=== PATIENT | female | born 1955 | race Caucasian/White ===

== ENCOUNTER 2016-05-07 08:59 | Inpatient (IN) | payer OTHER ==
[~2016-05-07] VITALS: Ht 144.8 cm; Wt 38.1 kg
[~2016-05-07 08:59] MED LIST: ACEPHEN650 M1 PR; ACETAMINOPHEN325 M2 PO; ALBUTEROL 3 ML3 ML INH; ALBUTEROL0.09 MG/A1 INH; ALBUTEROL2.5 MG/3 M INH/SOL; ALENDRONATE SOD70 M2 PO; ALPRAZOLAM0.25 MG PO; ALPRAZOLAM0.5 M4 PO; ALPRAZOLAM0.5 MG PO; ALPRAZOLAM1 MG PO; APRESOLINE50 MG PO; ASPIR 8181 MG PO; AUGMENTIN 875 M1 TAB PO; AUGMENTIN 875-1 EACH PO; AUGMENTIN 875875 MG PO; AZITHROMYCIN250 M1 PO; AZITHROMYCIN250 MG PO; BACITRACIN OINT30 GM EXT; BENZONATATE100 MG PO; BISACODYL10 M1 RC; CARAFATE 1GM1000 MG PO; CYCLOBENZAPRINE10 M1 PO; CYCLOBENZAPRINE10 M3 PO; DELTASONE20 MG PO; DELTASONE5 MG PO; DILAUDID2 M1 PO; DILAUDID2 MG PO; DILAUDID4 M1 PO; DOLOPHINE10 MG PO; FLEET ENEMA133 ML RC; FLEXERIL 10MG T10 MG PO; FLEXERIL 5MG TAB5 MG PO; FLEXERIL10 MG PO; GUAIFENESIN ER600 MG PO; HYDRALAZINE HCL10 M1 PO; HYDRALAZINE HCL50 MG PO; HYDRALAZINE HYD25 MG; HYDRALAZINE10 MG PO; HYDROMORPHONE HC2 MG PO; HYDROXYZINE50 MG PO; LIDOCAINE1 EACH TOP; LIDODERM 5% PAT1 PAT TOP; MAGNESIUM400 MG PO; MEDROL DOSEPAK1 PAC PO; MELATONIN3 M4 PO; METHADONE H5 MG/5 ML PO; METHADONE HYDROC5 MG PO; METHADONE10 MG/5 M2 PO; MILK OF MA400 MG/52 PO; MS CONTIN15 MG PO; MS CONTIN30 MG PO; MSIR PO; MUCUS RELIEF400 M1 PO; NASAL SPRAY44 ML NASB; NEURONTIN100 M1 PO; NORVASC 5MG TAB5 MG PO; NYSTATIN100000 U/M PO; OXYCODONE5 M1 PO; PANTOPRAZOLE SO40 MG PO; PERCOCET 10-321 EACH PO; PERCOCET 325 MG1 TA2 PO; PERCOCET 5-3251 EACH PO; PREDNICOT10 MG PO; PREDNICOT20 MG PO; PREDNISONE 10MG10 M1 PO; PREDNISONE 20MG20 MG PO; PREDNISONE10 M2 PO; PREDNISONE10 MG PO; PROAIR HFA0.09 MG/Ac INH; PROTONIX 40MG T40 MG PO; SOLU-MEDROL40 MG IV; SPIRIVA 18 MCG18 MCG INH; SYMBICORT 160/41 PUF INH; TRAMADOL50 MG PO; VALIUM2 MG PO; VALIUM5 M1 PO; VITAMIN D1000 IU PO; XANAX 0.5MG TA0.5 MG PO; XANAX0.25 M1 PO; XANAX0.5 M1 PO; XANAX0.5 MG PO; ZESTRIL40 MG PO; ZITHROMAX250 M2 PO; ZOFRAN ODT4 MG SL; ZOFRAN4 MG PO
--- NOTE | 2016-05-07 09:12 | ED DYSPNEA/ASTHMA COMPLAINT ---
History of Present Illness General Chief Complaint: Dyspnea (COPD, CHF, Other) Stated Complaint: SOB Source: patient, old records, EMS Exam Limitations: clinical condition Vital Signs & Intake/Output Vital Signs & Intake/Output Vital Signs Date Time Temp Pulse Resp B/P Pulse O2 O2 Flow FiO2 Ox Delivery Rate 05/07 1626 112 30 131/87 100 BIPAP 35% 05/07 1611 108 95 05/07 1600 102 96 05/07 1525 85 Nasal 5.0L Cannula 05/07 1524 99.0 110 28 96/48 84 Nasal 5.0L Cannula 05/07 1225 97.9 100 22 128/63 91 Nasal 4.0L Cannula 05/07 1105 92 Nasal 4.0L Cannula 05/07 1052 Nasal 4.0L Cannula 05/07 0923 100 Nasal 4.0L Cannula 05/07 0921 97.0 88 32 107/58 100 Nasal 4.0L Cannula Allergies Coded Allergies: cat dander (UNKNOWN REACTION TO 'PET HAIR/DANDER' 04/24/16) ipratropium (From ATROVENT) ("IT'S TOO MUCH DR TRUONG SAID" 04/24/16) Reconcile Medications Acetaminophen (Acephen) 650 MG SUPP.RECT 1 SUPP AL Q4H PRN PAIN/TEMP>100 ( Reported) Acetaminophen 325 MG TABLET 2 TAB PO Q4H PRN PAIN/TEMP>/100 (Reported) Albuterol Sulfate 2.5 MG/3 ML (0.083 %) VIAL.NEB 1 Vial INH/ANASTASIIA Q6H RESPIRATORY (Reported) Alendronate Sodium 70 MG TABLET 1 TAB PO QWED BONES (Reported) in the morning, at least 30 minutes before the first food, beverage, or medication of the day Alprazolam 0.5 MG TABLET 1 TAB PO Q6H PRN ANXIETY (Reported) Amlodipine (Norvasc 5MG Tab) 5 MG TABLET 1 TAB PO DAILY BLOOD PRESSURE Aspirin (Ecotrin) 81 MG TABLET.DR 1 TAB PO DAILY HEART Bisacodyl 10 MG SUPP.RECT 1 SUP RC PRN CONSTIPATION (Reported) Budesonide/Formoterol Fumara (Symbicort 160-4.5 Mcg Inhaler) 160 MCG/4.5 MCG PUF 2 PUF INH BID EMPHYSEMA Cyclobenzaprine HCl 10 MG TABLET 1 TAB PO TID PRN MUSCLE PAIN (Reported) Gabapentin (Neurontin) 100 MG CAPSULE 1 CAP PO DAILY PAIN (Reported) Guaifenesin (Mucinex) 600 MG TAB.ER.12H 1 TAB PO Q12H MUCUS (Reported) Hydralazine HCl 10 MG TABLET 1 TAB PO TID BP (Reported) Lidocaine 5 % ADH..PATCH 1 PAT TOP DAILY PRN PAIN (Reported) Magnesium Hydroxide (Milk Of Magnesia) 400 MG/5 ML ORAL.SUSP 30 ML PO DAILY PRN CONSTIPATION (Reported) Magnesium Oxide (Magnesium) 400 MG TABLET 1 TAB PO BID LOW MAG Melatonin 3 MG TABLET 1 TAB PO QHS INSOMNIA (Reported) Methadone HCl 10 MG/5 ML SOLUTION 57 MG PO DAILY MAINTENCE (Reported) Na Phos,M-B/Na Phos,Di-Ba (Fleet Enema) 19 GRAM-7 GRAM/118 ML ENEMA 1 E RC DAILY PRN CONSTIPATION (Reported) Pantoprazole Sodium (Protonix) 40 MG TAB 1 TAB PO DAILY GI (Reported) Prednisone 10 MG TABLET STEROID TAPER (Reported) Sodium Chloride (Nasal [place]) 0.65 % SPRAY 2 SPRAY NASB DAILY NASAL MOISTURIZING (Reported) Tiotropium [place] (Spiriva) 18 MCG CAP.W.DEV 1 CAP INH DAILY COPD Triage Nurses Notes Reviewed? yes Onset: Abrupt Duration: hour(s): (FEW) Timing: recent history Severity: severe Activities at Onset: none Associated Symptoms: DYSPNEA HPI: This is a 60-year-old female with history of COPD on O2 who presents via EMS from home for chief complaint of respiratory distress. They found her saturating 84% on 4 L nasal cannula. Prior to that she try to use her alveolar albuterol nebulizer 1. She was just discharged from [facility] yesterday for 2 weeks where she was getting pulmonary rehabilitation. She was on BiPAP at night. However yesterday when she was sent home there was no BiPAP set up for her at home. Patient given 2 DuoNeb and IV sign Medrol on route with some improvement. They state that she is looking less cyanotic and is starting herself a little bit less. She admits to coughing up yellow and green sputum. (FRANKY MIRELES,FLAVIA) Past History Medical History Any Pertinent Medical History? see below for history Neurological: NONE EENT: NONE Cardiovascular: hypertension Respiratory: COPD, emphysema, O2 DEPENDENT AT 4 LITERS Gastrointestinal: GERD, BOWEL RESECTION COLOSTOMY ischemic colitis Hepatic: NONE Renal: NONE Musculoskeletal: osteoporosis, PINS IN LEFT HIP Psychiatric: anxiety, methadone dependence Endocrine: NONE Blood Disorders: NONE Cancer(s): NONE TESTING SPECIALIST/Reproductive: NONE History of MRSA: Yes History of VRE: No History of CDIFF: No Surgical History Surgical History: colon resection, COLOSTOMY Psychosocial History Who do you live with Patient/Self Services at Home Home Health Aide, Nursing, Oxygen What is your primary language Mauritanian Family History Family History, If Any: MOTHER FH: coronary artery disease FH: diabetes mellitus BROTHER FH: diabetes mellitus FATHER FH: alcohol abuse Hx Contributory? No (FLAVIA WILKINS MD) Review of Systems Review of Systems Constitutional: Denies: chills, fever. EENTM: Reports: no symptoms. Respiratory: Reports: short of breath. Denies: cough. Cardiovascular: Denies: chest pain, palpitations, peripheral edema. GI: Denies: abdominal pain. Genitourinary: Reports: no symptoms. Musculoskeletal: Reports: no symptoms. Skin: Reports: no symptoms. Neurological/Psychological: Reports: no symptoms. Hematologic/Endocrine: Denies: bruising, bleeding, polyuria, polydipsia. Immunologic/Allergic: Denies: splenectomy. All Other Systems: Reviewed and Negative (FLAVIA WILKINS MD) Physical Exam Physical Exam General Appearance: alert, awake, anxious, moderate distress, thin Head: atraumatic Eyes: Bilateral: PERRL, EOMI. Ears, Nose, Throat: hearing grossly normal Neck: normal inspection, supple, full range of motion Respiratory: wheezing, respiratory distress Cardiovascular: regular rate/rhythm Peripheral Pulses: 2+ radial (R), 2+ radial (L) Neurologic/Psych: awake, alert, oriented x 3, ANXIOUS Core Measures ACS in differential dx? No Severe Sepsis Present: No Septic Shock Present: No (FLAVIA WILKINS MD) Progress Differential Diagnosis: COPD, pneumonia Plan of Care: Orders Procedure Date/time Status Nothing by Mouth 05/07 D Active Patient Data 05/07 1651 Active Admit to inpatient 05/07 1609 Active Admit to inpatient 05/07 1604 Active URINALYSIS 05/07 1602 Active Straight Cath 05/07 1601 Active BIPAP 05/07 1555 Complete ARTERIAL BLOOD GAS (GEN) 05/07 1555 Active BIPAP 05/07 1545 Complete Pathway - chart 05/07 1533 Active CIWA 05/07 1533 Active Vital Signs 05/07 1527 Active Code Status 05/07 1527 Active RT ED ORDERS 05/07 1501 Complete ARTERIAL BLOOD GAS (GEN) 05/07 1501 Complete LACTIC ACID 05/07 1212 Active RT ED ORDERS 05/07 1039 Complete Intake & Output 05/07 0920 Active LOWER RESPIRATORY CULTURE 05/07 0912 Active BLOOD CULTURE 05/07 0912 Active LACTIC ACID 05/07 0912 Complete EKG 05/07 0912 Active Telemetry/Roster Clerk 05/07 0911 Active TROPONIN LEVEL 05/07 0911 Complete COMPREHENSIVE METABOLIC PANEL 05/07 0911 Complete CBC WITHOUT DIFFERENTIAL 05/07 0911 Complete Current Medications Sig/Freddie Start time Last Medication Dose Stop Time Status Admin Lorazepam 1 MG Q12H 05/09 0000 UNVr (Ativan) 05/09 1201 Lorazepam 1.5 MG Q6 05/08 0600 UNVr (Ativan) 05/08 1801 Lorazepam 2 MG Q6 05/07 1800 UNVr (Ativan) 05/08 0001 Lorazepam 2 MG Q2P PRN 05/07 1545 UNVr (Ativan) Lorazepam 1 MG Q2P PRN 05/07 1545 UNVr (Ativan) Folic Acid 1 MG DAILY 05/07 1533 UNVr (Folic Acid) 05/09 1001 Multivitamins 1 TAB DAILY 05/07 1533 UNVr (Theragran Vitamins) Thiamine HCl 100 MG DAILY 05/07 1533 UNVr (Vitamin B1) 05/09 1001 Laboratory Tests 05/07/16 1705: pH 7.28 *L, pCO2 78 *H, pO2 94, HCO3 36 H, ABG O2 Sat (Measured) 95.0 L, Carboxyhemoglobin 1.0 L, O2 Concentration % 35%, Respiration Rate 28, O2 Delivery Method BIPAP, Vent Mode ST, Expiratory Pressure 6, Inspiratory Pressure 14, Phlebotomy Draw Site RIGHT RADIAL 05/07/16 1510: pH 7.21 *L, pCO2 93 *H, pO2 51 L, HCO3 37 H, ABG O2 Sat (Measured) 76.0 L, P- 50 (Temp Corrected) N, Carboxyhemoglobin 0.5 L, O2 Concentration % 5LPM, O2 Delivery Method NC, Phlebotomy Draw Site RIGHT BRACHIAL 05/07/16 0931: Lactic Acid 1.2 05/07/16930: Anion Gap 10, Estimated GFR 27 L, BUN/Creatinine Ratio 20.5, Glucose 95, Calcium 8.6, Total Bilirubin 0.9, AST 43 H, ALT 47, Alkaline Phosphatase 159 H , Troponin I < 0.01, Total Protein 6.6, Albumin 3.8, Globulin 2.8, Albumin/ Globulin Ratio 1.4, CBC w Diff MAN DIFF ORDERED, RBC 3.25 L, MCV 87.6, MCH 28.1 , RDW 18.1 H, MPV 5.7 L, Gran % 71.7, Lymphocytes % 16.5 L, Monocytes % 10.4 H, Eosinophils % 1.1, Basophils % 0.3, Absolute Granulocytes 13.4 H, Segmented Neutrophils 74, Band Neutrophils 1, Absolute Lymphocytes 3.1, Lymphocytes 20 L, Monocytes 5, Absolute Monocytes 1.9 H, Absolute Eosinophils 0.2, Absolute Basophils 0.1, Platelet Estimate VERIFIED BY SMEAR, Normocytic RBCs VERIFIED, Normochromic RBCs VERIFIED, PUBS MCHC 32.1 L Microbiology 05/07 930 BLOOD: Blood Culture - RECD 05/07 911 LOWER RESP: Respiratory Culture - ORD 05/07 911 LOWER RESP: Gram Stain - ORD 05/07 911 BLOOD: Blood Culture - ORD 2:45 PM Patient noted to be suddenly worse. Respiratory called for abg and albuterol nebulizer treatment. iv steroids ordered. 3 pm co2 93. bipap started. dr daisha reynoso. case management consulted. (FRANKY MIRELES,FLAVIA) Diagnostic Imaging: Viewed by Me: Radiology Read. Discussed w/RAD: Radiology Read. CXR Impression: EXAM TYPE: RAD - XRY-PORTABLE CHEST XRAY EXAMINATION: XR PORTABLE CHEST CLINICAL INFORMATION: Cough, dyspnea, hypoxia. COMPARISON: 2015 TECHNIQUE: Portable view of the chest was obtained. FINDINGS: Cardiac leads overlie the chest. The lungs are well expanded. Prominent interstitial markings are again noted bilaterally, similar to prior and likely chronic. No superimposed consolidation. No pneumothorax. The cardiomediastinal silhouette is unchanged. Multiple healed bilateral rib fractures noted. IMPRESSION: Chronic interstitial changes with no superimposed consolidation noted. Initial ED EKG: NSR Prior EKG: unchanged Rhythm Strip: normal sinus rhythm Hand-Off Endorsed To: PURNIMA RAMOS DO Endorsed Time: 1547 Pending: other (CASE MANAGEMENT/DR ASHTON) (FLAVIA WILKINS MD) Departure Departure Time of Disposition: 1531 Disposition: STILL A PATIENT Condition: Stable Clinical Impression Primary Impression: COPD exacerbation Secondary Impressions: ETHEL (acute kidney injury), Hypercapnic respiratory failure Referrals: DAISHA MIRELES,KANDY Calvillo (PCP/Family) Departure Forms: Customer Survey General Discharge Information Admission Note Documentation of Exam: Documentation of any treatments & extenuating circumstances including Concerns Regarding Discharge (functional status, medication knowledge or non-compliance, living conditions, etc.) that warrant an admission rather than observation: [ BIPAP, CONTINUOUS PULSE OX MONITORING, IV STEROIDS, TRC/NEBS,] (FLAVIA WILKINS MD) Admission Note Spoke With: DAISHA MIRELES,KANDY Calvillo Documentation of Exam: Documentation of any treatments & extenuating circumstances including Concerns Regarding Discharge (functional status, medication knowledge or non-compliance, living conditions, etc.) that warrant an admission rather than observation: 05/07/16 6 PM The patient has been admitted to the ICU. Arterial blood gases improving. She is being admitted for hypercarbic respiratory failure. (PURNIMA RAMOS DO) Critical Care Note Critical Care Note Critical Care Time: 30-74 min (FLAVIA WILKINS MD)
--- NOTE | 2016-05-07 09:18 | NUR ---
BIBA FROM HOME WITH WORSENING SOB. DC'D FROM PULMONARY REHAB YESTERDAY FROM [facility], WAS SUPPOSED TO BE ON BIPAP LAST NIGHT, BUT MACHINE WAS NOT DELIVERED. PER EMS: PT WAS DYSPNEAC WITH 02 SAT OF 77%. HAD 2 DUO NEBS TELECOM BILLING ANALYST. DENIES CHEST PAIN. EKG DONE ON ARRIVAL.
--- NOTE | 2016-05-07 09:36 | NUR ---
LAV,SST,BLUE,HATFIELD,PINK,AND GREEN TOP SENT AT THIS TIME.
--- NOTE | 2016-05-07 09:37 | NUR ---
FIRST SET OF BLOOD CULTURES SENT AT THIS TIME.
[2016-05-07 09:40] LABS: ABSOLUTE BASOPHIL COUNT 0.1 /CUMM (0.0-0.2); ABSOLUTE EOSINOPHIL COUNT 0.2 /CUMM (0.0-0.7); ABSOLUTE GRANULOCYTE CT 13.4 /CUMM (1.4-6.5); ABSOLUTE LYMPH COUNT 3.1 /CUMM (1.2-3.4); ABSOLUTE MONOCYTE COUNT 1.9 /CUMM (0.10-0.60); BASOPHIL % 0.3 % (0.0-2.0); EOSINOPHIL % 1.1 % (0-5); GRANULOCYTE % 71.7 % (42.2-75.2); HEMATOCRIT 28.4 % (37-47); MEAN CORPUSCULAR HGB 28.1 PG (27.0-31.0); MEAN CORPUSCULAR HGB CONC 32.1 G/DL (33.0-37.0); MEAN CORPUSCULAR VOLUME 87.6 FL (81.0-99.0); MEAN PLATELET VOLUME 5.7 FL (7.4-10.4); PLATELET COUNT 517 /CUMM (130-400); RBC DISTRIBUTION WIDTH 18.1 % (11.5-14.5); RED BLOOD CELL CT 3.25 /CUMM (4.20-5.40); WHITE BLOOD CELL COUNT 18.7 /CUMM (4.8-10.8)
--- NOTE | 2016-05-07 09:54 | NUR ---
05/07 CASE MGMT- CALL TO [facility] TOOK SEVERAL TIMES TO GET THROUGHT TO SPEAK WITH CORRECT NURSING SHOEMAKING FINISHER AND FINAL WAS ABLE TO SPEAK WITH ETHEL WHOM STATES THAT PT PACKED HER OWN THINGS UP AND THEY ARE NOT SURE IF PT WENT HOME WITH BIPAP OR IF ONE WAS GIVEN TO HER. PT WAS THERE FOR RESP THERAPY. SPOKE WITH PT AND SHE STATES THAT SHE HAS A BIPAP MACHINE IN HER CLOSET AT HOME BUT SHE HAS TO CALL J AND L TO HOOK IT BACK UP PROPERLY AND THAT IT IS BURIED IN HER CLOSET AND SHE CAN'T GET AT IT AT THIS TIME. PT STATES SHE ALSO FOR THE LAST 3 NIGHTS AT [facility] DIDN'T HAVE THE BIPAP ON BECASUE " I WAS SLEEPING AND THEY DIDN'T WAKE ME UP TO PUT IT ON AT NIGHT". PT WAS D/C FROM [facility] YESTERDAY. CASE MGMT WILL CONTINUE TO FOLLOW.
--- NOTE | 2016-05-07 10:03 | RADIOLOGY REPORT ---
EXAMINATION: XR PORTABLE CHEST CLINICAL INFORMATION: Cough, dyspnea, hypoxia. COMPARISON: 04/05/2016 TECHNIQUE: Portable view of the chest was obtained. FINDINGS: Cardiac leads overlie the chest. The lungs are well expanded. Prominent interstitial markings are again noted bilaterally, similar to prior and likely chronic. No superimposed consolidation. No pneumothorax. The cardiomediastinal silhouette is unchanged. Multiple healed bilateral rib fractures noted. IMPRESSION: Chronic interstitial changes with no superimposed consolidation noted.
--- NOTE | 2016-05-07 10:12 | NUR ---
05/07 CASE MGMT- SPOKE WITH TAMMY ZENG AT [facility] STATES WILL HAVE TO SPEAK WITH HER SENIOR INTERACTIVE DEVELOPER REGARDING TAKING PT BACK. CASE MGMT WILL CONTINUE TO FOLLOW.
--- NOTE | 2016-05-07 10:20 | NUR ---
05/07 CASE MGMT- SPOKE WITH PT AGAIN REGARDING FAMILY MEMBERS THAT CAN GET BIPAP FROM CLOSET- PT STATES THE BIPAP IS BURIED WAY BACK IN THE CLOSET WITH THINGS ON TOP OF IT AND THAT THERE IS NO ONE ABLE TO HELP HER SHE STATES "THERE IS NO WAY THAT AL CAN GET IT OUT OF THE CLOSET, THERE IS TOO MUCH ON TOP OF IT AND IT IS BURIED WAY IN BACK" PT ALSO STATING THAT "ALL OF HER CHILDREN LIVE TOO FAR AWAY OUT OF TOWN AND THEY CANT AND WONT COME TO HELP" " THEY DON'T HELP ME", SHE ALSO STATES HER SON CONSTANCE MOVES DOWN SOUTH AND HE ISNT AROUND TO HELP.
--- NOTE | 2016-05-07 10:26 | NUR ---
05/07 CASE MGMT- CALL FROM TAMMY AT [facility] STATES SHE CAN TAKE PT BUT WILL NEED MIMR, COMMON ADELINA AND W10. CASE MGMT WILL START PAPERWORK.
--- NOTE | 2016-05-07 11:37 | NUR ---
05/07 CASE MGMT- PT STILL ATTEMPTING TO GET AHOLD OF FAMILY MEMBERS TO GET BIPAP OUT OF CLOSET. CASE MGMT WILL CONTINUE TO FOLLOW.
--- NOTE | 2016-05-07 12:09 | NUR ---
ASSUMED CARE OF PT. SHE ARRIVED IN ROOM BY STRETCHER. STATES THAT SHE WAS IN RESPIRATORY REHAB UNTIL YESTERDAY. THIS MORNING SHE BECAME INCREASINGLY SOB WHILE ATTEMPTING TO GET DRESSED. STATES HER BIPAP IS PACKED AWAY IN HER CLOSET AND SHE HAS NO ASSISTANCE IN GETTING TO IT. DENIES ANY PAIN OR OTHER COMPLAINTS. VSS. NOTED TO BE HAVING DIFFICULTY WITH BREATHING. PT. IS CURRENTLY ON 4L OF O2. AWAITING FURTHER INFORMATION FROM CASE MANAGEMENT. WILL CONTINUE TO MONITOR.
--- NOTE | 2016-05-07 12:28 | NUR ---
05/07 CASE MGMT- PT WAS TRANSFERRED TO ANOTHER ROOM WITH NO PHONE- PT WAS GIVEN A CORDLESS PHONE TO USE FROM [employer] TO CALL FAMILY RELATIVES REGARDING CPAP IN CLOSET. FRANCINE RN AWARE PT HAS PHONE AND CALLING RELATIVES. TAMMY FROM [facility] CALLED AND STATED ALSO THAT THEY CAN'T TAKE PT TODAY UNLESS SHE TOOK HER METHADONE. PT STATES SHE DID NOT TAKE METHADONE TODAY. DR WILKINS IN ROOM WITH PT WHEN AVAILBALE WILL BE INFORMED. CASE MGMT WILL CONTINUE TO FOLLOW.
--- NOTE | 2016-05-07 13:34 | NUR ---
PT MEDICATED WITH 60 MG METHADONE PO ORDERED.
--- NOTE | 2016-05-07 15:21 | NUR ---
O2 SATS 82 TO 84% ON 5L O2 VIA N/C. PT APPEARS SLIGHTLY ALTERED DR WILKINS NOTIFIED. RESP THERAPIST CALLED TO ADMINISTER ALBUTEROL MED NEB TX AND PERFORM ABG.
--- NOTE | 2016-05-07 15:26 | NUR ---
RAMIREZ'S DONE. ALBUTEROL MED [facility] TX IN PROGRESS.
--- NOTE | 2016-05-07 15:45 | NUR ---
PT PLACED ON BIPAP BY RESP THERAPIST PT MEDICATED WITRH 125 MG SOLUMEDROL IV DIRECTED.
--- NOTE | 2016-05-07 17:14 | NUR ---
REPEAT ABG'S PERFORMED BY RESP THERAPIST. O2 SATS 97% AT PRESENT. PT AROUSABLE, ORIENTED X 2.
[2016-05-07] MEDS ORDERED: XANAX1 M1 PO (18:09)
[2016-05-07] MEDS ORDERED: AMLODIPINE BESY10 M1 PO (18:13)
[2016-05-07] MEDS ORDERED: MIRTAZAPINE15 M2 PO (18:13)
[2016-05-07] MEDS ORDERED: THEOPHYLLINE A200 MG PO (18:17)
[2016-05-07] MEDS ORDERED: PROAIR HFA8.5 GM INH (18:19)
--- NOTE | 2016-05-07 18:44 | NUR ---
RE-ASSESSMENT PERFORMED, O2 SATS 86% - 90 % PT REMAINS ON BIPAP / WITH RATE OF 32. CLINICAL STATUS REMAINS ESSENTIALLY UNCHANGED.
--- NOTE | 2016-05-07 19:11 | History & Physical ---
General Information and HPI Source of Information: patient, old records Exam Limitations: no limitations History of Present Illness: She is 60-year-old woman with past medical history of end-stage COPD, chronic hypercarbic respiratory failure on 4 L of oxygen at home, ischemic colitis status post ileostomy, chronic pain syndrome on methadone, anxiety, multiple falls, hypertension and osteoporosis. She was discharged from pulmonary [facility], yesterday. She was supposed to be on BiPAP last night but the machine was not set up at home. She was BIBA from home with worsening shortness of breath. When she came to ER her temperature was 97.0, heart rate 88, respiratory rate 32, blood pressure 107/58 and oxygen saturation 77% on 4 L of oxygen via nasal cannula. Oxygen requirement was increased to 5 L. Patient takes methadone for chronic pain syndrome. In ER she was given methadone 60 mg by mouth 1. After 1-2 hours patient was found unresponsive and she was desaturating to 82-84% on 5 L. Respiratory was called. Narcan was ordered but it was never given. ABGs were done that showed respiratory acidosis. PH 7.21, PCO2 93, bicarbonate 37. She was started on BiPAP right away. IPAP/APAP 14/6 with 35% oxygen. Repeat ABGs after 1-2 hours are improving. PH 7.28, PCO2 78, HCO3 36. In ER she was also given Solu-Medrol 125 mg IV 1. Upon my evaluation in ER she is alert awake and oriented. On BiPAP. Reports having cough that is chronic. According to her she is not able to bring up phlegm but feels congested. She is denying any fever, chills, chest pain or discomfort, dizziness or lightheadedness. She is feeling better. Complaining of mild abdominal pain but denies any nausea, vomiting. She has an ileostomy bag and stool in bag is watery greenish in color. She is currently nonsmoker. Allergies/Medications Allergies: Coded Allergies: cat dander (UNKNOWN REACTION TO 'PET HAIR/DANDER' 04/24/16) ipratropium (From ATROVENT) ("IT'S TOO MUCH DR TRUONG SAID" 04/24/16) Home Med list Acetaminophen 325 MG TABLET 2 TAB PO Q4H PRN PAIN/TEMP>/100 (Reported) Albuterol Sulfate (Proair Hfa) 90 MCG HFA.AER.AD 2 PUF INH Q4-6 PRN PRN SOB ( Reported) Alendronate Sodium 70 MG TABLET 1 TAB PO QWED BONES (Reported) in the morning, at least 30 minutes before the first food, beverage, or medication of the day Alprazolam (Xanax) 1 MG TABLET 1 TAB PO AT BED TIME ANXIETY (Reported) Amlodipine Besylate 10 MG TABLET 1 TAB PO DAILY HTN (Reported) Aspirin (Ecotrin) 81 MG TABLET.DR 1 TAB PO DAILY HEART Budesonide/Formoterol Fumara (Symbicort 160-4.5 Mcg Inhaler) 160 MCG/4.5 MCG PUF 2 PUF INH BID EMPHYSEMA Cyclobenzaprine HCl 10 MG TABLET 1 TAB PO TID PRN MUSCLE PAIN (Reported) Gabapentin (Neurontin) 100 MG CAPSULE 1 CAP PO DAILY PAIN (Reported) Guaifenesin (Mucinex) 600 MG TAB.ER.12H 1 TAB PO Q12H MUCUS (Reported) Hydralazine HCl 10 MG TABLET 1 TAB PO TID BP (Reported) Lidocaine 5 % ADH..PATCH 1 PAT TOP DAILY PRN PAIN (Reported) Magnesium Hydroxide (Milk Of Magnesia) 400 MG/5 ML ORAL.SUSP 30 ML PO DAILY PRN CONSTIPATION (Reported) Methadone HCl 10 MG/5 ML SOLUTION 57 MG PO DAILY MAINTENCE (Reported) Mirtazapine 15 MG TABLET 1 TAB PO QPM DEPRESSION (Reported) Prednisone 10 MG TABLET 1 TAB PO DAILY COPD (Reported) Sodium Chloride (Nasal [place]) 0.65 % SPRAY 2 SPRAY NASB DAILY NASAL MOISTURIZING (Reported) Theophylline Anhydrous 200 MG TAB.ER.12H 1 TAB PO DAILY COPD (Reported) Tiotropium [place] (Spiriva) 18 MCG CAP.W.DEV 1 CAP INH DAILY COPD Compliance With Home Meds: GOOD Past History Travel History Traveled to [place] past 21 day No Medical History Neurological: NONE EENT: NONE Cardiovascular: hypertension Respiratory: COPD, emphysema, O2 DEPENDENT AT 4 LITERS Gastrointestinal: GERD, BOWEL RESECTION COLOSTOMY ischemic colitis Hepatic: NONE Renal: NONE Musculoskeletal: osteoporosis, PINS IN LEFT HIP Psychiatric: anxiety, methadone dependence Endocrine: NONE Blood Disorders: NONE Cancer(s): NONE 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 IADLs Independent: finances, food prep, telephone. Needs Assist: shopping, housework, transportation, medication admin. Review of Systems Review of Systems Constitutional: Reports: see HPI. Exam & Diagnostic Data Last 24 Hrs of Vital Signs/I&O Vital Signs Date Time Temp Pulse Resp B/P Pulse O2 O2 Flow FiO2 Ox Delivery Rate 05/07 1835 98.9 109 32 136/72 86 BIPAP 35% 05/07 1626 112 30 131/87 100 BIPAP 35% 05/07 1611 108 95 05/07 1600 102 96 05/07 1525 85 Nasal 5.0L Cannula 05/07 1524 99.0 110 28 96/48 84 Nasal 5.0L Cannula 05/07 1225 97.9 100 22 128/63 91 Nasal 4.0L Cannula 05/07 1105 92 Nasal 4.0L Cannula 05/07 1052 Nasal 4.0L Cannula 05/07 0923 100 Nasal 4.0L Cannula 05/07 0921 97.0 88 32 107/58 100 Nasal 4.0L Cannula Intake & Output 05/07 1600 05/07 0800 05/07 0000 Intake Total 10 Output Total Balance 10 Intake, IV 10 Patient 105 lb Weight Physical Exam General Appearance Alert, Oriented X3, Cooperative, on bipap Skin No Rashes HEENT dry mucous membrane Neck Supple, No JVD Cardiovascular tacycardia Lungs decreased air entry B/L. no wheezing Abdomen firm, ileostomy bag in palce Neurological Normal Speech, Strength at 5/5 X4 Ext, Sensation Intact, Cranial Nerves 3-12 NL Extremities No Edema Last 24 Hrs of Labs/Merrill: Laboratory Tests 05/07/16 1705: pH 7.28 *L, pCO2 78 *H, pO2 94, HCO3 36 H, ABG O2 Sat (Measured) 95.0 L, Carboxyhemoglobin 1.0 L, O2 Concentration % 35%, Respiration Rate 28, O2 Delivery Method BIPAP, Vent Mode ST, Expiratory Pressure 6, Inspiratory Pressure 14, Phlebotomy Draw Site RIGHT RADIAL 05/07/16 1510: pH 7.21 *L, pCO2 93 *H, pO2 51 L, HCO3 37 H, ABG O2 Sat (Measured) 76.0 L, P- 50 (Temp Corrected) N, Carboxyhemoglobin 0.5 L, O2 Concentration % 5LPM, O2 Delivery Method NC, Phlebotomy Draw Site RIGHT BRACHIAL 05/07/16930: Lactic Acid 1.2 05/07/16930: Anion Gap 10, Estimated GFR 27 L, BUN/Creatinine Ratio 20.5, Glucose 95, Calcium 8.6, Total Bilirubin 0.9, AST 43 H, ALT 47, Alkaline Phosphatase 159 H , Troponin I < 0.01, Total Protein 6.6, Albumin 3.8, Globulin 2.8, Albumin/ Globulin Ratio 1.4, CBC w Diff MAN DIFF ORDERED, RBC 3.25 L, MCV 87.6, MCH 28.1 , RDW 18.1 H, MPV 5.7 L, Gran % 71.7, Lymphocytes % 16.5 L, Monocytes % 10.4 H, Eosinophils % 1.1, Basophils % 0.3, Absolute Granulocytes 13.4 H, Segmented Neutrophils 74, Band Neutrophils 1, Absolute Lymphocytes 3.1, Lymphocytes 20 L, Monocytes 5, Absolute Monocytes 1.9 H, Absolute Eosinophils 0.2, Absolute Basophils 0.1, Platelet Estimate VERIFIED BY SMEAR, Normocytic RBCs VERIFIED, Normochromic RBCs VERIFIED, PUBS MCHC 32.1 L Microbiology 05/07 930 BLOOD: Blood Culture - RECD 05/07 911 LOWER RESP: Respiratory Culture - ORD 05/07 911 LOWER RESP: Gram Stain - ORD 05/07 911 BLOOD: Blood Culture - ORD Diagnostic Data EKG Results Normal sinus rhythm Heartrate [address]-T wave changes QTc 446 CXR Results Cardiac leads overlie the chest. The lungs are well expanded. Prominent interstitial markings are again noted bilaterally, similar to prior and likely chronic. No superimposed consolidation. No pneumothorax. The cardiomediastinal silhouette is unchanged. Multiple healed bilateral rib fractures noted. Assessment/Plan Assessment: She is 60-year-old woman with past medical history of end-stage COPD, chronic hypercarbic respiratory failure on 4 L of oxygen at home, ischemic colitis status post ileostomy, chronic pain syndrome on methadone, anxiety, multiple falls, hypertension and osteoporosis is going to be admitted in critical care unit for: 1. Acute on chronic hypercarbic respiratory failure secondary to COPD exacerbation. On BiPAP right now (BiPAP settings are 16/6 on 30% oxygen). ABGs improving. 2. Leukocytosis most likely secondary to being on chronic steroid therapy. She is on 10 mg of prednisone daily at home. Afebrile. Lactic acid normal. 3. Acute kidney injury. BUN 39 and creatinine 1.9. 4. History of hypertension 5. History of chronic pain syndrome on methadone 6. History of anxiety and depression 7. Normocytic anemia. Hemoglobin is at baseline We will continue BiPAP. Discussed with Dr. Tovar. New BiPAP settings are 16/6 and we will repeat ABGs in 2-3 hours. Will keep oxygen saturation more than 92% . Will continue IV steroids. Follow-up sputum cultures. Continue TRC nebs. We will continue gentle hydration for now. Repeat kidney functions in a.m. Will avoid nephrotoxins and NSAIDs. Will hold her antihypertensives, amlodipine and hydralazine for now. Can restart if blood pressure rises. Will continue her other scheduled medications. Will follow further pulmonology recommendations. Subcutaneous heparin for DVT prophylaxis. Pain management pathway. DNR/DNI. Health proxy: Moses [phone] As Ranked By This Provider Problem List: 1. Hypercapnic respiratory failure Core Measures/Miscellaneous Acute Coronary Syndrome ACS Diagnosis: No Cerebrovascular Accident CVA/TIA Diagnosis: No Congestive Heart Failure CHF Diagnosis: No Venous Thromboembolism VTE Risk Factors: Acute medical illness, Age > 40 VTE Prophylaxis Ordered Inpt: Pharm- Heparin [facility] VTE prophylaxis d/t: No contraindications No VTE Pharm Prophylaxis d/t: No contraindications VTE Diagnosis: No VTE Type: NONE VTE Confirmed by (Test): NONE Severe Sepsis Severe Sepsis Present: No Septic Shock Septic Shock Present: No Miscellaneous Documentation Attending Case Discussed With: KANDY ASHTON MD Primary Care Physician: KANDY ASHTON MD Patient sees these Specialists [facility] in [place] Level of Patient Care: Critical Care (CRI) Consults Needed: Consulting Specialty: Pulmonary Disease
[2016-05-07 20:48] VITALS: BP 119/63
--- NOTE | 2016-05-07 21:00 | Event Note ---
Event Note Event Note: I was called by ER that patient is barely breathing and unresponsive. ER nurse reported that she caught her taking her home medications that she is carrying with her. It was resumed that she might have taken her Xanax or Flexeril. She was given IV Narcan immediately. After giving Narcan she became responsive. Upon my evaluation she was alert and awake and oriented. She was saturating 99% on 35% BiPAP. BiPAP settings are 16/6. Respiratory rate is 35. All her home meds were taken from her and sent to pharmacy.
--- NOTE | 2016-05-07 21:59 | NUR ---
O2 SATS 72%. ICU RESIDENT CALLED. PT HYPOVENTILATING. RESP THERAPIST CALLED. PT MEDICATED DIRECTED BY ICU RESIDENT TO MEDICATE PT WITH 0.4 MG NARCAN IV
[2016-05-07 22:16] VITALS: BP 176/87
[2016-05-07 22:52] VITALS: BP 176/87
--- NOTE | 2016-05-08 | NUR ---
ASSUMED CARE OF PT PT ALERT ON BIPAP AT 35% O2 SAT 92-94 % MONITOR SR STEWARD DRAINING CLEAR URINE
--- NOTE | 2016-05-08 04:00 | NUR ---
REMAINS ON 35% 02 BIPAP RATE 30 RESPONDS TO TACTILE STIMULATION
[2016-05-08 05:55] LABS: ABSOLUTE BASOPHIL COUNT 0 /CUMM (0.0-0.2); ABSOLUTE EOSINOPHIL COUNT 0 /CUMM (0.0-0.7); ABSOLUTE GRANULOCYTE CT 13.9 /CUMM (1.4-6.5); ABSOLUTE LYMPH COUNT 0.5 /CUMM (1.2-3.4); ABSOLUTE MONOCYTE COUNT 0.3 /CUMM (0.10-0.60); BASOPHIL % 0 % (0.0-2.0); EOSINOPHIL % 0 % (0-5); GRANULOCYTE % 94.5 % (42.2-75.2); HEMATOCRIT 26.4 % (37-47); MEAN CORPUSCULAR HGB 28.2 PG (27.0-31.0); MEAN CORPUSCULAR HGB CONC 32.2 G/DL (33.0-37.0); MEAN CORPUSCULAR VOLUME 87.6 FL (81.0-99.0); MEAN PLATELET VOLUME 5.8 FL (7.4-10.4); PLATELET COUNT 378 /CUMM (130-400); RBC DISTRIBUTION WIDTH 18.3 % (11.5-14.5); RED BLOOD CELL CT 3.01 /CUMM (4.20-5.40); WHITE BLOOD CELL COUNT 14.7 /CUMM (4.8-10.8)
--- NOTE | 2016-05-08 07:39 | Admission Certification ---
Admission Certification Certification Statement - As attending physician, I certify that at the time of - admission, based on clinical presentation, severity of - symptoms, need for further diagnostic testing and - therapeutic interventions, and risk of adverse outcomes - without in-hospital treatment, in my clinical assessment, - this patient requires an acute hospital stay for a minimum - of two nights or longer. I have also considered psychsocial - factors such as support system, advanced age, financial - issues, cognitive issues, and failed out-patient treatments, - past re-admission history, safety of patient, and lack of - compliance as applicable. Specific rationale supporting this admission is: Admitted to the hospital for hypercarbic respiratory failure one of multiple admissions. History of long-standing COPD
--- NOTE | 2016-05-08 07:43 | PN- Att Addend ---
Attending Addendum Attending Brief Note Intake & Output 05/08 0805/08 0000 05/07 1600 Intake Total 10 Output Total Balance 10 Intake, IV 10 Patient 84 lb 15.99 oz 105 lb Weight Current Medications Sig/Freddie Start time Last Medication Dose Route Stop Time Status Admin Acetaminophen 650 MG Q6P PRN 05/07 2014 AC PO Albuterol Sulfate 3 ML EVERY 4 HRS/AWAKE 05/08 0800 AC INH Albuterol Sulfate 3 ML ONCE ONE 05/07 1515 DC 05/07 INH 05/07 1516 1515 Albuterol Sulfate 3 ML ONCE ONE 05/07 1045 DC 05/07 INH 05/07 1046 1048 Alprazolam 1 MG AT BEDTIME 05/07 2200 AC PO 05/14 2159 Aspirin Buffered 81 MG DAILY 05/08 1000 AC PO Azithromycin 500 MG 0600 05/08 0600 AC Sodium Chloride 250 ML IV Azithromycin 500 MG DAILY 05/08 0045 DC Sodium Chloride 250 ML IV Budesonide/ 2 PUF BID 05/07 2200 AC Formoterol Fumarate INH Dextrose/Sodium 1,000 ML Q13H 05/07 1900 AC 05/07 Chloride IV 05/08 0759 1910 Folic Acid 1 MG DAILY 05/07 1533 DC PO 05/09 1001 Gabapentin 100 MG DAILY 05/08 1000 AC PO Guaifenesin 600 MG Q12H 05/07 1900 AC PO Heparin Sodium 0 .STK-MED ONE 05/08 0531 DC (Porcine) .ROUTE Heparin Sodium 0 .STK-MED ONE 05/07 2258 DC (Porcine) .ROUTE Heparin Sodium 5,000 UNIT Q8 05/07 2200 AC 05/08 (Porcine) SC 0543 Lidocaine 1 PAT DAILY PRN 05/07 1900 AC EXT Lorazepam 1 MG Q12H 05/09 0000 DC PO 05/09 1201 Lorazepam 1.5 MG Q6 05/08 0600 DC PO 05/08 1801 Lorazepam 2 MG Q6 05/07 1800 DC PO 05/08 0001 Lorazepam 2 MG ONCE ONE 05/07 1545 CAN PO 05/07 1546 Lorazepam 2 MG Q2P PRN 05/07 1545 DC PO Lorazepam 1 MG Q2P PRN 05/07 1545 DC PO Methadone HCl 55 MG DAILY 05/08 1000 AC PO Methadone HCl 0 .STK-MED ONE 05/07 1324 DC PO Methadone HCl 60 MG ONCE ONE 05/07 1315 DC 05/07 PO 05/07 1316 1330 Methylprednisolone 40 MG Q6 05/08 0600 AC 05/08 IV 0544 Methylprednisolone 0 .STK-MED ONE 05/08 0533 DC .ROUTE Methylprednisolone 0 .STK-MED ONE 05/07 1540 DC .ROUTE Methylprednisolone 125 MG ONCE ONE 05/07 1515 DC 05/07 IV 05/07 1516 1547 Mirtazapine 15 MG QPM 05/07 2200 AC PO Multivitamins 1 TAB DAILY 05/07 1533 DC PO Naloxone HCl 0.4 MG ONCE ONE 05/07 2200 DC 05/07 IV 05/07 2201 2159 Naloxone HCl 0 .STK-MED ONE 05/07 2151 DC .ROUTE Naloxone HCl 0.4 MG ONCE ONE 05/07 1615 DC IV 05/07 1616 Naloxone HCl 0 .STK-MED ONE 05/07 1602 DC .ROUTE Naloxone HCl 0.4 MG ONCE ONE 05/07 1600 DC 05/07 IV 05/07 1601 1626 Ondansetron HCl 4 MG ONCE ONE 05/07 1615 DC 05/07 IV 05/07 1616 1626 Ondansetron HCl 0 .STK-MED ONE 05/07 1608 DC .ROUTE Sodium Chloride 2 SPRAY DAILY 05/08 1000 AC NAYELI Sodium Chloride 500 ML BOLUS ONE 05/07 1030 DC 05/07 IV 05/07 1129 1117 Thiamine HCl 100 MG DAILY 05/07 1533 DC PO 05/09 1001 Tiotropium [place] 1 PUF DAILY 05/08 1000 AC INH Laboratory Tests 05/08 05/07 0520 2250 Chemistry Sodium (137 - 145 mmol/L) 137 Potassium (3.5 - 5.1 mmol/L) 5.6 H Chloride (98 - 107 mmol/L) 89 L Carbon Dioxide (22 - 30 mmol/L) 45 H Anion Gap (5 - 16) 3 L BUN (7 - 17 mg/dL) 28 H Creatinine (0.5 - 1.0 mg/dL) 0.9 Estimated GFR (>60 ml/min) > 60 BUN/Creatinine Ratio (7 - 25 %) 31.1 H Glucose (65 - 99 mg/dL) 141 H Calcium (8.4 - 10.2 mg/dL) 8.0 L Total Bilirubin (0.2 - 1.3 mg/dL) 0.5 AST (14 - 36 U/L) 28 ALT (9 - 52 U/L) 44 Alkaline Phosphatase (<127 U/L) 152 H Total Protein (6.3 - 8.2 g/dL) 6.3 Albumin (3.5 - 5.0 g/dL) 3.6 Globulin (1.9 - 4.2 gm/dL) 2.7 Albumin/Globulin Ratio (1.1 - 2.2 %) 1.3 Hematology CBC w Diff MAN DIFF ORDERED WBC (4.8 - 10.8 /CUMM) 14.7 H RBC (4.20 - 5.40 /CUMM) 3.01 L Hgb (12.0 - 16.0 G/DL) 8.5 L Hct (37 - 47 %) 26.4 L MCV (81.0 - 99.0 FL) 87.6 MCH (27.0 - 31.0 PG) 28.2 RDW (11.5 - 14.5 %) 18.3 H Plt Count (130 - 400 /CUMM) 378 MPV (7.4 - 10.4 FL) 5.8 L Gran % (42.2 - 75.2 %) 94.5 H Lymphocytes % (20.5 - 51.1 %) 3.7 L Monocytes % (1.7 - 9.3 %) 1.8 Eosinophils % (0 - 5 %) 0 Basophils % (0.0 - 2.0 %) 0 L Absolute Granulocytes (1.4 - 6.5 /CUMM) 13.9 H Segmented Neutrophils (42.2 - 75.2 %) 90 H Band Neutrophils (0.0 - 5.0 %) 1 Absolute Lymphocytes (1.2 - 3.4 /CUMM) 0.5 L Lymphocytes (20.5 - 51.1 %) 8 L Monocytes (1.7 - 9.3 %) 1 L Absolute Monocytes (0.10 - 0.60 /CUMM) 0.3 Absolute Eosinophils (0.0 - 0.7 /CUMM) 0 Absolute Basophils (0.0 - 0.2 /CUMM) 0 Platelet Estimate (ADEQUATE) ADEQUATE Polychromasia 1+ Hypochromic-Microcytic 1+ Poikilocytosis 2+ Ovalocytes 1+ Stomatocytes 1+ PUBS MCHC (33.0 - 37.0 G/DL) 32.2 L Other Body Source Fld Total RBCs Counted (%) 100 Urines Urine Color (YEL,AMB,STR) YEL Urine Clarity (CLEAR) CLEAR Urine pH (5.0 - 8.0) 6.0 Ur Specific [place] (1.001 - 1.035) 1.025 Urine Protein (NEG,<30 MG/DL) NEG Urine Ketones (NEG) NEG Urine Nitrite (NEG) NEG Urine Bilirubin (NEG) NEG Urine Urobilinogen (0.1 - 1.0 EU/dl) 0.2 Ur Leukocyte Esterase (NEG) NEG Ur Microscopic EXAM NOT REQUIRED Urine Hemoglobin (NEG) NEG Urine Glucose (N MG/DL) NEG 05/07 05/07 05/07 2210 1705 1510 Blood Gas pH (7.35 - 7.45 PH) 7.38 7.28 *L 7.21 *L pCO2 (35 - 45 TORR) 60 *H 78 *H 93 *H pO2 (80 - 100 TORR) 79 L 94 51 L HCO3 (21 - 28 MEQ/L) 35 H 36 H 37 H ABG O2 Sat (Measured) (>96.0 %) 95.0 L 95.0 L 76.0 L P-50 (Temp Corrected) N N Carboxyhemoglobin (1.5 - 5.0 %) 0.3 L 1.0 L 0.5 L O2 Concentration % 35% 35% 5LPM Temperature (97.0 - 100.0 FARH) 97.4 Respiration Rate (BPM) 30 28 O2 Delivery Method BIPAP BIPAP NC Vent Mode ST ST Expiratory Pressure (CM H2O P) 6 6 Inspiratory Pressure (CM H2O P) 16 14 Miscellaneous Phlebotomy Draw Site RIGHT BRACHIAL RIGHT RADIAL RIGHT BRACHIAL 05/07 05/07 05/07 1212 0931 0931 Chemistry Sodium (137 - 145 mmol/L) 137 Potassium (3.5 - 5.1 mmol/L) 4.2 Chloride (98 - 107 mmol/L) 89 L Carbon Dioxide (22 - 30 mmol/L) 38 H Anion Gap (5 - 16) 10 BUN (7 - 17 mg/dL) 39 H Creatinine (0.5 - 1.0 mg/dL) 1.9 H Estimated GFR (>60 ml/min) 27 L BUN/Creatinine Ratio (7 - 25 %) 20.5 Glucose (65 - 99 mg/dL) 95 Lactic Acid (0.7 - 2.1 mmol/L) Cancelled 1.2 Calcium (8.4 - 10.2 mg/dL) 8.6 Total Bilirubin (0.2 - 1.3 mg/dL) 0.9 AST (14 - 36 U/L) 43 H ALT (9 - 52 U/L) 47 Alkaline Phosphatase (<127 U/L) 159 H Troponin I (< 0.11 ng/ml) < 0.01 Total Protein (6.3 - 8.2 g/dL) 6.6 Albumin (3.5 - 5.0 g/dL) 3.8 Globulin (1.9 - 4.2 gm/dL) 2.8 Albumin/Globulin Ratio (1.1 - 2.2 %) 1.4 Hematology CBC w Diff MAN DIFF ORDERED WBC (4.8 - 10.8 /CUMM) 18.7 H RBC (4.20 - 5.40 /CUMM) 3.25 L Hgb (12.0 - 16.0 G/DL) 9.1 L Hct (37 - 47 %) 28.4 L MCV (81.0 - 99.0 FL) 87.6 MCH (27.0 - 31.0 PG) 28.1 RDW (11.5 - 14.5 %) 18.1 H Plt Count (130 - 400 /CUMM) 517 H MPV (7.4 - 10.4 FL) 5.7 L Gran % (42.2 - 75.2 %) 71.7 Lymphocytes % (20.5 - 51.1 %) 16.5 L Monocytes % (1.7 - 9.3 %) 10.4 H Eosinophils % (0 - 5 %) 1.1 Basophils % (0.0 - 2.0 %) 0.3 Absolute Granulocytes (1.4 - 6.5 /CUMM) 13.4 H Segmented Neutrophils (42.2 - 75.2 %) 74 Band Neutrophils (0.0 - 5.0 %) 1 Absolute Lymphocytes (1.2 - 3.4 /CUMM) 3.1 Lymphocytes (20.5 - 51.1 %) 20 L Monocytes (1.7 - 9.3 %) 5 Absolute Monocytes (0.10 - 0.60 /CUMM) 1.9 H Absolute Eosinophils (0.0 - 0.7 /CUMM) 0.2 Absolute Basophils (0.0 - 0.2 /CUMM) 0.1 Platelet Estimate (ADEQUATE) VERIFIED BY SMEAR Normocytic RBCs VERIFIED Normochromic RBCs VERIFIED PUBS MCHC (33.0 - 37.0 G/DL) 32.1 L Microbiology Date/Time Procedure - Status Source Growth 05/07 2249 Urine Culture - RECD URINE ROUT 05/07 930 Blood Culture - RECD BLOOD 05/07 911 Respiratory Culture - COLB LOWER RESP 05/07 911 Gram Stain - COLB LOWER RESP 05/07 911 Blood Culture - COLB BLOOD Vital Signs Date Time Temp Pulse Resp B/P Pulse O2 O2 Flow FiO2 Ox Delivery Rate 05/08 0657 96.1 100 30 121/66 96 BIPAP 35% 05/08 0656 99 30 132/67 94 BIPAP 35% 05/08 0648 98 95 05/08 0407 99 30 132/64 94 BIPAP 35% 05/08 0300 99 30 140/67 95 BIPAP 35% 05/08 0256 103 95 05/08 0200 98 20 133/63 92 BIPAP 35% 05/08 0100 99 30 128/60 94 BIPAP 35% 05/08 0018 106 92 /05 0000 98.5 112 30 118/75 92 BIPAP 35% 05/07 2354 BIPAP 35% 05/07 2252 100.1 110 34 176/87 05/07 2247 99 BIPAP 35% 05/07 2219 103 99 05/07 2216 100.1 108 34 176/87 99 BIPAP 35% 05/07 2212 100.1 108 34 176/87 100 BIPAP 35% 05/078 97.4 92 32 119/63 92 BIPAP 35% 05/07 2034 97.4 92 32 119/63 92 BIPAP 35% 05/07 1958 96 90 05/07 1835 98.9 109 32 136/72 86 BIPAP 35% 05/07 1626 112 30 131/87 100 BIPAP 35% 05/07 1611 108 95 04 1600 102 96 05/07 1525 85 Nasal 5.0L Cannula 05/07 1524 99.0 110 28 96/48 84 Nasal 5.0L Cannula 05/07 1225 97.9 100 22 128/63 91 Nasal 4.0L Cannula 05/07 1105 92 Nasal 4.0L Cannula 01/04 1052 Nasal 4.0L Cannula 05/07 0923 100 Nasal 4.0L Cannula 05/07 0921 97.0 88 32 107/58 100 Nasal 4.0L Cannula Intake & Output 05/08 0800 05/08 0000 05/07 1600 Intake Total 10 Output Total Balance 10 Intake, IV 10 Patient 84 lb 15.99 oz 105 lb Weight Attending note. 60-year-old lady with a long-standing history of end-stage COPD and chronic hypercarbic respiratory failure on oxygen at home with her history of multiple other syndromes like chronic pain syndrome on methadone anxiety multiple falls hypertension osteoporosis brought into the hospital for shortness of breath. In the ER she was given methadone 60 mg by mouth 1 was later she became unresponsive with a desaturation of 82% on 5 L She responded to BiPAP On examination patient is awake alert in moderate amount of pain and anxiety. Neck is supple JVD is not raised S1-S2 is normal Lungs shows bilateral expiratory wheezing and expiration is markedly diminished in both lungs. Abdomen is soft with ileostomy in place. Extremities no edema but deconditioning with muscular's muscular skeletal assessment negative chronic hypercarbic respiratory failure secondary to convey to him methadone ingestion on BiPAP pressure markedly improving. Give the patient IV steroids get a pulmonary consult questionable of pressure using antibiotics discussed with the plant machinist.
--- NOTE | 2016-05-08 07:53 | NUR ---
RT AT BEDSIDE FOR NEB TX, ZITHROMAX INFUSING HUNG BY PREVIOUS RN SIGNED OFF BY THIS RN. PT IS AWAKE, TOLERATING BIPAP. WILL CTM
--- NOTE | 2016-05-08 07:59 | NUR ---
DR ASHTON AT BEDSIDE FOR EVALUATION
--- NOTE | 2016-05-08 08:59 | Cons- Pulmonary ---
General Information and HPI Consulting Request Date of Consult: 05/08/16 Requested By: carlos alberto Reason for Consult: Acute on chronic hypercapnic respiratory failure History of Present Illness: Patient is 60-year-old with end-stage oxygen-dependent COPD chronic pain syndrome admitted with acute on chronic hypercapnic respiratory failure likely is a combination of COPD exacerbation and narcotic intoxication. Patient was hypercarbic and acidotic and was started on BiPAP. She responded to Narcan after having received methadone. She is awake alert on BiPAP with PCO2 close to baseline. Allergies/Medications Allergies: Coded Allergies: cat dander (UNKNOWN REACTION TO 'PET HAIR/DANDER' 04/24/16) ipratropium (From [facility]) ("IT'S TOO MUCH DR TRUONG SAID" 04/24/16) Home Med List: Acetaminophen 325 MG TABLET 2 TAB PO Q4H PRN PAIN/TEMP>/100 (Reported) Albuterol Sulfate (Proair Hfa) 90 MCG HFA.AER.AD 2 PUF INH Q4-6 PRN PRN SOB ( Reported) Alendronate Sodium 70 MG TABLET 1 TAB PO QWED BONES (Reported) in the morning, at least 30 minutes before the first food, beverage, or medication of the day Alprazolam (Xanax) 1 MG TABLET 1 TAB PO AT BED TIME ANXIETY (Reported) Amlodipine Besylate 10 MG TABLET 1 TAB PO DAILY HTN (Reported) Aspirin (Ecotrin) 81 MG TABLET.DR 1 TAB PO DAILY HEART Budesonide/Formoterol Fumara (Symbicort 160-4.5 Mcg Inhaler) 160 MCG/4.5 MCG PUF 2 PUF INH BID EMPHYSEMA Cyclobenzaprine HCl 10 MG TABLET 1 TAB PO TID PRN MUSCLE PAIN (Reported) Gabapentin (Neurontin) 100 MG CAPSULE 1 CAP PO DAILY PAIN (Reported) Guaifenesin (Mucinex) 600 MG TAB.ER.12H 1 TAB PO Q12H MUCUS (Reported) Hydralazine HCl 10 MG TABLET 1 TAB PO TID BP (Reported) Lidocaine 5 % ADH..PATCH 1 PAT TOP DAILY PRN PAIN (Reported) Magnesium Hydroxide (Milk Of Magnesia) 400 MG/5 ML ORAL.SUSP 30 ML PO DAILY PRN CONSTIPATION (Reported) Methadone HCl 10 MG/5 ML SOLUTION 57 MG PO DAILY MAINTENCE (Reported) Mirtazapine 15 MG TABLET 1 TAB PO QPM DEPRESSION (Reported) Prednisone 10 MG TABLET 1 TAB PO DAILY COPD (Reported) Sodium Chloride (Nasal [place]) 0.65 % SPRAY 2 SPRAY NASB DAILY NASAL MOISTURIZING (Reported) Theophylline Anhydrous 200 MG TAB.ER.12H 1 TAB PO DAILY COPD (Reported) Tiotropium [place] (Spiriva) 18 MCG CAP.W.DEV 1 CAP INH DAILY COPD Review of Systems Review of Systems Constitutional: Denies: chills, diaphoresis, fever. Cardiovascular: Denies: chest pain. Respiratory: Reports: short of breath. Denies: cough, hemoptysis. GI: Denies: abdominal pain, diarrhea. 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 Home Services at Home: Home Health Aide, Nursing, Oxygen Smoking Status: Former Smoker ETOH Use: denies use Functional Ability ADLs Independent: dressing, eating, toileting, bathing. IADLs Independent: finances, food prep, telephone. Needs Assist: shopping, housework, transportation, medication admin. Exam & Diagnostic Data Last 24 Hrs of Vital Signs/I&O Vital Signs Date Time Temp Pulse Resp B/P Pulse O2 O2 Flow FiO2 Ox Delivery Rate 05/08 656 96.1 100 30 121/66 96 BIPAP 35% 05/08 0656 99 30 132/67 94 BIPAP 35% 05/08 0648 98 95 05/08 0407 99 30 132/64 94 BIPAP 35% 05/08 0300 99 30 140/67 95 BIPAP 35% 05/08 0256 103 95 05/08 0200 98 20 133/63 92 BIPAP 35% 05/08 0100 99 30 128/60 94 BIPAP 35% 05/08 0018 106 92 05/08 0000 98.5 112 30 118/75 92 BIPAP 35% 05/07 2354 BIPAP 35% 05/07 2252 100.1 110 34 176/87 05/07 2247 99 BIPAP 35% 05/07 2219 103 99 05/07 2216 100.1 108 34 176/87 99 BIPAP 35% 05/07 2212 100.1 108 34 176/87 100 BIPAP 35% 05/07 2048 97.4 92 32 119/63 92 BIPAP 35% 05/07 2035 97.4 92 32 119/63 92 BIPAP 35% 05/07 1958 96 90 05/07 1835 98.9 109 32 136/72 86 BIPAP 35% 05/07 1626 112 30 131/87 100 BIPAP 35% 05/07 1611 108 95 05/07 1600 102 96 05/07 1525 85 Nasal 5.0L Cannula 05/07 1524 99.0 110 28 96/48 84 Nasal 5.0L Cannula 05/07 1225 97.9 100 22 128/63 91 Nasal 4.0L Cannula 05/07 1105 92 Nasal 4.0L Cannula 05/07 1052 Nasal 4.0L Cannula 05/07 0923 100 Nasal 4.0L Cannula 05/07 0921 97.0 88 32 107/58 100 Nasal 4.0L Cannula Intake & Output 05/08 1600 05/08 0800 05/08 0000 Intake Total Output Total Balance Patient 84 lb 15.99 oz Weight Patient is awake alert on BiPAP pupils are not constricted HEENT exam shows no adenopathy exam for chest shows diminished breath sounds are no wheezes cardiac exam shows regular S1 and S2 without murmurs abdominal exam shows a functioning colostomy she is nontender she has no edema chest x-ray is without acute infiltrates Last 48 Hrs of Labs/Merrill: Laboratory Tests 05/08/16 0520: Anion Gap 3 L, Estimated GFR > 60, BUN/Creatinine Ratio 31.1 H, Glucose 141 H , Calcium 8.0 L, Total Bilirubin 0.5, AST 28, ALT 44, Alkaline Phosphatase 152 H, Total Protein 6.3, Albumin 3.6, Globulin 2.7, Albumin/Globulin Ratio 1.3, CBC w Diff MAN DIFF ORDERED, RBC 3.01 L, MCV 87.6, MCH 28.2, RDW 18.3 H, MPV 5.8 L, Gran % 94.5 H, Lymphocytes % 3.7 L, Monocytes % 1.8, Eosinophils % 0, Basophils % 0 L, Absolute Granulocytes 13.9 H, Segmented Neutrophils 90 H, Band Neutrophils 1, Absolute Lymphocytes 0.5 L, Lymphocytes 8 L, Monocytes 1 L, Absolute Monocytes 0.3, Absolute Eosinophils 0, Absolute Basophils 0, Platelet Estimate ADEQUATE, Polychromasia 1+, Hypochromic-Microcytic 1+, Poikilocytosis 2+, Ovalocytes 1+, Stomatocytes 1+, PUBS MCHC 32.2 L, Fld Total RBCs Counted 100 05/07/16 2250: Urine Color YEL, Urine Clarity CLEAR, Urine pH 6.0, Ur Specific [place] 1.025, Urine Protein NEG, Urine Ketones NEG, Urine Nitrite NEG, Urine Bilirubin NEG, Urine Urobilinogen 0.2, Ur Leukocyte Esterase NEG, Ur Microscopic EXAM NOT REQUIRED, Urine Hemoglobin NEG, Urine Glucose NEG 05/07/16 2210: pH 7.38, pCO2 60 *H, pO2 79 L, HCO3 35 H, ABG O2 Sat (Measured) 95.0 L, P-50 (Temp Corrected) N, Carboxyhemoglobin 0.3 L, O2 Concentration % 35%, Temperature 97.4, Respiration Rate 30, O2 Delivery Method BIPAP, Vent Mode ST, Expiratory Pressure 6, Inspiratory Pressure 16, Phlebotomy Draw Site RIGHT BRACHIAL 05/07/16 1705: pH 7.28 *L, pCO2 78 *H, pO2 94, HCO3 36 H, ABG O2 Sat (Measured) 95.0 L, Carboxyhemoglobin 1.0 L, O2 Concentration % 35%, Respiration Rate 28, O2 Delivery Method BIPAP, Vent Mode ST, Expiratory Pressure 6, Inspiratory Pressure 14, Phlebotomy Draw Site RIGHT RADIAL 05/07/16 1510: pH 7.21 *L, pCO2 93 *H, pO2 51 L, HCO3 37 H, ABG O2 Sat (Measured) 76.0 L, P- 50 (Temp Corrected) N, Carboxyhemoglobin 0.5 L, O2 Concentration % 5LPM, O2 Delivery Method NC, Phlebotomy Draw Site RIGHT BRACHIAL 05/07/16 1212: Lactic Acid Cancelled 05/07/16 0931: Lactic Acid 1.2 05/07/16 0931: Anion Gap 10, Estimated GFR 27 L, BUN/Creatinine Ratio 20.5, Glucose 95, Calcium 8.6, Total Bilirubin 0.9, AST 43 H, ALT 47, Alkaline Phosphatase 159 H , Troponin I < 0.01, Total Protein 6.6, Albumin 3.8, Globulin 2.8, Albumin/ Globulin Ratio 1.4, CBC w Diff MAN DIFF ORDERED, RBC 3.25 L, MCV 87.6, MCH 28.1 , RDW 18.1 H, MPV 5.7 L, Gran % 71.7, Lymphocytes % 16.5 L, Monocytes % 10.4 H, Eosinophils % 1.1, Basophils % 0.3, Absolute Granulocytes 13.4 H, Segmented Neutrophils 74, Band Neutrophils 1, Absolute Lymphocytes 3.1, Lymphocytes 20 L, Monocytes 5, Absolute Monocytes 1.9 H, Absolute Eosinophils 0.2, Absolute Basophils 0.1, Platelet Estimate VERIFIED BY SMEAR, Normocytic RBCs VERIFIED, Normochromic RBCs VERIFIED, PUBS MCHC 32.1 L Assessment/Plan Impression/Plan: She 1-year-old with end-stage COPD DNR/DNI admitted with acute on chronic hypercapnic respiratory failure likely component of opiate intoxication as well as COPD exacerbation. Patient as well was likely dehydrated. She now has evidence of a mixed acid-base disturbance acidosis and metabolic alkalosis Recommendations: Continue current BiPAP settings. Continue IV steroids and antibiotics. Gentle hydration with normal saline. If bicarbonate fails to improve one dose of Diamox 250 mg IV can Be given. Taper FiO2 as saturations allow. Narcotics should be held Consult Acknowledgment - Thank you for your consult request.
--- NOTE | 2016-05-08 09:09 | NUR ---
PT CURRENTLY SLEEPING. TOLERATING BIPAP WELL. WAITING FOR ADMISSION BED, WILL CTM
--- NOTE | 2016-05-08 09:23 | NUR ---
PT REQUESTING TO SPEAK WITH AT HOME. FILIBERTO GUTIÉRREZ CALLED FOR PT AND PT IS OVERHEARD SAYING TO THAT SHE JUST WANTS TO .
--- NOTE | 2016-05-08 10:20 | NUR ---
OF PT AT BEDSIDE. ICU RESIDENT PAGED TO SPEAK WITH REGARDING PT. SPOKE WITH MANNY WHO SAID HE WILL COME DOWN SHORTLY
--- NOTE | 2016-05-08 10:45 | NUR ---
COLOSTOMY BAG EMPTIED.
--- NOTE | 2016-05-08 11:33 | NUR ---
MANNY MIRELES AT BEDSIDE SPEAKING WITH PT AND FAMILY. NEED CLARIFICATION ON SOLUMEDROL ORDERS Q 6HR AND Q 8/HR. ALSO ASKING TO D/C METHADONE ORDER PT RR TANKED ON IT YESTERDAY AND PT HAD TO BE GIVEN NARCAN
--- NOTE | 2016-05-08 12:12 | NUR ---
PT TOOK OFF BIPAP BY RESP DEU TO NAUSEA, PT IS ON O2 4L NC NOW, O2SAT 97% MD MANNY MADE AWARE.
--- NOTE | 2016-05-08 12:42 | PN- Housestaff ---
Subjective Follow-up For: Acute on chronic hypoxic respiratory failure 2/2 COPD exacerbation Subjective: Patient seen and examined. She is seen lying upright in her bed maintained on supplemental oxygen via nasal cannula, previously on Bipap. She appears to be in no acute distress. At her bedside in her . She states that she "doesn't want to do this anymore", in regards to her hospitalizations. A discussion was had and it was determined that she does not want any aggressive measures to be done concerning her health care including chest compressions, intubation, central lines, or aggressive medications to maintained her blood pressure. Her was witness to this conversation whom reluctantly agreed and supported his wifes decision. She admits that she is short of breath with a productive cough. Otherwise she denies any headache, fever, chills, chest pain, nausea, vomiting, diarrhea. No overnight events reported. Review of Systems Constitutional: Reports: see HPI. Objective Last 24 Hrs of Vital Signs/I&O Vital Signs Date Time Temp Pulse Resp B/P Pulse O2 O2 Flow FiO2 Ox Delivery Rate 05/08 1605 99 Nasal 3.5L Cannula 05/08 1601 98.6 113 20 155/76 96 Nasal 3.0L Cannula 05/08 1300 98.4 118 26 151/78 96 Nasal 3.0L Cannula 05/08 1212 98.8 111 16 160/72 97 Nasal 4.0L Cannula 05/08 1200 98.3 114 28 160/72 96 Nasal 3.0L Cannula 05/08 1108 97 BIPAP 35% 05/08 1100 98.0 113 30 140/69 96 BIPAP 05/08 1000 98.0 108 30 150/87 96 BIPAP 05/08 0900 114 30 131/71 99 BIPAP 05/08 0740 98 BIPAP 35% 05/08 0740 106 98 05/08 0657 96.1 100 30 121/66 96 BIPAP 35% 05/08 0656 99 30 132/67 94 BIPAP 35% 05/08 0648 98 95 / 0407 99 30 132/64 94 BIPAP 35% 05/08 0300 99 30 140/67 95 BIPAP 35% 05/08 0256 103 95 05/08 0200 98 20 133/63 92 BIPAP 35% 05/08 0100 99 30 128/60 94 BIPAP 35% 05/08 0018 106 92 01/05 0000 98.5 112 30 118/75 92 BIPAP 35% 05/07 2354 BIPAP 35% 05/07 2251 100.1 110 34 176/87 05/077 99 BIPAP 35% 05/079 103 99 05/07 2215 100.1 108 34 176/87 99 BIPAP 35% 05/07 2211 100.1 108 34 176/87 100 BIPAP 35% 05/078 97.4 92 32 119/63 92 BIPAP 35% 05/07 2034 97.4 92 32 119/63 92 BIPAP 35% 05/07 1958 96 90 05/07 183 98.9 109 32 136/72 86 BIPAP 35% Intake & Output 05/08 1600 05/08 0805/08 0000 Intake Total Output Total Balance Patient 38.555 kg Weight Physical Exam General Appearance: Alert, Cooperative, Mild Distress Other Physical Findings: General - frail/thin woman appearing older than her stated age in mild respiratory distress HEENT - NCAT, PERRL, EOMI, anicteric sclera, dry mucous membranes CVS - S1, S2 w/o m/g/r Resp - Rhochi and wheezing heard in all four lung [place], loudest in right lower lobe, on nasal cannula GI - soft, nondistended, nontender, bowel sounds intact Neuro - Awake, alert, and mildly agitated, CN II - XII grossly intact Extremities - pulses 2+ in bilateral lower extremities, no edema Current Medications: Current Medications Sig/Freddie Start time Last Medication Dose Route Stop Time Status Admin Acetaminophen 0 .STK-MED ONE 05/08 1323 DC PO Acetaminophen 650 MG Q6P PRN 05/07 2014 AC 05/08 PO 1325 Albuterol Sulfate 3 ML EVERY 4 HRS/AWAKE 05/08 08 AC 05/08 INH 1605 Alprazolam 1 MG AT BEDTIME 05/07 2199 DC PO 05/14 215 Aspirin Buffered 81 MG DAILY 05/08 1000 AC 05/08 PO 1114 Azithromycin 500 MG 0600 05/08 06 AC 05/08 Sodium Chloride 250 ML IV 0752 Azithromycin 500 MG DAILY 05/08 0045 DC Sodium Chloride 250 ML IV Budesonide/ 2 PUF BID 05/07 220 AC 05/08 Formoterol Fumarate INH 1100 Dextrose/Sodium 1,000 ML Q13H 05/07 1900 DC 05/07 Chloride IV 05/08 0759 1910 Folic Acid 1 MG DAILY 05/07 1533 DC PO 05/09 1001 Gabapentin 100 MG DAILY 05/08 1000 AC 05/08 PO 1114 Guaifenesin 600 MG Q12H 05/07 1900 AC 05/08 PO 0809 Heparin Sodium 0 .STK-MED ONE 05/08 0531 DC (Porcine) .ROUTE Heparin Sodium 0 .STK-MED ONE 05/07 2258 DC (Porcine) .ROUTE Heparin Sodium 5,000 UNIT Q8 05/07 2200 AC 05/08 (Porcine) SC 1351 Lidocaine 1 PAT DAILY PRN 05/07 1900 AC 05/08 EXT 1317 Lorazepam 1 MG Q12H 05/09 0000 DC PO 05/09 1201 Lorazepam 1.5 MG Q6 05/08 0600 DC PO 05/08 1801 Lorazepam 2 MG Q6 05/07 1800 DC PO 05/08 0001 Lorazepam 2 MG ONCE ONE 05/07 1545 CAN PO 05/07 1546 Lorazepam 2 MG Q2P PRN 05/07 1545 DC PO Lorazepam 1 MG Q2P PRN 05/07 1545 DC PO Methadone HCl 0 .STK-MED ONE 05/08 1441 DC PO Methadone HCl 30 MG DAILY 05/08 1437 AC 05/08 PO 1443 Methadone HCl 55 MG DAILY 05/08 1000 DC PO Methylprednisolone 40 MG Q8 05/09 0600 AC IV 05/09 2201 Methylprednisolone 40 MG Q8 05/08 0845 DC 05/08 IV 0852 Methylprednisolone 40 MG Q6 05/08 0600 AC 05/08 IV 05/08 2359 0544 Methylprednisolone 0 .STK-MED ONE 05/08 0533 DC .ROUTE Mirtazapine 15 MG QPM 05/07 2200 AC PO Multivitamins 1 TAB DAILY 05/07 1533 DC PO Naloxone HCl 0.4 MG ONCE ONE 05/07 2200 DC 05/07 IV 05/07 2201 2159 Naloxone HCl 0 .STK-MED ONE 05/07 2151 DC .ROUTE Sodium Chloride 1,000 ML Q20H 05/08 1100 AC 05/08 IV 1400 Sodium Chloride 2 SPRAY DAILY 05/08 1000 AC 05/08 NAYELI 1114 Thiamine HCl 100 MG DAILY 05/07 1533 DC PO 05/09 1001 Tiotropium [place] 1 PUF DAILY 05/08 1000 AC 05/08 INH 1115 Last 24 Hrs of Lab/Merrill Results Last 24 Hrs of Labs/Mics: Laboratory Tests 05/08/16 1255: pH 7.46 H, pCO2 51 H, pO2 65 L, HCO3 36 H, ABG O2 Sat (Measured) 93.0 L, Carboxyhemoglobin 0.1 L, O2 Concentration % 4L, O2 Delivery Method NC, Phlebotomy Draw Site LEFT RADIAL 05/08/16 0520: Anion Gap 3 L, Estimated GFR > 60, BUN/Creatinine Ratio 31.1 H, Glucose 141 H , Calcium 8.0 L, Total Bilirubin 0.5, AST 28, ALT 44, Alkaline Phosphatase 152 H, Total Protein 6.3, Albumin 3.6, Globulin 2.7, Albumin/Globulin Ratio 1.3, CBC w Diff MAN DIFF ORDERED, RBC 3.01 L, MCV 87.6, MCH 28.2, RDW 18.3 H, MPV 5.8 L, Gran % 94.5 H, Lymphocytes % 3.7 L, Monocytes % 1.8, Eosinophils % 0, Basophils % 0 L, Absolute Granulocytes 13.9 H, Segmented Neutrophils 90 H, Band Neutrophils 1, Absolute Lymphocytes 0.5 L, Lymphocytes 8 L, Monocytes 1 L, Absolute Monocytes 0.3, Absolute Eosinophils 0, Absolute Basophils 0, Platelet Estimate ADEQUATE, Polychromasia 1+, Hypochromic-Microcytic 1+, Poikilocytosis 2+, Ovalocytes 1+, Stomatocytes 1+, PUBS MCHC 32.2 L, Fld Total RBCs Counted 100 05/07/16 2250: Urine Color YEL, Urine Clarity CLEAR, Urine pH 6.0, Ur Specific [place] 1.025, Urine Protein NEG, Urine Ketones NEG, Urine Nitrite NEG, Urine Bilirubin NEG, Urine Urobilinogen 0.2, Ur Leukocyte Esterase NEG, Ur Microscopic EXAM NOT REQUIRED, Urine Hemoglobin NEG, Urine Glucose NEG 05/07/16 2210: pH 7.38, pCO2 60 *H, pO2 79 L, HCO3 35 H, ABG O2 Sat (Measured) 95.0 L, P-50 (Temp Corrected) N, Carboxyhemoglobin 0.3 L, O2 Concentration % 35%, Temperature 97.4, Respiration Rate 30, O2 Delivery Method BIPAP, Vent Mode ST, Expiratory Pressure 6, Inspiratory Pressure 16, Phlebotomy Draw Site RIGHT BRACHIAL 05/07/16 1705: pH 7.28 *L, pCO2 78 *H, pO2 94, HCO3 36 H, ABG O2 Sat (Measured) 95.0 L, Carboxyhemoglobin 1.0 L, O2 Concentration % 35%, Respiration Rate 28, O2 Delivery Method BIPAP, Vent Mode ST, Expiratory Pressure 6, Inspiratory Pressure 14, Phlebotomy Draw Site RIGHT RADIAL Microbiology 05/07 2250 URINE ROUT: Urine Culture - RES Assessment/Plan Assessment: Patient appears to be responding well to treatment but otherwise appears agitated and frustrated with her multiple hospital readmissions. She otherwise states that she "wants to " and is apathetic about her situation. She is to be continued on intravenous steroids and antibiotics. Patient reportedly became hypoxic and hypotensive after receiving her usual dose of methadone yesterday, which will be held until patients clinical condition improves. Her also states that Xanax "knocks her out" so this medication will be held for fear of respiratory depression. Acute on Chronic Respiratory Failure Secondary to COPD Exacerbation: Patient with an extensive history of end stage COPD on home oxygen seen for evaluation of worsening shortness of breath. - TRC nebs - Continue Symbicort/Spiriva - Methylprednisone 40mg IV Q6H, swtich to Q8H tomorrow - Azithromycin 500mg IV Daily - Mucinex 600mg PO - Pulmonology consult following - F/U Cultures & Sensitivies Anxiety/Insomnia: Xanax reportedly "knocks her out" according to her . This medicaiton will be held for fear of worsening respiratory depression. - Monitor for signs of withdrawal - Methadone on hold - Alprazolam on hold - Mirtazapene 15mg PO QPM Pain Plan: - Methadone, on hold Diet - heart healthy diet DVT PPx - subcutaneous heparin Code Status - DNR/DNI, no central line, no pressors Problem List: 1. COPD Pain Ratin Pain Location: None Pain Goal: Pain 4 or less Pain Plan: As noted in plan Tomorrow's Labs & Rationales: CBC ICU bundle CXR ABG Consulting Request: Consulting Specialty: Pulmonary Disease
--- NOTE | 2016-05-08 13:02 | NUR ---
pt assigned to bed 107
--- NOTE | 2016-05-08 13:49 | NUR ---
PT MEDICATED WITH 650 MG TYLENOL, PT REPOSITIONED IN BED AND PILLOW PLACED UNDER KNEES. PT CONTINUES TO CRY OUT IN PAIN. LIDOCAINE PATCH PLACED ON LEFT FLANK
--- NOTE | 2016-05-08 13:52 | NUR ---
PT MEDICATED WITH 1400 DOSE OF HEPARIN 5000 UNITS SQ. DOCUMENTED IN MEDITECH 2200 DOSE
--- NOTE | 2016-05-08 14:05 | NUR ---
FRANK MIRELES CALLED D/T PATIENTS ABDOMINAL PAIN. PT SCREAMING OUT IN PAIN. AT FIRST PT STATES HER PAIN WAS IN LEFT FLANK. LIDOCAINE PATCH PLACED. NOW PT C/O ABDOMINAL PAIN
--- NOTE | 2016-05-08 14:14 | NUR ---
PT REPOSITIONED IN BED
--- NOTE | 2016-05-08 14:33 | NUR ---
FRANK MIRELES AT BEDSIDE FOR REEVALUATION. PT CONTINUES TO SCREAM OUT
--- NOTE | 2016-05-08 16:11 | NUR ---
RESP AT BEDSIDE FOR TX.
--- NOTE | 2016-05-08 18:03 | NUR ---
PT MEDICATED WITH SOLUMEDROL 40MG IV PER EMAR. FOOD PROVIDED.
--- NOTE | 2016-05-08 19:45 | NUR ---
REPORT RECEIVED FROM SUE MEJÍA. PT RESTING IN HOSPITAL BED IN NO ACUTE DISTRESS. BED ASSIGNMENT 226
--- NOTE | 2016-05-08 20:13 | NUR ---
NEB TX IN PROGRESS
--- NOTE | 2016-05-08 20:39 | NUR ---
REPORT GIVEN TO KITTY FROM 2NA
--- NOTE | 2016-05-08 20:54 | NUR ---
TRANSPORT HERE FOR PT
--- NOTE | 2016-05-08 20:57 | NUR ---
PT BEING TRANSPORTED TO ON LICENSE OF [facility]
--- NOTE | 2016-05-08 20:58 | NUR ---
PT TRANSPORTED TO FLOOR
[2016-05-08 23:04] VITALS: BP 150/60
[2016-05-09] VITALS (7 sets, daily range): BP systolic 142–150; BP diastolic 70–82
--- NOTE | 2016-05-09 03:03 | NUR ---
NURSE NOTE: (LATE ENTRY) PT REFUSING TO LET ME ASSESS AT THIS TIME, WAS ABLE TO ASSESS SKIN DURING TRANSFER TO BED. SKIN IS INTACT AND NO EDEMA. . AAOX3 BUT SEEMS TO BE FORGETFULL. PT CALLS FOR HELP THEN TELLS ME TO GET OUT. REFUSED ALL NIGHT MEDICATIONS. WILL CONTINUE TO MONITOR.
--- NOTE | 2016-05-09 03:07 | NUR ---
NURSE NOTE: LATE ENTRY: PT GARY TO FLOOR BY TRANSPORT FROM ED AROUND 2100 . REPORT RECIEVED FROM MAREN IN ED. PT AAOX3 AT THIS TIME, 4LNC, IVF. BED ALARM PUT IN PLACE. STEWARD AND COLOSTOMY, REFUSING TO LET ME LOOK AT COLOSTOMY. VITALS: 150/60, 112, 97.9, 20, 96% 4LNC. WILL CONTINUE TO MONITOR.
--- NOTE | 2016-05-09 03:27 | NUR ---
NURSE NOTE: PT HAS PRE HOSPITAL IV LINE. INFORMED PT I NEED TO REMOVE AND PUT A NEW LINE IN. PT REFUSING. MADE AWARE AND PUT IN NURSING MISC. TO KEEP LINE IN FOR NOW. NO S/S OF INFILTRATION OR PHLEBITIS. WILL CONTINUE TO MONITOR
--- NOTE | 2016-05-09 06:50 | PN- Housestaff ---
Subjective Follow-up For: Acute on chronic hypoxic respiratory failure secondary to COPD exacerbation Complaints: no complaints Subjective: Patient was followed up and examined by me. See is lying comfortably in her bed with additional oxygen being delivered via nasal cannula. She doesn't have any complaints, and doesn't seem to be in any distress. Patient admitted to "eating" Fred was in the emergency department yesterday, but denied any suicidal ideation or homicidal ideation. She has a history of depression though. Vitals stable. No overnight issues. Review of Systems Constitutional: Reports: no symptoms. EENTM: Reports: no symptoms. Cardiovascular: Reports: no symptoms. Respiratory: Reports: see HPI, short of breath, sputum production, stridor. Gastrointestinal: Reports: no symptoms. Genitourinary: Reports: no symptoms. Musculoskeletal: Reports: no symptoms. Skin: Reports: no symptoms. Neurological/Psychological: Reports: no symptoms. Hematologic/Endocrine: Reports: no symptoms. Objective Last 24 Hrs of Vital Signs/I&O Vital Signs Date Time Temp Pulse Resp B/P Pulse O2 O2 Flow FiO2 Ox Delivery Rate 05/09 1446 97.9 109 20 150/80 95 Nasal 3.0L Cannula 05/09 0831 96 Nasal 4.0L Cannula 05/09 0800 Nasal 4.0L Cannula 05/09 0705 97.6 114 20 142/70 91 Nasal Cannula 05/09 0000 Nasal 4.0L Cannula 05/08 2304 97.9 112 20 150/60 96 Nasal Cannula 05/08 1959 107 20 165/87 98 Nasal 4.0L Cannula 05/08 1828 99.6 113 18 146/89 98 Nasal 3.0L Cannula Intake & Output 05/09 1600 05/09 0800 05/09 0000 Intake Total 640 480 Output Total 500 1950 850 Balance 140 -1470 -850 Intake, IV 400 Intake, Oral 240 480 Output, Urine 500 1950 850 Patient 38.102 kg Weight Physical Exam General Appearance: Alert, Oriented X3, Cooperative, No Acute Distress Other Physical Findings: Physical examnination: General: thin buit patient not in distress, has significant kyphosis Head: Normocephalic, atraumatic Eyes: Pupils normal in size, regular, reacting to light and accommodation, EOM normal Ears: B/l normal on inspection Nose: Normal on inspection Throat/mouth: Moist mucosa Neck: Supple, full range of motion, no thyromegaly Heart: Regular rate, regular rhythm Lung: Bilateral crepts and wheeze heard Abd: Soft, non-tender, no distention appreciated, colostomy bag in situ Back: Normal range of motion Extremities: Normal knee exam bilaterally, [no] pedal edema, Distal neurovascular intact Neurologic: Alert, oriented x3, Cranial exam grossly intact, Speech is clear and coherent Skin: Warm and dry Psychiatric: Calm, cooperative, coherant, [no SI], [no HI] Current Medications: Current Medications Sig/Freddie Start time Last Medication Dose Route Stop Time Status Admin Acetaminophen 650 MG Q6P PRN 05/07 2014 AC 05/09 PO 1454 Albuterol Sulfate 3 ML EVERY 4 HRS/AWAKE 05/08 0800 AC 05/09 INH 1633 Alprazolam 1 MG AT BEDTIME 05/09 2200 AC PO 05/16 2159 Alprazolam 0.5 MG ONCE ONE 05/09 1430 DC 05/09 PO 05/09 1431 1437 Aspirin Buffered 81 MG DAILY 05/08 1000 AC 05/09 PO 0911 Azithromycin 500 MG 0600 05/08 0600 AC 05/09 Sodium Chloride 250 ML IV 0813 Budesonide/ 2 PUF BID 05/07 2200 AC 05/08 Formoterol Fumarate INH 1100 Gabapentin 100 MG DAILY 05/08 1000 AC 05/09 PO 0911 Guaifenesin 600 MG Q12H 05/07 1900 AC 05/09 PO 0911 Heparin Sodium 5,000 UNIT Q8 05/07 2200 AC 05/09 (Porcine) SC 1437 Lidocaine 1 PAT DAILY PRN 05/07 1900 AC 05/08 EXT 1317 Lorazepam 1 MG Q12H 05/09 0000 DC PO 05/09 1201 Methadone HCl 30 MG DAILY 05/08 1437 AC 05/09 PO 0912 Methylprednisolone 40 MG Q8 05/09 0600 AC 05/09 IV 05/09 2201 1437 Methylprednisolone 40 MG Q6 05/08 0600 DC 05/08 IV 05/08 2359 1802 Mirtazapine 15 MG QPM 05/07 2200 AC PO Patient Medication 1 ED .STK-MED ONE 05/09 1342 DC Teaching ED 05/09 1343 Sodium Chloride 1,000 ML Q20H 05/08 1100 AC 05/09 IV 0650 Sodium Chloride 2 SPRAY DAILY 05/08 1000 AC 05/08 NAYELI 1114 Tiotropium [place] 1 PUF DAILY 05/08 1000 AC 05/08 INH 1115 Last 24 Hrs of Lab/Merrill Results Last 24 Hrs of Labs/Mics: Laboratory Tests 05/09/16 1017: Anion Gap 10, Estimated GFR > 60, Glucose 90, Calcium 8.6, Phosphorus 2.4 L, Magnesium 1.8, Total Bilirubin 0.8, AST 27, ALT 39, Albumin 3.9, CBC w Diff NO MAN DIFF REQ, RBC 3.35 L, MCV 85.5, MCH 27.6, RDW 17.6 H, MPV 6.2 L, Gran % 89.0 H, Lymphocytes % 3.2 L, Monocytes % 7.7, Eosinophils % 0, Basophils % 0.1 , Absolute Granulocytes 13.4 H, Absolute Lymphocytes 0.5 L, Absolute Monocytes 1.2 H, Absolute Eosinophils 0, Absolute Basophils 0, PUBS MCHC 32.2 L 05/09/16 0743: Urine Opiates Screen < 100.00, Methadone Screen 192, Barbiturate Screen < 60, Ur Phencyclidine Scrn < 6.00, Amphetamines Screen < 100, U Benzodiazepines Scrn 110 , Urine Cocaine Screen < 50, Urine Cannabis Screen < 5.00 Assessment/Plan Assessment: 60 yo F with pmh of end-stage COPD, chronic hypercarbic respiratory failure on 4 L of oxygen at home, ischemic colitis status post ileostomy, chronic pain syndrome on methadone, anxiety, multiple falls, hypertension and osteoporosis, who presented with worsening shortness of breath, is currently being managed in the general medical floor for the following issues: #Acute on Chronic Respiratory Failure Secondary to COPD Exacerbation: Patient with an extensive history of end stage COPD on home oxygen seen for evaluation of worsening shortness of breath. She was noncompliant with her BiPAP at home, and he started getting worsening shortness of breath. - Continue TRC nebs - Continue Symbicort/Spiriva - Methylprednisone 40mg IV now at Q8H - Azithromycin 500mg IV Daily - Mucinex 600mg PO - Pulmonology consult following - F/U [employer] #1 episode of overdose in the emergency department Patient had an episode of Xanax overdose in the emergency department, yesterday, when she intentionally took questionable amount of tablets into her mouth after asking her nurse to pass her bag. Narcan had to be given then. #Anxiety/Insomnia: Patient restarted on Xanax, but considering her history of overdose, administration of medicine will be done very carefully. - Monitor for signs of withdrawal - Mirtazapene 15mg PO QPM for insomnia #Methadone dependent Patient is currently on 30 mg of methadone daily since yesterday, while at home doses 57 mg orally in liquid form. When contacted by the methadone center earlier today, they mentioned that they were already planning to cut down methadone to lower dose from 57 mg, which started actually fits the plan now. -Continue to the methadone at 30mg. #Pain Plan: - Methadone #Diet - heart healthy diet #DVT PPx - subcutaneous heparin #Code Status - DNR/DNI, no central line, no pressors Problem List: 1. Chronic obstructive pulmonary disease 2. Hypokalemia 3. Hypomagnesemia 4. Respiratory failure with hypoxia and hypercapnia 5. History of substance abuse 6. Methadone dependence Pain Ratin Pain Location: back pain Pain Goal: Pain 4 or less Pain Plan: prn Tomorrow's Labs & Rationales: none Consulting Request: Consulting Specialty: Pulmonary Disease
--- NOTE | 2016-05-09 07:39 | PN- Att Addend ---
Attending Addendum Attending Brief Note Intake & Output 05/09 0805/09 0000 05/08 1600 Intake Total 240 Output Total 1950 850 Balance -1710 -850 Intake, Oral 240 Output, Urine 1950 850 Current Medications Sig/Freddie Start time Last Medication Dose Route Stop Time Status Admin Acetaminophen 0 .STK-MED ONE 05/08 1323 DC PO Acetaminophen 650 MG Q6P PRN 05/07 2014 AC 05/08 PO 1325 Albuterol Sulfate 3 ML EVERY 4 HRS/AWAKE 05/08 08 AC 05/08 INH 2009 Alprazolam 1 MG AT BEDTIME 05/07 2200 DC PO 05/14 2159 Aspirin Buffered 81 MG DAILY 05/08 1000 AC 05/08 PO 1114 Azithromycin 500 MG 0600 05/08 0600 AC 05/08 Sodium Chloride 250 ML IV 0752 Budesonide/ 2 PUF BID 05/07 2200 AC 05/08 Formoterol Fumarate INH 1100 Dextrose/Sodium 1,000 ML Q13H 05/07 1900 DC 05/07 Chloride IV 05/08 0759 1910 Gabapentin 100 MG DAILY 05/08 1000 AC 05/08 PO 1114 Guaifenesin 600 MG Q12H 05/07 1900 AC 05/08 PO 0809 Heparin Sodium 5,000 UNIT Q8 05/07 2200 AC 05/08 (Porcine) SC 1351 Lidocaine 1 PAT DAILY PRN 05/07 190 AC 05/08 EXT 1317 Lorazepam 1 MG Q12H 05/09 0000 DC PO 05/09 1201 Methadone HCl 0 .STK-MED ONE 05/08 1441 DC PO Methadone HCl 30 MG DAILY 05/08 1437 AC 05/08 PO 1443 Methadone HCl 55 MG DAILY 05/08 1000 DC PO Methylprednisolone 40 MG Q8 05/09 0600 AC IV 05/09 2201 Methylprednisolone 40 MG Q8 05/08 0845 DC 05/08 IV 0852 Methylprednisolone 40 MG Q6 05/08 0600 DC 05/08 IV 05/08 2359 1802 Mirtazapine 15 MG QPM 05/07 2200 AC PO Sodium Chloride 1,000 ML Q20H 05/08 1100 AC 05/09 IV 0650 Sodium Chloride 2 SPRAY DAILY 05/08 1000 AC 05/08 NAYELI 1114 Tiotropium [place] 1 PUF DAILY 05/08 1000 AC 05/08 INH 1115 Laboratory Tests 05/08 1255 Blood Gas pH (7.35 - 7.45 PH) 7.46 H pCO2 (35 - 45 TORR) 51 H pO2 (80 - 100 TORR) 65 L HCO3 (21 - 28 MEQ/L) 36 H ABG O2 Sat (Measured) (>96.0 %) 93.0 L Carboxyhemoglobin (1.5 - 5.0 %) 0.1 L O2 Concentration % 4L O2 Delivery Method NC Miscellaneous Phlebotomy Draw Site LEFT RADIAL Vital Signs Date Time Temp Pulse Resp B/P Pulse O2 O2 Flow FiO2 Ox Delivery Rate 05/09 0705 97.6 114 20 142/70 91 Nasal Cannula 05/09 0000 Nasal 4.0L Cannula 05/08 2304 97.9 112 20 150/60 96 Nasal Cannula 05/08 1959 107 20 165/87 98 Nasal 4.0L Cannula 05/08 1828 99.6 113 18 146/89 98 Nasal 3.0L Cannula 05/08 1605 99 Nasal 3.5L Cannula 05/08 1601 98.6 113 20 155/76 96 Nasal 3.0L Cannula 05/08 1300 98.4 118 26 151/78 96 Nasal 3.0L Cannula 05/08 1212 98.8 111 16 160/72 97 Nasal 4.0L Cannula 05/08 1200 98.3 114 28 160/72 96 Nasal 3.0L Cannula 05/08 1108 97 BIPAP 35% 05/08 1100 98.0 113 30 140/69 96 BIPAP 05/08 1000 98.0 108 30 150/87 96 BIPAP 05/08 0900 114 30 131/71 99 BIPAP 05/08 0740 98 BIPAP 35% 05/08 0740 106 98 Intake & Output 05/09 0800 05/09 0000 05/08 1600 Intake Total 240 Output Total 1950 850 Balance -1710 -850 Intake, Oral 240 Output, Urine 1950 850 Attending note. Patient appears to be confused this morning refusing treatment. Is awake alert and disoriented disoriented. Currently in oxygen Vital signs are stable S1-S2 is normal Lungs shows diffuse rhonchi with wheezing. Abdomen is soft nontender has ileostomy. Bowel sounds are present Assessment hypercarbic respiratory failure currently on oxygen with IV antibiotics and IV steroids. Altered mental status Up in our tox screening and also do a CT scan of the head.
--- NOTE | 2016-05-09 07:48 | NUR ---
NURSE NOTE: PT REFUSING MORNING MEDS, INFORMED ON POSTIVE'S OF TAKINGM MEDS. STILL REFUSING AT THIS TIME.
--- NOTE | 2016-05-09 07:59 | PN- Pulmonary ---
Subjective HPI/Critical Care Issues: Patient is awake alert but reportedly refusing treatment. She is conversant but states she feels mildly confused. Arterial blood gases are markedly improved. Objective Current Medications: Current Medications Sig/Freddie Start time Last Medication Dose Route Stop Time Status Admin Acetaminophen 0 .STK-MED ONE 05/08 1323 DC PO Acetaminophen 650 MG Q6P PRN 05/07 2014 AC 05/08 PO 1325 Albuterol Sulfate 3 ML EVERY 4 HRS/AWAKE 05/08 0800 AC 05/08 INH 2010 Alprazolam 1 MG AT BEDTIME 05/07 2200 DC PO 05/14 2159 Aspirin Buffered 81 MG DAILY 05/08 1000 AC 05/08 PO 1114 Azithromycin 500 MG 0600 05/08 0600 AC 05/08 Sodium Chloride 250 ML IV 0752 Budesonide/ 2 PUF BID 05/07 2200 AC 05/08 Formoterol Fumarate INH 1100 Dextrose/Sodium 1,000 ML Q13H 05/07 1900 DC 05/07 Chloride IV 05/08 0759 1910 Gabapentin 100 MG DAILY 05/08 1000 AC 05/08 PO 1114 Guaifenesin 600 MG Q12H 05/07 1900 AC 05/08 PO 0809 Heparin Sodium 5,000 UNIT Q8 05/07 2200 AC 05/08 (Porcine) SC 1351 Lidocaine 1 PAT DAILY PRN 05/07 190 AC 05/08 EXT 1317 Lorazepam 1 MG Q12H 05/09 0000 DC PO 05/09 1201 Methadone HCl 0 .STK-MED ONE 05/08 1441 DC PO Methadone HCl 30 MG DAILY 05/08 1437 AC 05/08 PO 1443 Methadone HCl 55 MG DAILY 05/08 1000 DC PO Methylprednisolone 40 MG Q8 05/09 0600 AC IV 05/09 2201 Methylprednisolone 40 MG Q8 05/08 0845 DC 05/08 IV 0852 Methylprednisolone 40 MG Q6 05/08 0600 DC 05/08 IV 05/08 2359 1802 Mirtazapine 15 MG QPM 05/07 2200 AC PO Sodium Chloride 1,000 ML Q20H 05/08 1100 AC 05/09 IV 0650 Sodium Chloride 2 SPRAY DAILY 05/08 1000 AC 05/08 NAYELI 1114 Tiotropium [place] 1 PUF DAILY 05/08 1000 AC 05/08 INH 1115 Vital Signs & I&O Last 24 Hrs of Vitals and I&O: Vital Signs Date Time Temp Pulse Resp B/P Pulse O2 O2 Flow FiO2 Ox Delivery Rate 05/09 0705 97.6 114 20 142/70 91 Nasal Cannula 05/09 0000 Nasal 4.0L Cannula 05/08 2304 97.9 112 20 150/60 96 Nasal Cannula 05/08 1959 107 20 165/87 98 Nasal 4.0L Cannula 05/08 1828 99.6 113 18 146/89 98 Nasal 3.0L Cannula 05/08 1605 99 Nasal 3.5L Cannula 05/08 1601 98.6 113 20 155/76 96 Nasal 3.0L Cannula 05/08 1300 98.4 118 26 151/78 96 Nasal 3.0L Cannula 05/08 1212 98.8 111 16 160/72 97 Nasal 4.0L Cannula 05/08 1200 98.3 114 28 160/72 96 Nasal 3.0L Cannula 05/08 1108 97 BIPAP 35% 05/08 1100 98.0 113 30 140/69 96 BIPAP 05/08 1000 98.0 108 30 150/87 96 BIPAP 05/08 0900 114 30 131/71 99 BIPAP Intake & Output 05/09 0800 05/09 0000 05/08 1600 Intake Total 240 Output Total 1950 850 Balance -1710 -850 Intake, Oral 240 Output, Urine 1950 850 Oxygen saturation on 4 L is 9196% exam for chest shows scattered rhonchi cardiac exam shows regular S1 and S2 without murmurs Impression/Plan Impression/Plan Impression/Plan: She 1-year-old with end-stage COPD DNR/DNI admitted with acute on chronic hypercapnic respiratory failure likely component of opiate intoxication as well as COPD exacerbation. Patient as well was likely dehydrated. She now has evidence of a mixed acid-base disturbance acidosis and metabolic alkalosis. Respiratory acidosis is improved and she has now a post-hypercapnic metabolic alkalosis Recommendations: Continue current BiPAP settings. Continue IV steroids and antibiotics. Gentle hydration with normal saline. If bicarbonate remains greater than 40 give Diamox 250 mg IV 1 dose and monitor electrolytes. Diamox may need to be repeated
--- NOTE | 2016-05-09 10:20 | CT SCAN REPORT ---
EXAMINATION: CT HEAD WITHOUT CONTRAST CLINICAL INFORMATION: History of substance abuse with confusion and disorientation. COMPARISON: Head CT from 03/15/2016. TECHNIQUE: Contiguous axial imaging was performed from the skull base to vertex without intravenous administration of contrast. FINDINGS: There is no intracranial hemorrhage, hydrocephalus, extra-axial surface collection, midline shift, or other herniation pattern. Stable extensive hypoattenuation throughout the supratentorial white matter that remains nonspecific. Peoples to white matter differentiation is diffusely maintained without evidence of an evolved acute territorial infarct. The basilar cisterns are preserved. No significant soft tissue abnormality. No acute osseous abnormality. There is a small left mastoid effusion. The paranasal sinuses are well-aerated. Degenerative changes involving the right greater than left mandibular condylar head. IMPRESSION: Stable extensive hypoattenuation throughout the supratentorial white matter that remains nonspecific. The degree of hypoattenuation limits assessment for a superimposed acute white matter process. No large territorial infarcts. No definite acute findings.
--- NOTE | 2016-05-09 10:46 | RADIOLOGY REPORT ---
EXAMINATION: XR PORTABLE CHEST CLINICAL INFORMATION: COPD exacerbation on CPAP ventilation. COMPARISON: None. TECHNIQUE: Portable view of the chest was obtained. Evaluation is somewhat limited because of kyphotic positioning. FINDINGS: No acute pulmonary abnormality is seen. There is stable mild central interstitial prominence. No focal consolidation is evident. There is no pulmonary edema. Heart size is normal. Numerous bilateral healed rib fractures are again demonstrated. IMPRESSION: No acute abnormality.
[2016-05-09 10:57] LABS: ABSOLUTE BASOPHIL COUNT 0 /CUMM (0.0-0.2); ABSOLUTE EOSINOPHIL COUNT 0 /CUMM (0.0-0.7); ABSOLUTE GRANULOCYTE CT 13.4 /CUMM (1.4-6.5); ABSOLUTE LYMPH COUNT 0.5 /CUMM (1.2-3.4); ABSOLUTE MONOCYTE COUNT 1.2 /CUMM (0.10-0.60); BASOPHIL % 0.1 % (0.0-2.0); EOSINOPHIL % 0 % (0-5); HEMATOCRIT 28.6 % (37-47); MEAN CORPUSCULAR HGB 27.6 PG (27.0-31.0); MEAN CORPUSCULAR HGB CONC 32.2 G/DL (33.0-37.0); MEAN CORPUSCULAR VOLUME 85.5 FL (81.0-99.0); MEAN PLATELET VOLUME 6.2 FL (7.4-10.4); PLATELET COUNT 408 /CUMM (130-400); RBC DISTRIBUTION WIDTH 17.6 % (11.5-14.5); RED BLOOD CELL CT 3.35 /CUMM (4.20-5.40); WHITE BLOOD CELL COUNT 15.1 /CUMM (4.8-10.8)
--- NOTE | 2016-05-09 18:33 | Cons- Psychiatry ---
See Addendum Psychiatric Consult Date of Consult: 05/09/16 Reason for Consult: "Suicidal ideation, substance abuse." History of Present Illness: 60-year-old female brought in by ambulance from home with worsening shortness of breath on 05/07/2016 at 0918, per the triage note. She had been discharged from [facility] the previous day. Allergies: Coded Allergies: cat dander (UNKNOWN REACTION TO 'PET HAIR/DANDER' 04/24/16) ipratropium (From [facility]TROVENT) ("IT'S TOO MUCH DR TRUONG SAID" 04/24/16) Current Medications: Please see the medication claim history, as well as obtaining the discharge medication instructions from [facility] for her recent discharge on 2015. 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 She states, "I was trying to get high." I visited the patient today, 05/09/2016, at 1115, in room 226. She is lying on her back, is calm, not wishing to engage in extended conversation, due to breathing difficulty, but is in no apparent distress. She is oriented to person, place and day. She denies auditory or visual hallucinations, and presents no sarika delusions. She reports current level of depressive symptoms or 5/10, and anxiety symptoms as 8/10; 10/10 would be the most severe. She reports poor sleep last night, but says that she normally tolerates her BiPAP machine well. She is complaining of vague withdrawal symptoms, stating that she only received 30 mg of methadone yesterday. She is in agreement to come to [facility] outpatient psychiatry when she is medically clear and discharged. She states that her , Senthil, will give her a ride to appointments. She denies suicidal ideation. Lab Results: Laboratory Tests 05/09 05/09 1017 0743 Chemistry Sodium (137 - 145 mmol/L) 138 Potassium (3.5 - 5.1 mmol/L) 4.3 Chloride (98 - 107 mmol/L) 91 L Carbon Dioxide (22 - 30 mmol/L) 36 H Anion Gap (5 - 16) 10 BUN (7 - 17 mg/dL) 23 H Creatinine (0.5 - 1.0 mg/dL) 0.7 Estimated GFR (>60 ml/min) > 60 Glucose (65 - 99 mg/dL) 90 Calcium (8.4 - 10.2 mg/dL) 8.6 Phosphorus (2.5 - 4.5 mg/dL) 2.4 L Magnesium (1.6 - 2.3 mg/dL) 1.8 Total Bilirubin (0.2 - 1.3 mg/dL) 0.8 AST (14 - 36 U/L) 27 ALT (9 - 52 U/L) 39 Albumin (3.5 - 5.0 g/dL) 3.9 Hematology CBC w Diff NO MAN DIFF REQ WBC (4.8 - 10.8 /CUMM) 15.1 H RBC (4.20 - 5.40 /CUMM) 3.35 L Hgb (12.0 - 16.0 G/DL) 9.2 L Hct (37 - 47 %) 28.6 L MCV (81.0 - 99.0 FL) 85.5 MCH (27.0 - 31.0 PG) 27.6 RDW (11.5 - 14.5 %) 17.6 H Plt Count (130 - 400 /CUMM) 408 H MPV (7.4 - 10.4 FL) 6.2 L Gran % (42.2 - 75.2 %) 89.0 H Lymphocytes % (20.5 - 51.1 %) 3.2 L Monocytes % (1.7 - 9.3 %) 7.7 Eosinophils % (0 - 5 %) 0 Basophils % (0.0 - 2.0 %) 0.1 Absolute Granulocytes (1.4 - 6.5 /CUMM) 13.4 H Absolute Lymphocytes (1.2 - 3.4 /CUMM) 0.5 L Absolute Monocytes (0.10 - 0.60 /CUMM) 1.2 H Absolute Eosinophils (0.0 - 0.7 /CUMM) 0 Absolute Basophils (0.0 - 0.2 /CUMM) 0 PUBS MCHC (33.0 - 37.0 G/DL) 32.2 L Toxicology Urine Opiates Screen (>2000 NG/ML) < 100.00 Methadone Screen (>300 NG/ML) 192 Barbiturate Screen (>200 NG/ML) < 60 Ur Phencyclidine Scrn (>25 NG/ML) < 6.00 Amphetamines Screen (>1000 NG/ML) < 100 U Benzodiazepines Scrn (>200 NG/ML) 110 Urine Cocaine Screen (>300 NG/ML) < 50 Urine Cannabis Screen (>50 NG/ML) < 5.00 Diffential Diagnosis: By history, opiate use disorder, currently on methadone maintenance therapy. Anxiety disorder NOS Rule out depressive disorder NOS Impression: Jessenia is well known to us, and we would welcome her back into their outpatient clinic. She is not currently suicidal, and states that her home life is stable, and she would be able to get to appointments at [facility]. Provisional Treatment Plan: 1. Please verify the patient's medications as ordered upon her discharge from [facility]. In particular, the patient reports that she is not getting her normal home dosing of methadone, which has been reported as 57 mg daily. We are not licensed to modify or initiate methadone dosing, so unless the medication is held for obtundation, or other medical reason, she should be return to her home dosing when possible. If dosing needs to be reduced, please employ opiate detox protocol, which I will include in an attachment. 2. Please continue the patient's home dosing of alprazolam, gabapentin and mirtazapine. 3. Please advise when the patient's discharge date is known a. If she is to be discharged to home, we will obtain a [facility] outpatient psychiatry intake appointment. b. If she is to be discharged to an [facility], please include on the discharge instructions, to call [facility] OPS for an intake appointment as soon as her discharge date is known: [phone]. We do not anticipate further visits. Please reconsult if other psychiatric matters arise. Thank you for asking us to participate in Sindy's care. Carrington Alvares APRN, pager [phone].
[2016-05-10] VITALS: BP 142/74
--- NOTE | 2016-05-10 00:06 | NUR ---
ALERT AND ORIENTED X 3. CONFUSION AT TIMES. VITAL SIGNS STABLE. 4L O2 VIA NC MEDICATION GIVEN FOR PAIN. PATIENT RESTING COMFORTABLY AT THIS TIME. WILL CONTINUE TO MONITOR
[2016-05-10 04:00] VITALS: BP 142/80
[2016-05-10 06:00] VITALS: BP 148/90
--- NOTE | 2016-05-10 08:57 | PN- Att Addend ---
Attending Addendum Attending Brief Note Attending note. Patient is awake alert and cooperative taken her medications today her high as a high level of anxiety chronic chronically demanding Cenex as well as methadone. History of chronic pain syndrome but patient appears to be comfortable now. Intake & Output 05/10 1600 05/10 0800 05/10 0000 Intake Total 760 500 Output Total 520 780 Balance 240 -280 Intake, IV 400 Intake, Oral 360 500 Output, Stool 20 80 Output, Urine 500 700 Current Medications Sig/Freddie Start time Last Medication Dose Route Stop Time Status Admin Acetaminophen 650 MG .STK-MED ONE 05/09 1450 DC PO 05/09 1451 Acetaminophen 650 MG Q6P PRN 05/07 2014 AC 05/10 PO 0435 Albuterol Sulfate 3 ML EVERY 4 HRS/AWAKE 05/08 0800 AC 05/10 INH 0837 Alprazolam 1 MG AT BEDTIME 05/09 2200 AC 05/09 PO 05/16 2159 2144 Alprazolam 0.5 MG ONCE ONE 05/09 1430 DC 05/09 PO 05/09 1431 1437 Aspirin Buffered 81 MG DAILY 05/08 1000 AC 05/09 PO 0911 Azithromycin 500 MG 0600 05/08 0600 AC 05/10 Sodium Chloride 250 ML IV 0547 Budesonide/ 2 PUF BID 05/07 2200 AC 05/09 Formoterol Fumarate INH 2144 Gabapentin 100 MG DAILY 05/08 1000 AC 05/09 PO 0911 Guaifenesin 600 MG Q12H 05/07 1900 AC 05/10 PO 0547 Heparin Sodium 5,000 UNIT Q8 05/07 2200 AC 05/10 (Porcine) SC 0547 Ketorolac 15 MG ONCE ONE 05/10 0500 DC 05/10 Tromethamine IV 05/10 0501 0547 Ketorolac 15 MG ONCE ONE 05/09 2044 DC 05/09 Tromethamine IV 05/09 2046 2054 Lidocaine 1 PAT DAILY PRN 05/07 1900 AC 05/08 EXT 1317 Methadone HCl 30 MG DAILY 05/08 1437 AC 05/10 PO 0819 Methylprednisolone 40 MG Q8 05/09 0600 DC 05/09 IV 05/09 2201 2144 Mirtazapine 15 MG QPM 05/07 2200 AC 05/09 PO 2126 Patient Medication 1 ED .STK-MED ONE 05/09 1342 DC Teaching ED 01/06 1343 Sodium Chloride 1,000 ML Q20H 05/08 1100 AC 05/09 IV 2223 Sodium Chloride 2 SPRAY DAILY 05/08 1000 AC 05/08 NAYELI 1114 Tiotropium [place] 1 PUF DAILY 05/08 1000 AC 05/08 INH 1115 Laboratory Tests 05/09 1017 Chemistry Sodium (137 - 145 mmol/L) 138 Potassium (3.5 - 5.1 mmol/L) 4.3 Chloride (98 - 107 mmol/L) 91 L Carbon Dioxide (22 - 30 mmol/L) 36 H Anion Gap (5 - 16) 10 BUN (7 - 17 mg/dL) 23 H Creatinine (0.5 - 1.0 mg/dL) 0.7 Estimated GFR (>60 ml/min) > 60 Glucose (65 - 99 mg/dL) 90 Calcium (8.4 - 10.2 mg/dL) 8.6 Phosphorus (2.5 - 4.5 mg/dL) 2.4 L Magnesium (1.6 - 2.3 mg/dL) 1.8 Total Bilirubin (0.2 - 1.3 mg/dL) 0.8 AST (14 - 36 U/L) 27 ALT (9 - 52 U/L) 39 Albumin (3.5 - 5.0 g/dL) 3.9 Hematology CBC w Diff NO MAN DIFF REQ WBC (4.8 - 10.8 /CUMM) 15.1 H RBC (4.20 - 5.40 /CUMM) 3.35 L Hgb (12.0 - 16.0 G/DL) 9.2 L Hct (37 - 47 %) 28.6 L MCV (81.0 - 99.0 FL) 85.5 MCH (27.0 - 31.0 PG) 27.6 RDW (11.5 - 14.5 %) 17.6 H Plt Count (130 - 400 /CUMM) 408 H MPV (7.4 - 10.4 FL) 6.2 L Gran % (42.2 - 75.2 %) 89.0 H Lymphocytes % (20.5 - 51.1 %) 3.2 L Monocytes % (1.7 - 9.3 %) 7.7 Eosinophils % (0 - 5 %) 0 Basophils % (0.0 - 2.0 %) 0.1 Absolute Granulocytes (1.4 - 6.5 /CUMM) 13.4 H Absolute Lymphocytes (1.2 - 3.4 /CUMM) 0.5 L Absolute Monocytes (0.10 - 0.60 /CUMM) 1.2 H Absolute Eosinophils (0.0 - 0.7 /CUMM) 0 Absolute Basophils (0.0 - 0.2 /CUMM) 0 PUBS MCHC (33.0 - 37.0 G/DL) 32.2 L Vital Signs Date Time Temp Pulse Resp B/P Pulse O2 O2 Flow FiO2 Ox Delivery Rate 05/10 841 94 Nasal 3.0L Cannula 05/10 599 97.6 86 20 148/90 05/10 599 97.6 89 18 148/90 98 4.0L 05/10 0400 98.8 105 22 142/80 05/10 0000 98.8 106 24 142/74 05/10 0000 98 Nasal 4.0L Cannula 05/09 2218 98.8 106 24 142/74 98 Nasal 4.0L Cannula 05/093 96 Nasal 3.0L Cannula 05/09 2200 98.8 106 24 142/74 05/09 2000 97.9 98 20 148/82 05/09 1800 97.9 109 20 150/80 05/09 1600 Nasal 3.0L Cannula 05/09 1600 97.9 109 20 150/80 05/09 1446 97.9 109 20 150/80 95 Nasal 3.0L Cannula Intake & Output 05/10 1600 05/10 0800 05/10 0000 Intake Total 760 500 Output Total 520 780 Balance 240 -280 Intake, IV 400 Intake, Oral 360 500 Output, Stool 20 80 Output, Urine 500 700 Assessment Hypercarbic respiratory failure secondary to opioid overdose in the ER Plan is to continue with the current management recommendations of pulmonary Patient is seen by psychiatry and advised to have his outpatient follow-up Continue the IV hydration fluids Out of bed physical therapy evaluation Prepare discharge to short-term rehabilitation.
--- NOTE | 2016-05-10 09:55 | PN- Housestaff ---
Subjective Follow-up For: Hypercarbic respiratory failure opioid overdose Subjective: Seen and admitted them and patient. Little bit anxious this morning however understands the need to taper her medications. Denies fever, chills, shortness of breath. Slight abdominal pain Review of Systems Constitutional: Denies: chills, diaphoresis, fever, malaise, weakness, unexplained weight loss. Cardiovascular: Denies: chest pain, edema, orthopena, palpitations, peripheral edema, syncope. Respiratory: Denies: cough, hemoptysis, orthopnea, short of breath, sputum production, stridor, wheezing. Objective Last 24 Hrs of Vital Signs/I&O Vital Signs Date Time Temp Pulse Resp B/P Pulse O2 O2 Flow FiO2 Ox Delivery Rate 05/10 0842 94 Nasal 3.0L Cannula 05/10 599 97.6 86 20 148/90 05/10 599 97.6 89 18 148/90 98 4.0L 05/10 0400 98.8 105 22 142/80 05/10 0000 98.8 106 24 142/74 05/10 0000 98 Nasal 4.0L Cannula 05/09 2218 98.8 106 24 142/74 98 Nasal 4.0L Cannula 05/09 2213 96 Nasal 3.0L Cannula 05/09 2200 98.8 106 24 142/74 05/09 2000 97.9 98 20 148/82 05/09 1800 97.9 109 20 150/80 05/09 1600 Nasal 3.0L Cannula 05/09 1600 97.9 109 20 150/80 05/09 1446 97.9 109 20 150/80 95 Nasal 3.0L Cannula Intake & Output 05/10 1600 05/10 0800 05/10 0000 Intake Total 760 500 Output Total 520 780 Balance 240 -280 Intake, IV 400 Intake, Oral 360 500 Output, Stool 20 80 Output, Urine 500 700 Physical Exam General Appearance: Alert, Oriented X3, Cooperative, No Acute Distress Cardiovascular: Regular Rate, Normal S1, Normal S2 Lungs: Clear to Auscultation, Normal Air Movement Abdomen: colostosmy tube in place no leakage noted Current Medications: Current Medications Sig/Freddie Start time Last Medication Dose Route Stop Time Status Admin Acetaminophen 650 MG .STK-MED ONE 05/09 1450 DC PO 05/09 1451 Acetaminophen 650 MG Q6P PRN 05/07 2014 AC 05/10 PO 0435 Albuterol Sulfate 3 ML EVERY 4 HRS/AWAKE 05/08 0800 AC 05/10 INH 0837 Alprazolam 0.5 MG ONCE ONE 05/10 1000 DC PO 05/10 1001 Alprazolam 1 MG AT BEDTIME 05/09 2200 AC 05/09 PO 05/16 2159 2144 Alprazolam 0.5 MG ONCE ONE 05/09 1430 DC 05/09 PO 05/09 1431 1437 Aspirin Buffered 81 MG DAILY 05/08 1000 AC 05/10 PO 0921 Azithromycin 500 MG 0600 05/08 0600 AC 05/10 Sodium Chloride 250 ML IV 0547 Budesonide/ 2 PUF BID 05/07 2200 AC 05/09 Formoterol Fumarate INH 2144 Gabapentin 100 MG DAILY 05/08 1000 AC 05/10 PO 0921 Guaifenesin 600 MG Q12H 05/07 1900 AC 05/10 PO 0547 Heparin Sodium 5,000 UNIT Q8 05/07 2200 AC 05/10 (Porcine) SC 0547 Ketorolac 15 MG ONCE ONE 05/10 0500 DC 05/10 Tromethamine IV 05/10 0501 0547 Ketorolac 15 MG ONCE ONE 05/09 2045 DC 05/09 Tromethamine IV 05/09 2046 2054 Lidocaine 1 PAT DAILY PRN 05/07 1900 AC 05/08 EXT 1317 Methadone HCl 30 MG DAILY 05/08 1437 AC 05/10 PO 0819 Methylprednisolone 40 MG Q8 05/09 0600 DC 05/09 IV 05/09 2201 2144 Mirtazapine 15 MG QPM 05/07 2200 AC 05/09 PO 2126 Patient Medication 1 ED .STK-MED ONE 05/09 1342 DC Teaching ED 05/09 1343 Sodium Chloride 1,000 ML Q20H 05/08 1100 AC 05/09 IV 2223 Sodium Chloride 2 SPRAY DAILY 05/08 1000 AC 05/08 NAYELI 1114 Tiotropium [place] 1 PUF DAILY 05/08 1000 AC 05/08 INH 1115 Assessment/Plan Assessment: 60 woman with pmh of end-stage COPD, chronic hypercarbic respiratory failure on 4 L of oxygen at home, ischemic colitis status post ileostomy, chronic pain syndrome on methadone, anxiety, multiple falls, hypertension and osteoporosis #Acute on Chronic Respiratory Failure Secondary to COPD Exacerbation: - Continue TRC nebs - Continue Symbicort/Spiriva - Methylprednisone 40mg IV now at Q12H - Azithromycin 500mg IV Daily - Mucinex 600mg PO - Pulmonology consult following - F/U Cultures & Sensitivies #Anxiety/Insomnia: Patient restarted on Xanax, but considering her history of overdose, administration of medicine will be done very carefully. - Monitor for signs of withdrawal - Mirtazapene 15mg PO QPM for insomnia #Methadone dependent Patient is currently on 30 mg of methadone daily since yesterday, while at home doses 57 mg orally in liquid form. When contacted by the methadone center earlier today, they mentioned that they were already planning to cut down methadone to lower dose from 57 mg, which started actually fits the plan now. -Continue to the methadone at 30mg. #Pain Plan: - Methadone #Diet - heart healthy diet #DVT PPx - subcutaneous heparin #Code Status - DNR/DNI, no central line, no pressors Problem List: 1. Methadone dependence 2. HTN (hypertension) 3. COPD (chronic obstructive pulmonary disease) 4. Hypercapnic respiratory failure Pain Ratin Pain Location: na Pain Goal: Pain 4 or less Pain Plan: Current regimen Tomorrow's Labs & Rationales: cbc/wbc Consulting Request: Consulting Specialty: Pulmonary Disease
--- NOTE | 2016-05-10 13:20 | PN- Pulmonary ---
Subjective HPI/Critical Care Issues: pt seen and examined afebrile hemodynamically stable 94% 3LNC no n/v/d/c no cp dypsnea returning to baseline wbc 15.1 anxious chronic pain Objective Current Medications: Current Medications Sig/Freddie Start time Last Medication Dose Route Stop Time Status Admin Acetaminophen 650 MG .STK-MED ONE 05/10 0403 DC PO 05/10 0404 Acetaminophen 650 MG .STK-MED ONE 05/09 1450 DC PO 05/09 1451 Acetaminophen 650 MG Q6P PRN 05/07 2014 AC 05/10 PO 0435 Albuterol Sulfate 3 ML EVERY 4 HRS/AWAKE 05/08 0800 AC 05/10 INH 1156 Alprazolam 0.5 MG ONCE ONE 05/10 1000 DC 05/10 PO 05/10 1001 1113 Alprazolam 1 MG AT BEDTIME 05/09 2200 AC 05/09 PO 05/16 2159 2144 Alprazolam 0.5 MG ONCE ONE 05/09 1430 DC 05/09 PO 05/09 1431 1437 Aspirin Buffered 81 MG DAILY 05/08 1000 AC 05/10 PO 0921 Azithromycin 500 MG 0600 05/08 0600 AC 05/10 Sodium Chloride 250 ML IV 0547 Budesonide/ 2 PUF BID 05/07 2200 AC 05/09 Formoterol Fumarate INH 2144 Gabapentin 100 MG DAILY 05/08 1000 AC 05/10 PO 0921 Guaifenesin 600 MG Q12H 05/07 1900 AC 05/10 PO 0547 Heparin Sodium 5,000 UNIT Q8 05/07 2200 AC 05/10 (Porcine) SC 0547 Ketorolac 15 MG ONCE ONE 05/10 0500 DC 05/10 Tromethamine IV 05/10 0501 0547 Ketorolac 15 MG ONCE ONE 05/09 2045 DC 05/09 Tromethamine IV 05/09 2046 2054 Lidocaine 1 PAT DAILY PRN 05/07 1900 AC 05/08 EXT 1317 Methadone HCl 30 MG DAILY 05/08 1437 AC 05/10 PO 0819 Methylprednisolone 40 MG Q8 05/09 0600 DC 05/09 IV 05/09 2201 2144 Mirtazapine 15 MG QPM 05/07 2200 AC 05/09 PO 2126 Patient Medication 1 ED .STK-MED ONE 05/09 1342 DC Teaching ED 05/09 1343 Sodium Chloride 1,000 ML Q20H 05/08 1100 AC 05/09 IV 2223 Sodium Chloride 2 SPRAY DAILY 05/08 1000 AC 05/08 NYAELI 1114 Tiotropium [place] 1 PUF DAILY 05/08 1000 AC 05/08 INH 1115 Vital Signs & I&O Last 24 Hrs of Vitals and I&O: Vital Signs Date Time Temp Pulse Resp B/P Pulse O2 O2 Flow FiO2 Ox Delivery Rate 05/10 0842 94 Nasal 3.0L Cannula 05/10 599 97.6 86 20 148/90 05/10 599 97.6 89 18 148/90 98 4.0L 05/10 0400 98.8 105 22 142/80 05/10 0000 98.8 106 24 142/74 05/10 0000 98 Nasal 4.0L Cannula 05/09 2218 98.8 106 24 142/74 98 Nasal 4.0L Cannula 05/09 2213 96 Nasal 3.0L Cannula 05/09 2200 98.8 106 24 142/74 05/09 2000 97.9 98 20 148/82 05/09 1800 97.9 109 20 150/80 05/09 1600 Nasal 3.0L Cannula 05/09 1600 97.9 109 20 150/80 05/09 1446 97.9 109 20 150/80 95 Nasal 3.0L Cannula Intake & Output 05/10 1600 05/10 0800 05/10 0000 Intake Total 760 500 Output Total 520 780 Balance 240 -280 Intake, IV 400 Intake, Oral 360 500 Output, Stool 20 80 Output, Urine 500 700 Exam Other Physical Findings: gen awake and alert heent ncat cvs s1, s2 lungs rare scattered rhonchi, prolonged end expiratory phase abd soft, colostomy in place ext without edema Impression/Plan Impression/Plan Impression/Plan: Impression 60 year old woman * Improved acute on chronic hypercarbic respiratory failure secondary to opiate ingerstion and COPD exacerbation * Anxiety * Methadone dependence Plan - anxiolysis and pain control with holding parameters - trc/nebs - cont inhalers - zithromax 5 day course - reduce solumedrol to 40mg iv q12h - dvt prophylaxis at all times DC planning for nursing facility
[2016-05-10 14:14] VITALS: BP 158/60
[2016-05-10 22:21] VITALS: BP 160/80
[2016-05-11] VITALS (7 sets, daily range): BP systolic 138–160; BP diastolic 70–96
--- NOTE | 2016-05-11 08:25 | PN- Att Addend ---
Attending Addendum Attending Brief Note Attending note. Patient's awake alert and cooperative once more methadone and Xanax Intake & Output 05/11 1600 05/11 0800 05/11 0000 Intake Total 860 900 Output Total 820 2150 Balance 40 -1250 Intake, IV 500 400 Intake, Oral 360 500 Output, Drainage Output, Stool 20 200 Output, Urine 800 1950 Current Medications Sig/Freddie Start time Last Medication Dose Route Stop Time Status Admin Acetaminophen 650 MG Q6P PRN 05/07 2014 AC 05/10 PO 0435 Albuterol Sulfate 3 ML EVERY 4 HRS/AWAKE 05/08 0800 AC 05/10 INH 2143 Alprazolam 0.5 MG ONCE ONE 05/11 0245 DC 05/11 PO 05/11 0246 0245 Alprazolam 0.5 MG ONCE ONE 05/10 1000 DC 05/10 PO 05/10 1001 1113 Alprazolam 1 MG AT BEDTIME 05/09 2200 AC 05/10 PO 05/16 2159 1950 Aspirin Buffered 81 MG DAILY 05/08 1000 AC 05/10 PO 0921 Azithromycin 500 MG 0600 05/08 0600 AC 05/11 Sodium Chloride 250 ML IV 0529 Budesonide/ 2 PUF BID 05/07 2200 AC 05/10 Formoterol Fumarate INH 2108 Cyclobenzaprine HCl 10 MG ONCE ONE 05/11 0530 DC 05/11 PO 05/11 0531 0536 Gabapentin 100 MG DAILY 05/08 1000 AC 05/10 PO 0921 Guaifenesin 600 MG Q12H 05/07 1900 AC 05/11 PO 0536 Heparin Sodium 5,000 UNIT Q8 05/07 2200 AC 05/11 (Porcine) SC 0530 Ketorolac 15 MG ONCE ONE 05/11 0115 DC 05/11 Tromethamine IV 05/11 0116 0109 Lidocaine 1 PAT DAILY PRN 05/07 1900 AC 05/08 EXT 1317 Methadone HCl 30 MG DAILY 05/08 1437 AC 05/10 PO 0819 Methylprednisolone 40 MG Q12 05/10 1330 AC 05/10 IV 2108 Mirtazapine 15 MG QPM 05/07 2200 AC 05/10 PO 2108 Ondansetron HCl 4 MG ONCE ONE 05/11 0745 DC 05/11 IV 05/11 0746 0745 Sodium Chloride 1,000 ML Q20H 05/08 1100 AC 05/10 IV 1950 Sodium Chloride 2 SPRAY DAILY 05/08 1000 AC 05/08 NAYELI 1114 Tiotropium [place] 1 PUF DAILY 05/08 1000 AC 05/08 INH 1115 Laboratory Tests 05/11 599 Chemistry Sodium Pending Potassium Pending Chloride Pending Carbon Dioxide Pending Anion Gap Pending BUN Pending Creatinine Pending BUN/Creatinine Ratio Pending Hematology CBC w Diff Pending WBC Pending RBC Pending Hgb Pending Hct Pending MCV Pending MCH Pending RDW Pending Plt Count Pending MPV Pending PUBS MCHC Pending Vital Signs Date Time Temp Pulse Resp B/P Pulse O2 O2 Flow FiO2 Ox Delivery Rate 05/11 612 98.4 96 20 144/94 99 Nasal 3.0L Cannula 05/11 06 98.1 96 22 140/90 05/11 0400 98.2 101 22 160/90 05/11 0000 Nasal 4.0L Cannula 05/11 0000 98.1 100 20 160/80 05/10 2221 98.1 100 20 160/80 97 05/10 1718 97 Nasal 3.0L Cannula 05/10 1600 Nasal 4.0L Cannula 05/10 1414 97.4 80 20 158/60 97 Nasal 3.0L Cannula 05/10 0842 94 Nasal 3.0L Cannula Intake & Output 05/11 1600 05/11 0800 05/11 0000 Intake Total 860 900 Output Total 820 2150 Balance 40 -1250 Intake, IV 500 400 Intake, Oral 360 500 Output, Drainage Output, Stool 20 200 Output, Urine 800 1950 Assessment. Hypercarbic respiratory failure due to over medication Switched to by mouth antibiotics Prepare for discharge tomorrow
[2016-05-11 08:41] LABS: ABSOLUTE BASOPHIL COUNT 0 /CUMM (0.0-0.2); ABSOLUTE EOSINOPHIL COUNT 0 /CUMM (0.0-0.7); ABSOLUTE GRANULOCYTE CT 8.2 /CUMM (1.4-6.5); ABSOLUTE MONOCYTE COUNT 0.9 /CUMM (0.10-0.60); BASOPHIL % 0.2 % (0.0-2.0); EOSINOPHIL % 0 % (0-5); GRANULOCYTE % 80.7 % (42.2-75.2); HEMATOCRIT 30.2 % (37-47); MEAN CORPUSCULAR HGB 28.1 PG (27.0-31.0); MEAN CORPUSCULAR HGB CONC 33.2 G/DL (33.0-37.0); MEAN CORPUSCULAR VOLUME 84.7 FL (81.0-99.0); MEAN PLATELET VOLUME 6.6 FL (7.4-10.4); PLATELET COUNT 322 /CUMM (130-400); RBC DISTRIBUTION WIDTH 17.6 % (11.5-14.5); RED BLOOD CELL CT 3.57 /CUMM (4.20-5.40); WHITE BLOOD CELL COUNT 10.2 /CUMM (4.8-10.8)
--- NOTE | 2016-05-11 09:16 | PN- Housestaff ---
Subjective Follow-up For: Acute hypoxic hypercarbic estrogen failure Subjective: Complains of unable to sleep overnight and experienced withdrawal and requested if methadone can be increased from her current dose. Overnight she received 1 dose of Xanax and Flexeril with no help Patient looked more comfortable than yesterday. And was a pleasant this morning. Review of Systems Constitutional: Reports: see HPI. Objective Last 24 Hrs of Vital Signs/I&O Vital Signs Date Time Temp Pulse Resp B/P Pulse O2 O2 Flow FiO2 Ox Delivery Rate 05/11 1441 97.5 99 20 138/70 96 Nasal 3.0L Cannula 05/11 1215 97.5 105 20 140/70 97 Nasal 3.0L Cannula 05/11 831 99 Nasal 3.0L Cannula 05/11 799 Nasal 3.0L Cannula 05/11 612 98.4 96 20 144/94 99 Nasal 3.0L Cannula 05/11 599 98.1 96 22 140/90 05/11 0400 98.2 101 22 160/90 05/11 0000 Nasal 4.0L Cannula 05/11 0000 98.1 100 20 160/80 05/10 2221 98.1 100 20 160/80 97 05/10 1718 97 Nasal 3.0L Cannula 05/10 1600 Nasal 4.0L Cannula Intake & Output 05/11 1600 05/11 0800 05/11 0000 Intake Total 760 860 900 Output Total 612 697 7232 Balance 60 40 -1250 Intake, IV 400 500 400 Intake, Oral 360 360 500 Output, Drainage Output, Stool 20 200 Output, Urine [phone] Physical Exam General Appearance: Alert, Oriented X3, Cooperative, Mild Distress Skin: No Rashes Cardiovascular: Regular Rate, Normal S1, Normal S2 Lungs: Scattered ronchi and prolonged exp phase Abdomen: Normal Bowel Sounds, Soft, No Tenderness, colostomy bag in place. Neurological: Normal Speech Current Medications: Current Medications Sig/Freddie Start time Last Medication Dose Route Stop Time Status Admin Acetaminophen 650 MG Q6P PRN 05/07 2014 AC 05/10 PO 0435 Albuterol Sulfate 3 ML EVERY 4 HRS/AWAKE 05/08 08 AC 05/11 INH 1303 Alprazolam 0.5 MG ONCE ONE 05/11 0245 DC 05/11 PO 05/11 0246 0245 Alprazolam 1 MG AT BEDTIME 05/09 2199 AC 05/10 PO 05/16 2159 1950 Aspirin Buffered 81 MG DAILY 05/08 1000 AC 05/11 PO 1012 Azithromycin 500 MG 0600 05/08 0600 AC 05/11 Sodium Chloride 250 ML IV 0529 Budesonide/ 2 PUF BID 05/07 2200 AC 05/11 Formoterol Fumarate INH 1014 Cyclobenzaprine HCl 10 MG ONCE ONE 05/11 0530 DC 05/11 PO 05/11 0531 0536 Gabapentin 100 MG DAILY 05/08 1000 AC 05/11 PO 1012 Guaifenesin 600 MG Q12H 05/07 1900 AC 05/11 PO 0536 Heparin Sodium 5,000 UNIT Q8 05/07 2200 AC 05/11 (Porcine) SC 1435 Ketorolac 15 MG ONCE ONE 05/11 0115 DC 05/11 Tromethamine IV 05/11 0116 0109 Lidocaine 1 PAT DAILY PRN 05/07 1900 AC 05/08 EXT 1317 Methadone HCl 30 MG DAILY 05/08 1437 AC 05/11 PO 1009 Methylprednisolone 40 MG Q12 05/10 1330 AC 05/11 IV 1012 Mirtazapine 15 MG QPM 05/07 2200 AC 05/10 PO 2108 Ondansetron HCl 4 MG ONCE ONE 05/11 0745 DC 05/11 IV 05/11 0746 0745 Sodium Chloride 1,000 ML Q20H 05/08 1100 AC 05/10 IV 1950 Sodium Chloride 2 SPRAY DAILY 05/08 1000 AC 05/08 NAEYLI 1114 Tiotropium [place] 1 PUF DAILY 05/08 1000 AC 05/11 INH 1015 Last 24 Hrs of Lab/[place] Results Last 24 Hrs of Labs/Mics: Laboratory Tests 05/11/16 1250: Troponin I Pending 05/11/16 0600: Anion Gap 12, Estimated GFR > 60, BUN/Creatinine Ratio 32.9 H, CBC w Diff NO MAN DIFF REQ, RBC 3.57 L, MCV 84.7, MCH 28.1, RDW 17.6 H, MPV 6.6 L, Gran % 80.7 H, Lymphocytes % 10.0 L, Monocytes % 9.1, Eosinophils % 0, Basophils % 0.2, Absolute Granulocytes 8.2 H, Absolute Lymphocytes 1.0 L, Absolute Monocytes 0.9 H, Absolute Eosinophils 0, Absolute Basophils 0, PUBS MCHC 33.2 Assessment/Plan Assessment: 60 woman with pmh of end-stage COPD, chronic hypercarbic respiratory failure on 4 L of oxygen at home, ischemic colitis status post ileostomy, chronic pain syndrome on methadone, anxiety, multiple falls, hypertension and osteoporosis #Acute on Chronic Respiratory Failure Secondary to COPD Exacerbation: Imroving - Continue TRC nebs - Continue Symbicort/Spiriva - Methylprednisone 40mg IV now at Q12H - Azithromycin 500mg for 5 days - Mucinex 600mg PO - Pulmonology consult following - F/U Cultures & Sensitivies #Anxiety/Insomnia: Patient restarted on Xanax, but considering her history of overdose, administration of medicine will be done very carefullywith holding parameters - Monitor for signs of withdrawal - Mirtazapene 15mg PO QPM for insomnia #Methadone dependent Patient is currently on 30 mg of methadone daily #Pain Plan: - Methadone #Diet - heart healthy diet #DVT PPx - subcutaneous heparin #Code Status - DNR/DNI, no central line, no pressors Problem List: 1. Hypercapnic respiratory failure Pain Ratin Pain Location: Chest Pain Goal: Pain 4 or less Pain Plan: On Flexeril, Toradol, methadone Tomorrow's Labs & Rationales: Not needed Consulting Request: Consulting Specialty: Pulmonary Disease
--- NOTE | 2016-05-11 12:15 | NUR ---
PATIENT CALLED NURSE TO REPORT CHEST PAIN 10/11; NOTIFIED MEDICAL TEAM, EKG AND TROPONIN ORDERED, VITAL SIGNS: BP 140/70, P 105, RR 20, TEMP 97.5, PULSE OX ON 3L NC = 97%; REPOSITIONED IN BED; WILL CONTINUE TO MONITOR.
--- NOTE | 2016-05-11 13:23 | PN- Pulmonary ---
Subjective HPI/Critical Care Issues: pt seen and examined comfortable and feeling somewhat better some vague bilateral chest discomfort and requesting an increase in methadone no cough no n/v/d/c no joe Objective Current Medications: Current Medications Sig/Freddie Start time Last Medication Dose Route Stop Time Status Admin Acetaminophen 650 MG Q6P PRN 05/07 2014 AC 05/10 PO 0435 Albuterol Sulfate 3 ML EVERY 4 HRS/AWAKE 05/08 0800 AC 05/11 INH 1303 Alprazolam 0.5 MG ONCE ONE 05/11 0245 DC 05/11 PO 05/11 0246 0245 Alprazolam 1 MG AT BEDTIME 05/09 2200 AC 05/10 PO 05/16 2159 1950 Aspirin Buffered 81 MG DAILY 05/08 1000 AC 05/11 PO 1012 Azithromycin 500 MG 0600 05/08 0600 AC 05/11 Sodium Chloride 250 ML IV 0529 Budesonide/ 2 PUF BID 05/07 2200 AC 05/11 Formoterol Fumarate INH 1014 Cyclobenzaprine HCl 10 MG ONCE ONE 05/11 0530 DC 05/11 PO 05/11 0531 0536 Gabapentin 100 MG DAILY 05/08 1000 AC 05/11 PO 1012 Guaifenesin 600 MG Q12H 05/07 1900 AC 05/11 PO 0536 Heparin Sodium 5,000 UNIT Q8 05/07 2200 AC 05/11 (Porcine) SC 0530 Ketorolac 15 MG ONCE ONE 05/11 0115 DC 05/11 Tromethamine IV 05/11 0116 0109 Lidocaine 1 PAT DAILY PRN 05/07 1900 AC 05/08 EXT 1317 Methadone HCl 30 MG DAILY 05/08 1437 AC 05/11 PO 1009 Methylprednisolone 40 MG Q12 05/10 1330 AC 05/11 IV 1012 Mirtazapine 15 MG QPM 05/07 2200 AC 05/10 PO 2108 Ondansetron HCl 4 MG ONCE ONE 05/11 0745 DC 05/11 IV 05/11 0746 0745 Sodium Chloride 1,000 ML Q20H 05/08 1100 AC 05/10 IV 1950 Sodium Chloride 2 SPRAY DAILY 05/08 1000 AC 05/08 NAYELI 1114 Tiotropium [place] 1 PUF DAILY 05/08 1000 AC 05/11 INH 1015 Vital Signs & I&O Last 24 Hrs of Vitals and I&O: Vital Signs Date Time Temp Pulse Resp B/P Pulse O2 O2 Flow FiO2 Ox Delivery Rate 05/11 0832 99 Nasal 3.0L Cannula 05/11 612 98.4 96 20 144/94 99 Nasal 3.0L Cannula 05/11 599 98.1 96 22 140/90 05/11 0400 98.2 101 22 160/90 05/11 0000 Nasal 4.0L Cannula 05/11 0000 98.1 100 20 160/80 05/10 2221 98.1 100 20 160/80 97 05/10 1718 97 Nasal 3.0L Cannula 05/10 1600 Nasal 4.0L Cannula 05/10 1414 97.4 80 20 158/60 97 Nasal 3.0L Cannula Intake & Output 05/11 1600 05/11 0805/11 0000 Intake Total 860 900 Output Total 400 593 3219 Balance -100 40 -1250 Intake, IV 500 400 Intake, Oral 360 500 Output, Drainage Output, Stool 20 200 Output, Urine 477 370 4311 Exam Other Physical Findings: gen awake and alert heent ncat cvs s1, s2 lungs rare scattered rhonchi, prolonged end expiratory phase abd soft, colostomy in place ext without edema Results Last 24 Hrs of Lab Results: Laboratory Tests 05/11/16 1250: Troponin I Pending 05/11/16 0600: Anion Gap 12, Estimated GFR > 60, BUN/Creatinine Ratio 32.9 H, CBC w Diff NO MAN DIFF REQ, RBC 3.57 L, MCV 84.7, MCH 28.1, RDW 17.6 H, MPV 6.6 L, Gran % 80.7 H, Lymphocytes % 10.0 L, Monocytes % 9.1, Eosinophils % 0, Basophils % 0.2, Absolute Granulocytes 8.2 H, Absolute Lymphocytes 1.0 L, Absolute Monocytes 0.9 H, Absolute Eosinophils 0, Absolute Basophils 0, PUBS MCHC 33.2 Impression/Plan Impression/Plan Impression/Plan: Impression 60 year old woman * Improved acute on chronic hypercarbic respiratory failure secondary to opiate ingerstion and COPD exacerbation * Anxiety * Methadone dependence Plan - anxiolysis and pain control with holding parameters - trc/nebs - cont inhalers - zithromax 5 day course - solumedrol to 40mg iv q12h and plan to taper to po - dvt prophylaxis at all times DC planning for nursing facility
[2016-05-12] VITALS: BP 162/80
[2016-05-12 00:25] VITALS: BP 162/80
[2016-05-12 06:00] VITALS: BP 142/108
--- NOTE | 2016-05-12 06:07 | PN- Housestaff ---
Subjective Follow-up For: Acute hypoxic hypercarbic respuratory failure Complaints: no complaints Subjective: I followed up and examined the patient today. She was lying comfortably in the bed, not in any acute distress, and did not have any complaints today. Vitals have been stable overnight, still requiring oxygen, but she is at home baseline already, and no overnight issues. Review of Systems Constitutional: Reports: no symptoms. EENTM: Reports: no symptoms. Cardiovascular: Reports: no symptoms. Respiratory: Reports: cough, short of breath. Denies: sputum production. Gastrointestinal: Reports: no symptoms. Genitourinary: Reports: no symptoms. Musculoskeletal: Reports: back pain. Skin: Reports: no symptoms. Neurological/Psychological: Reports: no symptoms. Hematologic/Endocrine: Reports: no symptoms. Immunologic/Allergic: Reports: no symptoms. Objective Last 24 Hrs of Vital Signs/I&O Vital Signs Date Time Temp Pulse Resp B/P Pulse O2 O2 Flow FiO2 Ox Delivery Rate 05/12 1414 98.0 70 18 118/70 96 Nasal 3.0L Cannula 05/12 1045 Nasal 4.0L Cannula 05/12 1031 Nasal 4.0L Cannula 05/12 0821 99 Nasal 3.0L Cannula 05/12 0800 Nasal 3.0L Cannula 05/12 0655 97.6 85 20 142/108 98 05/12 0600 97.6 85 20 142/108 05/12 0025 97.8 112 20 162/80 98 05/12 0000 97.8 112 20 162/80 05/12 0000 98 Nasal 3.0L Cannula 05/11 2211 97.3 98 18 158/96 97 05/11 1704 96 Nasal 3.0L Cannula 05/11 1600 Nasal 3.0L Cannula Intake & Output 05/12 1600 05/12 0800 05/12 0000 Intake Total 8598 309 9816 Output Total 475 425 950 Balance 525 175 50 Intake, IV 400 400 400 Intake, Oral 600 200 600 Number 1 Bowel Movements Output, Stool 150 Output, Urine 475 425 800 Physical Exam General Appearance: Alert, Oriented X3, Cooperative, No Acute Distress Other Physical Findings: Physical examination: General: thin buit patient not in distress, has significant kyphosis Head: Normocephalic, atraumatic Eyes: Pupils normal in size, regular, reacting to light and accommodation, EOM normal Ears: B/l normal on inspection Nose: Normal on inspection Throat/mouth: Moist mucosa Neck: Supple, full range of motion, no thyromegaly Heart: Regular rate, regular rhythm Lung: Bilateral crepts and occassional wheeze heard, better now Abd: Soft, non-tender, no distention appreciated, colostomy bag in situ Back: Normal range of motion Extremities: Normal knee exam bilaterally, no pedal edema, Distal neurovascular intact Neurologic: Alert, oriented x3, Cranial exam grossly intact, Speech is clear and coherent Skin: Warm and dry Psychiatric: Calm, cooperative, coherant, no SI at present Current Medications: Current Medications Sig/Freddie Start time Last Medication Dose Route Stop Time Status Admin Acetaminophen 650 MG Q6P PRN 05/07 2014 AC 05/10 PO 0435 Albuterol Sulfate 3 ML EVERY 4 HRS/AWAKE 05/08 0800 AC 05/12 INH 1147 Alprazolam 0.5 MG ONCE ONE 05/12 1145 DC 05/12 PO 05/12 1146 1215 Alprazolam 0.5 MG ONCE ONE 05/12 0100 DC 05/12 PO 05/12 0101 0227 Alprazolam 1 MG AT BEDTIME 05/09 220 AC 05/11 PO 05/16 2159 1946 Aspirin Buffered 81 MG DAILY 05/08 1000 AC 05/12 PO 1004 Azithromycin 500 MG 0600 05/08 0600 AC 05/12 Sodium Chloride 250 ML IV 0600 Budesonide/ 2 PUF BID 05/07 2200 AC 05/12 Formoterol Fumarate INH 1005 Cyclobenzaprine HCl 10 MG ONCE ONE 05/12 0100 DC 05/12 PO 05/12 0101 0227 Gabapentin 100 MG DAILY 05/08 1000 AC 05/12 PO 1004 Guaifenesin 600 MG Q12H 05/07 1900 AC 05/12 PO 0600 Heparin Sodium 5,000 UNIT Q8 05/07 2200 AC 05/12 (Porcine) SC 0559 Lidocaine 1 PAT DAILY PRN 05/07 190 AC 05/08 EXT 1317 Methadone HCl 30 MG DAILY 05/08 1437 AC 05/12 PO 0602 Methylprednisolone 40 MG Q12 05/10 1330 AC 05/12 IV 1004 Mirtazapine 15 MG QPM 05/07 2200 AC 05/11 PO 1945 Sodium Chloride 1,000 ML Q20H 05/08 1100 DC 05/11 IV 1952 Sodium Chloride 2 SPRAY DAILY 05/08 1000 AC 05/08 NAYELI 1114 Tiotropium [place] 1 PUF DAILY 05/08 1000 AC 05/12 INH 1004 Assessment/Plan Assessment: 60 woman with pmh of end-stage COPD, chronic hypercarbic respiratory failure on 4 L of oxygen at home, ischemic colitis status post ileostomy, chronic pain syndrome on methadone, anxiety, multiple falls, hypertension and osteoporosis #Acute on Chronic Respiratory Failure Secondary to COPD Exacerbation: Imroving - Continue TRC nebs - Continue Symbicort/Spiriva - Methylprednisone 40mg IV now at Q12H - Azithromycin 500mg for 5 days - Mucinex 600mg PO - Pulmonology consult following - F/U Cultures [employer] Sensitivies With all the medication, TRC, and nebulization, the patient seems to be doing better, but still requires a short-term rehabilitation to continue her medication and resiratory care. She is not completely at her baseline, but she is definitely doing better since her admission. She wants to be discharged, but requires further treatment and a follow up with her PCP and oncology radiation physician. #Anxiety/Insomnia: Patient restarted on Xanax 1mg PO HS, but considering her history of overdose, administration of medicine will be done very carefullywith holding parameters - Monitor for signs of withdrawal - Mirtazapene 15mg PO QPM for insomnia #Methadone dependent Patient is currently on 30 mg of methadone daily, which is less compared to what she was getting before admission, that is 57 mg daily. The methadone program was contacted and informed that the plan was to decrease her methadone, she is comfortable at 30 mg daily, we were advised to continue her at 30 mg daily dose. #Pain Plan: - Methadone 30mg daily #Diet - heart healthy diet #DVT PPx - subcutaneous heparin #Code Status - DNR/DNI, no central line, no pressors Problem List: 1. COPD (chronic obstructive pulmonary disease) 2. Hypercapnic respiratory failure 3. History of substance abuse 4. Methadone dependence Pain Ratin Pain Location: low back Pain Goal: Pain 4 or less Pain Plan: methadone Tomorrow's Labs & Rationales: none, as the patient is being discharged today Consulting Request: Consulting Specialty: Pulmonary Disease
[2016-05-12 06:55] VITALS: BP 142/108
--- NOTE | 2016-05-12 07:47 | PN- Att Addend ---
Attending Addendum Attending Brief Note Attending note. Patient is awake alert comfortable currently on 30 mg of methadone a high level of anxiety complains of insomnia her breathing is fairly comfortable. Intake & Output 05/12 0800 05/12 0000 05/11 1600 Intake Total 1000 760 Output Total 425 950 700 Balance -425 50 60 Intake, IV 400 400 Intake, Oral 600 360 Output, Stool 150 Output, Urine 425 800 700 Current Medications Sig/Freddie Start time Last Medication Dose Route Stop Time Status Admin Acetaminophen 650 MG Q6P PRN 05/07 2014 AC 05/10 PO 0435 Albuterol Sulfate 3 ML EVERY 4 HRS/AWAKE 05/08 08 AC 05/11 INH 2006 Alprazolam 0.5 MG ONCE ONE 05/12 010 DC 05/12 PO 05/12 010 022 Alprazolam 1 MG AT BEDTIME 05/09 220 AC 05/11 PO 05/16 2159 194 Aspirin Buffered 81 MG DAILY 05/08 1000 AC 05/11 PO 1012 Azithromycin 500 MG 0600 05/08 0600 AC 05/12 Sodium Chloride 250 ML IV 0600 Budesonide/ 2 PUF BID 05/07 220 AC 05/11 Formoterol Fumarate INH 195 Cyclobenzaprine HCl 10 MG ONCE ONE 05/12 010 DC 05/12 PO 05/12 010 0227 Gabapentin 100 MG DAILY 05/08 1000 AC 05/11 PO 1012 Guaifenesin 600 MG Q12H 05/07 1900 AC 05/12 PO 0600 Heparin Sodium 5,000 UNIT Q8 05/07 2200 AC 05/12 (Porcine) SC 0559 Lidocaine 1 PAT DAILY PRN 05/07 1900 AC 05/08 EXT 1317 Methadone HCl 30 MG DAILY 05/08 1437 AC 05/12 PO 0602 Methylprednisolone 40 MG Q12 05/10 1330 AC 05/11 IV 1946 Mirtazapine 15 MG QPM 05/07 2200 AC 05/11 PO 1945 Ondansetron HCl 4 MG ONCE ONE 05/11 0745 DC 05/11 IV 05/11 0746 0745 Sodium Chloride 1,000 ML Q20H 05/08 1100 AC 05/11 IV 1952 Sodium Chloride 2 SPRAY DAILY 05/08 1000 AC 05/08 NAYELI 1114 Tiotropium [place] 1 PUF DAILY 05/08 1000 AC 05/11 INH 1015 Laboratory Tests 05/11 1250 Chemistry Troponin I (< 0.11 ng/ml) 0.09 Vital Signs Date Time Temp Pulse Resp B/P Pulse O2 O2 Flow FiO2 Ox Delivery Rate 05/12 0655 97.6 85 20 142/108 98 05/12 0025 97.8 112 20 162/80 98 05/11 2211 97.3 98 18 158/96 97 05/11 1704 96 Nasal 3.0L Cannula 05/11 1600 Nasal 3.0L Cannula 05/11 1441 97.5 99 20 138/70 96 Nasal 3.0L Cannula 05/11 1215 97.5 105 20 140/70 97 Nasal 3.0L Cannula 05/11 0832 99 Nasal 3.0L Cannula 05/11 08 Nasal 3.0L Cannula Intake & Output 05/12 0800 05/12 0000 05/11 1600 Intake Total 1000 760 Output Total 425 950 700 Balance -425 50 60 Intake, IV 400 400 Intake, Oral 600 360 Output, Stool 150 Output, Urine 425 800 700 Assessment Her blood pressure is slightly elevated this morning and add amlodipine 5 mg , check blood pressure was later is stable patient can be discharged [facility]. The blood pressure is stable patient can be discharged to [facility].
[2016-05-12] MEDS ORDERED: METHADONE10 MG/5 M2 PO (07:52)
--- NOTE | 2016-05-12 08:18 | PN- Pulmonary ---
Subjective HPI/Critical Care Issues: Patient is much more awake alert shortness breath is improved Objective Current Medications: Current Medications Sig/Freddie Start time Last Medication Dose Route Stop Time Status Admin Acetaminophen 650 MG Q6P PRN 05/07 2014 AC 05/10 PO 0435 Albuterol Sulfate 3 ML EVERY 4 HRS/AWAKE 05/08 08 AC 05/11 INH 2007 Alprazolam 0.5 MG ONCE ONE 05/12 0100 DC 05/12 PO 05/12 0101 022 Alprazolam 1 MG AT BEDTIME 05/09 2200 AC 05/11 PO 05/16 2159 1946 Aspirin Buffered 81 MG DAILY 05/08 1000 AC 05/11 PO 1012 Azithromycin 500 MG 0600 05/08 0600 AC 05/12 Sodium Chloride 250 ML IV 0600 Budesonide/ 2 PUF BID 05/07 2200 AC 05/11 Formoterol Fumarate INH 195 Cyclobenzaprine HCl 10 MG ONCE ONE 05/12 0100 DC 05/12 PO 05/12 010 0227 Gabapentin 100 MG DAILY 05/08 1000 AC 05/11 PO 1012 Guaifenesin 600 MG Q12H 05/07 1900 AC 05/12 PO 0600 Heparin Sodium 5,000 UNIT Q8 05/07 2200 AC 05/12 (Porcine) SC 0559 Lidocaine 1 PAT DAILY PRN 05/07 1900 AC 05/08 EXT 1317 Methadone HCl 30 MG DAILY 05/08 1437 AC 05/12 PO 0602 Methylprednisolone 40 MG Q12 05/10 1330 AC 05/11 IV 1946 Mirtazapine 15 MG QPM 05/07 2200 AC 05/11 PO 1945 Sodium Chloride 1,000 ML Q20H 05/08 1100 AC 05/11 IV 1952 Sodium Chloride 2 SPRAY DAILY 05/08 1000 AC 05/08 NAYELI 1114 Tiotropium [place] 1 PUF DAILY 05/08 1000 AC 05/11 INH 1015 Vital Signs & I&O Last 24 Hrs of Vitals and I&O: Vital Signs Date Time Temp Pulse Resp B/P Pulse O2 O2 Flow FiO2 Ox Delivery Rate 05/12 0655 97.6 85 20 142/108 98 05/12 0025 97.8 112 20 162/80 98 05/11 2211 97.3 98 18 158/96 97 05/11 1704 96 Nasal 3.0L Cannula 05/11 1600 Nasal 3.0L Cannula 05/11 1441 97.5 99 20 138/70 96 Nasal 3.0L Cannula 05/11 1215 97.5 105 20 140/70 97 Nasal 3.0L Cannula 05/11 0832 99 Nasal 3.0L Cannula Intake & Output 05/12 1600 05/12 0800 05/12 0000 Intake Total 1000 Output Total 425 950 Balance -425 50 Intake, IV 400 Intake, Oral 600 Output, Stool 150 Output, Urine 425 800 Oxygen saturation on 3 L 98% exam for chest shows diminished breath sounds there are no wheezes cardiac exam shows regular S1 and S2 without murmurs Impression/Plan Impression/Plan Impression/Plan: She 1-year-old with end-stage COPD DNR/DNI admitted with acute on chronic hypercapnic respiratory failure likely component of opiate intoxication as well as COPD exacerbation. Patient is clinically improved and can be discharged from a respiratory standpoint. Taper FiO2. DC Solu-Medrol begin oral prednisone which can be tapered as outpatient. Recommendations: Continue current BiPAP settings. Continue IV steroids and antibiotics. Gentle hydration with normal saline. If bicarbonate remains greater than 40 give Diamox 250 mg IV 1 dose and monitor electrolytes. Diamox may need to be repeated
--- NOTE | 2016-05-12 09:26 | NUR ---
0014 PT C/O CHEST PAIN AGAIN.V/S MONITORED & CHARTED.REPORTED TO RESIDENT & HE WILL LET C UNIX DEVELOPER KNOW.PT IS VERY ANXIOUS & C/O GENERALIZED PAIN.NO NEW ORDER RECEIVED.
--- NOTE | 2016-05-12 11:21 | Patient Discharge Instructions ---
Discharge Instructions General Discharge Information You were seen/treated for: Acute hypoxic respiratory failure secondary to Acute exacerbation of COPD; Intentional medication overdose Special Instructions: Please visit your primary care physician within 7-10 days of discharge. Please visit your lungs Dr. within 10 days of discharge. Your daily methadone dose has been lowered to 30 mg per day, please take it regularly. Please return to emergency if symptoms worsen. Diet Continue normal diet: Yes Recommended Diet: Heart Healthy Activity Full Activity/No Limits: No Activity Self Limited: Yes Acute Coronary Syndrome Inclusion Criteria At DC or during hospital stay patient has or had the following: ACS DIAGNOSIS No Discharge Core Measures Meds if any: Prescribed or Continued at Discharge Meds if any: NOT Prescribed or Continued at Discharge Congestive Heart Failure Inclusion Criteria At DC or during hospital stay patient has or had the following: CHF DIAGNOSIS No Discharge Core Measures Meds if any: Prescribed or Continued at Discharge Meds if any: NOT Prescribed or Continued at Discharge Cerebrovascular accident Inclusion Criteria At DC or during hospital stay patient has or had the following: CVA/TIA Diagnosis No Discharge Core Measures Meds if any: Prescribed or Continued at Discharge Meds if any: NOT Prescribed or Continued at Discharge Venous thromboembolism Inclusion Criteria VTE Diagnosis No VTE Type NONE VTE Confirmed by (Test) NONE Discharge Core Measures - Per Current guidelines, there needs to be overlap - treatment for the first 5 days of Warfarin therapy. - If discharged on Warfarin prior to 5 days of - overlap therapy, the patient will need to be - assessed for post discharge needs including - *Post discharge parental anticoagulation - *Warfarin and/or parental anticoagulation education - *Follow up date to check INR post discharge At least 5 days overlap therapy as Inpatient No Meds if any: Prescribed or Continued at Discharge Note: Overlap Therapy is Warfarin and Anticoagulant Meds if any: NOT Prescribed or Continued at Discharge
--- NOTE | 2016-05-12 11:38 | Discharge Summary ---
Visit Information Visit Dates Admission Date: 05/07/16 Discharge Date: 05/12/16 Hospital Course Course Attending Physician: KANDY ASHTON MD Primary Care Physician: KANDY ASHTON MD Consulting Request: Consulting Specialty: Pulmonary Disease Hospital Course: She is 60-year-old woman with past medical history of end-stage COPD, chronic hypercarbic respiratory failure on 4 L of oxygen at home, ischemic colitis status post ileostomy, chronic pain syndrome on methadone, anxiety, multiple falls, hypertension and osteoporosis. [facility] She was supposed to be on BiPAP last night but the machine was not set up at home. She was BIBA from home with worsening shortness of breath. ED course: Her temperature was 97.0, heart rate 88, respiratory rate 32, blood pressure 107 /58 and oxygen saturation 77% on 4 L of oxygen via nasal cannula. Oxygen requirement was increased to 5 L. Patient takes methadone for chronic pain syndrome. In ER she was given methadone 60 mg by mouth 1. After 1-2 hours patient was found unresponsive and she was desaturating to 82-84% on 5 L. Respiratory was called. Narcan was ordered but it was never given. ABGs were done that showed respiratory acidosis. PH 7.21, PCO2 93, bicarbonate 37. She was started on BiPAP right away. IPAP/APAP 14/6 with 35% oxygen. Repeat ABGs after 1-2 hours are improving. PH 7.28, PCO2 78, HCO3 36. In ER she was also given Solu-Medrol 125 mg IV 1. She was evaluated by the ICU resident and was noticed to be alert and oriented. Hospital course 1. Acute on chronic hypercapnic respiratory failure likely component of opiate intoxication as well as COPD exacerbation: She was admitted to ICU and started on IV Solu-Medrol after a stress dose followed by IV antibiotics. Blood urine and sputum cultures were sent. Pulmonary consult was obtained who recommended to continue current management and keep her on TRC nebulizes and continue home medications of Symbicort and Spiriva. One set blood cultures and urine cultures came back negative with no growth. He was transferred to general medical floor and completed 5 days course of azithromycin and IV Solu-Medrol changed to by mouth prednisone. Patient was symptomatically improving. Her white count was elevated on admission which again be secondary to steroids. Her white count upon discharge was 10.2 and patient remained afebrile during the hospital stay. 2. Anxiety/depression: Patient has severe component of anxiety and depression. Her Xanax was held since admission as this could have attributed to her initial presentation. There was also concern that patient that patient has been taking more than recommended. Her Xanax was resumed as she has been occasions under supervision. Careful monitoring in future with her Xanax and other opiates and benzos. Caution should be maintained on respiratory status 3. Acute kidney injury: Likely prerenal which improved with IV fluids. Creatinine upon discharge was 0.7 mgrams per deciliter 4. History of hypertension: She was continued on her home medications and a blood pressure most of the part during the hospital stay remained stable 5. History of chronic pain syndrome on methadone. She required Flexeril in between for her pain medications which was given on an as-needed basis. 6. normocytic anemia: Hemoglobin stable at baseline. DVT prophylaxis with subcutaneous heparin DNR/DNI Allergies: Coded Allergies: cat dander (UNKNOWN REACTION TO 'PET HAIR/DANDER' 04/24/16) ipratropium (From [facility]TR[facility]ENT) ("IT'S TOO MUCH DR TRUONG SAID" 04/24/16) Pertinent Lab Results: Laboratory Tests 05/11 05/11 1250 0600 Chemistry Sodium (137 - 145 mmol/L) 136 L Potassium (3.5 - 5.1 mmol/L) 4.5 Chloride (98 - 107 mmol/L) 91 L Carbon Dioxide (22 - 30 mmol/L) 32 H Anion Gap (5 - 16) 12 BUN (7 - 17 mg/dL) 23 H Creatinine (0.5 - 1.0 mg/dL) 0.7 Estimated GFR (>60 ml/min) > 60 BUN/Creatinine Ratio (7 - 25 %) 32.9 H Troponin I (< 0.11 ng/ml) 0.09 Hematology CBC w Diff NO MAN DIFF REQ WBC (4.8 - 10.8 /CUMM) 10.2 RBC (4.20 - 5.40 /CUMM) 3.57 L Hgb (12.0 - 16.0 G/DL) 10.0 L Hct (37 - 47 %) 30.2 L MCV (81.0 - 99.0 FL) 84.7 MCH (27.0 - 31.0 PG) 28.1 RDW (11.5 - 14.5 %) 17.6 H Plt Count (130 - 400 /CUMM) 322 MPV (7.4 - 10.4 FL) 6.6 L Gran % (42.2 - 75.2 %) 80.7 H Lymphocytes % (20.5 - 51.1 %) 10.0 L Monocytes % (1.7 - 9.3 %) 9.1 Eosinophils % (0 - 5 %) 0 Basophils % (0.0 - 2.0 %) 0.2 Absolute Granulocytes (1.4 - 6.5 /CUMM) 8.2 H Absolute Lymphocytes (1.2 - 3.4 /CUMM) 1.0 L Absolute Monocytes (0.10 - 0.60 /CUMM) 0.9 H Absolute Eosinophils (0.0 - 0.7 /CUMM) 0 Absolute Basophils (0.0 - 0.2 /CUMM) 0 PUBS MCHC (33.0 - 37.0 G/DL) 33.2 Disposition Summary Disposition Principal Diagnosis: 1. Acute on chronic hypercapnic respiratory failure likely component of opiate intoxication as well as COPD exacerbation 2. Anxiety/depression 3. Chronic pain syndrome Additional Diagnosis: 1. Hypertension Discharge Disposition: SNF Discharge Instructions General Discharge Information Code Status: Do Not Resucitate/Intubat Patient's Diet: Regular diet Patient's Activity: As tolerated with physical therapy Follow-Up Instructions/Appts: Please visit your primary care physician within 7-10 days of discharge. Please visit your lungs Dr. within 10 days of discharge. Your daily methadone dose has been lowered to 30 mg per day, please take it regularly. Please return to emergency if symptoms worsen. Medications at Discharge Discharge Medications: Continue taking these medications: Alendronate Sodium (Alendronate Sodium) 70 MG TABLET 1 Tablet ORAL EVERY THURSDAY Instructions: in the morning, at least 30 minutes before the first food, beverage, or medication of the day Comments: NOT GIVNE IN HOSPITAL Aspirin (Ecotrin) 81 MG TABLET. 1 Tablet ORAL DAILY Days = 30 Comments: LAST GIVEN 05/09/15 AT 0800 Budesonide/Formoterol [place] (Symbicort 160-4.5 Mcg Inhaler) 160 MCG/4.5 MCG PUF 2 Puff Inhale through mouth TWICE DAILY Qty = 10 Comments: LAST GIVEN 05/09/15 AT 0800 Tiotropium [place] (Spiriva) 18 MCG CAP.W.DEV 1 Capsule Inhale through mouth DAILY Days = 30 Comments: LAST GIVEN 05/09/15 AT 1100 Gabapentin (Neurontin) 100 MG CAPSULE 1 Capsule ORAL DAILY Hydralazine HCl (Hydralazine HCl) 10 MG TABLET 1 Tablet ORAL THREE TIMES DAILY Comments: PER MAR Guaifenesin (Mucinex) 600 MG TAB.ER.12H 1 Tablet ORAL Q12H Comments: PER MAR Prednisone (Prednisone) 10 MG TABLET 1 Tablet ORAL DAILY Sodium Chloride (Nasal [place]) 0.65 % SPRAY 2 [place] Both sides of nose DAILY Comments: PER MAR Acetaminophen (Acetaminophen) 325 MG TABLET 2 Tablet ORAL Q4H as needed for PAIN/TEMP>/100 Comments: PER MAR NTE 3GM APAP/24H Magnesium Hydroxide (Milk Of Magnesia) 400 MG/5 ML ORAL.SUSP 30 Milliliters ORAL DAILY as needed for CONSTIPATION Comments: PER [facility] Lidocaine (Lidocaine) 5 % ADH..PATCH 1 Patch On the skin DAILY as needed for PAIN Comments: PER [facility] Cyclobenzaprine HCl (Cyclobenzaprine HCl) 10 MG TABLET 1 Tablet ORAL THREE TIMES DAILY as needed for MUSCLE PAIN Comments: PER [facility] Alprazolam (Xanax) 1 MG TABLET 1 Tablet ORAL AT BED TIME Mirtazapine (Mirtazapine) 15 MG TABLET 1 Tablet ORAL Every night Amlodipine Besylate (Amlodipine Besylate) 10 MG TABLET 1 Tablet ORAL DAILY Theophylline Anhydrous (Theophylline Anhydrous) 200 MG TAB.ER.12H 1 Tablet ORAL DAILY Albuterol Sulfate (Proair Hfa) 90 MCG HFA.AER.AD 2 Puff Inhale through mouth EVERY 4-6 HOURS NEEDED as needed for SOB The following medications have been changed: Old: Methadone HCl (Methadone HCl) 10 MG/5 ML SOLUTION 57 Milligram ORAL DAILY New: Methadone HCl (Methadone HCl) 10 MG/5 ML SOLUTION 30 Milligram ORAL DAILY Days = 30 Copies To: DAISHA MIRELES,KANDY Calvillo
[2016-05-12 14:14] VITALS: BP 118/70
[2016-05-12 15:01] VITALS: BP 118/70
[2016-10-17] MEDS ORDERED: ZITHROMAX250 M2 PO (15:15)
== END 2016-05-12 15:48 | DRG 140 ==
LOC: ERH 08:59 → 2NA 15:27 → ERHI 15:27 → 2NA 05-08 20:58
PROVIDERS: Emergency Medicine; Internal Medicine; Internal Medicine Interventional Cardiology; ADMIT Internal Medicine
PROC: 5A09457 Assistance with Respiratory Ventilation, 24-96 Consecutive Hours, Continuous Positive Airway Pressure (ICD-10-PCS; principal; 2016-05-07)
DX: J44.1 Chronic obstructive pulmonary disease with (acute) exacerbation (principal); J96.22 Acute and chronic respiratory failure with hypercapnia; N17.9 Acute kidney failure, unspecified; G89.4 Chronic pain syndrome; I10 Essential (primary) hypertension; K21.9 Gastro-esophageal reflux disease without esophagitis; M81.0 Age-related osteoporosis without current pathological fracture; F41.9 Anxiety disorder, unspecified; E87.4 Mixed disorder of acid-base balance; T42.4X1A Poisoning by benzodiazepines, accidental (unintentional), initial encounter; E86.0 Dehydration; F11.23 Opioid dependence with withdrawal; Z93.2 Ileostomy status; F32.9 Major depressive disorder, single episode, unspecified; Z66 Do not resuscitate
CPT/HCPCS: 2NAP; ERO; 36415; 80307; 81003; 82436; 87040; 87070; 87086; 93005; 93010; 96374; 99233; 99291; J0456; J1644; J1885; J2310; J2405; J2920; J2930; J3490; J7040; J7042

== ENCOUNTER 2016-05-22 21:19 | Emergency (ER) | payer OTHER ==
[~2016-05-22] VITALS: Ht 162.6 cm; Wt 45.8 kg
[~2016-05-22 21:19] MED LIST changes: +AMLODIPINE BESY10 M1 PO; +MIRTAZAPINE15 M2 PO; +PROAIR HFA8.5 GM INH; +THEOPHYLLINE A200 MG PO; +XANAX1 M1 PO
--- NOTE | 2016-05-22 22:09 | ED MVC/FALL/TRAUMA COMPLAINT ---
History of Present Illness General Chief Complaint: Fall Stated Complaint: BIBA FALL LAC TO FOREHEAD Source: patient, old records, EMS Exam Limitations: no limitations Vital Signs & Intake/Output Vital Signs & Intake/Output Vital Signs Date Time Temp Pulse Resp B/P Pulse O2 O2 Flow FiO2 Ox Delivery Rate 05/22 2334 98.0 113 20 131/64 97 Nasal 3.0L Cannula 05/22 2128 Nasal 4.0L Cannula 05/22 2123 97.3 107 18 128/68 98 Nasal 4.0L Cannula ED Intake and Output 05/23 0000 05/22 1200 Intake Total Output Total Balance Patient 101 lb Weight Allergies Coded Allergies: cat dander (UNKNOWN REACTION TO 'PET HAIR/DANDER' 04/24/16) ipratropium (From ATROVENT) ("IT'S TOO MUCH DR TRUONG SAID" 04/24/16) Reconcile Medications Acetaminophen 325 MG TABLET 2 TAB PO Q4H PRN PAIN/TEMP>/100 (Reported) Albuterol Sulfate (Proair Hfa) 90 MCG HFA.AER.AD 2 PUF INH Q4-6 PRN PRN SOB ( Reported) Alendronate Sodium 70 MG TABLET 1 TAB PO QWED BONES (Reported) in the morning, at least 30 minutes before the first food, beverage, or medication of the day Alprazolam (Xanax) 1 MG TABLET 1 TAB PO AT BED TIME ANXIETY (Reported) Amlodipine Besylate 10 MG TABLET 1 TAB PO DAILY HTN (Reported) Aspirin (Ecotrin) 81 MG TABLET.DR 1 TAB PO DAILY HEART Budesonide/Formoterol Fumara (Symbicort 160-4.5 Mcg Inhaler) 160 MCG/4.5 MCG PUF 2 PUF INH BID EMPHYSEMA Cyclobenzaprine HCl 10 MG TABLET 1 TAB PO TID PRN MUSCLE PAIN (Reported) Gabapentin (Neurontin) 100 MG CAPSULE 1 CAP PO DAILY PAIN (Reported) Guaifenesin (Mucinex) 600 MG TAB.ER.12H 1 TAB PO Q12H MUCUS (Reported) Hydralazine HCl 10 MG TABLET 1 TAB PO TID BP (Reported) Lidocaine 5 % ADH..PATCH 1 PAT TOP DAILY PRN PAIN (Reported) Magnesium Hydroxide (Milk Of Magnesia) 400 MG/5 ML ORAL.SUSP 30 ML PO DAILY PRN CONSTIPATION (Reported) Methadone HCl 10 MG/5 ML SOLUTION 30 MG PO DAILY MAINTENCE Mirtazapine 15 MG TABLET 1 TAB PO QPM DEPRESSION (Reported) Prednisone 10 MG TABLET 1 TAB PO DAILY COPD (Reported) Sodium Chloride (Nasal [place]) 0.65 % SPRAY 2 SPRAY NASB DAILY NASAL MOISTURIZING (Reported) Theophylline Anhydrous 200 MG TAB.ER.12H 1 TAB PO DAILY COPD (Reported) Tiotropium [place] (Spiriva) 18 MCG CAP.W.DEV 1 CAP INH DAILY COPD Triage Note: BIBA FOR FALL AT HOME WITH HEAD STRIKE. OPEN LAC ON LEFT FOREHEAD. NO LOC. NOT ON ANY BLOOD THINNERS. UPON ARRIVAL AWAKE ALERT AND ORIENTED. COMPLAINING OF HEAD ACHE, LEFT RIB CAGE PAIN. AND LEFT SHOULDER BLADES. NO SHORTNESS OR BREATH. SKIN WARM AND DRY Triage Nurses Notes Reviewed? yes Onset: Just prior to arrival Duration: minute(s):, constant, continues in ED Timing: recent history Severity: moderate Injuries/Fall Location: head, chest Method of Injury: direct blow, fall Loss of Consciousness: no loss of consciousness Modifying Factors: Improves With: rest. Worsens With: movement, palpation. Associated Symptoms: chest pain LMP (ages 10-50): post menopausal : No Patient currently breastfeeds: No HPI: Prior to admission patient lost her balance and fell onto the floor striking her forehead sustaining laceration and left chest wall. She denies fever chills nausea vomiting diarrhea abdominal pain shortness of breath headache dysuria rash loss consciousness change in motor sensory function change in bowel bladder habit. Past History Travel History Traveled to [place] past 21 day No Medical History Any Pertinent Medical History? 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 No Review of Systems Review of Systems Constitutional: Reports: no symptoms. Eyes: Reports: no symptoms. Ears, Nose, Throat, Mouth: Reports: no symptoms. Respiratory: Reports: no symptoms. Cardiovascular: Reports: see HPI, chest pain. Gastrointestinal/Abdominal: Reports: no symptoms. Genitourinary: Reports: no symptoms. Musculoskeletal: Reports: no symptoms. Skin: Reports: see HPI. Neurological/Psychological: Reports: no symptoms. All Other Systems: Reviewed and Negative Physical Exam Physical Exam General Appearance: well developed/nourished, alert, awake, anxious, mild distress Head: lacerations (irregular frontal) Eyes: Bilateral: normal appearance, PERRL, EOMI, normal inspection. Ears, Nose, Throat, Mouth: hearing grossly normal, moist mucous membrane Neck: normal inspection, supple, full range of motion, normal alignment Respiratory: normal breath sounds, no respiratory distress, left chest wall tenderness without crepitus Cardiovascular: regular rate/rhythm, normal peripheral pulses, norml femoral pulses equa Peripheral Pulses: 4+ carotid (R), 4+ carotid (L), 2+ radial (R), 2+ radial (L) Gastrointestinal: normal bowel sounds, soft, non-tender, no organomegaly Back: normal inspection, normal range of motion Extremities: normal range of motion, no ligament instability Neurologic/Psych: no motor/sensory deficits, awake, alert, oriented x 3, normal mood/affect, 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 No Severe Sepsis Present: No Septic Shock Present: No Progress Differential Diagnosis: ICH, pnemothorax Plan of Care: Orders Procedure Date/time Status XRY-RIBS UNILATERAL-LEFT 05/[address] HEAD WO IV CONTRAST 05/22 2140 Active Diagnostic Imaging: Viewed by Me: Radiology Read, CT Scan. Discussed w/RAD: Radiology Read, CT Scan. Radiology Impression: no acute abnormality CXR Impression: no acute abnormality, no new rib fx Departure Departure Time of Disposition: 45 Disposition: HOME OR SELF CARE Condition: Stable Clinical Impression Primary Impression: Laceration of forehead, left, complicated Qualifiers: Encounter type: initial encounter Qualified Code: S01.81XA - Laceration without foreign body of other part of head, initial encounter Secondary Impressions: Chest wall contusion Qualifiers: Encounter type: initial encounter Laterality: left Qualified Code: S20.212A - Contusion of left front wall of thorax, initial encounter Fall at home Qualifiers: Encounter type: initial encounter Qualified Codes: W19.XXXA - Unspecified fall, initial encounter; Y92.099 - Unspecified place in other non- institutional residence as the place of occurrence of the external cause Referrals: KANDY ASHTON MD (PCP/Family) Additional Instructions: Suture removal 7-10 days Departure Forms: Customer Survey General Discharge Information Procedures Laceration/Wound Repair Laceration/Wound Repair: Wound Location: face Wound's Depth, Shape: contused tissue, irregular Wound Length (cm): 4 Wound Explored: no foreign body removed, irrigated extensively Irrigated w/ Saline (ccs): 250 Betadine Prep? No Anesthesia: lidocaine w/ epi Volume Anesthetic (ccs): 5 Wound Repaired With: sutures Suture Size/Type: 5:0, nylon Number of Sutures: 6 Layer Closure? No
--- NOTE | 2016-05-22 22:16 | CT SCAN REPORT ---
EXAMINATION: CT HEAD WITHOUT CONTRAST CLINICAL INFORMATION: Fall with frontal lac. COMPARISON: Head CT 03/15/2016. TECHNIQUE: Contiguous axial imaging was performed from the skull base to vertex without intravenous administration of contrast. FINDINGS: There is no intracranial hemorrhage, hydrocephalus, extra-axial surface collection, midline shift, or other herniation pattern. Peoples to white matter differentiation is diffusely maintained without evidence of an evolved acute territorial infarct. There is stable extensive hypoattenuation throughout the right greater than left supratentorial white matter that remains nonspecific.The basilar cisterns are preserved. There is a small left frontal scalp laceration. No acute osseous abnormality. The paranasal sinuses are well-aerated. There is a small left mastoid effusion. Rightward deviation of the nasal septum with a rightward directed septal spur. IMPRESSION: - No acute intracranial abnormality. There is a small left frontal scalp laceration. - There is stable extensive hypoattenuation throughout the right greater than left supratentorial white matter that remains nonspecific.
--- NOTE | 2016-05-22 22:43 | RADIOLOGY REPORT ---
EXAMINATION: 5 views of the left ribs including AP view of the chest CLINICAL INFORMATION: Left chest wall pain. COMPARISON: Chest x-ray 05/09/2015. FINDINGS: Multiple old healed left-sided rib fractures appear stable in comparison to previous studies with no definite acute rib fractures identified. There are also multiple old healed right-sided rib fractures that appear stable. Symmetric lung inflation. Stable tortuosity of the thoracic aorta. Cardiac silhouette is enlarged and unchanged. No focal consolidation, pleural effusion, or pneumothorax. Chronic deformity of the proximal left humerus appears stable. Scoliosis. IMPRESSION: Multiple old healed bilateral rib fractures appear stable. No definite acute rib fractures. No pneumothorax.
[2016-05-23 01:58] VITALS: BP 128/66
[2016-10-17] MEDS ORDERED: ZITHROMAX250 M2 PO (15:15)
== END 2016-05-23 02:00 ==
LOC: ERH 21:19
DX: S01.81XA Laceration without foreign body of other part of head, initial encounter (principal); S20.212A Contusion of left front wall of thorax, initial encounter; W19.XXXA Unspecified fall, initial encounter
CPT/HCPCS: 1263; 71100-LT

== ENCOUNTER 2016-05-24 21:22 | Inpatient (IN) | payer OTHER ==
[~2016-05-24] VITALS: Ht 157.5 cm; Wt 44.0 kg
--- NOTE | 2016-05-24 21:44 | NUR ---
60 YEAR OLD MALE BIBA C/O SOB WITH NO RELIEF FROM DUONEB ADMINISTERED BY EMS. PT ARRIVES TO ED ALERT AND ORIENTED X3, CLEAR SPEECH, SPEAKING IN FULL SENTENCES. PT SATTING 97% ON 4L 02 BASELINE FOR PT. AMEE CLINE TO BEDSIDE FOR EVAL.
--- NOTE | 2016-05-24 21:48 | ED DYSPNEA/ASTHMA COMPLAINT ---
History of Present Illness General Chief Complaint: Dyspnea (COPD, CHF, Other) Stated Complaint: BIBA SOB Source: patient, old records Exam Limitations: no limitations Vital Signs & Intake/Output Vital Signs & Intake/Output Vital Signs Date Time Temp Pulse Resp B/P Pulse O2 O2 Flow FiO2 Ox Delivery Rate 05/24 2341 97.0 114 18 154/86 94 Nasal 4.0L Cannula 05/24 2339 96.4 113 18 154/86 05/245 97 Nasal 4.0L Cannula 05/24 2129 96.4 113 18 142/66 91 Nasal 4.0L Cannula Allergies Coded Allergies: cat dander (UNKNOWN REACTION TO 'PET HAIR/DANDER' 04/24/16) ipratropium (From ATROVENT) ("IT'S TOO MUCH DR TRUONG SAID" 04/24/16) Reconcile Medications Acetaminophen 325 MG TABLET 2 TAB PO Q4H PRN PAIN/TEMP>/100 (Reported) Albuterol Sulfate (Proair Hfa) 90 MCG HFA.AER.AD 2 PUF INH Q4-6 PRN PRN SOB ( Reported) Alendronate Sodium 70 MG TABLET 1 TAB PO QWED BONES (Reported) in the morning, at least 30 minutes before the first food, beverage, or medication of the day Alprazolam (Xanax) 1 MG TABLET 1 TAB PO AT BED TIME ANXIETY (Reported) Amlodipine Besylate 10 MG TABLET 1 TAB PO DAILY HTN (Reported) Aspirin (Ecotrin) 81 MG TABLET.DR 1 TAB PO DAILY HEART Budesonide/Formoterol Fumara (Symbicort 160-4.5 Mcg Inhaler) 160 MCG/4.5 MCG PUF 2 PUF INH BID EMPHYSEMA Cyclobenzaprine HCl 10 MG TABLET 1 TAB PO TID PRN MUSCLE PAIN (Reported) Gabapentin (Neurontin) 100 MG CAPSULE 1 CAP PO DAILY PAIN (Reported) Guaifenesin (Mucinex) 600 MG TAB.ER.12H 1 TAB PO Q12H MUCUS (Reported) Hydralazine HCl 10 MG TABLET 1 TAB PO TID BP (Reported) Lidocaine 5 % ADH..PATCH 1 PAT TOP DAILY PRN PAIN (Reported) Magnesium Hydroxide (Milk Of Magnesia) 400 MG/5 ML ORAL.SUSP 30 ML PO DAILY PRN CONSTIPATION (Reported) Methadone HCl 10 MG/5 ML SOLUTION 30 MG PO DAILY MAINTENCE Mirtazapine 15 MG TABLET 1 TAB PO QPM DEPRESSION (Reported) Prednisone 10 MG TABLET 1 TAB PO DAILY COPD (Reported) Sodium Chloride (Nasal [place]) 0.65 % SPRAY 2 SPRAY NASB DAILY NASAL MOISTURIZING (Reported) Theophylline Anhydrous 200 MG TAB.ER.12H 1 TAB PO DAILY COPD (Reported) Tiotropium [place] (Spiriva) 18 MCG CAP.W.DEV 1 CAP INH DAILY COPD Triage Note: 60 YEAR OLD MALE BIBA C/O SOB WITH NO RELIEF FROM DUONEB ADMINISTERED BY EMS. PT ARRIVES TO ED ALERT AND ORIENTED X3, CLEAR SPEECH, SPEAKING IN FULL SENTENCES. PT SATTING 97% ON 4L 02 BASELINE FOR PT. AMEE CLINE TO BEDSIDE FOR EVAL. Triage Nurses Notes Reviewed? yes Onset: Abrupt Duration: day(s): (1), constant Timing: recent history Severity: moderate, severe Activities at Onset: rest Prior Episodes/Possible Cause: frequent episodes, chronic episodes Associated Symptoms: DENIES HPI: 60-year-old female with history of COPD presents brought in by EMS complaining of one-day history of shortness of breath unrelieved with a DuoNeb that she was given in route. She denies any chest pain cough fever or chills. The patient is well-known to this ER. She is currently on prednisone 10 mg a day for the past 1 week after she was recently here for a COPD exacerbation. She denies any leg swelling or abdominal pain nausea vomiting. Symptoms came on while at rest there are no modifying factors or associated symptoms otherwise no fever no chills no palpitations chest tightness dizziness or lightheadedness. (ROSE LUBIN,BIENVENIDO) Past History Travel History Traveled to [place] past 21 day No Medical History Any Pertinent Medical History? 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 No (BIENVENIDO PANIAGUA) Review of Systems Review of Systems Constitutional: Reports: see HPI. All Other Systems: Reviewed and Negative Comments Review of systems: See HPI, All other systems negative. Constitutional, no chills no fever, no malaise HEENT: No visual changes no sore throat no congestion, no ear pain Cardiovascular: No chest pain , no palpitation , no orthopnea no ankle swelling Skin, no jaundice no rashes, no change in skin Respiratory:dyspnea no cough no sputum no hemoptysis GI: No nausea no vomiting, no diarrhea, no bloating/constipation : No dysuria Muscle skeletal: No joint pain, no joint swelling, no back pain Neurologic: no headache Psych: No stress Heme/endocrine: No bruising no bleeding Immunology: No lymphadenopathy (BIENVENIDO PANIAGUA) Physical Exam Physical Exam General Appearance: well developed/nourished, alert, awake Respiratory: wheezing Comments: Well-developed well-nourished person in no acute distress HEENT: Normal EENT exam; PERRL, EOMI, HEAD is atraumatic. moist mucous membranes. Neck: Supple, normal range of motion Back: Nontender, Full range of motion Cardiovascular: Regular rate and rhythms no murmurs rubs Respiratory: Chest nontender.There were no bony deformities, no asymmetry. No respiratory distress. Patient speaking in full complete sentences. Wheezing bilaterally no rhonchi no rales Abdomen: Soft, nontender nondistended, no appreciable organomegaly. Normal bowel sounds. No rebound/guarding, Extremity: No edema, full range of motion of extremities Neuro: Alert oriented x3, motor sensory normal There were no obvious focal neurologic abnormalities. Skin: No appreciable rash on exposed skin, skin is warm and dry. Psych: Mood and affect is normal, memory and judgment is normal. Core Measures ACS in differential dx? Yes Severe Sepsis Present: No Septic Shock Present: No (BIENVENIDO PANIAGUA) Progress Differential Diagnosis: asthma, AMI, bronchitis, CHF, COPD, pericarditis, pulmonary embolism, pneumonia, pneumothorax Plan of Care: Orders Procedure Date/time Status EKG 05/24 2352 Active Patient Data 05/24 2311 Active AEROSOL (GEN) 01/21 2244 Complete PARTIAL THROMBOPLASTIN TIME 05/24 2211 Complete PROTHROMBIN TIME 05/24 2211 Complete EKG 05/24 2145 Active BLOOD CULTURE 05/24 2142 Active TROPONIN LEVEL 05/24 2142 Complete COMPREHENSIVE METABOLIC PANEL 05/24 2142 Complete CBC WITHOUT DIFFERENTIAL 05/24 2142 Complete B-TYPE NATRIURETIC PEP (BNP) 05/24 2142 Complete Laboratory Tests 05/24/162223: Anion Gap 9, Estimated GFR 42 L, BUN/Creatinine Ratio 20.0, Glucose 140 H, Calcium 8.7, Total Bilirubin 0.6, AST 29, ALT 43, Alkaline Phosphatase 133 H, Troponin I < 0.01, Tjl-I-Tseepcqkzlh Pept 1150 H, Total Protein 6.4, Albumin 3.9, Globulin 2.5, Albumin/Globulin Ratio 1.6, PT 10.8, INR 1.03, APTT 23 L, CBC w Diff NO MAN DIFF REQ, RBC 2.88 L, MCV 84.9, MCH 27.3, RDW 18.4 H, MPV 6.3 L, Gran % 84.9 H, Lymphocytes % 4.6 L, Monocytes % 10.4 H, Eosinophils % 0, Basophils % 0.1, Absolute Granulocytes 11.8 H, Absolute Lymphocytes 0.6 L, Absolute Monocytes 1.4 H, Absolute Eosinophils 0, Absolute Basophils 0, PUBS MCHC 32.2 L Microbiology 05/24 2234 BLOOD: Blood Culture - RECD 05/24 2221 BLOOD: Blood Culture - RECD Labs ordered old records reviewed EKG ordered which was reviewed with Dr. Del Cid 05/24/2016 10:12:[address] Del Cid spoke with Dr. Hart regarding the patient's EKG given sinus tachycardia advise good to low dose beta mae however does not believe Cardizem is warranted at this time given sinus tachycardia. Given patient's difficulty breathing discussed with Dr. Del Cid my concerns regarding beta mae will give LABETOLOL 5MG IV (ROSE LUBIN,BIENVENIDO) Diagnostic Imaging: Viewed by Me: Radiology Read. Discussed w/RAD: Radiology Read. Radiology Impression: PATIENT: GHASSAN FRIEDMAN PRESENT AGE: 60 PATIENT ACCOUNT NO: [id number] : 53 LOCATION: [facility] ORDERING PHYSICIAN: BIENVENIDO LUBIN SERVICE DATE: 05/24/16 EXAM TYPE: RAD - XRY-PORTABLE CHEST XRAY EXAMINATION: XR PORTABLE CHEST CLINICAL INFORMATION: Cough, dyspnea, hypoxia COMPARISON: 05/09/2016, CT chest 10/11/2015 TECHNIQUE: Portable view of the chest was obtained. FINDINGS: Multiple left and right rib fractures are redemonstrated and appear little changed compared to prior study. The cardiomediastinal silhouette appears similar. The lungs appear grossly clear without focal consolidation or effusion demonstrated. Deformity of the left humeral head appears stable. IMPRESSION: No definite acute cardiopulmonary process. DICTATED BY: SHERLY FARIA MD DATE/TIME DICTATED:2251 LOSS CONTROL REPRESENTATIVE:MARY DATE/TIME TRANSCRIBED:05/24/162251 CONFIDENTIAL, DO NOT COPY WITHOUT APPROPRIATE AUTHORIZATION. <Electronically signed in Other Vendor System> SIGNED BY: SHERLY FARIA MD 05/24/162257 Initial ED EK, t WAVE INVERSIONS NOTED TO THE PRECORDIAL LEADS NO st SEGMENT ELEVATION OR DEPRESSION NOTED Prior EKG: changed (05/11/2016) (ROSE LUBIN,BIENVENIDO) Comments: 05/24/2016 10:22:44 PM patient's case discussed with Dr. Hart including the patient's current tachycardia and deep T-wave inversions in the precordial leads. Unfortunately the patient is presenting with dyspnea secondary to a COPD exacerbation (she denies chest pain currently). Dr. Hart feels that the only way to treat the potential rate related demand ischemia would be beta-blockade as he feels Cardizem would be ineffective. I have discussed this with Bienvenido the patient's PA. 05/24/2016 11:55:45 PM patient's heart rate is now normal and the monitor shows no ST segment changes. Repeat EKG is in progress. The patient herself appears comfortable and is quite conversant. (SANJANA MIRELES,PURNIMA Dietz) Departure Departure Time of Disposition: 2307 Disposition: STILL A PATIENT Condition: Stable Clinical Impression Primary Impression: Acute electrocardiogram changes Secondary Impressions: COPD exacerbation Referrals: DAISHA MIRELES,KANDY Calvillo (PCP/Family) Departure Forms: Customer Survey General Discharge Information Admission Note Spoke With: MIKE STEPHEN MD Documentation of Exam: Documentation of any treatments & extenuating circumstances including Concerns Regarding Discharge (functional status, medication knowledge or non-compliance, living conditions, etc.) that warrant an admission rather than observation: CARDIOLOGY (BIENVENIDO PANIAGUA) PA/PRIVATE HOUSEHOLD WORKER Co-Sign Statement Statement: ED Attending supervision documentation- [X] I saw and evaluated the patient. I have also reviewed all the pertinent lab results and diagnostic results. I agree with the findings and the plan of care as documented in the PA's/PRIVATE HOUSEHOLD WORKER's documentation. [] I have reviewed the ED Record and agree with the PA's/PRIVATE HOUSEHOLD WORKER's documentation. [] Additions or exceptions (if any) to the PAs/PRIVATE HOUSEHOLD WORKER's note and plan are summarized below: [] (SANJANA MIRELES,PURNIMA Dietz) Critical Care Note Critical Care Note Critical Care Time: non-applicable (BIENVENIDO PANIAGUA)
[2016-05-24 22:33] LABS: ABSOLUTE BASOPHIL COUNT 0 /CUMM (0.0-0.2); ABSOLUTE EOSINOPHIL COUNT 0 /CUMM (0.0-0.7); ABSOLUTE GRANULOCYTE CT 11.8 /CUMM (1.4-6.5); ABSOLUTE LYMPH COUNT 0.6 /CUMM (1.2-3.4); ABSOLUTE MONOCYTE COUNT 1.4 /CUMM (0.10-0.60); BASOPHIL % 0.1 % (0.0-2.0); EOSINOPHIL % 0 % (0-5); GRANULOCYTE % 84.9 % (42.2-75.2); HEMATOCRIT 24.4 % (37-47); MEAN CORPUSCULAR HGB 27.3 PG (27.0-31.0); MEAN CORPUSCULAR HGB CONC 32.2 G/DL (33.0-37.0); MEAN CORPUSCULAR VOLUME 84.9 FL (81.0-99.0); MEAN PLATELET VOLUME 6.3 FL (7.4-10.4); PLATELET COUNT 380 /CUMM (130-400); RBC DISTRIBUTION WIDTH 18.4 % (11.5-14.5); RED BLOOD CELL CT 2.88 /CUMM (4.20-5.40); WHITE BLOOD CELL COUNT 13.9 /CUMM (4.8-10.8)
[2016-05-24 22:40] LABS: PT 10.8 SEC (9.4-12.5); PTT 23 SEC (25-37)
--- NOTE | 2016-05-24 22:58 | RADIOLOGY REPORT ---
EXAMINATION: XR PORTABLE CHEST CLINICAL INFORMATION: Cough, dyspnea, hypoxia COMPARISON: 05/09/2016, CT chest 10/11/2015 TECHNIQUE: Portable view of the chest was obtained. FINDINGS: Multiple left and right rib fractures are redemonstrated and appear little changed compared to prior study. The cardiomediastinal silhouette appears similar. The lungs appear grossly clear without focal consolidation or effusion demonstrated. Deformity of the left humeral head appears stable. IMPRESSION: No definite acute cardiopulmonary process.
--- NOTE | 2016-05-24 23:33 | History & Physical ---
DEB[place] [place]328: General Information and HPI MD Statement: I have seen and personally examined GHASSAN FRIEDMAN and documented this H& P. The patient is a 60 year old F who presented with a patient stated chief complaint of shortness of breath. 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 Of note, patient was recently hospitalized here at [place] (05/07/16-05/12/16) for acute on chronic respiratory failure secondary to opiate intoxication and COPD exacerbation and discharged to [facility] rehab facility where she stayed for a few days. On 05/21/16, she developed left-sided chest pain, 7/10 in severity, with radiation to the arm. The following day on 05/22/2016, she presented to the ED following a mechanical fall at home. CT Head and X-Ray of left-sided ribs were negative for fracture. She was found to have a laceration on the left side of her forehead which was sutured. The morning of her current presentation, patient developed shortness of breath after visiting her methadone clinic. She tried her nebulizer treatment multiple times with no relief. She reports shortness of breath even at rest which is exacerbated by minimal exertion. Of note, for the past three days she has been experiencing increased cough productive of brownish-green sputum. She also endorses nausea, abdominal pain and loose stools. She denies fever, chills, URI symptoms or sick contacts. She denies palpitations, lightheadedness or dizziness. Allergies/Medications Allergies: Coded Allergies: cat dander (UNKNOWN REACTION TO 'PET HAIR/DANDER' 04/24/16) ipratropium (From [facility]TROVENT) ("IT'S TOO MUCH DR TRUONG SAID" 04/24/16) Home Med list Acetaminophen 325 MG TABLET 2 TAB PO Q4H PRN PAIN/TEMP>/100 (Reported) Albuterol Sulfate (Proair Hfa) 90 MCG HFA.AER.AD 2 PUF INH Q4-6 PRN PRN SOB ( Reported) Alendronate Sodium 70 MG TABLET 1 TAB PO QWED BONES (Reported) in the morning, at least 30 minutes before the first food, beverage, or medication of the day Alprazolam (Xanax) 1 MG TABLET 1 TAB PO AT BED TIME ANXIETY (Reported) Amlodipine Besylate 10 MG TABLET 1 TAB PO DAILY HTN (Reported) Aspirin (Ecotrin) 81 MG TABLET.DR 1 TAB PO DAILY HEART Budesonide/Formoterol Fumara (Symbicort 160-4.5 Mcg Inhaler) 160 MCG/4.5 MCG PUF 2 PUF INH BID EMPHYSEMA Cyclobenzaprine HCl 10 MG TABLET 1 TAB PO TID PRN MUSCLE PAIN (Reported) Gabapentin (Neurontin) 100 MG CAPSULE 1 CAP PO DAILY PAIN (Reported) Guaifenesin (Mucinex) 600 MG TAB.ER.12H 1 TAB PO Q12H MUCUS (Reported) Hydralazine HCl 10 MG TABLET 1 TAB PO TID BP (Reported) Lidocaine 5 % ADH..PATCH 1 PAT TOP DAILY PRN PAIN (Reported) Magnesium Hydroxide (Milk Of Magnesia) 400 MG/5 ML ORAL.SUSP 30 ML PO DAILY PRN CONSTIPATION (Reported) Methadone HCl 10 MG/5 ML SOLUTION 30 MG PO DAILY MAINTENCE Mirtazapine 15 MG TABLET 1 TAB PO QPM DEPRESSION (Reported) Prednisone 10 MG TABLET 1 TAB PO DAILY COPD (Reported) Sodium Chloride (Nasal [place]) 0.65 % SPRAY 2 SPRAY NASB DAILY NASAL MOISTURIZING (Reported) Theophylline Anhydrous 200 MG TAB.ER.12H 1 TAB PO DAILY COPD (Reported) Tiotropium [place] (Spiriva) 18 MCG CAP.W.DEV 1 CAP INH DAILY COPD Past History Travel History Traveled to [place] past 21 day No Medical History Neurological: shingles EENT: NONE Cardiovascular: hypertension Respiratory: COPD Gastrointestinal: GERD Hepatic: NONE Renal: NONE Musculoskeletal: falls, fracture (rib, humerus and pelvis, hip), osteoarthritis, osteoporosis Psychiatric: anxiety, chronic pain disorder, methadone dependence Endocrine: NONE Blood Disorders: NONE Cancer(s): NONE 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 Home Who Do You Live With? spouse Services at Home: Home Health Aide, Nursing, Oxygen Primary Language: French Smoking Status: Former Smoker (Quit 4 Yrs Ago, ~20 Pack-Years) Illicit Drug Use: history of IV drug use Functional Ability ADLs Independent: dressing, eating, toileting, bathing. Ambulation: walker IADLs Independent: finances, food prep, telephone. Needs Assist: shopping, housework, transportation, medication admin. Employment History Employment Retired Profession/Employer [employer] Employee Review of Systems Review of Systems Constitutional: Denies: chills, fever. EENTM: Reports: no symptoms. Cardiovascular: Reports: chest pain. Denies: palpitations, peripheral edema. Respiratory: Reports: cough, short of breath, sputum production. GI: Reports: abdominal pain, diarrhea (loose stools), nausea. Genitourinary: Reports: no symptoms. Musculoskeletal: Reports: see HPI (chronic musculoskeletal pain). Skin: Reports: no symptoms. Neurological/Psychological: Reports: no symptoms. Hematologic/Endocrine: Reports: no symptoms. Immunologic/Allergic: Reports: no symptoms. All Other Systems: Reviewed and Negative Exam & Diagnostic Data Last 24 Hrs of Vital Signs/I&O Vital Signs Date Time Temp Pulse Resp B/P Pulse O2 O2 Flow FiO2 Ox Delivery Rate 05/25 0224 98.0 101 22 148/80 94 Nasal 4.0L Cannula 05/25 0200 Nasal 4.0L Cannula 05/25 0118 97.4 95 20 164/74 94 Nasal Cannula 05/24 2342 97.0 114 18 154/86 94 Nasal 4.0L Cannula 05/24 2340 96.4 113 18 154/86 05/245 97 Nasal 4.0L Cannula 05/24 2129 96.4 113 18 142/66 91 Nasal 4.0L Cannula Physical Exam General Appearance Alert, Oriented X3, No Acute Distress, Cachectic Elderly Female Skin No Rashes HEENT Mucous Membr. moist/pink Cardiovascular Regular Rate, Normal S1, Normal S2 Lungs Diminished Breath Sounds, Scattered Wheezes Throughout Bilateral Lung Dennis Abdomen Soft, No Tenderness, Nondistended, Positive Bowel Sounds, Colostomy Bag in Place Neurological No Gross Focal Deficits Noted Extremities No Cyanosis, No Edema, Clubbing of Bilateral Fingers Vascular Normal Pulses, Pulses Symmetrical Last 24 Hrs of Labs/M[place]: Laboratory Tests 05/24/162223: Anion Gap 9, Estimated GFR 42 L, BUN/Creatinine Ratio 20.0, Glucose 140 H, Calcium 8.7, Total Bilirubin 0.6, AST 29, ALT 43, Alkaline Phosphatase 133 H, Troponin I < 0.01, Mnc-Y-Krvilkmbdkw Pept 1150 H, Total Protein 6.4, Albumin 3.9, Globulin 2.5, Albumin/Globulin Ratio 1.6, PT 10.8, INR 1.03, APTT 23 L, CBC w Diff NO MAN DIFF REQ, RBC 2.88 L, MCV 84.9, MCH 27.3, RDW 18.4 H, MPV 6.3 L, Gran % 84.9 H, Lymphocytes % 4.6 L, Monocytes % 10.4 H, Eosinophils % 0, Basophils % 0.1, Absolute Granulocytes 11.8 H, Absolute Lymphocytes 0.6 L, Absolute Monocytes 1.4 H, Absolute Eosinophils 0, Absolute Basophils 0, PUBS MCHC 32.2 L Microbiology 05/24 2234 BLOOD: Blood Culture - RECD 05/24 2221 BLOOD: Blood Culture - RECD Diagnostic Data EKG Results Sinus tachycardia HR 116 T wave inversions in precordial leads QTc 495 CXR Results No definite acute cardiopulmonary process. 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 #COPD exacerbation: Scattered wheezing on exam, SOB and increased cough with sputum production consistent with COPD exacerbation. Oxygen requirement currently at baseline of 4 L. S/p 125 mg of IV Solumedrol in the ED. Pneumonia unlikely in the absence of fever and focal consolidation on CXR. Mild leukocytosis (WBC 13.9) most likely secondary to maintenance steroids that patient is currently on. * Solumedrol 40 mg IV Q12H. * TRC and nebs. * Continue home inhalers Spiriva and Symbicort. * Continue prior to admission theophylline 200 mg PO QD and Mucinex 600 mg PO BID. * Provide supplemental oxygen to keep SpO2 > 92%. * Monitor off antibiotics. * BCx and sputum ordered. #Chest pain: Left-sided chest pain, 11/10, with radiation to the arm x 3 days. Concerning for ACS in the setting of T wave inversions on EKG. First set of troponins negative. * Admit to telemetry floor for continuous cardiac monitoring. * Cardiology consulted. Appreciate their recs. * Serial EKGs and troponin to rule out ACS. * ECHO ordered to assess LVEF, wall motion abnormalities and RV pressures. * Continue prior to admission buffered aspirin 81 mg PO QD. #Anemia: Hgb 7.9 on admission, decreased from baseline of 9-10. Normocytic anemia with MCV of 84.9. Most recent iron studies in February 2016 WNL. Acute drop in H/H could be contributing to the EKG changes. * Type and screen ordered. * Continue to monitor H/H and assess need for transfusion if H/H further drops. * Guaiac stools. #HTN: * Continue prior to admission amlodipine 10 mg PO QD and hydralazine 100 mg PO TID. #Chronic pain syndrome: * Continue prior to admission methadone 35 mg PO QD, gabapentin 100 mg PO QD and Flexeril 10 mg PO TID PRN for muscle pain. #Osteoporosis: * Continue prior to admission alendronate 70 mg PO on Thursday. #Anxiety: * Continue Xanax 1 mg PO QHS PRN. #Depression: * Continue prior to admission mirtazapine 15 mg PO QHS. Diet: Heart Healthy DVT PPx: HSQ and ALPs CODE: DNR/DNI As Ranked By This Provider Problem List: 1. Acute electrocardiogram changes 2. COPD exacerbation 3. Chest pain 4. Chronic pain syndrome 5. Anemia 6. History of substance abuse 7. Methadone dependence Core Measures/Miscellaneous Acute Coronary Syndrome ACS Diagnosis: No Cerebrovascular Accident CVA/TIA Diagnosis: No Congestive Heart Failure CHF Diagnosis: No Venous Thromboembolism VTE Risk Factors: Acute medical illness, Age > 40, CHF or Resp failure VTE Prophylaxis Ordered Inpt: Mech & Pharm No Mech VTE prophylaxis d/t: No contraindications No VTE Pharm Prophylaxis d/t: No contraindications VTE Diagnosis: No VTE Type: NONE VTE Confirmed by (Test): NONE Severe Sepsis Severe Sepsis Present: No Septic Shock Septic Shock Present: No Miscellaneous Documentation Attending Case Discussed With: MIKE STEPHEN MD Primary Care Physician: KANDY ASHTON MD Patient sees these Specialists Sponsorship Coordinator Alexey Zuniga MD Level of Patient Care: Telemetry CLAUDINE MIRELESKISHAN 05/25/16 0341: Resident Review Statement Resident Statement: examined this patient, discussed with corporate intern, agreed with corporate intern Other Findings: 60-year-old woman with past medical history of end-stage COPD on 4 L of oxygen at baseline at home, ischemic colitis status post ileostomy, chronic pain syndrome on methadone, anxiety, multiple falls, GERD, hypertension and osteoporosis. Presents to the ER complaining of abrupt onset of SOB that started today after visiting her methadone clinic. Reports ongoing chest pain since Thu that is located over her left chest wall 11/10 radiating to her left arm, denies palpitations, lightheadedness. She was given solumedrol in ER and states that her chest pain has improved. She denies fevers, chills, sick contacts, leg swelling or recent upper respiratory infection and is being mantained on prednisone since her recent copd exacerbation. Alert and Oriented X 4 Decreased breath sounds, with scatttered wheeze in all lung dennis. S1, S2 without m,r, g, abdomen soft, nontender, nondistended, normal bowel sounds, colostomy bag in place, pulses 2+, no edema HH 7.9/24.4, WBC 13.9, INR 1.03, Creatinine 1.3, (0.7-0.9) probnp 1150, troponin 0.01 bc pending, cxr no definate acute cardiopulmonary process. EKG T wave inversions in precordial leads Will admit to Telemetry floor. Was given solumedrol in ER 125mg we will continue steroids 40mg Q12 along with trc and nebulizers. continue to monitor o2 levels keeping >92% followup blood cultures, sputum cluture. wbc elevated in setting of chronic steroid use, will hold off on abx at this time. Serial troponins and ekgs, 1st set negative, will get echocardiogram and have cardiology evaluate. monitor hh closely as this could be contributing to ekg changes, if hh further falls will need to transfuse. avoid nephrotoxic medications, monitor renal function. pain management with methadone, reports taking 35mg daily, this will have to be verified. patient is dnr/i
--- NOTE | 2016-05-24 23:41 | NUR ---
PT ASSISTED TO BEDSIDE COMMODE. MEDICATED PER EMAR.
--- NOTE | 2016-05-25 00:13 | NUR ---
HOUSE STAFF AT BEDSIDE FOR PT EVAL
--- NOTE | 2016-05-25 00:59 | NUR ---
BED ASSIGNED [id number]
--- NOTE | 2016-05-25 01:31 | NUR ---
REPORT GIVEN TO ALFONZO MORALES
[2016-05-25 02:24] VITALS: BP 148/80
[2016-05-25 08:00] VITALS: BP 132/80
[2016-05-25 10:25] LABS: ABSOLUTE BASOPHIL COUNT 0 /CUMM (0.0-0.2); ABSOLUTE EOSINOPHIL COUNT 0 /CUMM (0.0-0.7); ABSOLUTE LYMPH COUNT 0.3 /CUMM (1.2-3.4); ABSOLUTE MONOCYTE COUNT 0.2 /CUMM (0.10-0.60); BASOPHIL % 0 % (0.0-2.0); EOSINOPHIL % 0 % (0-5); GRANULOCYTE % 95.1 % (42.2-75.2); HEMATOCRIT 23.9 % (37-47); MEAN CORPUSCULAR HGB 28.1 PG (27.0-31.0); MEAN CORPUSCULAR HGB CONC 33.1 G/DL (33.0-37.0); MEAN CORPUSCULAR VOLUME 84.8 FL (81.0-99.0); MEAN PLATELET VOLUME 6.5 FL (7.4-10.4); PLATELET COUNT 324 /CUMM (130-400); RBC DISTRIBUTION WIDTH 18.5 % (11.5-14.5); RED BLOOD CELL CT 2.82 /CUMM (4.20-5.40); WHITE BLOOD CELL COUNT 9.4 /CUMM (4.8-10.8)
--- NOTE | 2016-05-25 14:46 | Cons- Cardiology ---
General Information and HPI Consulting Request Date of Consult: 05/25/16 Requested By: MIKE STEPHEN MD Reason for Consult: Worsening shortness of breath with episodic chest pain and new ECG changes Source of Information: patient, old records History of Present Illness: The patient is a 60-year-old female with a past medical history of end-stage chronic lung disease on home oxygen therapy with multiple recent admissions for exacerbation of COPD. She also has history of ischemic colitis, status post ileostomy, chronic pain syndrome, hypertension, etc. The patient was recently in [facility] back in early May for acute on chronic respiratory failure related to opiate intoxication an exacerbation of COPD. She stated at [facility] for several days. Apparently, she had transient left-sided chest discomfort with radiation to her arm on May 21. She was in the emergency room on May 22 after a mechanical fall. The patient now presents to the emergency room with worsening shortness of breath, intermittent chest discomfort, and production of yellowish/greenish sputum. In the emergency room, the patient was noted to have new T-wave inversions in the anterior leads on her ECG. I was asked see the patient for further evaluation of her cardiac status. Allergies/Medications Allergies: Coded Allergies: cat dander (UNKNOWN REACTION TO 'PET HAIR/DANDER' 04/24/16) ipratropium (From ATROVENT) ("IT'S TOO MUCH DR TRUONG SAID" 04/24/16) Home Med List: Acetaminophen 325 MG TABLET 2 TAB PO Q4H PRN PAIN/TEMP>/100 (Reported) Albuterol Sulfate (Proair Hfa) 90 MCG HFA.AER.AD 2 PUF INH Q4-6 PRN PRN SOB ( Reported) Alendronate Sodium 70 MG TABLET 1 TAB PO QWED BONES (Reported) in the morning, at least 30 minutes before the first food, beverage, or medication of the day Alprazolam (Xanax) 1 MG TABLET 1 TAB PO AT BED TIME ANXIETY (Reported) Amlodipine Besylate 10 MG TABLET 1 TAB PO DAILY HTN (Reported) Aspirin (Ecotrin) 81 MG TABLET.DR 1 TAB PO DAILY HEART Budesonide/Formoterol Fumara (Symbicort 160-4.5 Mcg Inhaler) 160 MCG/4.5 MCG PUF 2 PUF INH BID EMPHYSEMA Cyclobenzaprine HCl 10 MG TABLET 1 TAB PO TID PRN MUSCLE PAIN (Reported) Gabapentin (Neurontin) 100 MG CAPSULE 1 CAP PO DAILY PAIN (Reported) Guaifenesin (Mucinex) 600 MG TAB.ER.12H 1 TAB PO Q12H MUCUS (Reported) Hydralazine HCl 10 MG TABLET 1 TAB PO TID BP (Reported) Lidocaine 5 % ADH..PATCH 1 PAT TOP DAILY PRN PAIN (Reported) Magnesium Hydroxide (Milk Of Magnesia) 400 MG/5 ML ORAL.SUSP 30 ML PO DAILY PRN CONSTIPATION (Reported) Methadone HCl 10 MG/5 ML SOLUTION 30 MG PO DAILY MAINTENCE Mirtazapine 15 MG TABLET 1 TAB PO QPM DEPRESSION (Reported) Prednisone 10 MG TABLET 1 TAB PO DAILY COPD (Reported) Sodium Chloride (Nasal [place]) 0.65 % SPRAY 2 SPRAY NASB DAILY NASAL MOISTURIZING (Reported) Theophylline Anhydrous 200 MG TAB.ER.12H 1 TAB PO DAILY COPD (Reported) Tiotropium [place] (Spiriva) 18 MCG CAP.W.DEV 1 CAP INH DAILY COPD Current Medications: Current Medications Sig/Freddie Start time Last Medication Dose Route Stop Time Status Admin Acetaminophen 650 MG Q4H PRN 05/25 0230 AC PO Al Hydroxide/Mg 0 .STK-MED ONE 05/24 2316 DC Hydroxide PO Al Hydroxide/Mg 30 ML ONCE ONE 05/24 2315 DC 05/24 Hydroxide PO 05/24 2316 2340 Albuterol Sulfate 3 ML EVERY 4 HRS/AWAKE 05/25 0800 AC 05/25 INH 1101 Albuterol Sulfate 3 ML Q6 PRN 05/25 0245 DC INH Albuterol Sulfate 3 ML ONCE ONE 05/24 2200 DC 05/24 INH 05/24 2201 2242 Alendronate Sodium 70 MG QWED 05/28 0700 AC PO Alprazolam 1 MG AT BEDTIME PRN 05/25 2200 AC PO 06/01 0244 Alprazolam 0.5 MG ONCE ONE 05/25 0245 DC 05/25 PO 05/25 0246 0303 Amlodipine Besylate 10 MG DAILY 05/25 1000 AC 05/25 PO 0831 Aspirin Buffered 81 MG DAILY 05/25 1000 AC 05/25 PO 0831 Budesonide/ 2 PUF BID 05/25 1000 AC 05/25 Formoterol Fumarate INH 0831 Cyclobenzaprine HCl 10 MG .STK-MED ONE 05/25 0259 DC PO 05/25 0300 Cyclobenzaprine HCl 10 MG TID PRN 05/25 0230 AC 05/25 PO 0832 Gabapentin 100 MG DAILY 05/25 1000 AC 05/25 PO 0830 Guaifenesin 600 MG Q12H 05/25 0300 AC 05/25 PO 1233 Heparin Sodium 5,000 UNIT Q8 05/25 0600 AC 05/25 (Porcine) SC 1233 Hydralazine HCl 10 MG TID 05/25 1000 AC 05/25 PO 0830 Labetalol HCl 0 .STK-MED ONE 05/24 2316 DC IV Labetalol HCl 5 MG ONCE ONE 05/24 2214 DC 05/24 IV 05/24 221 2340 Lidocaine 1 PAT DAILY PRN 05/25 0230 AC 05/25 EXT 0830 Lorazepam 0 .STK-MED ONE 05/24 2316 DC PO Lorazepam 0.5 MG ONE ONE 05/24 2315 DC 05/24 PO 05/24 231 2340 Magnesium Sulfate 0 .STK-MED ONE 05/24 2315 DC .ROUTE Magnesium Sulfate 1 GM ONCE ONE 05/24 2214 DC 05/24 Dextrose/Water 100 ML IV 05/25 0214 2340 Methadone HCl 35 MG 0530 05/25 0530 AC 05/25 PO 0530 Methylprednisolone 40 MG Q12 05/25 1000 AC 05/25 IV 0831 Methylprednisolone 0 .STK-MED ONE 05/24 2206 DC .ROUTE Methylprednisolone 125 MG ONCE ONE 05/24 2144 DC 05/24 IV 05/24 214 2226 Mirtazapine 15 MG QPM 05/25 2200 AC PO Sodium Chloride 2 SPRAY DAILY 05/25 1000 AC 05/25 NAYELI 0829 Theophylline 200 MG DAILY 05/25 1000 AC 05/25 PO 0832 Tiotropium [place] 1 PUF DAILY 05/25 1000 AC 05/25 INH 0831 Past History Travel History Traveled to [place] past 21 day No Medical History Neurological: NONE EENT: NONE Cardiovascular: hypertension Respiratory: COPD, emphysema Gastrointestinal: GERD Hepatic: NONE Renal: NONE Musculoskeletal: osteoporosis, PINS IN LEFT HIP Psychiatric: anxiety, methadone dependence Endocrine: NONE Blood Disorders: NONE Cancer(s): 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 IADLs Independent: finances, food prep, telephone. Needs Assist: shopping, housework, transportation, medication admin. Exam & Diagnostic Data Vital Signs and I&O Vital Signs Date Time Temp Pulse Resp B/P Pulse O2 O2 Flow FiO2 Ox Delivery Rate 05/25 1028 Nasal 4.0L Cannula 05/25 0852 94 Nasal 4.0L Cannula 05/25 0800 98.2 97 20 132/80 95 Nasal Cannula 05/25 0746 95 Nasal 4.0L Cannula 05/25 0224 98.0 101 22 148/80 94 Nasal 4.0L Cannula 05/25 0200 Nasal 4.0L Cannula 05/25 0118 97.4 95 20 164/74 94 Nasal Cannula 05/24 2342 97.0 114 18 154/86 94 Nasal 4.0L Cannula 05/24 2340 96.4 113 18 154/86 05/24 2145 97 Nasal 4.0L Cannula 05/24 2130 96.4 113 18 142/66 91 Nasal 4.0L Cannula Intake & Output 05/25 1600 05/25 0800 05/25 0000 05/24 1600 05/24 0800 05/24 0000 Intake Total 790 600 Output Total 401 200 Balance 389 400 Intake, IV 40 Intake, Oral 750 600 Output, Stool 1 200 Output, Urine 400 Physical Exam: General Appearance thin, elderly female, Alert, Oriented X3, No Acute Distress Skin normal HEENT normal Cardiovascular Regular Rate, Normal S1, Normal S2, 1 to 2/6 systolic murmur left sternal border Lungs Diminished Breath Sounds, Scattered Wheezes Throughout Bilateral Lung Dennis Abdomen Soft, No Tenderness, Nondistended, Positive Bowel Sounds, Colostomy Bag in Place Neurological No Gross Focal Deficits Noted Extremities No Clubbing, No Cyanosis, No Edema Labs/Merrill Results: Laboratory Tests 05/25 05/25 0640 0629 Chemistry Sodium (137 - 145 mmol/L) 133 L Potassium (3.5 - 5.1 mmol/L) 4.4 Chloride (98 - 107 mmol/L) 90 L Carbon Dioxide (22 - 30 mmol/L) 36 H Anion Gap (5 - 16) 7 BUN (7 - 17 mg/dL) 19 H Creatinine (0.5 - 1.0 mg/dL) 0.9 Estimated GFR (>60 ml/min) > 60 BUN/Creatinine Ratio (7 - 25 %) 21.1 Troponin I (< 0.11 ng/ml) < 0.01 Hematology CBC w Diff NO MAN DIFF REQ WBC (4.8 - 10.8 /CUMM) 9.4 RBC (4.20 - 5.40 /CUMM) 2.82 L Hgb (12.0 - 16.0 G/DL) 7.9 L Hct (37 - 47 %) 23.9 L MCV (81.0 - 99.0 FL) 84.8 MCH (27.0 - 31.0 PG) 28.1 RDW (11.5 - 14.5 %) 18.5 H Plt Count (130 - 400 /CUMM) 324 MPV (7.4 - 10.4 FL) 6.5 L Gran % (42.2 - 75.2 %) 95.1 H Lymphocytes % (20.5 - 51.1 %) 2.7 L Monocytes % (1.7 - 9.3 %) 2.2 Eosinophils % (0 - 5 %) 0 Basophils % (0.0 - 2.0 %) 0 L Absolute Granulocytes (1.4 - 6.5 /CUMM) 9.0 H Absolute Lymphocytes (1.2 - 3.4 /CUMM) 0.3 L Absolute Monocytes (0.10 - 0.60 /CUMM) 0.2 Absolute Eosinophils (0.0 - 0.7 /CUMM) 0 Absolute Basophils (0.0 - 0.2 /CUMM) 0 PUBS MCHC (33.0 - 37.0 G/DL) 33.1 05/24 2224 Chemistry Sodium (137 - 145 mmol/L) 136 L Potassium (3.5 - 5.1 mmol/L) 3.6 Chloride (98 - 107 mmol/L) 92 L Carbon Dioxide (22 - 30 mmol/L) 35 H Anion Gap (5 - 16) 9 BUN (7 - 17 mg/dL) 26 H Creatinine (0.5 - 1.0 mg/dL) 1.3 H Estimated GFR (>60 ml/min) 42 L BUN/Creatinine Ratio (7 - 25 %) 20.0 Glucose (65 - 99 mg/dL) 140 H Calcium (8.4 - 10.2 mg/dL) 8.7 Total Bilirubin (0.2 - 1.3 mg/dL) 0.6 AST (14 - 36 U/L) 29 ALT (9 - 52 U/L) 43 Alkaline Phosphatase (<127 U/L) 133 H Troponin I (< 0.11 ng/ml) < 0.01 Rrj-I-Xwzanzysarp Pept (<125 pg/mL) 1150 H Total Protein (6.3 - 8.2 g/dL) 6.4 Albumin (3.5 - 5.0 g/dL) 3.9 Globulin (1.9 - 4.2 gm/dL) 2.5 Albumin/Globulin Ratio (1.1 - 2.2 %) 1.6 Coagulation PT (9.4 - 12.5 SEC) 10.8 INR (0.90 - 1.19) 1.03 APTT (25 - 37 SEC) 23 L Hematology CBC w Diff NO MAN DIFF REQ WBC (4.8 - 10.8 /CUMM) 13.9 H RBC (4.20 - 5.40 /CUMM) 2.88 L Hgb (12.0 - 16.0 G/DL) 7.9 L Hct (37 - 47 %) 24.4 L MCV (81.0 - 99.0 FL) 84.9 MCH (27.0 - 31.0 PG) 27.3 RDW (11.5 - 14.5 %) 18.4 H Plt Count (130 - 400 /CUMM) 380 MPV (7.4 - 10.4 FL) 6.3 L Gran % (42.2 - 75.2 %) 84.9 H Lymphocytes % (20.5 - 51.1 %) 4.6 L Monocytes % (1.7 - 9.3 %) 10.4 H Eosinophils % (0 - 5 %) 0 Basophils % (0.0 - 2.0 %) 0.1 Absolute Granulocytes (1.4 - 6.5 /CUMM) 11.8 H Absolute Lymphocytes (1.2 - 3.4 /CUMM) 0.6 L Absolute Monocytes (0.10 - 0.60 /CUMM) 1.4 H Absolute Eosinophils (0.0 - 0.7 /CUMM) 0 Absolute Basophils (0.0 - 0.2 /CUMM) 0 PUBS MCHC (33.0 - 37.0 G/DL) 32.2 L Diagnostic Data EKG Results Sinus rhythm with prominent voltage and new ST-T changes in the anterior leads; possible ischemia, possible right ventricular strain CXR Results FINDINGS: Multiple left and right rib fractures are redemonstrated and appear little changed compared to prior study. The cardiomediastinal silhouette appears similar. The lungs appear grossly clear without focal consolidation or effusion demonstrated. Deformity of the left humeral head appears stable. IMPRESSION: No definite acute cardiopulmonary process. Assessment/Plan Assessment/Plan Assessment: 1. Acute respiratory failure likely related to exacerbation of COPD 2. Chest pain syndrome with new ECG abnormalities-at the moment, it is unclear whether the patient's symptoms are musculoskeletal or that they could be truly ischemic in nature. In addition, her ECG shows anterior T-wave inversions which may be related to ischemia or possibly RV strain. 3. Multiple rib fractures 4. Hypertension 5. Anxiety 6. Osteoporosis Recommendations: -Admitted to [address] [place], [place] [address]etry -Serial troponins -ECG tonight and again in the morning to rule out interval change -ECG with any chest discomfort -Echocardiogram pending to assess left ventricular function, wall motion, and right ventricular pressures -Further plans after the above. Consult Acknowledgment - Thank you for your consult request.
--- NOTE | 2016-05-25 15:12 | PN- Att Addend ---
Attending Addendum Attending Brief Note Patient in bed in no respiratory distress while laying down patient is a febrile , still has some rhonchi and wheezes. Appreciate cardiology's input and recommendations regarding the EKG abnormalities the ST T abnormalities in the anterior leads to continue with the treatment of exacerbation of COPD the serial troponins and EKGs will have an echo in the morning to assess function. Intake & Output 05/25 1600 05/25 0800 05/25 0000 05/24 1600 05/24 0800 05/24 0000 Intake Total 790 600 Output Total 401 200 Balance 389 400 Intake, IV 40 Intake, Oral 750 600 Output, Stool 1 200 Output, Urine 400 Current Medications Sig/Freddie Start time Last Medication Dose Route Stop Time Status Admin Acetaminophen 650 MG Q4H PRN 05/25 0230 AC PO Al Hydroxide/Mg 0 .STK-MED ONE 05/246 DC Hydroxide PO Al Hydroxide/Mg 30 ML ONCE ONE 05/24 2315 DC 05/24 Hydroxide PO 05/24 2316 2340 Albuterol Sulfate 3 ML EVERY 4 HRS/AWAKE 05/25 0800 AC 05/25 INH 1101 Albuterol Sulfate 3 ML Q6 PRN 05/25 0245 DC INH Albuterol Sulfate 3 ML ONCE ONE 05/24 2200 DC 05/24 INH 05/24 220 2242 Alendronate Sodium 70 MG QWED 05/28 0700 AC PO Alprazolam 1 MG AT BEDTIME PRN 05/25 2200 AC PO 06/01 0244 Alprazolam 0.5 MG ONCE ONE 05/25 0245 DC 05/25 PO 05/25 0246 0303 Amlodipine Besylate 10 MG DAILY 05/25 1000 AC 05/25 PO 0831 Aspirin Buffered 81 MG DAILY 05/25 1000 AC 05/25 PO 0831 Budesonide/ 2 PUF BID 05/25 1000 AC 05/25 Formoterol Fumarate INH 0831 Cyclobenzaprine HCl 10 MG .STK-MED ONE 05/25 0259 DC PO 05/25 0300 Cyclobenzaprine HCl 10 MG TID PRN 05/25 0230 AC 05/25 PO 0832 Gabapentin 100 MG DAILY 05/25 1000 AC 05/25 PO 0830 Guaifenesin 600 MG Q12H 05/25 0300 AC 05/25 PO 1233 Heparin Sodium 5,000 UNIT Q8 05/25 0600 AC 05/25 (Porcine) SC 1233 Hydralazine HCl 10 MG TID 05/25 1000 AC 05/25 PO 0830 Labetalol HCl 0 .STK-MED ONE 05/24 2316 DC IV Labetalol HCl 5 MG ONCE ONE 05/24 2214 DC 05/24 IV 05/24 2215 2340 Lidocaine 1 PAT DAILY PRN 05/25 0230 AC 05/25 EXT 0830 Lorazepam 0 .STK-MED ONE 05/24 2316 DC PO Lorazepam 0.5 MG ONE ONE 05/24 2314 DC 05/24 PO 05/24 2315 2340 Magnesium Sulfate 0 .STK-MED ONE 05/24 2315 DC .ROUTE Magnesium Sulfate 1 GM ONCE ONE 05/24 2214 DC 05/24 Dextrose/Water 100 ML IV 05/25 213 2340 Methadone HCl 35 MG 0530 05/25 0530 AC 05/25 PO 0530 Methylprednisolone 40 MG Q12 05/25 1000 AC 05/25 IV 0831 Methylprednisolone 0 .STK-MED ONE 05/24 2206 DC .ROUTE Methylprednisolone 125 MG ONCE ONE 05/24 2144 DC 05/24 IV 05/24 Mirtazapine 15 MG QPM 05/25 2199 AC PO Sodium Chloride 2 SPRAY DAILY 05/25 1000 AC 05/25 NAYELI 0829 Theophylline 200 MG DAILY 05/25 1000 AC 05/25 PO 0832 Tiotropium [place] 1 PUF DAILY 05/25 1000 AC 05/25 INH 0831 Laboratory Tests 05/25/16 0640: Anion Gap 7, Estimated GFR > 60, BUN/Creatinine Ratio 21.1, Troponin I < 0.01 05/25/16 0629: CBC w Diff NO MAN DIFF REQ, RBC 2.82 L, MCV 84.8, MCH 28.1, RDW 18.5 H, MPV 6.5 L, Gran % 95.1 H, Lymphocytes % 2.7 L, Monocytes % 2.2, Eosinophils % 0, Basophils % 0 L, Absolute Granulocytes 9.0 H, Absolute Lymphocytes 0.3 L, Absolute Monocytes 0.2, Absolute Eosinophils 0, Absolute Basophils 0, PUBS MCHC 33.1 05/24/164: Anion Gap 9, Estimated GFR 42 L, BUN/Creatinine Ratio 20.0, Glucose 140 H, Calcium 8.7, Total Bilirubin 0.6, AST 29, ALT 43, Alkaline Phosphatase 133 H, Troponin I < 0.01, Dly-P-Rbzzrxigkqv Pept 1150 H, Total Protein 6.4, Albumin 3.9, Globulin 2.5, Albumin/Globulin Ratio 1.6, PT 10.8, INR 1.03, APTT 23 L, CBC w Diff NO MAN DIFF REQ, RBC 2.88 L, MCV 84.9, MCH 27.3, RDW 18.4 H, MPV 6.3 L, Gran % 84.9 H, Lymphocytes % 4.6 L, Monocytes % 10.4 H, Eosinophils % 0, Basophils % 0.1, Absolute Granulocytes 11.8 H, Absolute Lymphocytes 0.6 L, Absolute Monocytes 1.4 H, Absolute Eosinophils 0, Absolute Basophils 0, PUBS MCHC 32.2 L Microbiology Date/Time Procedure - Status Source Growth 05/25 06 Respiratory Culture - RECD LOWER RESP 05/25 628 Gram Stain - RECD LOWER RESP 05/24 2234 Blood Culture - RES BLOOD 05/24 2221 Blood Culture - RES BLOOD Vital Signs Date Time Temp Pulse Resp B/P Pulse O2 O2 Flow FiO2 Ox Delivery Rate 05/25 1028 Nasal 4.0L Cannula 05/25 0852 94 Nasal 4.0L Cannula 05/25 0800 98.2 97 20 132/80 95 Nasal Cannula 05/25 0746 95 Nasal 4.0L Cannula 05/25 0224 98.0 101 22 148/80 94 Nasal 4.0L Cannula 05/25 0200 Nasal 4.0L Cannula 05/25 0118 97.4 95 20 164/74 94 Nasal Cannula 05/24 2342 97.0 114 18 154/86 94 Nasal 4.0L Cannula 05/24 2340 96.4 113 18 154/86 05/24 2145 97 Nasal 4.0L Cannula 05/240 96.4 113 18 142/66 91 Nasal 4.0L Cannula
[2016-05-25 16:45] VITALS: BP 134/82
[2016-05-26 00:15] VITALS: BP 162/74
[2016-05-26 04:17] LABS: ABSOLUTE BASOPHIL COUNT 0 /CUMM (0.0-0.2); ABSOLUTE EOSINOPHIL COUNT 0 /CUMM (0.0-0.7); ABSOLUTE LYMPH COUNT 0.3 /CUMM (1.2-3.4); ABSOLUTE MONOCYTE COUNT 0.6 /CUMM (0.10-0.60); BASOPHIL % 0 % (0.0-2.0); EOSINOPHIL % 0 % (0-5); GRANULOCYTE % 92.9 % (42.2-75.2); HEMATOCRIT 25.5 % (37-47); MEAN CORPUSCULAR HGB 27.7 PG (27.0-31.0); MEAN CORPUSCULAR HGB CONC 32.2 G/DL (33.0-37.0); MEAN CORPUSCULAR VOLUME 85.8 FL (81.0-99.0); MEAN PLATELET VOLUME 6.5 FL (7.4-10.4); PLATELET COUNT 356 /CUMM (130-400); RBC DISTRIBUTION WIDTH 18.8 % (11.5-14.5); RED BLOOD CELL CT 2.97 /CUMM (4.20-5.40); WHITE BLOOD CELL COUNT 11.8 /CUMM (4.8-10.8)
[2016-05-26 08:10] VITALS: BP 142/68
--- NOTE | 2016-05-26 08:35 | PN- Cardiology ---
Subjective Subjective: Patient is sleepy but arousable. She denies any chest pain. No shortness of breath is stable. She is able to give only limited history due to repeatedly falling asleep during conversation. No recent coughing. No palpitations. Objective Vital Signs and I&Os Vital Signs Date Time Temp Pulse Resp B/P Pulse O2 O2 Flow FiO2 Ox Delivery Rate 05/26 0810 97.7 113 20 142/68 100 Nasal 4.0L Cannula 05/26 0753 99 Nasal 4.0L Cannula 05/26 0015 98.6 121 20 162/74 93 05/26 0000 93 Nasal 4.0L Cannula 05/25 2219 114 154/78 05/25 1724 92 Nasal 4.0L Cannula 05/25 1645 98.0 119 24 134/82 91 Nasal Cannula 05/25 1620 121 126/62 05/25 1600 Nasal 4.0L Cannula 05/25 1028 Nasal 4.0L Cannula 05/25 0852 94 Nasal 4.0L Cannula Intake & Output 05/26 1600 05/26 0800 05/26 0000 05/25 1600 05/25 0800 05/25 0000 Intake Total 200 610 790 600 Output Total 400 450 401 200 Balance -200 160 389 400 Intake, IV 10 40 Intake, Oral 200 600 750 600 Number 1 Bowel Movements Output, Stool 1 200 Output, Urine 400 450 400 Physical Exam: Gen: NAD HEENT: normal Lungs: Bilateral wheezes, normal resp. effort Heart: RRR, S1, S2, 1/6 systolic murmur Abdomen: Soft, nontender, no masses Extremities: No clubbing, cyanosis, or edema. Neuro: Alert and oriented x 3, cranial nerves intact Current Medications: Current Medications Sig/Freddie Start time Last Medication Dose Route Stop Time Status Admin Acetaminophen 650 MG Q4H PRN 05/25 0230 AC PO Albuterol Sulfate 3 ML EVERY 4 HRS/AWAKE 05/25 0800 AC 05/26 INH 0749 Alendronate Sodium 70 MG QWED 05/28 07 AC PO Alprazolam 1 MG AT BEDTIME PRN 05/25 2200 AC 05/25 PO 06/01 0244 2219 Amlodipine Besylate 10 MG DAILY 05/25 1000 AC 05/25 PO 0831 Aspirin Buffered 81 MG DAILY 05/25 1000 AC 05/25 PO 0831 Budesonide/ 2 PUF BID 05/25 1000 AC 05/25 Formoterol Fumarate INH 2220 Cyclobenzaprine HCl 10 MG .STK-MED ONE 05/25 1614 DC PO 05/25 1615 Cyclobenzaprine HCl 10 MG TID PRN 05/25 0230 AC 05/26 PO 0315 Gabapentin 100 MG DAILY 05/25 1000 AC 05/25 PO 0830 Guaifenesin 600 MG Q12H 05/25 0300 AC 05/25 PO 2258 Guaifenesin/ 10 ML Q6P PRN 05/26 0215 AC Dextromethorphan PO Heparin Sodium 5,000 UNIT Q8 05/25 0600 AC 05/26 (Porcine) SC 0604 Hydralazine HCl 10 MG TID 05/25 1000 AC 05/25 PO 2219 Lidocaine 1 PAT DAILY PRN 05/25 0230 AC 05/25 EXT 0830 Methadone HCl 35 MG 0530 05/25 0530 AC 05/26 PO 0357 Methylprednisolone 40 MG Q12 05/25 1000 AC 05/25 IV 2219 Mirtazapine 15 MG QPM 05/25 2200 AC 05/25 PO 2219 Sodium Chloride 2 SPRAY DAILY 05/25 1000 AC 05/25 NAYELI 0829 Theophylline 200 MG DAILY 05/25 1000 AC 05/25 PO 0832 Tiotropium [place] 1 PUF DAILY 05/25 1000 AC 05/25 INH 0831 Tramadol HCl 50 MG Q6 PRN 05/25 2300 AC PO Results Last 48 Hrs of Labs/Mics: Laboratory Tests 05/26/16 0320: Troponin I < 0.01 05/26/16 0320: Anion Gap 13, Estimated GFR 56 L, BUN/Creatinine Ratio 21.0, CBC w Diff NO MAN DIFF REQ, RBC 2.97 L, MCV 85.8, MCH 27.7, RDW 18.8 H, MPV 6.5 L, Gran % 92.9 H, Lymphocytes % 2.3 L, Monocytes % 4.8, Eosinophils % 0, Basophils % 0 L, Absolute Granulocytes 11.0 H, Absolute Lymphocytes 0.3 L, Absolute Monocytes 0.6, Absolute Eosinophils 0, Absolute Basophils 0, PUBS MCHC 32.2 L 05/25/16 0640: Anion Gap 7, Estimated GFR > 60, BUN/Creatinine Ratio 21.1, Troponin I < 0.01 05/25/16 0629: CBC w Diff NO MAN DIFF REQ, RBC 2.82 L, MCV 84.8, MCH 28.1, RDW 18.5 H, MPV 6.5 L, Gran % 95.1 H, Lymphocytes % 2.7 L, Monocytes % 2.2, Eosinophils % 0, Basophils % 0 L, Absolute Granulocytes 9.0 H, Absolute Lymphocytes 0.3 L, Absolute Monocytes 0.2, Absolute Eosinophils 0, Absolute Basophils 0, PUBS MCHC 33.1 05/24/16 2224: Anion Gap 9, Estimated GFR 42 L, BUN/Creatinine Ratio 20.0, Glucose 140 H, Calcium 8.7, Total Bilirubin 0.6, AST 29, ALT 43, Alkaline Phosphatase 133 H, Troponin I < 0.01, Xoy-U-Mwapceefbyk Pept 1150 H, Total Protein 6.4, Albumin 3.9, Globulin 2.5, Albumin/Globulin Ratio 1.6, PT 10.8, INR 1.03, APTT 23 L, CBC w Diff NO MAN DIFF REQ, RBC 2.88 L, MCV 84.9, MCH 27.3, RDW 18.4 H, MPV 6.3 L, Gran % 84.9 H, Lymphocytes % 4.6 L, Monocytes % 10.4 H, Eosinophils % 0, Basophils % 0.1, Absolute Granulocytes 11.8 H, Absolute Lymphocytes 0.6 L, Absolute Monocytes 1.4 H, Absolute Eosinophils 0, Absolute Basophils 0, PUBS MCHC 32.2 L Recent Imaging Studies: EKG from 3:00 AM reveals sinus tachycardia at 100 with anterior T-wave inversion Assessment/Plan Assessment/Plan 1. Acute respiratory failure likely related to exacerbation of COPD 2. Chest pain syndrome, resolved. 3. New T-wave inversions on EKG. Myocardial infarctions ruled out with negative troponin 3 4. Multiple rib fractures 5. Hypertension 6. Anxiety Recommendations: * Echocardiogram pending assess left ventricular function. * Continue current cardiac medications. Continue telemetry? Yes
--- NOTE | 2016-05-26 09:05 | PN- Att Addend ---
Attending Addendum Attending Brief Note Patient this morning appears more lethargic than her baseline however she is answering appropriately General Appearance: Alert, No Acute Distress Skin: Grossly normal HEENT: PEERLA Neck: Supple, No JVD Cardiovascular: Regular Rate, Normal S1, Normal S2, No Murmurs Lungs: Expiratory wheeze Abdomen: Normal Bowel Sounds, Soft, No Tenderness Neurological: Normal Speech, Strength at 5/5 X4 Ext, Cranial Nerves 3-12 NL, Reflexes 2+ Extremities: No Clubbing, No Cyanosis, No Edema Vascular: Normal Pulses Assessment Patient appears lethargic more so than her baseline. There is no baseline ABG done this admission. We will get a baseline ABG and also taper her steroids. T -wave inversions are new. However troponins have remained negative and she is currently awaiting for an echo cardiogram. Plan Check baseline ABG Decrease IV Solu-Medrol to every 12 hours Check echocardiogram Continue other home meds Current Medications Sig/Freddie Start time Last Medication Dose Route Stop Time Status Admin Acetaminophen 650 MG Q4H PRN 05/25 0230 AC PO Albuterol Sulfate 3 ML EVERY 4 HRS/AWAKE 05/25 0800 AC 05/26 INH 0749 Alendronate Sodium 70 MG QWED 05/28 0700 AC PO Alprazolam 1 MG AT BEDTIME PRN 05/25 2200 AC 05/25 PO 06/01 0244 2219 Amlodipine Besylate 10 MG DAILY 05/25 1000 AC 05/25 PO 0831 Aspirin Buffered 81 MG DAILY 05/25 1000 AC 05/25 PO 0831 Budesonide/ 2 PUF BID 05/25 1000 AC 05/25 Formoterol Fumarate INH 2220 Cyclobenzaprine HCl 10 MG .STK-MED ONE 05/25 1614 DC PO 05/25 1615 Cyclobenzaprine HCl 10 MG TID PRN 05/25 0230 AC 05/26 PO 0315 Gabapentin 100 MG DAILY 05/25 1000 AC 05/25 PO 0830 Guaifenesin 600 MG Q12H 05/25 0300 AC 05/25 PO 2258 Guaifenesin/ 10 ML Q6P PRN 05/26 0215 AC Dextromethorphan PO Heparin Sodium 5,000 UNIT Q8 05/25 0600 AC 05/26 (Porcine) SC 0604 Hydralazine HCl 10 MG TID 05/25 1000 AC 05/25 PO 2219 Lidocaine 1 PAT DAILY PRN 05/25 0230 AC 05/25 EXT 0830 Methadone HCl 35 MG 0530 05/25 0530 AC 05/26 PO 0357 Methylprednisolone 40 MG Q12 05/25 1000 AC 05/25 IV 2219 Mirtazapine 15 MG QPM 05/25 2200 AC 05/25 PO 2219 Sodium Chloride 2 SPRAY DAILY 05/25 1000 AC 05/25 NAYELI 0829 Theophylline 200 MG DAILY 05/25 1000 AC 05/25 PO 0832 Tiotropium [place] 1 PUF DAILY 05/25 1000 AC 05/25 INH 0831 Tramadol HCl 50 MG Q6 PRN 05/25 2300 AC PO Laboratory Tests 05/26 05/26 0320 0320 Chemistry Sodium (137 - 145 mmol/L) 140 Potassium (3.5 - 5.1 mmol/L) 4.5 Chloride (98 - 107 mmol/L) 91 L Carbon Dioxide (22 - 30 mmol/L) 36 H Anion Gap (5 - 16) 13 BUN (7 - 17 mg/dL) 21 H Creatinine (0.5 - 1.0 mg/dL) 1.0 Estimated GFR (>60 ml/min) 56 L BUN/Creatinine Ratio (7 - 25 %) 21.0 Troponin I (< 0.11 ng/ml) < 0.01 Hematology CBC w Diff NO MAN DIFF REQ WBC (4.8 - 10.8 /CUMM) 11.8 H RBC (4.20 - 5.40 /CUMM) 2.97 L Hgb (12.0 - 16.0 G/DL) 8.2 L Hct (37 - 47 %) 25.5 L MCV (81.0 - 99.0 FL) 85.8 MCH (27.0 - 31.0 PG) 27.7 RDW (11.5 - 14.5 %) 18.8 H Plt Count (130 - 400 /CUMM) 356 MPV (7.4 - 10.4 FL) 6.5 L Gran % (42.2 - 75.2 %) 92.9 H Lymphocytes % (20.5 - 51.1 %) 2.3 L Monocytes % (1.7 - 9.3 %) 4.8 Eosinophils % (0 - 5 %) 0 Basophils % (0.0 - 2.0 %) 0 L Absolute Granulocytes (1.4 - 6.5 /CUMM) 11.0 H Absolute Lymphocytes (1.2 - 3.4 /CUMM) 0.3 L Absolute Monocytes (0.10 - 0.60 /CUMM) 0.6 Absolute Eosinophils (0.0 - 0.7 /CUMM) 0 Absolute Basophils (0.0 - 0.2 /CUMM) 0 PUBS MCHC (33.0 - 37.0 G/DL) 32.2 L Vital Signs Date Time Temp Pulse Resp B/P Pulse O2 O2 Flow FiO2 Ox Delivery Rate 05/26 0810 97.7 113 20 142/68 100 Nasal 4.0L Cannula 05/26 0753 99 Nasal 4.0L Cannula 05/26 0015 98.6 121 20 162/74 93 05/26 0000 93 Nasal 4.0L Cannula 05/25 2219 114 154/78 05/25 1724 92 Nasal 4.0L Cannula 05/25 1645 98.0 119 24 134/82 91 Nasal Cannula 05/25 1620 121 126/62 05/25 1600 Nasal 4.0L Cannula 05/25 1028 Nasal 4.0L Cannula
--- NOTE | 2016-05-26 09:06 | Admission Certification ---
Admission Certification Certification Statement - As attending physician, I certify that at the time of - admission, based on clinical presentation, severity of - symptoms, need for further diagnostic testing and - therapeutic interventions, and risk of adverse outcomes - without in-hospital treatment, in my clinical assessment, - this patient requires an acute hospital stay for a minimum - of two nights or longer. I have also considered psychsocial - factors such as support system, advanced age, financial - issues, cognitive issues, and failed out-patient treatments, - past re-admission history, safety of patient, and lack of - compliance as applicable. Specific rationale supporting this admission is: Acute EKG changes and COPD
--- NOTE | 2016-05-26 09:59 | PN- Housestaff ---
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 When I went to see her. Appears comfortable. Is able to have a normal conversation without feeling dosed of in between Still complains of shortness of breath, unchanged from baseline. Denies chest pain, palpitations. patient was recently admitted for unresponsiveness secondary to opiate overdose and discharged to [facility]. She was released from [facility] last Thursday. Reports having fall and bruising her shoulder and has a laceration on the forehead which was sutured. Had recurrent falls in the past with rib fractures. Review of Systems Constitutional: Reports: see HPI. Objective Last 24 Hrs of Vital Signs/I&O Vital Signs Date Time Temp Pulse Resp B/P Pulse O2 O2 Flow FiO2 Ox Delivery Rate 05/26 1003 113 142/68 05/26 1003 113 142/68 05/26 0810 97.7 113 20 142/68 100 Nasal 4.0L Cannula 05/26 0753 99 Nasal 4.0L Cannula 05/26 0015 98.6 121 20 162/74 93 05/26 0000 93 Nasal 4.0L Cannula 05/25 2219 114 154/78 05/25 1724 92 Nasal 4.0L Cannula 05/25 1645 98.0 119 24 134/82 91 Nasal Cannula 05/25 1620 121 126/62 05/25 1600 Nasal 4.0L Cannula Intake & Output 05/26 1600 05/26 0800 05/26 0000 Intake Total 200 610 Output Total 400 450 Balance -200 160 Intake, IV 10 Intake, Oral 200 600 Number 1 Bowel Movements Output, Urine 400 450 Physical Exam General Appearance: Alert, Cooperative, No Acute Distress Skin: bruise present on the left shoulder. sutures on the forehead apears with evidence of infection Cardiovascular: Regular Rate, Normal S1, Normal S2, No Murmurs Lungs: b/l diffuse expt wheezing present Abdomen: Normal Bowel Sounds, Soft, No Tenderness Neurological: Normal Speech Extremities: No Clubbing, No Cyanosis, No Edema Current Medications: Current Medications Sig/Freddie Start time Last Medication Dose Route Stop Time Status Admin Acetaminophen 650 MG Q4H PRN 05/25 0230 AC PO Albuterol Sulfate 3 ML EVERY 4 HRS/AWAKE 05/25 0800 AC 05/26 INH 0749 Alendronate Sodium 70 MG QWED 05/28 0700 AC PO Alprazolam 1 MG AT BEDTIME PRN 05/25 2200 AC 05/25 PO 06/01 0244 2219 Amlodipine Besylate 10 MG DAILY 05/25 1000 AC 05/26 PO 1003 Aspirin Buffered 81 MG DAILY 05/25 1000 AC 05/26 PO 1003 Budesonide/ 2 PUF BID 05/25 1000 AC 05/26 Formoterol Fumarate INH 1004 Cyclobenzaprine HCl 10 MG .STK-MED ONE 05/25 1614 DC PO 05/25 1615 Cyclobenzaprine HCl 10 MG TID PRN 05/25 0230 AC 05/26 PO 0315 Gabapentin 100 MG DAILY 05/25 1000 AC 05/26 PO 1003 Guaifenesin 600 MG Q12H 05/25 0300 AC 05/25 PO 2258 Guaifenesin/ 10 ML Q6P PRN 05/26 0215 AC Dextromethorphan PO Heparin Sodium 5,000 UNIT Q8 05/25 0600 AC 05/26 (Porcine) SC 0604 Hydralazine HCl 10 MG TID 05/25 1000 AC 05/26 PO 1003 Lidocaine 1 PAT DAILY PRN 05/25 0230 AC 05/25 EXT 0830 Methadone HCl 35 MG 0530 05/25 0530 AC 05/26 PO 0357 Methylprednisolone 40 MG Q12 05/25 1000 AC 05/26 IV 1004 Mirtazapine 15 MG QPM 05/25 2200 AC 05/25 PO 2219 Sodium Chloride 2 SPRAY DAILY 05/25 1000 AC 05/26 NAYELI 1003 Theophylline 200 MG DAILY 05/25 1000 AC 05/26 PO 1003 Tiotropium [place] 1 PUF DAILY 05/25 1000 AC 05/26 INH 1004 Tramadol HCl 50 MG Q6 PRN 05/25 2300 AC PO Last 24 Hrs of Lab/Merrill Results Last 24 Hrs of Labs/Mics: Laboratory Tests 05/26/16 0320: Troponin I < 0.01 05/26/16 0320: Anion Gap 13, Estimated GFR 56 L, BUN/Creatinine Ratio 21.0, CBC w Diff NO MAN DIFF REQ, RBC 2.97 L, MCV 85.8, MCH 27.7, RDW 18.8 H, MPV 6.5 L, Gran % 92.9 H, Lymphocytes % 2.3 L, Monocytes % 4.8, Eosinophils % 0, Basophils % 0 L, Absolute Granulocytes 11.0 H, Absolute Lymphocytes 0.3 L, Absolute Monocytes 0.6, Absolute Eosinophils 0, Absolute Basophils 0, PUBS MCHC 32.2 L Assessment/Plan Assessment: 60-year-old woman with past medical history of 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 Patient today appears drowsy but able to answers questions appropriately 1. Angina: - ACS ruled out with negative troponins. Patient does have T-wave inversions is new compared to previous EKG. - He is currently on aspirin which we will continue. - EchoCardiogram to assess LVEF pending. 2. Lethargic could be secondary to hypercarbia. - Patient has had events with hypercarbic respiratory failure in the past. - We will obtain a baseline ABG. - Will administer her other medications with caution. - Will avoid opioids/benzos. - No concern for infection as her WBC is WNL and she is on steroids 3. Chronic pain on methadone. - Continue prior to admission methadone 35 mg PO QD, gabapentin 100 mg PO QD and Flexeril 10 mg PO TID PRN for muscle pain. 4. Anemia: - Hemoglobin has been stable since admission. - Appears to be reduced from before. - Her recent iron studies in February 2016 were within normal limits. - We will continue to monitor H&H. 5. HTN: - Continue prior to admission amlodipine 10 mg PO QD and hydralazine 100 mg PO TID. 6. Depression: - Continue prior to admission mirtazapine 15 mg PO QHS. Patient has had recurrent falls. Has had recurrent falls again. Will discuss with case management and consider long-term placement for her. Problem List: 1. Chronic pain syndrome 2. Methadone dependence 3. Hypercapnic respiratory failure 4. ETHEL (acute kidney injury) Pain Ratin Pain Location: back Pain Goal: Pain 4 or less Pain Plan: on methadone Tomorrow's Labs & Rationales: will need
--- NOTE | 2016-05-26 10:36 | ECHOCARDIOGRAM REPORT ---
GHASSAN FRIEDMAN Age: 60 : 1955 Gender: F Exam Date: 05/25/2016 13:55 Exam Location: [address] Ht (in): 62 Wt (lb): 101 BSA: 1.41 BP: 132 / 80 Ordering Physician: KISHAN CHOW MD Referring Physician: Ebony Hart MD Technologist: Loretta Mckinnon [facility] Room Number: 173 Indications: SHORTNESS OF BREATH Rhythm: Sinus Technical Quality: Fair, Technically difficult study FINDINGS Left Ventricle Normal size left ventricle. No obvious regional wall motion abnormalities. Normal left ventricular ejection fraction estimated at 55-60%. Abnormal septal motion. Right Ventricle Mild right ventricular dilatation. Right Atrium Mild right atrial dilatation. Left Atrium Left atrial dilatation. Mitral Valve Mitral valve thickened. Mild mitral regurgitation. Aortic Valve Trileaflet aortic valve. Diffuse thickening (sclerosis) of the aortic valve cusps without reduced excursion. No aortic stenosis. No aortic regurgitation. Tricuspid Valve Tricuspid valve not well visualized, grossly normal. Mild tricuspid regurgitation. Pulmonic Valve Pulmonic valve not well visualized, grossly normal. Pericardium No pericardial effusion. Great Vessels Aortic root and proximal ascending aorta not well visualized, grossly normal. CONCLUSIONS 1. THis was a technically difficult examination. 2. Mild to moderate aortic sclerosis is present with no valvular stenosis or insufficiency. 3. Mitral leaflet thickening is present with mild mitral insufficiency and mild left atrial enlargement. 4. There is no significant pericardial fluid present. 5. The left ventricular chamber size and systolic function appear normal. Abnormal septal motion is present with no other obvious resting wall motion abnormalities. 6.Mild enlargement of the right heart chambers is present with mild tricuspid insufficiency. THe RV systolic pressure could not be accurately assessed. Ebony Hart M.D. (Electronically Signed) Final Date: 26 May 2016 10:35 MEASUREMENTS (Male / Female) Normal Values 2D ECHO LV Diastolic Diameter PLAX 4.1 cm 4.2 - 5.9 / 3.9 - 5.3 cm LV Systolic Diameter PLAX 2.6 cm 2.1 - 4.0 cm LV Fractional Shortening PLAX 36.6 % 25 - 46 % LV Ejection Fraction 2D Teich 66.8 % IVS Diastolic Thickness 1.0 cm LVPW Diastolic Thickness 1.1 cm LV Relative Wall Thickness 0.5 RV Internal Dim ED PLAX 2.9 cm 1.9 - 3.8 cm LVOT Diameter 1.8 cm Aortic Root Diameter 2.5 cm LA Systolic Diameter LX 2.8 cm 3.0 - 4.0 / 2.7 - 3.8 cm LA Volume 40.0 cm 18 - 58 / 22 - 52 cm DOPPLER AV Peak Velocity 182.0 cm/s AV Peak Gradient 13.2 mmHg AV Mean Velocity 121.0 cm/s AV Mean Gradient 7.0 mmHg AV Velocity Time Integral 27.6 cm LVOT Peak Velocity 156.0 cm/s LVOT Peak Gradient 9.7 mmHg LVOT Mean Velocity 93.3 cm/s LVOT Mean Gradient 4.0 mmHg LVOT Velocity Time Integral 22.5 cm LVOT Stroke Volume 57.3 cm AV Area Cont Eq vti 2.1 cm AV Area Cont Eq pk 2.2 cm MV Peak Velocity 131.0 cm/s MV Peak Gradient 6.9 mmHg MV Mean Velocity 84.6 cm/s MV Mean Gradient 3.0 mmHg Mitral E Point Velocity 117.0 cm/s Mitral A Point Velocity 93.8 cm/s Mitral E to A Ratio 1.2 MV PHT Velocity 138.0 cm/s MV Deceleration Gordon 671.0 cm/s MV Pressure Half Time 61.7 ms MV Area PHT 3.6 cm MV Deceleration Time 193.0 ms TR Peak Velocity 152.0 cm/s TR Peak Gradient 9.2 mmHg Right Atrial Pressure 5.0 mmHg Pulmonary Artery Systolic Pressu 14.2 mmHg Right Ventricular Systolic Press 14.2 mmHg PV Peak Velocity 112.0 cm/s PV Peak Gradient 5.0 mmHg PV Mean Velocity 78.2 cm/s PV Mean Gradient 3.0 mmHg PV Velocity Time Integral 17.1 cm LV E' Lateral Velocity 14.4 cm/s Mitral E to LV E' Lateral Ratio 8.1 LV E' Septal Velocity 7.4 cm/s Mitral E to LV E' Septal Ratio 15.8
--- NOTE | 2016-05-26 13:14 | NUR ---
ABG DONE AND REPORTED TO EVELYN WU. 7.36/68/65/92/39 ON 4LPM NC. VERBAL ORDER GIVEN VIA TELEPHONE BY EVELYN WU TO START PT ON BIPAP. BIPAP REFUSING TO GO ON BIPAP AT THIS TIME. EVELYN WU NOTIFIED.
[2016-05-26 16:50] VITALS: BP 148/70
[2016-05-26 23:00] VITALS: BP 142/70
[2016-05-27 08:00] VITALS: BP 134/70
--- NOTE | 2016-05-27 08:42 | PN- Housestaff ---
Subjective Follow-up For: Chest pain, shortness of breath Subjective: Patient was lying comfortably in the bed today. Reported she was out of breath when moving from commode to chair. She was on nebulizer when I saw her. Denies chest pains, palpitations, syncope. Review of Systems Constitutional: Reports: see HPI. Objective Last 24 Hrs of Vital Signs/I&O Vital Signs Date Time Temp Pulse Resp B/P Pulse O2 O2 Flow FiO2 Ox Delivery Rate 05/27 1036 116 134/70 05/27 1036 116 134/70 05/27 0800 98.1 116 20 134/70 92 Nasal 4.0L Cannula 05/27 0754 93 Nasal 4.0L Cannula 05/27 0000 94 Nasal 4.0L Cannula 05/26 2312 118 142/80 05/26 2300 98.1 122 22 142/70 95 Nasal 4.0L Cannula 05/26 1655 97 Nasal 4.0L Cannula 05/26 1650 97.4 122 24 148/70 96 Nasal 4.0L Cannula 05/26 1608 113 142/68 Intake & Output 05/27 1600 05/27 0800 05/27 0000 Intake Total 600 660 Output Total 925 325 Balance -325 335 Intake, Oral 600 660 Output, Stool 100 Output, Urine 925 225 Physical Exam General Appearance: Alert, Oriented X3, Cooperative, Mild Distress Skin: Bruise present on the left shoulder Cardiovascular: Normal S1, Normal S2, No Murmurs, sinus tachy Lungs: b/l diffuse expiratory wheezing present Abdomen: Normal Bowel Sounds, Soft, No Tenderness Extremities: No Clubbing, No Cyanosis, No Edema Current Medications: Current Medications Sig/Freddie Start time Last Medication Dose Route Stop Time Status Admin Acetaminophen 650 MG Q4H PRN 05/25 0230 AC PO Albuterol Sulfate 3 ML EVERY 4 HRS/AWAKE 05/25 0800 AC 05/27 INH 1126 Alendronate Sodium 70 MG QWED 05/28 0700 AC PO Alprazolam 0.25 MG TID PRN 05/26 1524 AC 05/27 PO 06/01 2159 0833 Alprazolam 1 MG AT BEDTIME PRN 05/25 2200 DC 05/25 PO 06/01 0244 2219 Amlodipine Besylate 10 MG DAILY 05/25 1000 AC 05/27 PO 1036 Aspirin Buffered 81 MG DAILY 05/25 1000 AC 05/27 PO 1036 Budesonide/ 2 PUF BID 05/25 1000 AC 05/27 Formoterol Fumarate INH 1037 Cyclobenzaprine HCl 10 MG .STK-MED ONE 05/26 1604 DC PO 05/26 1605 Cyclobenzaprine HCl 10 MG TID PRN 05/25 0230 AC 05/27 PO 0833 Gabapentin 100 MG DAILY 05/25 1000 AC 05/27 PO 1036 Guaifenesin 600 MG Q12H 05/25 0300 AC 05/27 PO 0337 Guaifenesin/ 10 ML Q6P PRN 05/26 0215 AC Dextromethorphan PO Heparin Sodium 5,000 UNIT Q8 05/25 0600 AC 05/27 (Porcine) SC 0636 Hydralazine HCl 10 MG TID 05/25 1000 AC 05/27 PO 1036 Lidocaine 1 PAT DAILY PRN 05/25 0230 AC 05/25 EXT 0830 Methadone HCl 35 MG 0530 05/25 0530 AC 05/27 PO 0333 Methylprednisolone 40 MG Q12 05/25 1000 AC 05/27 IV 1036 Mirtazapine 15 MG QPM 05/25 2200 AC 05/26 PO 2311 Sodium Chloride 2 SPRAY DAILY 05/25 1000 AC 05/27 NAYELI 1037 Theophylline 200 MG DAILY 05/25 1000 AC 05/27 PO 1036 Tiotropium [place] 1 PUF DAILY 05/25 1000 AC 05/27 INH 1036 Tramadol HCl 50 MG Q6 PRN 05/25 2300 AC PO Last 24 Hrs of Lab/Merrill Results Last 24 Hrs of Labs/Mics: Laboratory Tests 05/26/16 1245: pH 7.37, pCO2 68 *H, pO2 65 L, HCO3 39 H, ABG O2 Sat (Measured) 92.0 L, P-50 (Temp Corrected) N, Carboxyhemoglobin 0.3 L, O2 Concentration % 4LPM, O2 Delivery Method NC, Phlebotomy Draw Site RIGHT BRACHIAL Assessment/Plan Assessment: 60-year-old woman with past medical history of 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 1. General -ACS ruled out with negative troponins. - Telemetry showed sinus tachycardia - Echocardiogram showed normal fraction. - We will continue her on aspirin 2. Tachycardia - Last TSH in March 2016 was 7.6, with normal T4 - She is persistently tachycardic unclear if this can point to words anxiety. -Will await cardiology input on starting her on rate controlling medications. 3. Chronic pain on methadone. - Continue prior to admission methadone 35 mg PO QD, gabapentin 100 mg PO QD and Flexeril 10 mg PO TID PRN for muscle pain. 4. Anemia: - Hemoglobin has been stable since admission. - Appears to be reduced from before. - Her recent iron studies in February 2016 were within normal limits. - We will continue to monitor H&H. 5. HTN: - Continue prior to admission amlodipine 10 mg PO QD and hydralazine 100 mg PO TID. 6. Depression: - Continue prior to admission mirtazapine 15 mg PO QHS. Diet: Heart Healthy DVT PPx: HSQ and ALPs CODE: DNR/DNI Problem List: 1. Chronic pain syndrome 2. Fall at home 3. Methadone dependence 4. History of substance abuse 5. Hypercapnic respiratory failure Pain Ratin Pain Location: generalised pain Pain Goal: Pain 4 or less Pain Plan: as mentioned in theplan Tomorrow's Labs & Rationales: will need
--- NOTE | 2016-05-27 08:57 | PN- Att Addend ---
Attending Addendum Attending Brief Note Patient this morning appears about her baseline and complaining of anxiety that is not well controlled. General Appearance: Alert, No Acute Distress Skin: Grossly normal HEENT: PEERLA Neck: Supple, No JVD Cardiovascular: Regular Rate, Normal S1, Normal S2, No Murmurs Lungs: Expiratory wheeze Abdomen: Normal Bowel Sounds, Soft, No Tenderness Neurological: Normal Speech, Strength at 5/5 X4 Ext, Cranial Nerves 3-12 NL, Reflexes 2+ Extremities: No Clubbing, No Cyanosis, No Edema Vascular: Normal Pulses Assessment End-stage COPD. ABG suggest compensated hypercarbic respiratory failure. T- wave inversions on EKG with negative cardiac workup including troponins and a normal echogram. We will continue Solu-Medrol and also Xanax for anxiety. Plan Resume home dose Xanax for anxiety IV Solu-Medrol to every 12 hours Continue other respiratory care Continue other home meds Current Medications Sig/Freddie Start time Last Medication Dose Route Stop Time Status Admin Acetaminophen 650 MG Q4H PRN 05/25 0230 AC PO Albuterol Sulfate 3 ML EVERY 4 HRS/AWAKE 05/25 0800 AC 05/27 INH 0750 Alendronate Sodium 70 MG QWED 05/28 0700 AC PO Alprazolam 0.25 MG TID PRN 05/26 1524 AC 05/27 PO 06/01 2159 0833 Alprazolam 1 MG AT BEDTIME PRN 05/25 2200 DC 05/25 PO 06/01 0244 2219 Amlodipine Besylate 10 MG DAILY 05/25 1000 AC 05/26 PO 1003 Aspirin Buffered 81 MG DAILY 05/25 1000 AC 05/26 PO 1003 Budesonide/ 2 PUF BID 05/25 1000 AC 05/26 Formoterol Fumarate INH 2312 Cyclobenzaprine HCl 10 MG .STK-MED ONE 05/26 1604 DC PO 05/26 1605 Cyclobenzaprine HCl 10 MG TID PRN 05/25 0230 AC 05/27 PO 0833 Gabapentin 100 MG DAILY 05/25 1000 AC 05/26 PO 1003 Guaifenesin 600 MG Q12H 05/25 0300 AC 05/27 PO 0337 Guaifenesin/ 10 ML Q6P PRN 05/26 0215 AC Dextromethorphan PO Heparin Sodium 5,000 UNIT Q8 05/25 0600 AC 05/27 (Porcine) SC 0636 Hydralazine HCl 10 MG TID 05/25 1000 AC 05/26 PO 2312 Lidocaine 1 PAT DAILY PRN 05/25 0230 AC 05/25 EXT 0830 Methadone HCl 35 MG 0530 05/25 0530 AC 05/27 PO 0333 Methylprednisolone 40 MG Q12 05/25 1000 AC 05/26 IV 2312 Mirtazapine 15 MG QPM 05/25 2200 AC 05/26 PO 2311 Sodium Chloride 2 SPRAY DAILY 05/25 1000 AC 05/26 NAYELI 1003 Theophylline 200 MG DAILY 05/25 1000 AC 05/26 PO 1003 Tiotropium [place] 1 PUF DAILY 05/25 1000 AC 05/26 INH 1004 Tramadol HCl 50 MG Q6 PRN 05/25 2300 AC PO Laboratory Tests 05/26 1245 Blood Gas pH (7.35 - 7.45 PH) 7.37 pCO2 (35 - 45 TORR) 68 *H pO2 (80 - 100 TORR) 65 L HCO3 (21 - 28 MEQ/L) 39 H ABG O2 Sat (Measured) (>96.0 %) 92.0 L P-50 (Temp Corrected) N Carboxyhemoglobin (1.5 - 5.0 %) 0.3 L O2 Concentration % 4LPM O2 Delivery Method NC Miscellaneous Phlebotomy Draw Site RIGHT BRACHIAL Vital Signs Date Time Temp Pulse Resp B/P Pulse O2 O2 Flow FiO2 Ox Delivery Rate 05/27 0754 93 Nasal 4.0L Cannula 05/27 0000 94 Nasal 4.0L Cannula 05/26 2312 118 142/80 05/26 2300 98.1 122 22 142/70 95 Nasal 4.0L Cannula 05/26 1655 97 Nasal 4.0L Cannula 05/26 1650 97.4 122 24 148/70 96 Nasal 4.0L Cannula 05/26 1608 113 142/68 05/26 1003 113 142/68 05/26 1003 113 142/68
[2016-05-27 15:30] VITALS: BP 160/80
--- NOTE | 2016-05-27 15:59 | PN- Cardiology ---
Subjective Subjective: The patient is more alert. She has had no recent chest pain. Shortness of breath is stable. She remains in sinus tachycardia with heart rate in the 120s. No diaphoresis. No nausea or vomiting. Objective Vital Signs and I&Os Vital Signs Date Time Temp Pulse Resp B/P Pulse O2 O2 Flow FiO2 Ox Delivery Rate 05/27 1530 98.6 128 19 160/80 92 05/27 1036 116 134/70 05/27 1036 116 134/70 05/27 0800 92 Nasal 4.0L Cannula 05/27 0800 98.1 116 20 134/70 92 Nasal 4.0L Cannula 05/27 0754 93 Nasal 4.0L Cannula 05/27 0000 94 Nasal 4.0L Cannula 05/26 2312 118 142/80 05/26 2300 98.1 122 22 142/70 95 Nasal 4.0L Cannula 05/26 1655 97 Nasal 4.0L Cannula 05/26 1650 97.4 122 24 148/70 96 Nasal 4.0L Cannula 05/26 1608 113 142/68 Intake & Output 05/27 1600 05/27 0800 05/27 0000 05/26 1600 05/26 0700 05/26 0000 Intake Total 100 600 360 650 900 610 Output Total 925 325 250 820 450 Balance 100 -325 35 400 80 160 Intake, IV 25 10 Intake, Oral 100 600 360 650 875 600 Number 2 Bowel Movements Output, Stool 100 50 Output, Urine 925 225 200 820 450 Patient 96 lb 15.98 oz Weight Physical Exam: Gen: NAD HEENT: normal Lungs: Bilateral wheezes, normal resp. effort Heart: RRR, S1, S2, 1/6 systolic murmur Abdomen: Soft, nontender, no masses Extremities: No clubbing, cyanosis, or edema. Neuro: Alert and oriented x 3, cranial nerves intact Current Medications: Current Medications Sig/Freddie Start time Last Medication Dose Route Stop Time Status Admin Acetaminophen 650 MG Q4H PRN 05/25 0230 AC PO Albuterol Sulfate 3 ML EVERY 4 HRS/AWAKE 05/25 0800 AC 05/27 INH 1126 Alendronate Sodium 70 MG QWED 05/28 0700 AC PO Alprazolam 0.25 MG TID PRN 05/26 1524 AC 05/27 PO 06/01 2159 1458 Amlodipine Besylate 10 MG DAILY 05/25 1000 AC 05/27 PO 1036 Aspirin Buffered 81 MG DAILY 05/25 1000 AC 05/27 PO 1036 Budesonide/ 2 PUF BID 05/25 1000 AC 05/27 Formoterol Fumarate INH 1037 Cyclobenzaprine HCl 10 MG .STK-MED ONE 05/26 1604 DC PO 05/26 1605 Cyclobenzaprine HCl 10 MG TID PRN 05/25 0230 AC 05/27 PO 0833 Gabapentin 100 MG DAILY 05/25 1000 AC 05/27 PO 1036 Guaifenesin 600 MG Q12H 05/25 0300 AC 05/27 PO 1457 Guaifenesin/ 10 ML Q6P PRN 05/26 0215 AC Dextromethorphan PO Heparin Sodium 5,000 UNIT Q8 05/25 0600 AC 05/27 (Porcine) SC 1458 Hydralazine HCl 10 MG TID 05/25 1000 AC 05/27 PO 1036 Lidocaine 1 PAT DAILY PRN 05/25 0230 AC 05/25 EXT 0830 Methadone HCl 35 MG 0530 05/25 0530 AC 05/27 PO 0333 Methylprednisolone 40 MG Q12 05/25 1000 AC 05/27 IV 1036 Mirtazapine 15 MG QPM 05/25 2200 AC 05/26 PO 2311 Sodium Chloride 2 SPRAY DAILY 05/25 1000 AC 05/27 NAYELI 1037 Theophylline 200 MG DAILY 05/25 1000 AC 05/27 PO 1036 Tiotropium [place] 1 PUF DAILY 05/25 1000 AC 05/27 INH 1036 Tramadol HCl 50 MG Q6 PRN 05/25 2300 AC PO Results Last 48 Hrs of Labs/Mics: Laboratory Tests 05/26/16 1245: pH 7.37, pCO2 68 *H, pO2 65 L, HCO3 39 H, ABG O2 Sat (Measured) 92.0 L, P-50 (Temp Corrected) N, Carboxyhemoglobin 0.3 L, O2 Concentration % 4LPM, O2 Delivery Method NC, Phlebotomy Draw Site RIGHT BRACHIAL 05/26/16 0320: Troponin I < 0.01 05/26/16 0320: Anion Gap 13, Estimated GFR 56 L, BUN/Creatinine Ratio 21.0, CBC w Diff NO MAN DIFF REQ, RBC 2.97 L, MCV 85.8, MCH 27.7, RDW 18.8 H, MPV 6.5 L, Gran % 92.9 H, Lymphocytes % 2.3 L, Monocytes % 4.8, Eosinophils % 0, Basophils % 0 L, Absolute Granulocytes 11.0 H, Absolute Lymphocytes 0.3 L, Absolute Monocytes 0.6, Absolute Eosinophils 0, Absolute Basophils 0, PUBS MCHC 32.2 L Recent Imaging Studies: Echocardiogram 05/26/16: 1. This was a technically difficult examination. 2. Mild to moderate aortic sclerosis is present with no valvular stenosis or insufficiency. 3. Mitral leaflet thickening is present with mild mitral insufficiency and mild left atrial enlargement. 4. There is no significant pericardial fluid present. 5. The left ventricular chamber size and systolic function appear normal. Abnormal septal motion is present with no other obvious resting wall motion abnormalities. 6.Mild enlargement of the right heart chambers is present with mild tricuspid insufficiency. THe RV systolic pressure could not be accurately assessed. Assessment/Plan Assessment/Plan Assessment: 1. Acute respiratory failure likely related to exacerbation of COPD 2. Chest pain syndrome, resolved. 3. New T-wave inversions on EKG. Myocardial infarctions ruled out with negative troponin 3 4. Multiple rib fractures 5. Hypertension 6. Anxiety 7. Sinus tachycardia Recommendations: * Start diltiazem 30 mg PO every 6 hours for sinus tachycardia, and discontinue amlodipine * Change diltiazem to Cardizem CD prior to discharge. * Repeat EKG * Continue other cardiac medications. Continue telemetry? Yes
--- NOTE | 2016-05-27 16:19 | NUR ---
LATE ENTRY - REPORTED TO DR. EVELYN BARRETT THAT PATIENT'S HEART RATE HAD BEEN HIGH FOR THE LAST 3 DAYS, 120-130'S. SHE STATED THAT SHE WOULD CONSULT WITH DR. AGEE ABOUT THE PATIENT. THIS WAS BEFORE LUNCHTIME. LATER BEFORE 3PM THIS RN APPROACHED DR. CAST (HE WROTE NOTES ON THE PATIENT) WITH [employer] TO LET HIM KNOW ABOUT HER HEART RATE. HE STATED HE WOULD SEE THE PATIENT AND MOST LIKELY ORDER CARDIZEM PO.
[2016-05-28 00:15] VITALS: BP 152/60
--- NOTE | 2016-05-28 08:14 | PN- Housestaff ---
Subjective Follow-up For: Shortness of breath Subjective: Patient sitting comfortably orbits. Ambulated until her room and desaturated to 88%. She is on oxygen through nasal cannula at her baseline Denies chest pain, dizziness, palpitations. Her heart rate has been in 100s overnight. She was added on a AV node blocking agent by cardiology yesterday. Review of Systems Constitutional: Reports: see HPI. Objective Last 24 Hrs of Vital Signs/I&O Vital Signs Date Time Temp Pulse Resp B/P Pulse O2 O2 Flow FiO2 Ox Delivery Rate 05/28 0919 92 Nasal 4.0L Cannula 05/28 0918 97.5 117 18 120/80 05/28 0836 97.5 117 18 120/80 94 Nasal 4.0L Cannula 05/28 0800 92 Nasal 4.0L Cannula 05/28 0553 98 Nasal 4.0L Cannula 05/28 0547 130 132/80 05/28 0015 98.1 111 18 152/60 95 Nasal Cannula 05/28 0012 110 134/70 05/28 0000 93 Nasal 4.0L Cannula 05/27 2203 109 136/82 05/27 1856 122 148/58 05/27 1856 122 148/58 05/27 1715 97 Nasal 4.0L Cannula 05/27 1600 Nasal 4.0L Cannula 05/27 1530 98.6 128 19 160/80 92 Intake & Output 05/28 1600 05/28 0800 05/28 0000 Intake Total 600 610 Output Total 500 700 Balance 100 -90 Intake, IV 10 Intake, Oral 600 600 Output, Urine 500 700 Physical Exam General Appearance: Alert, Oriented X3, Cooperative, No Acute Distress Skin: No Rashes, bruising present on the left shoulder Cardiovascular: Regular Rate, Normal S1, Normal S2, No Murmurs Lungs: bilateral diffuse expiratory faint wheezes heard, no crackles Abdomen: Normal Bowel Sounds, Soft, No Tenderness Extremities: No Clubbing, No Cyanosis, No Edema Current Medications: Current Medications Sig/Freddie Start time Last Medication Dose Route Stop Time Status Admin Acetaminophen 650 MG Q4H PRN 05/25 0230 AC PO Albuterol Sulfate 3 ML EVERY 4 HRS/AWAKE 05/25 0800 AC 05/28 INH 0909 Alendronate Sodium 70 MG QWED 05/28 0700 AC 05/28 PO 0546 Alprazolam 0.5 MG .STK-MED ONE 05/28 0036 DC PO 05/28 0037 Alprazolam 0.5 MG ONCE ONE 05/28 0030 DC 05/28 PO 05/28 0031 0038 Alprazolam 0.25 MG TID PRN 05/26 1524 AC 05/28 PO 06/01 2159 0546 Amlodipine Besylate 10 MG DAILY 05/25 1000 DC 05/27 PO 1036 Aspirin Buffered 81 MG DAILY 05/25 1000 AC 05/28 PO 0918 Budesonide/ 2 PUF BID 05/25 1000 AC 05/28 Formoterol Fumarate INH 0918 Cyclobenzaprine HCl 10 MG .STK-MED ONE 05/27 1900 DC PO 05/27 1901 Cyclobenzaprine HCl 10 MG TID PRN 05/25 0230 AC 05/27 PO 1903 Diltiazem HCl 30 MG Q6 05/27 1800 AC 05/28 PO 0547 Gabapentin 100 MG DAILY 05/25 1000 AC 05/28 PO 0916 Guaifenesin 600 MG Q12H 05/25 0300 AC 05/28 PO 0547 Guaifenesin/ 10 ML Q6P PRN 05/26 0215 AC Dextromethorphan PO Heparin Sodium 5,000 UNIT Q8 05/25 0600 AC 05/28 (Porcine) SC 0546 Hydralazine HCl 10 MG TID 05/25 1000 AC 05/28 PO 0918 Lidocaine 1 PAT DAILY PRN 05/25 0230 AC 05/25 EXT 0830 Methadone HCl 35 MG 0530 05/25 0530 AC 05/28 PO 0546 Methylprednisolone 40 MG Q12 05/25 1000 AC 05/28 IV 0916 Mirtazapine 15 MG QPM 05/25 2200 AC 05/27 PO 2203 Sodium Chloride 2 SPRAY DAILY 05/25 1000 AC 05/28 NAYELI 0923 Theophylline 200 MG DAILY 05/25 1000 AC 05/28 PO 0916 Tiotropium [place] 1 PUF DAILY 05/25 1000 AC 05/28 INH 0916 Tramadol HCl 50 MG Q6 PRN 05/25 2300 AC PO Last 24 Hrs of Lab/[place] Results Last 24 Hrs of Labs/Mics: Laboratory Tests 05/27/16 2327: Troponin I 0.02 Assessment/Plan Assessment: 60-year-old woman with past medical history of 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 Today she was comfortable sitting on the bed side. 1. Acute hypoxic/hypercarbic respiratory failure secondary to COPD exacerbation and worsening shortness of breath - Patient still desaturates, will continue on IV Solu-Medrol for 1 more day -ACS ruled out with negative troponins. - Telemetry showed sinus tachycardia - Echocardiogram showed normal fraction. - We will continue her on aspirin - Fortunately patient has a end-stage COPD and her symptoms are worsening. Her prognosis is poor 2. Tachycardia could be secondary to underlying lung disease - Last TSH in March 2016 was 7.6, with normal T4 - She was started on AV josy blocking yesterday. We will continue to monitor her heart rate - EKG done yesterday showed new T-wave inversions in 2 weeks with negative troponins next line-- - patient remains asymptomatic -Will await further cardiology recommendation 3. Chronic pain on methadone. - Continue prior to admission methadone 35 mg PO QD, gabapentin 100 mg PO QD and Flexeril 10 mg PO TID PRN for muscle pain. 4. Anemia: - Hemoglobin has been stable since admission. - Appears to be reduced from before. - Her recent iron studies in February 2016 were within normal limits. - We will continue to monitor H&H. 5. HTN: - Continue prior to admission amlodipine 10 mg PO QD and hydralazine 100 mg PO TID. 6. Depression: - Continue prior to admission mirtazapine 15 mg PO QHS. Diet: Heart Healthy DVT PPx: HSQ and ALPs CODE: DNR/DNI Problem List: 1. Chronic pain syndrome 2. Hypercapnic respiratory failure 3. Methadone dependence Pain Ratin Pain Location: Generalized body pain Pain Goal: Pain 4 or less Pain Plan: On methadone Tomorrow's Labs & Rationales: Not needed
[2016-05-28 08:36] VITALS: BP 120/80
--- NOTE | 2016-05-28 08:57 | PN- Att Addend ---
Attending Addendum Attending Brief Note Patient desaturated to 88% with ambulation on 4 L. General Appearance: Alert, No Acute Distress Skin: Grossly normal HEENT: PEERLA Neck: Supple, No JVD Cardiovascular: Regular Rate, Normal S1, Normal S2, No Murmurs Lungs: Expiratory wheeze Abdomen: Normal Bowel Sounds, Soft, No Tenderness Neurological: Normal Speech, Strength at 5/5 X4 Ext, Cranial Nerves 3-12 NL, Reflexes 2+ Extremities: No Clubbing, No Cyanosis, No Edema Vascular: Normal Pulses Assessment End-stage COPD. ABG suggest compensated hypercarbic respiratory failure. T- wave inversions on EKG with negative cardiac workup including troponins and a normal echogram. Desaturation to 88% on ambulation. We will continue Solu- Medrol for 1 more day and then reassess. Plan IV Solu-Medrol to every 12 hours for 1 more day Continue Xanax for anxiety Continue other respiratory care Continue other home meds Current Medications Sig/Freddie Start time Last Medication Dose Route Stop Time Status Admin Acetaminophen 650 MG Q4H PRN 05/25 0230 AC PO Albuterol Sulfate 3 ML EVERY 4 HRS/AWAKE 05/25 0800 AC 05/28 INH 0552 Alendronate Sodium 70 MG QWED 05/28 0700 AC 05/28 PO 0546 Alprazolam 0.5 MG .STK-MED ONE 05/28 0036 DC PO 05/28 0037 Alprazolam 0.5 MG ONCE ONE 05/28 0030 DC 05/28 PO 05/28 0031 0038 Alprazolam 0.25 MG TID PRN 05/26 1524 AC 05/28 PO 06/01 2159 0546 Amlodipine Besylate 10 MG DAILY 05/25 1000 DC 05/27 PO 1036 Aspirin Buffered 81 MG DAILY 05/25 1000 AC 05/27 PO 1036 Budesonide/ 2 PUF BID 05/25 1000 AC 05/27 Formoterol Fumarate INH 2200 Cyclobenzaprine HCl 10 MG .STK-MED ONE 05/27 1900 DC PO 05/27 1901 Cyclobenzaprine HCl 10 MG TID PRN 05/25 0230 AC 05/27 PO 1903 Diltiazem HCl 30 MG Q6 05/27 1800 AC 05/28 PO 0547 Gabapentin 100 MG DAILY 05/25 1000 AC 05/27 PO 1036 Guaifenesin 600 MG Q12H 05/25 0300 AC 05/28 PO 0547 Guaifenesin/ 10 ML Q6P PRN 05/26 0215 AC Dextromethorphan PO Heparin Sodium 5,000 UNIT Q8 05/25 0600 AC 05/28 (Porcine) SC 0546 Hydralazine HCl 10 MG TID 05/25 1000 AC 05/27 PO 2203 Lidocaine 1 PAT DAILY PRN 05/25 0230 AC 05/25 EXT 0830 Methadone HCl 35 MG 0530 05/25 0530 AC 05/28 PO 0546 Methylprednisolone 40 MG Q12 05/25 1000 AC 05/27 IV 2200 Mirtazapine 15 MG QPM 05/25 2200 AC 05/27 PO 2203 Sodium Chloride 2 SPRAY DAILY 05/25 1000 AC 05/27 NAYELI 1037 Theophylline 200 MG DAILY 05/25 1000 AC 05/27 PO 1036 Tiotropium [place] 1 PUF DAILY 05/25 1000 AC 05/27 INH 1036 Tramadol HCl 50 MG Q6 PRN 05/25 2300 AC PO Laboratory Tests 05/27 2327 Chemistry Troponin I (< 0.11 ng/ml) 0.02 Vital Signs Date Time Temp Pulse Resp B/P Pulse O2 O2 Flow FiO2 Ox Delivery Rate 05/28 0836 97.5 117 18 120/80 94 Nasal 4.0L Cannula 05/28 0553 98 Nasal 4.0L Cannula 05/28 0547 130 132/80 05/28 0015 98.1 111 18 152/60 95 Nasal Cannula 05/28 0012 110 134/70 05/28 0000 93 Nasal 4.0L Cannula 05/273 109 136/82 05/27 1856 122 148/58 05/27 1856 122 148/58 05/27 1715 97 Nasal 4.0L Cannula 05/27 1600 Nasal 4.0L Cannula 05/27 1530 98.6 128 19 160/80 92 05/27 1036 116 134/70 05/27 1036 116 134/70
--- NOTE | 2016-05-28 13:16 | PN- Cardiology ---
Subjective Subjective: Clinically stable without change Objective Vital Signs and I&Os Vital Signs Date Time Temp Pulse Resp B/P Pulse O2 O2 Flow FiO2 Ox Delivery Rate 05/28 0919 92 Nasal 4.0L Cannula 05/28 0918 97.5 117 18 120/80 05/28 0836 97.5 117 18 120/80 94 Nasal 4.0L Cannula 05/28 0800 92 Nasal 4.0L Cannula 05/28 0553 98 Nasal 4.0L Cannula 05/28 0547 130 132/80 05/28 0015 98.1 111 18 152/60 95 Nasal Cannula 05/28 0012 110 134/70 05/28 0000 93 Nasal 4.0L Cannula 05/27 2203 109 136/82 05/27 1856 122 148/58 05/27 1856 122 148/58 05/27 1715 97 Nasal 4.0L Cannula 05/27 1600 Nasal 4.0L Cannula 05/27 1530 98.6 128 19 160/80 92 Intake & Output 05/28 1600 05/28 0800 05/28 0000 05/27 1600 05/27 0800 05/27 0000 Intake Total 600 610 700 600 660 Output Total 500 700 650 925 325 Balance 100 -90 50 -325 335 Intake, IV 10 Intake, Oral 600 600 700 600 660 Output, Stool 200 100 Output, Urine 500 700 450 925 225 Current Medications: Current Medications Sig/Freddie Start time Last Medication Dose Route Stop Time Status Admin Acetaminophen 650 MG Q4H PRN 05/25 0230 AC PO Albuterol Sulfate 3 ML EVERY 4 HRS/AWAKE 05/25 0800 AC 05/28 INH 1210 Alendronate Sodium 70 MG QWED 05/28 0700 AC 05/28 PO 0546 Alprazolam 0.5 MG .STK-MED ONE 05/28 0036 DC PO 05/28 0037 Alprazolam 0.5 MG ONCE ONE 05/28 0030 DC 05/28 PO 05/28 0031 0038 Alprazolam 0.25 MG TID PRN 05/26 1524 AC 05/28 PO 06/01 2159 0546 Amlodipine Besylate 10 MG DAILY 05/25 1000 DC 05/27 PO 1036 Aspirin Buffered 81 MG DAILY 05/25 1000 AC 05/28 PO 0918 Budesonide/ 2 PUF BID 05/25 1000 AC 05/28 Formoterol Fumarate INH 0918 Cyclobenzaprine HCl 10 MG .STK-MED ONE 05/27 1900 DC PO 05/27 1901 Cyclobenzaprine HCl 10 MG TID PRN 05/25 0230 AC 05/27 PO 1903 Diltiazem HCl 30 MG Q6 05/27 1800 AC 05/28 PO 0547 Gabapentin 100 MG DAILY 05/25 1000 AC 05/28 PO 0916 Guaifenesin 600 MG Q12H 05/25 0300 AC 05/28 PO 0547 Guaifenesin/ 10 ML Q6P PRN 05/26 0215 AC Dextromethorphan PO Heparin Sodium 5,000 UNIT Q8 05/25 0600 AC 05/28 (Porcine) SC 0546 Hydralazine HCl 10 MG TID 05/25 1000 AC 05/28 PO 0918 Lidocaine 1 PAT DAILY PRN 05/25 0230 AC 05/25 EXT 0830 Methadone HCl 35 MG 0530 05/25 0530 AC 05/28 PO 0546 Methylprednisolone 40 MG Q12 05/25 1000 AC 05/28 IV 0916 Mirtazapine 15 MG QPM 05/25 2200 AC 05/27 PO 2203 Sodium Chloride 2 SPRAY DAILY 05/25 1000 AC 05/28 NAYELI 0923 Theophylline 200 MG DAILY 05/25 1000 AC 05/28 PO 0916 Tiotropium [place] 1 PUF DAILY 05/25 1000 AC 05/28 INH 0916 Tramadol HCl 50 MG Q6 PRN 05/25 2300 AC PO Results Last 48 Hrs of Labs/Mics: Laboratory Tests 05/27/16 2327: Troponin I 0.02 Assessment/Plan Assessment/Plan Assessment: 1. Acute respiratory failure likely related to exacerbation of COPD 2. Chest pain syndrome with new ECG abnormalities-at the moment, it is unclear whether the patient's symptoms are musculoskeletal or that they could be truly ischemic in nature. In addition, her ECG shows anterior T-wave inversions which may be related to ischemia or possibly RV strain. 3. Multiple rib fractures 4. Hypertension 5. Anxiety 6. Osteoporosis 7. Persistent sinus tachycardia Recommendations: - COntinue current medications for now. - Continue to monitor heart rate. Continue telemetry? Yes
[2016-05-28 16:26] VITALS: BP 142/78
[2016-05-29 00:21] VITALS: BP 132/70
--- NOTE | 2016-05-29 08:11 | PN- Housestaff ---
Subjective Follow-up For: COPD exacerbation Subjective: Patient sitting at the bedside. Appears to be comfortable. In good spirits today. Has shortness of breath which is at baseline. Denies overnight events. Denies chest pain, palpitations, dizziness. Complains of lack of sleep last night due to nightmares. Telemetry shows sinus tachycardia with heart rate ranging from 90-100's. Review of Systems Constitutional: Reports: see HPI. Objective Last 24 Hrs of Vital Signs/I&O Vital Signs Date Time Temp Pulse Resp B/P Pulse O2 O2 Flow FiO2 Ox Delivery Rate 05/29 0810 Nasal Cannula 05/29 0756 94 Nasal 4.0L Cannula 05/29 0444 104 170/78 05/29 0037 117 178/82 05/29 0021 97.6 111 20 132/70 94 Nasal 4.0L Cannula 05/29 0000 Nasal 4.0L Cannula 05/28 2203 114 168/70 05/28 1640 122 172/82 05/28 1640 122 172/82 05/28 1626 98.0 122 20 142/78 97 Nasal 4.0L Cannula 05/28 1600 Nasal 4.0L Cannula 05/28 1600 98 Nasal 4.0L Cannula 05/28 1344 97.5 116 120/80 05/28 0919 92 Nasal 4.0L Cannula 05/28 0918 97.5 117 18 120/80 05/28 0836 97.5 117 18 120/80 94 Nasal 4.0L Cannula Intake & Output 05/29 1600 05/29 0800 05/29 0000 Intake Total 500 610 Output Total 400 Balance 500 210 Intake, IV 10 Intake, Oral 500 600 Number 1 Bowel Movements Output, Urine 400 Physical Exam General Appearance: Alert, Oriented X3, Cooperative, No Acute Distress Skin: No Rashes HEENT: Mucous Membr. moist/pink Cardiovascular: Regular Rate, Normal S1, Normal S2, No Murmurs Lungs: bilateral diffuse expiratory wheezing present which has not changed from baseline Abdomen: Normal Bowel Sounds, Soft, No Tenderness, ostomy site clean, no evidence of infection Extremities: No Clubbing, No Cyanosis, No Edema Current Medications: Current Medications Sig/Freddie Start time Last Medication Dose Route Stop Time Status Admin Acetaminophen 650 MG Q4H PRN 05/25 0230 AC PO Albuterol Sulfate 3 ML EVERY 4 HRS/AWAKE 05/25 08 AC 05/29 INH 0754 Alendronate Sodium 70 MG QWED 05/28 0700 AC 05/28 PO 0546 Alprazolam 0.25 MG TID PRN 05/26 1524 AC 05/28 PO 06/01 2159 2204 Aspirin Buffered 81 MG DAILY 05/25 1000 AC 05/28 PO 0918 Budesonide/ 2 PUF BID 05/25 1000 AC 05/28 Formoterol Fumarate INH 2204 Cyclobenzaprine HCl 10 MG .STK-MED ONE 05/28 1631 DC PO 05/28 1632 Cyclobenzaprine HCl 10 MG TID PRN 05/25 0230 AC 05/29 PO 0034 Diltiazem HCl 30 MG Q6 05/27 1800 AC 05/29 PO 0444 Gabapentin 100 MG DAILY 05/25 1000 AC 05/28 PO 0916 Guaifenesin 600 MG Q12H 05/25 0300 AC 05/29 PO 0357 Guaifenesin/ 10 ML Q6P PRN 05/26 0215 AC Dextromethorphan PO Heparin Sodium 5,000 UNIT Q8 05/25 0600 AC 05/28 (Porcine) SC 2203 Hydralazine HCl 10 MG TID 05/25 1000 AC 05/28 PO 2203 Lidocaine 1 PAT DAILY PRN 05/25 0230 AC 05/28 EXT 1742 Methadone HCl 35 MG 0530 05/25 0530 AC 05/29 PO 0443 Methylprednisolone 40 MG Q12 05/25 1000 DC 05/28 IV 2203 Mirtazapine 15 MG QPM 05/25 2200 AC 05/28 PO 2203 Prednisone 40 MG DAILY 05/29 1000 UNVr PO Sodium Chloride 2 SPRAY DAILY 05/25 1000 AC 05/28 NAYELI 0923 Theophylline 200 MG DAILY 05/25 1000 AC 05/28 PO 0916 Tiotropium [place] 1 PUF DAILY 05/25 1000 AC 05/28 INH 0916 Tramadol HCl 50 MG Q6 PRN 05/25 2300 AC PO Assessment/Plan Assessment: 60-year-old woman with past medical history of 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 Today she was comfortable sitting on the bed side. 1. Acute hypoxic/hypercarbic respiratory failure secondary to COPD exacerbation - Shortness of breath appears to be better today. -We'll change to by mouth prednisone and discharge her on a taper -UnFortunately patient has a end-stage COPD and her symptoms are worsening. Her prognosis is poor 2. Tachycardia could be secondary to underlying lung disease - Last TSH in March 2016 was 7.6, with normal T4 - She was started on AV josy blocking yesterday. Her heart rate hasn't improved. Most likely his tachycardia secondary to respiratory status - Telemetry showed sinus tachycardia - Echocardiogram showed normal fraction. - We will continue her on aspirin 3. Chronic pain on methadone. - Continue prior to admission methadone 35 mg PO QD, gabapentin 100 mg PO QD and Flexeril 10 mg PO TID PRN for muscle pain. - She will follow-up at methadone clinic for daily dosing 4. Anemia: - Hemoglobin has been stable since admission. - Her recent iron studies in February 2016 were within normal limits. 5. HTN: - Continue prior to admission amlodipine 10 mg PO QD and hydralazine 100 mg PO TID. 6. Depression: - Continue prior to admission mirtazapine 15 mg PO QHS. Diet: Heart Healthy DVT PPx: HSQ and ALPs CODE: DNR/DNI Patient is stable back to her baseline to be discharged. Unfortunately given her end-stage COPD disease her prognosis is poor and guarded. Patient is aware about her medical condition. She wants to go back home. She has history of recurrent falls. Recommended to use walker at all times Physical therapy evaluated her and recommended home PT vs STR. Will await their recommendation today Problem List: 1. Chronic pain syndrome 2. Fall at home 3. Methadone dependence 4. Hypercapnic respiratory failure Pain Ratin Pain Location: Generalized body pain Pain Goal: Pain 4 or less Pain Plan: On methadone Tomorrow's Labs & Rationales: Patient to be discharged today
[2016-05-29] MEDS ORDERED: CARDIZEM CD120 M2 PO (08:40)
[2016-05-29] MEDS ORDERED: PREDNISONE10 M2 PO ×2 (08:44→09:45)
--- NOTE | 2016-05-29 08:46 | Patient Discharge Instructions ---
Discharge Instructions General Discharge Information You were seen/treated for: COPD exacerbation Special Instructions: 1. Follow-up with your primary care physician in a week upon discharge. 2. Follow-up will IN COPD clinic as per the regular appointment 3. Walk with walker at all times 4. Continue follow-up at methadone clinic Diet Recommended Diet: Regular Activity Activity Self Limited: Yes Acute Coronary Syndrome Inclusion Criteria At DC or during hospital stay patient has or had the following: ACS DIAGNOSIS No Discharge Core Measures Meds if any: Prescribed or Continued at Discharge Meds if any: NOT Prescribed or Continued at Discharge Congestive Heart Failure Inclusion Criteria At DC or during hospital stay patient has or had the following: CHF DIAGNOSIS No Discharge Core Measures Meds if any: Prescribed or Continued at Discharge Meds if any: NOT Prescribed or Continued at Discharge Cerebrovascular accident Inclusion Criteria At DC or during hospital stay patient has or had the following: CVA/TIA Diagnosis No Discharge Core Measures Meds if any: Prescribed or Continued at Discharge Meds if any: NOT Prescribed or Continued at Discharge Venous thromboembolism Inclusion Criteria VTE Diagnosis No VTE Type NONE VTE Confirmed by (Test) NONE Discharge Core Measures - Per Current guidelines, there needs to be overlap - treatment for the first 5 days of Warfarin therapy. - If discharged on Warfarin prior to 5 days of - overlap therapy, the patient will need to be - assessed for post discharge needs including - *Post discharge parental anticoagulation - *Warfarin and/or parental anticoagulation education - *Follow up date to check INR post discharge At least 5 days overlap therapy as Inpatient No Meds if any: Prescribed or Continued at Discharge Note: Overlap Therapy is Warfarin and Anticoagulant Meds if any: NOT Prescribed or Continued at Discharge
[2016-05-29 08:53] VITALS: BP 140/80
--- NOTE | 2016-05-29 08:54 | PN- Att Addend ---
Attending Addendum Attending Brief Note Patient reports improved breathing General Appearance: Alert, No Acute Distress Skin: Grossly normal HEENT: PEERLA Neck: Supple, No JVD Cardiovascular: Regular Rate, Normal S1, Normal S2, No Murmurs Lungs: Expiratory wheeze Abdomen: Normal Bowel Sounds, Soft, No Tenderness Neurological: Normal Speech, Strength at 5/5 X4 Ext, Cranial Nerves 3-12 NL, Reflexes 2+ Extremities: No Clubbing, No Cyanosis, No Edema Vascular: Normal Pulses Assessment End-stage COPD. ABG suggest compensated hypercarbic respiratory failure. T- wave inversions on EKG with negative cardiac workup including troponins and a normal echogram. Transition to prednisone with gradual taper. Patient is stable for discharge. She will continue Cardizem for tachycardia and we will reassess as outpatient. Plan Start prednisone with gradual taper Change to Cardizem CD Continue Xanax for anxiety Continue other respiratory care Continue other home meds Discharge home Current Medications Sig/Freddie Start time Last Medication Dose Route Stop Time Status Admin Acetaminophen 650 MG Q4H PRN 05/25 0230 AC PO Albuterol Sulfate 3 ML EVERY 4 HRS/AWAKE 05/25 0800 AC 05/29 INH 0754 Alendronate Sodium 70 MG QWED 05/28 0700 AC 05/28 PO 0546 Alprazolam 0.25 MG TID PRN 05/26 1524 AC 05/28 PO 06/01 2159 2204 Aspirin Buffered 81 MG DAILY 05/25 1000 AC 05/28 PO 0918 Budesonide/ 2 PUF BID 05/25 1000 AC 05/28 Formoterol Fumarate INH 2204 Cyclobenzaprine HCl 10 MG .STK-MED ONE 05/29 0026 DC PO 05/29 0027 Cyclobenzaprine HCl 10 MG .STK-MED ONE 05/28 1631 DC PO 05/28 1632 Cyclobenzaprine HCl 10 MG TID PRN 05/25 0230 AC 05/29 PO 0034 Diltiazem HCl 30 MG Q6 05/27 1800 AC 05/29 PO 0444 Gabapentin 100 MG DAILY 05/25 1000 AC 05/28 PO 0916 Guaifenesin 600 MG Q12H 05/25 0300 AC 05/29 PO 0357 Guaifenesin/ 10 ML Q6P PRN 05/26 0215 AC Dextromethorphan PO Heparin Sodium 5,000 UNIT Q8 05/25 0600 AC 05/28 (Porcine) SC 2203 Hydralazine HCl 10 MG TID 05/25 1000 AC 05/28 PO 2203 Lidocaine 1 PAT DAILY PRN 05/25 0230 AC 05/28 EXT 1742 Methadone HCl 35 MG 0530 05/25 0530 AC 05/29 PO 0443 Methylprednisolone 40 MG Q12 05/25 1000 DC 05/28 IV 2203 Mirtazapine 15 MG QPM 05/25 2200 AC 05/28 PO 2203 Prednisone 40 MG DAILY 05/29 1000 AC PO Sodium Chloride 2 SPRAY DAILY 05/25 1000 AC 05/28 NAYELI 0923 Theophylline 200 MG DAILY 05/25 1000 AC 05/28 PO 0916 Tiotropium [place] 1 PUF DAILY 05/25 1000 AC 05/28 INH 0916 Tramadol HCl 50 MG Q6 PRN 05/25 2300 AC PO Vital Signs Date Time Temp Pulse Resp B/P Pulse O2 O2 Flow FiO2 Ox Delivery Rate 05/29 0853 97.8 101 20 140/80 97 Nasal Cannula 05/29 0810 Nasal Cannula 05/29 0756 94 Nasal 4.0L Cannula 05/29 0444 104 170/78 05/29 0037 117 178/82 05/29 0021 97.6 111 20 132/70 94 Nasal 4.0L Cannula 05/29 0000 Nasal 4.0L Cannula 05/28 2202 114 168/70 05/28 1640 122 172/82 05/28 1640 122 172/82 05/28 1626 98.0 122 20 142/78 97 Nasal 4.0L Cannula 05/28 1600 Nasal 4.0L Cannula 05/28 1600 98 Nasal 4.0L Cannula 05/28 1344 97.5 116 120/80 05/28 0919 92 Nasal 4.0L Cannula 05/28 0918 97.5 117 18 120/80
--- NOTE | 2016-06-11 14:24 | Discharge Summary ---
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 1. Acute hypoxic/hypercarbic respiratory failure secondary to COPD exacerbation end-stage COPD was admitted for COPD exacerbation and treated on IV Solu-Medrol and then was later transitioned to prolonged prednisone taper. 2. Tachycardia could be secondary to underlying lung disease sinus tachycardia likely secondary to respiratory distress. Patient was seen by cardiology who recommended Cardizem CD for inappropriately high tachycardia rate patient tolerated Cardizem without any side effects. Echocardiogram showed normal fraction. 3. Chronic pain on methadone. Continued methadone 35 mg PO QD, gabapentin 100 mg PO QD and Flexeril 10 mg PO TID PRN for muscle pain. She will follow-up at methadone clinic for daily dosing Allergies: Coded Allergies: cat dander (UNKNOWN REACTION TO 'PET HAIR/DANDER' 04/24/16) ipratropium (From ATROVENT) ("IT'S TOO MUCH DR TRUONG SAID" 04/24/16) Significant Procedures: Echocardiogram CONCLUSIONS 1. THis was a technically difficult examination. 2. Mild to moderate aortic sclerosis is present with no valvular stenosis or insufficiency. 3. Mitral leaflet thickening is present with mild mitral insufficiency and mild left atrial enlargement. 4. There is no significant pericardial fluid present. 5. The left ventricular chamber size and systolic function appear normal. Abnormal septal motion is present with no other obvious resting wall motion abnormalities. 6.Mild enlargement of the right heart chambers is present with mild tricuspid insufficiency. THe RV systolic pressure could not be accurately assessed. Disposition Summary Disposition Principal Diagnosis: end-stage COPD Additional Diagnosis: inappropriate tachycardia Discharge Disposition: home or self care Discharge Instructions General Discharge Information Code Status: Do Not Resucitate/Intubat Patient's Diet: heart and healthy diet Patient's Activity: as tolerated Follow-Up Instructions/Appts: follow-up with her history faculty member and her primary care. Medications at Discharge Discharge Medications: Continue taking these medications: Alendronate Sodium (Alendronate Sodium) 70 MG TABLET 1 Tablet ORAL EVERY THURSDAY Instructions: in the morning, at least 30 minutes before the first food, beverage, or medication of the day Comments: NOT GIVNE IN HOSPITAL Aspirin (Ecotrin) 81 MG TABLET.DR 1 Tablet ORAL DAILY Days = 30 Comments: LAST GIVEN 05/09/15 AT 0800 Budesonide/Formoterol Fumara (Symbicort 160-4.5 Mcg Inhaler) 160 MCG/4.5 MCG PUF 2 Puff Inhale through mouth TWICE DAILY Qty = 10 Comments: LAST GIVEN 05/09/15 AT 0800 Tiotropium [place] (Spiriva) 18 MCG CAP.W.DEV 1 Capsule Inhale through mouth DAILY Days = 30 Comments: LAST GIVEN 05/09/15 AT 1100 Gabapentin (Neurontin) 100 MG CAPSULE 1 Capsule ORAL DAILY Hydralazine HCl (Hydralazine HCl) 10 MG TABLET 1 Tablet ORAL THREE TIMES DAILY Comments: PER [facility] Guaifenesin (Mucinex) 600 MG TAB.ER.12H 1 Tablet ORAL Q12H Comments: PER [facility] Prednisone (Prednisone) 10 MG TABLET 1 Tablet ORAL DAILY Instructions: continue after finishing prednisone taper Sodium Chloride (Nasal [place]) 0.65 % SPRAY 2 [place] Both sides of nose DAILY Comments: PER [facility] Acetaminophen (Acetaminophen) 325 MG TABLET 2 Tablet ORAL Q4H as needed for PAIN/TEMP>/100 Comments: PER [facility] NTE 3GM APAP/24H Magnesium Hydroxide (Milk Of Magnesia) 400 MG/5 ML ORAL.SUSP 30 Milliliters ORAL DAILY as needed for CONSTIPATION Comments: PER [facility] Lidocaine (Lidocaine) 5 % ADH..PATCH 1 Patch On the skin DAILY as needed for PAIN Comments: PER [facility] Alprazolam (Xanax) 1 MG TABLET 1 Tablet ORAL Comments: Last Taken:05/28/16 Time:2100 Mirtazapine (Mirtazapine) 15 MG TABLET 1 Tablet ORAL Every night Amlodipine Besylate (Amlodipine Besylate) 10 MG TABLET 1 Tablet ORAL DAILY Theophylline Anhydrous (Theophylline Anhydrous) 200 MG TAB.ER.12H 1 Tablet ORAL DAILY Albuterol Sulfate (Proair Hfa) 90 MCG HFA.AER.AD 2 Puff Inhale through mouth EVERY 4-6 HOURS NEEDED as needed for SOB Methadone HCl (Methadone HCl) 10 MG/5 ML SOLUTION 30 Milligram ORAL DAILY Days = 30 Start taking the following new medications: Prednisone (Prednisone) 10 MG TABLET 0 ORAL DAILY Qty = 30 No Refills Instructions: TAKE 40 MG ON 05/30-06/01 TAKE 30 MG ON 06/02-06/05 TAKE 20 MG ON 06/06-06/08 CONTINUE REGULAR DOSE OF 10 MG FROM THEN ON Diltiazem HCl (Cardizem Cd) 120 MG CAP.ER.24H 1 Tablet ORAL DAILY Days = 30 No Refills Copies To: DENISE REDDY MD Attending MD Review Statement Documenting Attending: DENISE REDDY MD
[2016-10-17] MEDS ORDERED: ZITHROMAX250 M2 PO (15:15)
== END 2016-05-29 17:30 | disposition home health service (06) | DRG 140 ==
LOC: ENRESERVDT → ENRESERVTM → ERH 21:22 → ERHI 23:11 → ENPENDDIS 23:11 → 1NO 23:11
PROVIDERS: Internal Medicine; Physician Assistant Medical; Student in an Organized Health Care Education/Training Program; ADMIT Internal Medicine
DX: J44.1 Chronic obstructive pulmonary disease with (acute) exacerbation (principal); J96.22 Acute and chronic respiratory failure with hypercapnia; I10 Essential (primary) hypertension; M81.0 Age-related osteoporosis without current pathological fracture; K21.9 Gastro-esophageal reflux disease without esophagitis; Z93.3 Colostomy status; D64.9 Anemia, unspecified; G89.4 Chronic pain syndrome; F41.9 Anxiety disorder, unspecified; F32.9 Major depressive disorder, single episode, unspecified; S22.43XD Multiple fractures of ribs, bilateral, subsequent encounter for fracture with routine healing; F11.20 Opioid dependence, uncomplicated; R00.0 Tachycardia, unspecified; R07.9 Chest pain, unspecified; W19.XXXD Unspecified fall, subsequent encounter; Z91.81 History of falling; R64 Cachexia; Z79.52 Long term (current) use of systemic steroids; Z87.891 Personal history of nicotine dependence
CPT/HCPCS: 1NP; ERO; 71100-LT; 82436; 87040; 87070; 93005; 93010; 93306; 96365; 96375; 97110-GO; 97116-GO; 97162-GP; 97530-GO; J1644; J2920; J2930; J3490

== ENCOUNTER 2016-05-31 22:41 | Emergency (ER) | payer OTHER ==
[~2016-05-31] VITALS: Ht 157.5 cm; Wt 46.3 kg
[~2016-05-31 22:41] MED LIST changes: +CARDIZEM CD120 M2 PO
[2016-05-31 22:47] VITALS: BP 135/76
--- NOTE | 2016-05-31 23:03 | ED CARDIAC/CP/PALPITATIONS ---
History of Present Illness General Chief Complaint: Abdominal Pain/Flank Pain Stated Complaint: RIB PAIN Source: patient, old records, EMS Exam Limitations: no limitations Vital Signs & Intake/Output Vital Signs & Intake/Output Vital Signs Date Time Temp Pulse Resp B/P Pulse O2 O2 Flow FiO2 Ox Delivery Rate 05/31 2349 Nasal Cannula 05/31 2316 Nasal 3.0L Cannula 05/31 2247 97.9 129 20 135/76 93 Nasal 2.0L Cannula ED Intake and Output 06/01 0000 05/31 1200 Intake Total Output Total Balance Patient 102 lb Weight Allergies Coded Allergies: cat dander (UNKNOWN REACTION TO 'PET HAIR/DANDER' 04/24/16) ipratropium (From ATROVENT) ("IT'S TOO MUCH DR TRUONG SAID" 04/24/16) Reconcile Medications Acetaminophen 325 MG TABLET 2 TAB PO Q4H PRN PAIN/TEMP>/100 (Reported) Albuterol Sulfate (Proair Hfa) 90 MCG HFA.AER.AD 2 PUF INH Q4-6 PRN PRN SOB ( Reported) Alendronate Sodium 70 MG TABLET 1 TAB PO QWED BONES (Reported) in the morning, at least 30 minutes before the first food, beverage, or medication of the day Alprazolam (Xanax) 1 MG TABLET 1 TAB PO ANXIETY (Reported) Amlodipine Besylate 10 MG TABLET 1 TAB PO DAILY HTN (Reported) Aspirin (Ecotrin) 81 MG TABLET.DR 1 TAB PO DAILY HEART Budesonide/Formoterol Fumara (Symbicort 160-4.5 Mcg Inhaler) 160 MCG/4.5 MCG PUF 2 PUF INH BID EMPHYSEMA Diltiazem HCl (Cardizem Cd) 120 MG CAP.ER.24H 1 TAB PO DAILY HEART RATE Gabapentin (Neurontin) 100 MG CAPSULE 1 CAP PO DAILY PAIN (Reported) Guaifenesin (Mucinex) 600 MG TAB.ER.12H 1 TAB PO Q12H MUCUS (Reported) Hydralazine HCl 10 MG TABLET 1 TAB PO TID BP (Reported) Lidocaine 5 % ADH..PATCH 1 PAT TOP DAILY PRN PAIN (Reported) Magnesium Hydroxide (Milk Of Magnesia) 400 MG/5 ML ORAL.SUSP 30 ML PO DAILY PRN CONSTIPATION (Reported) Methadone HCl 10 MG/5 ML SOLUTION 30 MG PO DAILY MAINTENCE Mirtazapine 15 MG TABLET 1 TAB PO QPM DEPRESSION (Reported) Prednisone 10 MG TABLET 1 TAB PO DAILY COPD (Reported) continue after finishing prednisone taper Prednisone 10 MG TABLET 0 PO DAILY COPD TAKE 40 MG ON 05/30-06/01 TAKE 30 MG ON 06/02-06/05 TAKE 20 MG ON 06/06-06/08 CONTINUE REGULAR DOSE OF 10 MG FROM THEN ON Sodium Chloride (Nasal [place]) 0.65 % SPRAY 2 SPRAY NASB DAILY NASAL MOISTURIZING (Reported) Theophylline Anhydrous 200 MG TAB.ER.12H 1 TAB PO DAILY COPD (Reported) Tiotropium [place] (Spiriva) 18 MCG CAP.W.DEV 1 CAP INH DAILY COPD Triage Note: PT BIBA FROM HOME FOR 02/10 "ACHING" INTERMITTENT L SHOULDER AND L FLANK PAIN POST FALL APPROXIMATELY 1 WEEK AGO. PT SEEN AT THIS FACILITY FOR SAID FALL AND DISCHARGED POST SUTURING TO HEAD AND RX FOR STEROIDS AND OTHER UNKNOWN MEDS. PT HAD OLD BRUISING TO L SHOULDER. SHOULDER AND FLANK PAINFUL UPON PALPATION. Triage Nurses Notes Reviewed? yes Onset: Abrupt Duration: week(s): (1), waxing and waning Timing: multiple episodes today Location: LEFT CHEST, LEFT SHOULDER Activities at Onset: FALL Modifying Factors: Worsens With: movement. HPI: This is a 60-year-old female presents via EMS from home for chief complaint of severe, intractable left shoulder and left rib pain status post fall last week. She was evaluated in the ER had an x-ray done that showed old healed rib fractures. There is no new rib fractures or pneumothorax identified. Patient states that she was discharged home on prednisone which she was unable to fill. She has been taking her Valium without any relief. Tonight she said the pain was intractable. Past History Travel History Traveled to [place] past 21 day No Medical History Any Pertinent Medical History? 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 No Review of Systems Review of Systems Constitutional: Denies: chills, fever. EENTM: Reports: no symptoms. Respiratory: Denies: cough, short of breath. Cardiovascular: Reports: chest pain. GI: Reports: no symptoms. Genitourinary: Reports: no symptoms. Musculoskeletal: Reports: joint pain, joint swelling, muscle pain. Skin: Reports: no symptoms. Neurological/Psychological: Reports: anxiety. Hematologic/Endocrine: Reports: bruising. Denies: bleeding. Immunologic/Allergic: Denies: splenectomy. All Other Systems: Reviewed and Negative Physical Exam Physical Exam General Appearance: alert, awake, anxious, cachetic, mild distress, thin Head: atraumatic, normal appearance Eyes: Bilateral: normal appearance, PERRL, EOMI. Ears, Nose, Throat: normal pharynx, normal ENT inspection, hearing grossly normal Neck: normal inspection, supple, full range of motion Respiratory: accessory muscle use, wheezing, LEFT CHEST WALL TENDERNESS Cardiovascular: tachycardia Peripheral Pulses: 2+ radial (R), 2+ radial (L) Gastrointestinal: soft, non-tender Extremities: no edema, LEFT SHOULDER SWELLING, BRUISING Neurologic/Psych: no motor/sensory deficits, awake, alert, oriented x 3 Skin: intact, normal color, warm/dry Core Measures ACS in differential dx? No Severe Sepsis Present: No Septic Shock Present: No Progress Differential Diagnosis: musculoskeletal pain, pneumonia, pneumothorax, pulmonary embolism, SHOULDER CONTUSION, ROTATOR CUFF INJURY Plan of Care: Orders Procedure Date/time Status RT ED ORDERS 05/31 2311 Active IM MORPHINE, CT CHEST ORDERED. ALBUTEROL ORDERED. 12:15 REPEAT MORPHINE ORDERED. XANAX ORDERED. PATIENT FEELING MUCH BETTER AFTER DUONEB, SHE NOW REPEATS BREATHING AT BASELINE. (FRANKY MIRELES,FLAVIA) Diagnostic Imaging: Viewed by Me: CT Scan. Discussed w/RAD: CT Scan. Radiology Impression: PATIENT: GHASSAN FRIEDMAN PRESENT AGE: 60 PATIENT ACCOUNT NO: [id number] : 53 LOCATION: [facility] ORDERING PHYSICIAN: FLAVIA WILKINS MD SERVICE DATE: 05/31/16 EXAM TYPE: CAT - CT CHEST WO IV CONTRAST EXAMINATION: CT CHEST WITHOUT CONTRAST CLINICAL INFORMATION: Left-sided chest pain after fall. COMPARISON: 05/24/2016. TECHNIQUE : Contiguous axial thin section helical images of the chest were performed without contrast. The data set was reformatted in the coronal and sagittal planes and reviewed on an independent workstation. DLP: 182 mGy-cm. FINDINGS: The heart is of normal size. There is no pericardial effusion. There is neither mediastinal, hilar nor axillary lymphadenopathy. There are no chest wall masses. Review of lung windows demonstrates that there are neither pleural effusions nor pneumothoraces. There are no consolidations. There are no pulmonary parenchymal nodules. Images of the upper abdomen demonstrate that the liver is of normal size and attenuation without focal lesions. Normal adrenal glands are identified. Bone windows: Neither sclerotic nor lytic bone lesions are identified. Multiple bilateral healed rib fractures are identified. No acute fractures are suspected. There is marked thoracic kyphosis with multiple mid and lower thoracic vertebral body compression fractures. IMPRESSION: No evidence for acute airspace disease. No acute rib fractures. Multiple healed bilateral rib fractures along with multiple thoracic compression fractures with marked mid thoracic kyphosis. DICTATED BY: JAIME KENYON MD DATE/TIME DICTATED:05/31/162332 PET FEEDER:MARY DATE/TIME TRANSCRIBED:05/31/162332 CONFIDENTIAL, DO NOT COPY WITHOUT APPROPRIATE AUTHORIZATION. <Electronically signed in Other Vendor System> SIGNED BY: JAIME KENYON MD 05/31/16 234 Initial ED EKG: none Rhythm Strip: sinus tachycardia Departure Departure Time of Disposition: 0100 Disposition: HOME OR SELF CARE Condition: Stable Clinical Impression Primary Impression: Shoulder contusion Secondary Impressions: Contusion of rib on left side Referrals: DAISHA MIRELES,KANDY Calvillo (PCP/Family) Additional Instructions: CONTINUE YOUR REGULAR MEDICATIONS. FOLLOW UP WITH YOUR DOCTOR. RETURN NEEDED. Departure Forms: Customer Survey General Discharge Information Critical Care Note Critical Care Note Critical Care Time: non-applicable
--- NOTE | 2016-05-31 23:41 | CT SCAN REPORT ---
EXAMINATION: CT CHEST WITHOUT CONTRAST CLINICAL INFORMATION: Left-sided chest pain after fall. COMPARISON: 05/24/2016. TECHNIQUE: Contiguous axial thin section helical images of the chest were performed without contrast. The data set was reformatted in the coronal and sagittal planes and reviewed on an independent workstation. DLP: 182 mGy-cm. FINDINGS: The heart is of normal size. There is no pericardial effusion. There is neither mediastinal, hilar nor axillary lymphadenopathy. There are no chest wall masses. Review of lung windows demonstrates that there are neither pleural effusions nor pneumothoraces. There are no consolidations. There are no pulmonary parenchymal nodules. Images of the upper abdomen demonstrate that the liver is of normal size and attenuation without focal lesions. Normal adrenal glands are identified. Bone windows: Neither sclerotic nor lytic bone lesions are identified. Multiple bilateral healed rib fractures are identified. No acute fractures are suspected. There is marked thoracic kyphosis with multiple mid and lower thoracic vertebral body compression fractures. IMPRESSION: No evidence for acute airspace disease. No acute rib fractures. Multiple healed bilateral rib fractures along with multiple thoracic compression fractures with marked mid thoracic kyphosis.
[2016-06-02] MEDS ORDERED: PREDNISOLO15 MG/5 M4 PO (02:03)
[2016-06-02] MEDS ORDERED: LEVAQUIN500 M1 PO (02:03)
[2016-10-17] MEDS ORDERED: ZITHROMAX250 M2 PO (15:15)
== END 2016-06-01 01:24 ==
LOC: ERH 22:41
DX: S40.012A Contusion of left shoulder, initial encounter (principal); S20.212A Contusion of left front wall of thorax, initial encounter; W19.XXXA Unspecified fall, initial encounter; J44.1 Chronic obstructive pulmonary disease with (acute) exacerbation; R06.2 Wheezing
CPT/HCPCS: 1263; 93005; 93010; 96372; 96374; 96375; J0456; J0696; J2930; J7060

== ENCOUNTER 2016-06-01 23:46 | Emergency (ER) | payer OTHER ==
[~2016-06-01] VITALS: Ht 157.5 cm; Wt 46.3 kg
--- NOTE | 2016-06-01 23:50 | ED DYSPNEA/ASTHMA COMPLAINT ---
History of Present Illness General Chief Complaint: Dyspnea (COPD, CHF, Other) Stated Complaint: BIBA SOB Source: patient Exam Limitations: no limitations Vital Signs & Intake/Output Vital Signs & Intake/Output Vital Signs Date Time Temp Pulse Resp B/P Pulse O2 O2 Flow FiO2 Ox Delivery Rate 06/02 0118 95 Nasal 3.0L Cannula 06/01 2357 97.6 117 20 113/69 95 Nasal 4.0L Cannula ED Intake and Output 06/02 0000 06/01 1200 Intake Total Output Total Balance Patient 102 lb Weight Allergies Coded Allergies: cat dander (UNKNOWN REACTION TO 'PET HAIR/DANDER' 04/24/16) ipratropium (From ATROVENT) ("IT'S TOO MUCH DR TRUONG SAID" 04/24/16) Reconcile Medications Acetaminophen 325 MG TABLET 2 TAB PO Q4H PRN PAIN/TEMP>/100 (Reported) Albuterol Sulfate (Proair Hfa) 90 MCG HFA.AER.AD 2 PUF INH Q4-6 PRN PRN SOB ( Reported) Alendronate Sodium 70 MG TABLET 1 TAB PO QWED BONES (Reported) in the morning, at least 30 minutes before the first food, beverage, or medication of the day Alprazolam (Xanax) 1 MG TABLET 1 TAB PO ANXIETY (Reported) Amlodipine Besylate 10 MG TABLET 1 TAB PO DAILY HTN (Reported) Aspirin (Ecotrin) 81 MG TABLET.DR 1 TAB PO DAILY HEART Budesonide/Formoterol [place]um[place] (Symbicort 160-4.5 Mcg Inhaler) 160 MCG/4.5 MCG PUF 2 PUF INH BID EMPHYSEMA Diltiazem HCl (Cardizem Cd) 120 MG CAP.ER.24H 1 TAB PO DAILY HEART RATE Gabapentin (Neurontin) 100 MG CAPSULE 1 CAP PO DAILY PAIN (Reported) Guaifenesin (Mucinex) 600 MG TAB.ER.12H 1 TAB PO Q12H MUCUS (Reported) Hydralazine HCl 10 MG TABLET 1 TAB PO TID BP (Reported) Levofloxacin (Levaquin) 500 MG TABLET 1 TAB PO DAILY copd/bronchitis Lidocaine 5 % ADH..PATCH 1 PAT TOP DAILY PRN PAIN (Reported) Magnesium Hydroxide (Milk Of Magnesia) 400 MG/5 ML ORAL.SUSP 30 ML PO DAILY PRN CONSTIPATION (Reported) Methadone HCl 10 MG/5 ML SOLUTION 30 MG PO DAILY MAINTENCE Mirtazapine 15 MG TABLET 1 TAB PO QPM DEPRESSION (Reported) Prednisolone 15 MG/5 ML SOLUTION 10 ML PO QDAY ASTHMA/copd Prednisone 10 MG TABLET 1 TAB PO DAILY COPD (Reported) continue after finishing prednisone taper Prednisone 10 MG TABLET 0 PO DAILY COPD TAKE 40 MG ON 05/30-06/01 TAKE 30 MG ON 06/02-06/05 TAKE 20 MG ON 06/06-06/08 CONTINUE REGULAR DOSE OF 10 MG FROM THEN ON Sodium Chloride (Nasal [place]) 0.65 % SPRAY 2 SPRAY NASB DAILY NASAL MOISTURIZING (Reported) Theophylline Anhydrous 200 MG TAB.ER.12H 1 TAB PO DAILY COPD (Reported) Tiotropium [place] (Spiriva) 18 MCG CAP.W.DEV 1 CAP INH DAILY COPD Triage Nurses Notes Reviewed? yes Onset: Gradual Duration: day(s): Timing: recent history Severity: moderate Activities at Onset: none Prior Episodes/Possible Cause: frequent episodes Modifying Factors: Improves With: rest (medications), other. Associated Symptoms: cough, wheezing HPI: 60-year-old woman history of end-stage COPD on home oxygen, presents with coughing wheezing shortness of breath. She states that she has had these symptoms for the past several days. She was seen in the emergency department yesterday. She states, "they offered me to be admitted to the hospital but I am end-stage. 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 Also she states that the pharmacist would not fill her Cardizem because she is taking Xanax. She has no fever chills chest pain headache dizziness or syncopal symptoms. She is otherwise well. She insists on returning home after this workup. Past History Travel History Traveled to [place] past 21 day No Medical History Any Pertinent Medical History? 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 No Review of Systems Review of Systems Constitutional: Reports: no symptoms. EENTM: Reports: no symptoms. Respiratory: Reports: no symptoms. Cardiovascular: Reports: no symptoms. GI: Reports: no symptoms. Genitourinary: Reports: no symptoms. Musculoskeletal: Reports: no symptoms. Skin: Reports: no symptoms. Neurological/Psychological: Reports: no symptoms. Hematologic/Endocrine: Reports: no symptoms. Immunologic/Allergic: Reports: no symptoms. All Other Systems: Reviewed and Negative Physical Exam Physical Exam General Appearance: well developed/nourished, moderate distress Head: atraumatic, normal appearance Eyes: Bilateral: normal appearance. Ears, Nose, Throat: normal pharynx, normal ENT inspection Neck: normal inspection, supple, full range of motion Respiratory: accessory muscle use, wheezing, prolonged expiratory phase Cardiovascular: regular rate/rhythm Gastrointestinal: normal bowel sounds, soft, non-tender, no organomegaly Extremities: normal inspection Neurologic/Psych: no motor/sensory deficits, awake, alert, oriented x 3 Skin: intact, normal color, warm/dry Core Measures ACS in differential dx? No Severe Sepsis Present: No Septic Shock Present: No Progress Differential Diagnosis: asthma, bronchitis, CHF, COPD, pneumonia Plan of Care: Orders Procedure Date/time Status TROPONIN LEVEL 06/01 2351 Complete COMPREHENSIVE METABOLIC PANEL 06/01 2351 Complete CBC WITHOUT DIFFERENTIAL 06/01 2350 Complete B-TYPE NATRIURETIC PEP (BNP) 06/01 235 Complete EKG 06/01 234 Active Current Medications Sig/Freddie Start time Last Medication Dose Stop Time Status Admin Alprazolam 0.5 MG ONCE ONE 06/02 314 UNVr (Xanax) 06/02 031 Laboratory Tests 06/02/16 0050: Anion Gap 6, Estimated GFR > 60, BUN/Creatinine Ratio 31.1 H, Glucose 87, Calcium 9.1, Total Bilirubin 1.0, AST 46 H, ALT 63 H, Alkaline Phosphatase 186 H, Troponin I 0.04, Adc-K-Aegysmjxeiw Pept 235 H, Total Protein 6.3, Albumin 3.7, Globulin 2.6, Albumin/Globulin Ratio 1.4, CBC w Diff NO MAN DIFF REQ, RBC 4.03 L, MCV 82.4, MCH 26.9 L, RDW 17.9 H, MPV 6.9 L, Gran % 72.9, Lymphocytes % 16.8 L, Monocytes % 7.2, Eosinophils % 2.6, Basophils % 0.5, Absolute Granulocytes 10.5 H, Absolute Lymphocytes 2.4, Absolute Monocytes 1.0 H, Absolute Eosinophils 0.4, Absolute Basophils 0.1, PUBS MCHC 32.7 L Diagnostic Imaging: Viewed by Me: Radiology Read. Discussed w/RAD: Radiology Read. CXR Impression: no acute abnormality, no infiltrates, normal size heart, normal mediastinum Initial ED EKG: SINUS TACH NO ACUTE CHANGES FROM PRIOR ekg Comments: PATIENT: GHASSAN FRIEDMAN PRESENT AGE: 60 PATIENT ACCOUNT NO: [id number] : 53 LOCATION: [facility] ORDERING PHYSICIAN: JANNA ALONZO MD SERVICE DATE: 06/01/167 EXAM TYPE: RAD - XRY-PORTABLE CHEST XRAY EXAMINATION: CHEST 1 VIEW CLINICAL INFORMATION: Dyspnea. COMPARISON: 05/24/2016. TECHNIQUE: An AP view of the chest is provided. FINDINGS: The cardiac silhouette is not enlarged. The mediastinal and hilar contours are unremarkable. There are neither pleural effusions nor pneumothoraces. There are no consolidations. The osseous structures are stable with multiple healed rib fractures again identified. Again identified is a healed proximal left humeral fracture. IMPRESSION: No evidence for acute disease. Stable chest radiograph. DICTATED BY: JAIME KENYON MD DATE/TIME DICTATED:06/02/1612 FINANCIAL REPORT SERVICE SALES AGENT:MARY DATE/TIME TRANSCRIBED:06/02/1612 CONFIDENTIAL, DO NOT COPY WITHOUT APPROPRIATE AUTHORIZATION. <Electronically signed in Other Vendor System> SIGNED BY: JAIME KENYON MD 06/02/1617 Departure Departure Disposition: HOME OR SELF CARE Condition: Stable Clinical Impression Primary Impression: COPD exacerbation Referrals: KANDY ASHTON MD (PCP/Family) Departure Forms: Customer Survey General Discharge Information Prescriptions: Current Visit Scripts Prednisolone 10 ML PO QDAY #50 ML Levofloxacin (Levaquin) 1 TAB PO DAILY #10 TAB Comments 06/02/16, 3AM... pt feeling better after steroids, abx. Her bloodwork is benign. cxr is benign. She is at her baseline 02 saturation. I offered her admission, given her symptoms. She insists on going home. "I don't have much time left... I want to spend it with my Al." Critical Care Note Critical Care Note Critical Care Time: non-applicable
--- NOTE | 2016-06-02 00:18 | RADIOLOGY REPORT ---
EXAMINATION: CHEST 1 VIEW CLINICAL INFORMATION: Dyspnea. COMPARISON: 05/24/2016. TECHNIQUE: An AP view of the chest is provided. FINDINGS: The cardiac silhouette is not enlarged. The mediastinal and hilar contours are unremarkable. There are neither pleural effusions nor pneumothoraces. There are no consolidations. The osseous structures are stable with multiple healed rib fractures again identified. Again identified is a healed proximal left humeral fracture. IMPRESSION: No evidence for acute disease. Stable chest radiograph.
[2016-06-02 01:13] LABS: ABSOLUTE EOSINOPHIL COUNT 0.4 /CUMM (0.0-0.7); MEAN PLATELET VOLUME 6.9 FL (7.4-10.4)
[2016-06-02 01:18] LABS: ABSOLUTE BASOPHIL COUNT 0.1 /CUMM (0.0-0.2); ABSOLUTE GRANULOCYTE CT 10.5 /CUMM (1.4-6.5); ABSOLUTE LYMPH COUNT 2.4 /CUMM (1.2-3.4); BASOPHIL % 0.5 % (0.0-2.0); EOSINOPHIL % 2.6 % (0-5); GRANULOCYTE % 72.9 % (42.2-75.2); MEAN CORPUSCULAR HGB 26.9 PG (27.0-31.0); MEAN CORPUSCULAR HGB CONC 32.7 G/DL (33.0-37.0); MEAN CORPUSCULAR VOLUME 82.4 FL (81.0-99.0); PLATELET COUNT 400 /CUMM (130-400); RBC DISTRIBUTION WIDTH 17.9 % (11.5-14.5); WHITE BLOOD CELL COUNT 14.5 /CUMM (4.8-10.8)
[2016-06-02 01:22] LABS: HEMATOCRIT 33.2 % (37-47); RED BLOOD CELL CT 4.03 /CUMM (4.20-5.40)
[2016-06-02] MEDS ORDERED: LEVAQUIN500 M1 PO (02:03)
[2016-06-02] MEDS ORDERED: PREDNISOLO15 MG/5 M4 PO (02:03)
[2016-06-02 03:11] VITALS: BP 120/78
[2016-10-17] MEDS ORDERED: ZITHROMAX250 M2 PO (15:15)
== END 2016-06-02 03:12 ==
LOC: ERH 23:46
PROVIDERS: Pediatrics
DX: J44.1 Chronic obstructive pulmonary disease with (acute) exacerbation (principal)
CPT/HCPCS: 93005; 93010; 96374; 96375; J0456; J0696; J2930; J7060

== ENCOUNTER 2016-06-04 05:49 | Emergency (ER) | payer OTHER ==
[~2016-06-04] VITALS: Ht 157.5 cm; Wt 40.8 kg
[~2016-06-04 05:49] MED LIST changes: +LEVAQUIN500 M1 PO; +PREDNISOLO15 MG/5 M4 PO
--- NOTE | 2016-06-04 06:00 | ED CARDIAC/CP/PALPITATIONS ---
History of Present Illness General Chief Complaint: Chest Pain Stated Complaint: CHEST PAIN Source: patient, old records, EMS Exam Limitations: no limitations Vital Signs & Intake/Output Vital Signs & Intake/Output Vital Signs Date Time Temp Pulse Resp B/P Pulse O2 O2 Flow FiO2 Ox Delivery Rate 06/04 0906 98.0 108 22 114/56 94 Nasal 3.0L Cannula 06/04 08 98.0 110 20 110/78 92 Nasal 3.0L Cannula 06/04 0705 98.3 117 22 100/65 98 Nasal 3.0L Cannula 06/04 0559 98 Nasal 4.0L Cannula 06/04 0556 98.6 106 18 107/77 99 Room Air Allergies Coded Allergies: cat dander (UNKNOWN REACTION TO 'PET HAIR/DANDER' 04/24/16) ipratropium (From ATROVENT) ("IT'S TOO MUCH DR TRUONG SAID" 04/24/16) Reconcile Medications Acetaminophen 325 MG TABLET 2 TAB PO Q4H PRN PAIN/TEMP>/100 (Reported) Albuterol Sulfate (Proair Hfa) 90 MCG HFA.AER.AD 2 PUF INH Q4-6 PRN PRN SOB ( Reported) Alendronate Sodium 70 MG TABLET 1 TAB PO QWED BONES (Reported) in the morning, at least 30 minutes before the first food, beverage, or medication of the day Alprazolam (Xanax) 1 MG TABLET 1 TAB PO ANXIETY (Reported) Amlodipine Besylate 10 MG TABLET 1 TAB PO DAILY HTN (Reported) Aspirin (Ecotrin) 81 MG TABLET.DR 1 TAB PO DAILY HEART Budesonide/Formoterol Fumara (Symbicort 160-4.5 Mcg Inhaler) 160 MCG/4.5 MCG PUF 2 PUF INH BID EMPHYSEMA Diltiazem HCl (Cardizem Cd) 120 MG CAP.ER.24H 1 TAB PO DAILY HEART RATE Gabapentin (Neurontin) 100 MG CAPSULE 1 CAP PO DAILY PAIN (Reported) Guaifenesin (Mucinex) 600 MG TAB.ER.12H 1 TAB PO Q12H MUCUS (Reported) Hydralazine HCl 10 MG TABLET 1 TAB PO TID BP (Reported) Levofloxacin (Levaquin) 500 MG TABLET 1 TAB PO DAILY copd/bronchitis Lidocaine 5 % ADH..PATCH 1 PAT TOP DAILY PRN PAIN (Reported) Magnesium Hydroxide (Milk Of Magnesia) 400 MG/5 ML ORAL.SUSP 30 ML PO DAILY PRN CONSTIPATION (Reported) Methadone HCl 10 MG/5 ML SOLUTION 30 MG PO DAILY MAINTENCE Mirtazapine 15 MG TABLET 1 TAB PO QPM DEPRESSION (Reported) Prednisolone 15 MG/5 ML SOLUTION 10 ML PO QDAY ASTHMA/copd Prednisone 10 MG TABLET 1 TAB PO DAILY COPD (Reported) continue after finishing prednisone taper Prednisone 10 MG TABLET 0 PO DAILY COPD TAKE 40 MG ON 05/30-06/01 TAKE 30 MG ON 06/02-06/05 TAKE 20 MG ON 06/06-06/08 CONTINUE REGULAR DOSE OF 10 MG FROM THEN ON Sodium Chloride (Nasal [place]) 0.65 % SPRAY 2 SPRAY NASB DAILY NASAL MOISTURIZING (Reported) Theophylline Anhydrous 200 MG TAB.ER.12H 1 TAB PO DAILY COPD (Reported) Tiotropium [place] (Spiriva) 18 MCG CAP.W.DEV 1 CAP INH DAILY COPD Triage Note: PT BIBA FROM HOME C/O SOB AND CP. PT STATES ABOUT 30 MINS AGO? PT WAS AWOKEN BY TIGHT CHEST PAIN, PT WAS DX WITH PNEUMONIA 1 WEEK AGO. PT ARRIVED ON HER HOME 02 4L NC. VSS. HR ELEVATED 110. DR LOZADA AT BEDSIDE FOR EVAL Triage Nurses Notes Reviewed? yes HPI: Patient states that she was woken from sleep with a sharp stabbing pain just to the right upper sternum. Pain is constant. There is no radiation. There is no aggravating or mitigating factors. Patient states that it is not same pain that she was here for over the weekend. Patient states that this pain is different. Patient states that she was seen on Thursday and it was recommended that she stay in the hospital but the patient states that she refused stating that she wanted to go home. Patient is now reconsidering that and figures that she should probably stay in the hospital. Patient denies any fevers or chills. There is no radiation. There are no aggravating or mitigating factors. Patient states that she feels that her COPD is worse than it normally is. Patient denies any orthopnea or dyspnea on exertion. She rates the pain at 7 out of 10. (KIERRA MIRELES,LISA Norton) Past History Travel History Traveled to [place] past 21 day No Medical History Any Pertinent Medical History? 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 PEGGER/Reproductive: stress incontinence History of MRSA: Yes History of VRE: No History of CDIFF: No Surgical History Surgical History: colon resection, tubal ligation, colostomy ORIF for right hip fracture Psychosocial History Who do you live with Patient/Self Services at Home Home Health Aide, Nursing, Oxygen What is your primary language Sami Tobacco Use: Quit >30 days ago ETOH Use: denies use Illicit Drug Use: denies illicit drug use Other addictive behavior Hx Patient states noticed smoking however she does admit to sneaking "a few cigarettes per day." Family History Family History, If Any: MOTHER CVA FH: coronary artery disease FH: diabetes mellitus FH: HTN (hypertension) BROTHER FH: diabetes mellitus FATHER FH: alcohol abuse Hx Contributory? No (KIERRA MIRELES,LISA Norton) Review of Systems Review of Systems Constitutional: Reports: no symptoms. EENTM: Reports: no symptoms. Respiratory: Reports: no symptoms. Cardiovascular: Reports: see HPI, chest pain. GI: Reports: no symptoms. Genitourinary: Reports: no symptoms. Musculoskeletal: Reports: no symptoms. Skin: Reports: no symptoms. Neurological/Psychological: Reports: no symptoms. Hematologic/Endocrine: Reports: no symptoms. Immunologic/Allergic: Reports: no symptoms. All Other Systems: Reviewed and Negative (KIERRA MIRELES,LISA Norton) Physical Exam Physical Exam General Appearance: well developed/nourished, alert, awake, anxious, mild distress Head: atraumatic, normal appearance Eyes: Bilateral: PERRL, EOMI. Ears, Nose, Throat: normal pharynx, normal ENT inspection, hearing grossly normal Neck: normal inspection, supple, full range of motion, JVD Respiratory: rhonchi, wheezing, MOD AIR ENTRY Cardiovascular: regular rate/rhythm, normal peripheral pulses Gastrointestinal: normal bowel sounds, soft, non-tender, no organomegaly Back: normal inspection, normal range of motion Extremities: normal inspection, normal capillary refill, normal range of motion, no edema Neurologic/Psych: no motor/sensory deficits, awake, alert, oriented x 3 Skin: intact, normal color, warm/dry Lymphatic: no anterior cervical cl Core Measures ACS in differential dx? Yes ASA ordered for poss ACS? No-ACS ruled out Severe Sepsis Present: No Septic Shock Present: No (KIERRA MIRELES,LISA Norton) Progress Differential Diagnosis: AMI, aortic dissection, cholecystitis, costochondritis, musculoskeletal pain, myocarditis, pericarditis, pneumonia, pneumothorax, pulmonary embolism Plan of Care: Orders Procedure Date/time Status TROPONIN LEVEL 06/04 812 Complete EKG 06/04 812 Active Telemetry/Draw Bench Operator Helper 06/04 558 Active TROPONIN LEVEL 06/04 558 Complete COMPREHENSIVE METABOLIC PANEL 06/04 558 Complete CBC WITHOUT DIFFERENTIAL 06/04 558 Complete EKG 06/04 550 Active Laboratory Tests 06/04/16 0815: Troponin I 0.01 06/04/16 0626: Anion Gap 8, Estimated GFR 46 L, BUN/Creatinine Ratio 23.3, Glucose 98, Calcium 8.7, Total Bilirubin 0.7, AST 29, ALT 54 H, Alkaline Phosphatase 201 H, Troponin I 0.02, Total Protein 6.2 L, Albumin 3.7, Globulin 2.5, Albumin/ Globulin Ratio 1.5, CBC w Diff MAN DIFF ORDERED, RBC 3.67 L, MCV 82.8, MCH 27.5 , RDW 18.5 H, MPV 6.3 L, Gran % 88.2 H, Lymphocytes % 5.0 L, Monocytes % 6.7 , Eosinophils % 0.1, Basophils % 0 L, Absolute Granulocytes 11.4 H, Segmented Neutrophils 88 H, Absolute Lymphocytes 0.7 L, Lymphocytes 7 L, Monocytes 5, Absolute Monocytes 0.9 H, Absolute Eosinophils 0, Absolute Basophils 0, Platelet Estimate ADEQUATE, Polychromasia 1+, Poikilocytosis 2+, Ovalocytes 1+, Stomatocytes 1+, Elliptocytes FEW, PUBS MCHC 33.3, Fld Total RBCs Counted 100 Diagnostic Imaging: Viewed by Me: Radiology Read. Discussed w/RAD: Radiology Read. CXR Impression: PATIENT: GHASSAN FRIEDMAN PRESENT AGE: 60 PATIENT ACCOUNT NO: [id number] : 53 LOCATION: [facility] ORDERING PHYSICIAN: LISA LOZADA MD SERVICE DATE: 06/04/16 EXAM TYPE: RAD - XRY-PORTABLE CHEST XRAY EXAMINATION: CHEST 1 VIEW CLINICAL INFORMATION: Shortness of breath. COMPARISON: 06/01/2016. TECHNIQUE: An AP view of the chest is provided. FINDINGS: The cardiac silhouette is not enlarged. The mediastinal and hilar contours are unremarkable. There are neither pleural effusions nor pneumothoraces. There are no consolidations. Osseous structures are stable with healed bilateral rib fractures and a healed proximal left humeral fracture. IMPRESSION: No evidence for acute disease. Stable chest radiograph. DICTATED BY: JAIME KENYON MD DATE/TIME DICTATED:06/04/16643 DENTAL DETAIL REPRESENTATIVE:MARY DATE/TIME TRANSCRIBED:06/04/16643 CONFIDENTIAL, DO NOT COPY WITHOUT APPROPRIATE AUTHORIZATION. <Electronically signed in Other Vendor System> SIGNED BY: JAIME KENYON MD 06/04/16 0650 Initial ED EKG: NSR, LVH, nonspecific ST T wave chg Prior EKG: unchanged Rhythm Strip: normal sinus rhythm Hand-Off Endorsed To: PURNIMA RAMOS DO Endorsed Time: 0700 Pending: labs (LISA LOZADA MD) Departure Departure Disposition: STILL A PATIENT Condition: Stable Clinical Impression Primary Impression: Chest pain, unspecified Qualifiers: Chest pain type: other chest pain Qualified Code: R07.89 - Other chest pain Secondary Impressions: COPD (chronic obstructive pulmonary disease) Referrals: KANDY ASHTON MD (PCP/Family) Departure Forms: Customer Survey General Discharge Information (LISA LOZADA MD) Departure Comments 06/04/16 The patient was seen and evaluated for chest pain. There is no active chest pain in the emergency department, a repeat EKG is unchanged from the first. Serial troponins were negative. She will follow-up with her doctor in the next 72 hours or return to the emergency department course (PURNIMA RAMOS DO) Critical Care Note Critical Care Note Critical Care Time: non-applicable (LISA LOZADA MD)
[2016-06-04 06:30] LABS: ABSOLUTE BASOPHIL COUNT 0 /CUMM (0.0-0.2); ABSOLUTE EOSINOPHIL COUNT 0 /CUMM (0.0-0.7); ABSOLUTE GRANULOCYTE CT 11.4 /CUMM (1.4-6.5); ABSOLUTE LYMPH COUNT 0.7 /CUMM (1.2-3.4); ABSOLUTE MONOCYTE COUNT 0.9 /CUMM (0.10-0.60); BASOPHIL % 0 % (0.0-2.0); EOSINOPHIL % 0.1 % (0-5); GRANULOCYTE % 88.2 % (42.2-75.2); HEMATOCRIT 30.4 % (37-47); MEAN CORPUSCULAR HGB 27.5 PG (27.0-31.0); MEAN CORPUSCULAR HGB CONC 33.3 G/DL (33.0-37.0); MEAN CORPUSCULAR VOLUME 82.8 FL (81.0-99.0); MEAN PLATELET VOLUME 6.3 FL (7.4-10.4); PLATELET COUNT 378 /CUMM (130-400); RBC DISTRIBUTION WIDTH 18.5 % (11.5-14.5); RED BLOOD CELL CT 3.67 /CUMM (4.20-5.40)
--- NOTE | 2016-06-04 06:50 | RADIOLOGY REPORT ---
EXAMINATION: CHEST 1 VIEW CLINICAL INFORMATION: Shortness of breath. COMPARISON: 06/01/2016. TECHNIQUE: An AP view of the chest is provided. FINDINGS: The cardiac silhouette is not enlarged. The mediastinal and hilar contours are unremarkable. There are neither pleural effusions nor pneumothoraces. There are no consolidations. Osseous structures are stable with healed bilateral rib fractures and a healed proximal left humeral fracture. IMPRESSION: No evidence for acute disease. Stable chest radiograph.
[2016-06-04 09:06] VITALS: BP 114/56
[2016-10-17] MEDS ORDERED: ZITHROMAX250 M2 PO (15:15)
== END 2016-06-04 09:50 ==
LOC: ERH 05:49
PROVIDERS: Emergency Medicine
DX: R07.9 Chest pain, unspecified (principal); J44.9 Chronic obstructive pulmonary disease, unspecified; Z87.891 Personal history of nicotine dependence
CPT/HCPCS: 93005; 93010

== ENCOUNTER 2016-06-18 02:13 | Emergency (ER) | payer OTHER ==
[~2016-06-18] VITALS: Ht 152.4 cm; Wt 38.6 kg
--- NOTE | 2016-06-18 03:04 | ED DYSPNEA/ASTHMA COMPLAINT ---
History of Present Illness General Chief Complaint: Dyspnea (COPD, CHF, Other) Stated Complaint: BIBA COPD Source: patient, old records, EMS Exam Limitations: no limitations Vital Signs & Intake/Output Vital Signs & Intake/Output Vital Signs Date Time Temp Pulse Resp B/P Pulse O2 O2 Flow FiO2 Ox Delivery Rate 06/18 0505 96.8 95 18 141/74 100 Nasal 3.0L Cannula 06/18 426 99 Nasal 3.0L Cannula 06/18 221 99 Nasal 3.0L Cannula 06/18 217 97.4 93 20 169/83 99 Nasal 3.0L Cannula Allergies Coded Allergies: cat dander (UNKNOWN REACTION TO 'PET HAIR/DANDER' 04/24/16) ipratropium (From ATROVENT) ("IT'S TOO MUCH DR TRUONG SAID" 04/24/16) Reconcile Medications Acetaminophen 325 MG TABLET 2 TAB PO Q4H PRN PAIN/TEMP>/100 (Reported) Albuterol Sulfate (Proair Hfa) 90 MCG HFA.AER.AD 2 PUF INH Q4-6 PRN PRN SOB ( Reported) Alendronate Sodium 70 MG TABLET 1 TAB PO QWED BONES (Reported) in the morning, at least 30 minutes before the first food, beverage, or medication of the day Alprazolam (Xanax) 1 MG TABLET 1 TAB PO ANXIETY (Reported) Amlodipine Besylate 10 MG TABLET 1 TAB PO DAILY HTN (Reported) Aspirin (Ecotrin) 81 MG TABLET.DR 1 TAB PO DAILY HEART Budesonide/Formoterol Fumara (Symbicort 160-4.5 Mcg Inhaler) 160 MCG/4.5 MCG PUF 2 PUF INH BID EMPHYSEMA Diltiazem HCl (Cardizem Cd) 120 MG CAP.ER.24H 1 TAB PO DAILY HEART RATE Gabapentin (Neurontin) 100 MG CAPSULE 1 CAP PO DAILY PAIN (Reported) Guaifenesin (Mucinex) 600 MG TAB.ER.12H 1 TAB PO Q12H MUCUS (Reported) Hydralazine HCl 10 MG TABLET 1 TAB PO TID BP (Reported) Levofloxacin (Levaquin) 500 MG TABLET 1 TAB PO DAILY copd/bronchitis Lidocaine 5 % ADH..PATCH 1 PAT TOP DAILY PRN PAIN (Reported) Magnesium Hydroxide (Milk Of Magnesia) 400 MG/5 ML ORAL.SUSP 30 ML PO DAILY PRN CONSTIPATION (Reported) Methadone HCl 10 MG/5 ML SOLUTION 30 MG PO DAILY MAINTENCE Mirtazapine 15 MG TABLET 1 TAB PO QPM DEPRESSION (Reported) Prednisolone 15 MG/5 ML SOLUTION 10 ML PO QDAY ASTHMA/copd Prednisone 10 MG TABLET 1 TAB PO DAILY COPD (Reported) continue after finishing prednisone taper Prednisone 10 MG TABLET 0 PO DAILY COPD TAKE 40 MG ON 05/30-06/01 TAKE 30 MG ON 06/02-06/05 TAKE 20 MG ON 06/06-06/08 CONTINUE REGULAR DOSE OF 10 MG FROM THEN ON Sodium Chloride (Nasal [place]) 0.65 % SPRAY 2 SPRAY NASB DAILY NASAL MOISTURIZING (Reported) Theophylline Anhydrous 200 MG TAB.ER.12H 1 TAB PO DAILY COPD (Reported) Tiotropium [place] (Spiriva) 18 MCG CAP.W.DEV 1 CAP INH DAILY COPD Triage Note: 60yo FEMALE TO RM 12 VIA AMB FROM HOME W/CO PRODUCTIVE COUGH TONITE. HX COPD, ON 3L NASAL 02 AT ALL TIMES. Triage Nurses Notes Reviewed? yes HPI: Patient presents for evaluation of worsening shortness of breath and cough productive of yellow-green phlegm and began subacutely yesterday. Patient states that she isn't feeling any better with her usual nebulizer treatments. She is concerned that she might be developing a pneumonia. Her symptoms have been constant severe of a fluctuating in intensity and get worse with exertion. She denies chest pain OR fever but did have chills earlier tonight. Past History Travel History Traveled to [place] past 21 day No Medical History Any Pertinent Medical History? 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 No Review of Systems Review of Systems Constitutional: Reports: no symptoms. EENTM: Reports: no symptoms. Respiratory: Reports: see HPI. Cardiovascular: Reports: no symptoms. GI: Reports: no symptoms. Genitourinary: Reports: no symptoms. Musculoskeletal: Reports: no symptoms. Skin: Reports: no symptoms. Neurological/Psychological: Reports: no symptoms. Hematologic/Endocrine: Reports: no symptoms. Immunologic/Allergic: Reports: no symptoms. All Other Systems: Reviewed and Negative Physical Exam Physical Exam Respiratory: SEE BELOW Comments: Gen.: Well-nourished, well-developed, no acute respiratory distress. Head: Normocephalic, atraumatic. Eyes: Normal inspection bilaterally Ears: Normal inspection bilaterally Nose: Normal inspection Throat/mouth : Moist mucosa Neck: Supple, full range of motion, no goiter Heart: Regular rate and rhythm, no murmurs rubs or gallops Lungs: Decreased air entry bilaterally with scattered rhonchi, no wheezing Chest: Nontender Back: Normal range of motion Abdomen: Soft, nontender, nondistended, normal bowel sounds Extremities: Normal range of motion grossly, equal radial pulses, no cyanosis clubbing or edema Neurologic: Cranial nerves grossly intact, speech is clear Skin: warm and dry Psychiatric: Calm, cooperative, no apparent delusions or hallucinations Core Measures ACS in differential dx? No Severe Sepsis Present: No Septic Shock Present: No Progress Differential Diagnosis: CHF, pneumonia Plan of Care: Current Medications Sig/Freddie Start time Last Medication Dose Stop Time Status Admin Alprazolam 0.5 MG ONCE ONE 06/18 0500 UNVr (Xanax) 06/18 0501 Diagnostic Imaging: Discussed w/RAD: Radiology Read. CXR Impression: PATIENT: JESSENIA FRIEDMAN PRESENT AGE: 60 PATIENT ACCOUNT NO: [id number] : 53 LOCATION: [facility] ORDERING PHYSICIAN: MICHAEL DEL CID MD SERVICE DATE: 06/18/16 EXAM TYPE: RAD - XRY-CHEST XRAY, PA AND LATERAL EXAMINATION: XR CHEST CLINICAL INFORMATION: Dyspnea, productive cough COMPARISON: 06/04/2016 TECHNIQUE: 2 views of the chest were obtained. FINDINGS: Lung volumes are symmetric. There is linear atelectasis at the left lung base. No focal consolidation is seen. No evidence of pneumothorax, pleural effusion, or pulmonary edema. The cardiomediastinal contour is unremarkable. Healed fractures of multiple bilateral ribs, sternum, and proximal left humerus are again demonstrated. Prominent thoracic kyphosis again demonstrated along with multilevel compression deformities. IMPRESSION: No acute findings identified. DICTATED BY: ALLI CHOWDHURY MD DATE/TIME DICTATED:352 SENIOR DATA ARCHITECT:MARY DATE/TIME TRANSCRIBED:06/18/16352 CONFIDENTIAL, DO NOT COPY WITHOUT APPROPRIATE AUTHORIZATION. <Electronically signed in Other Vendor System> SIGNED BY: ALLI CHOWDHURY MD 06/18/16357 Initial ED EKG: none Comments: Given the patient's frequent emergency department visits, her most recent being June 04, I have held off on a full evaluation given the patient specific concerned about pneumonia. Chest x-ray has been ordered. Patient's most recent evaluation with a full complement of blood work including 2 troponin levels was normal. 06/18/2016 4:52:08 AM Jessenia has been comfortable during her emergency Department stay and is reassured that her chest x-ray is unremarkable. She asked for an albuterol nebulizer here in the emergency department. She also feels that she would benefit from a Xanax prior to departure. She is now stable for discharge to home and follow up with her primary care physician and/or mission worker. Departure Departure Disposition: HOME OR SELF CARE Condition: Stable Clinical Impression Primary Impression: COPD exacerbation Referrals: DAISHA MIRELES,KANDY Calvillo (PCP/Family) Additional Instructions: Continue your nebulizers and other medications as prescribed. Follow-up with your lung doctor this week for reevaluation. Return if any concerns or sudden worsening. Thank you for choosing the [facility] Emergency Department for your care. It was a pleasure to serve you today. Michael Del Cid M.D. [facility] Departure Forms: Customer Survey General Discharge Information Critical Care Note Critical Care Note Critical Care Time: 30-74 min
--- NOTE | 2016-06-18 03:58 | RADIOLOGY REPORT ---
EXAMINATION: XR CHEST CLINICAL INFORMATION: Dyspnea, productive cough COMPARISON: 06/04/2016 TECHNIQUE: 2 views of the chest were obtained. FINDINGS: Lung volumes are symmetric. There is linear atelectasis at the left lung base. No focal consolidation is seen. No evidence of pneumothorax, pleural effusion, or pulmonary edema. The cardiomediastinal contour is unremarkable. Healed fractures of multiple bilateral ribs, sternum, and proximal left humerus are again demonstrated. Prominent thoracic kyphosis again demonstrated along with multilevel compression deformities. IMPRESSION: No acute findings identified.
[2016-06-18 05:05] VITALS: BP 141/74
[2016-10-17] MEDS ORDERED: ZITHROMAX250 M2 PO (15:15)
== END 2016-06-18 06:30 ==
LOC: ERH 02:13
DX: J44.1 Chronic obstructive pulmonary disease with (acute) exacerbation (principal); Z87.891 Personal history of nicotine dependence
CPT/HCPCS: 1263

== ENCOUNTER 2016-06-22 06:29 | Emergency (ER) | payer OTHER ==
[~2016-06-22] VITALS: Ht 152.4 cm; Wt 39.0 kg
--- NOTE | 2016-06-22 06:35 | ED GI/GU/ABDOMINAL COMPLAINT ---
History of Present Illness General Chief Complaint: Abdominal Pain/Flank Pain Stated Complaint: ABD PAIN, +N Source: patient, old records, EMS Exam Limitations: no limitations Allergies Coded Allergies: cat dander (UNKNOWN REACTION TO 'PET HAIR/DANDER' 04/24/16) ipratropium (From ATROVENT) ("IT'S TOO MUCH DR TRUONG SAID" 04/24/16) Reconcile Medications Acetaminophen 325 MG TABLET 2 TAB PO Q4H PRN PAIN/TEMP>/100 (Reported) Albuterol Sulfate (Proair Hfa) 90 MCG HFA.AER.AD 2 PUF INH Q4-6 PRN PRN SOB ( Reported) Alendronate Sodium 70 MG TABLET 1 TAB PO QWED BONES (Reported) in the morning, at least 30 minutes before the first food, beverage, or medication of the day Alprazolam (Xanax) 1 MG TABLET 1 TAB PO ANXIETY (Reported) Amlodipine Besylate 10 MG TABLET 1 TAB PO DAILY HTN (Reported) Aspirin (Ecotrin) 81 MG TABLET.DR 1 TAB PO DAILY HEART Budesonide/Formoterol Fumara (Symbicort 160-4.5 Mcg Inhaler) 160 MCG/4.5 MCG PUF 2 PUF INH BID EMPHYSEMA Diltiazem HCl (Cardizem Cd) 120 MG CAP.ER.24H 1 TAB PO DAILY HEART RATE Gabapentin (Neurontin) 100 MG CAPSULE 1 CAP PO DAILY PAIN (Reported) Guaifenesin (Mucinex) 600 MG TAB.ER.12H 1 TAB PO Q12H MUCUS (Reported) Hydralazine HCl 10 MG TABLET 1 TAB PO TID BP (Reported) Levofloxacin (Levaquin) 500 MG TABLET 1 TAB PO DAILY copd/bronchitis Lidocaine 5 % ADH..PATCH 1 PAT TOP DAILY PRN PAIN (Reported) Magnesium Hydroxide (Milk Of Magnesia) 400 MG/5 ML ORAL.SUSP 30 ML PO DAILY PRN CONSTIPATION (Reported) Methadone HCl 10 MG/5 ML SOLUTION 30 MG PO DAILY MAINTENCE Mirtazapine 15 MG TABLET 1 TAB PO QPM DEPRESSION (Reported) Prednisolone 15 MG/5 ML SOLUTION 10 ML PO QDAY ASTHMA/copd Prednisone 10 MG TABLET 1 TAB PO DAILY COPD (Reported) continue after finishing prednisone taper Prednisone 10 MG TABLET 0 PO DAILY COPD TAKE 40 MG ON 05/30-06/01 TAKE 30 MG ON 06/02-06/05 TAKE 20 MG ON 06/06-06/08 CONTINUE REGULAR DOSE OF 10 MG FROM THEN ON Sodium Chloride (Nasal [place]) 0.65 % SPRAY 2 SPRAY NASB DAILY NASAL MOISTURIZING (Reported) Theophylline Anhydrous 200 MG TAB.ER.12H 1 TAB PO DAILY COPD (Reported) Tiotropium [place] (Spiriva) 18 MCG CAP.W.DEV 1 CAP INH DAILY COPD Triage Nurses Notes Reviewed? yes ? N Is pt currently ? No Onset: Abrupt Duration: day(s): (2) Location: generalized abdomen Radiation: no radiation Associated Symptoms: abdominal pain, constipation, SOB HPI: 60-year-old female with history of end-stage COPD, and colostomy who presents over chief complaint of abdominal pain and cramping. She states that she's had some hard negative stool in the colostomy for the last 2 days which is very unusual for her. Positive nausea but no vomiting. No fever or chills. She reports increased shortness of breath over her baseline. Denies any chest pain. Denies any change in medications. Denies any change in diet. (FLAVIA WILKINS MD) Vital Signs & Intake/Output Vital Signs & Intake/Output ED Intake and Output 06/23 0000 06/22 1200 Intake Total Output Total Balance Patient 86 lb Weight Past History Travel History Traveled to [place] past 21 day No Medical History Any Pertinent Medical History? 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 No (FLAVIA WILKINS MD) Review of Systems Review of Systems Constitutional: Denies: chills, fever. EENTM: Reports: no symptoms. Respiratory: Reports: cough, short of breath. Cardiovascular: Denies: chest pain, palpitations. GI: Reports: bloating, constipation, nausea. Denies: vomiting. Genitourinary: Reports: no symptoms. Musculoskeletal: Reports: no symptoms. Skin: Reports: no symptoms. Neurological/Psychological: Reports: anxiety. Hematologic/Endocrine: Denies: bruising, bleeding. Immunologic/Allergic: Reports: no symptoms. All Other Systems: Reviewed and Negative (FLAVIA WILKINS MD) Physical Exam Physical Exam General Appearance: well developed/nourished, alert, awake Head: atraumatic Eyes: Bilateral: PERRL, EOMI. Ears, Nose, Throat, Mouth: hearing grossly normal, moist mucous membrane Neck: normal inspection, supple, full range of motion Respiratory: normal breath sounds, chest non-tender, no respiratory distress Cardiovascular: regular rate/rhythm Peripheral Pulses: 2+ radial (R), 2+ radial (L) Gastrointestinal: normal bowel sounds, soft, non-tender Extremities: normal range of motion Neurologic/Psych: no motor/sensory deficits, awake, alert, oriented x 3 Skin: intact, normal color, warm/dry Core Measures ACS in differential dx? No Severe Sepsis Present: No Septic Shock Present: No (FLAVIA WILKINS MD) Progress Differential Diagnosis: bowel obstruction, CONSTIPATION, copd, AND ORIENTED, ANXIETY Plan of Care: Orders Procedure Date/time Status EKG 06/22 635 Active RT ED ORDERS 06/22 633 Active Diagnostic Imaging: Viewed by Me: Radiology Read. Discussed w/RAD: Radiology Read. Hand-Off Endorsed To: MICHAEL DEL CID MD Endorsed Time: 0700 Pending: Xray (FLAVIA WILKINS MD) Radiology Impression: PATIENT: GHASSAN FRIEDMAN PRESENT AGE: 60 PATIENT ACCOUNT NO: [id number] : 53 LOCATION: [facility] ORDERING PHYSICIAN: FLAVIA WILKINS MD SERVICE DATE: 06/22/16 EXAM TYPE: RAD - XRY-ABD MULTI VIEW W/PA CHEST EXAMINATION: XR ABDOMEN WITH PA CHEST CLINICAL INDICATION: Abdominal pain. Hard stool in colostomy. Dyspnea. COMPARISON: Chest radiographs 06/18/2016, 06/04/2016. TECHNIQUE: AP views of the chest, abdomen, and pelvis are obtained for 3 views. FINDINGS: There is no gaseous dilatation of bowel or abnormal collections of gas. There are some densities overlying the ostomy ring consistent with the stool/history. Small surgical clips noted left pelvis. There is hardware in the left hip. There is no acute intrathoracic disease. Some linear scarring versus disc atelectasis left posterior medial base similar to 06/04/2016. Cardiac and mediastinal contours and bony structures are similar to prior studies. Again, there are multiple healed fractures thoracic cage and pelvis. Degenerative changes again seen lumbar spine. IMPRESSION: 1. No obstruction or abnormal collections of gas. 2. No acute intrathoracic disease. 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 < Electronically signed in Other Vendor System> SIGNED BY: CORBIN HINDS MD 06/22/16 0715 Initial ED EKG: NSR, rate (91), nonspecific ST T wave chg Prior EKG: unchanged Comments: 06/22/2016 7:34:42 AM I have updated [place] on her test results. The colostomy site has bowel herniated into the colostomy bag but the mucosa is otherwise pink and soft. The abdominal examination is otherwise unremarkable. (SANJANA MIRELES,MICHAEL Dietz) Departure Departure Condition: Stable Referrals: DAISHA MIRELES,KANDY Calvillo (PCP/Family) Departure Forms: Customer Survey General Discharge Information (FRANKY MIRELES,FLAVIA) Departure Disposition: HOME OR SELF CARE Clinical Impression Primary Impression: Abdominal pain Qualifiers: Abdominal location: generalized Qualified Code: R10.84 - Generalized abdominal pain Secondary Impressions: Colostomy in place Additional Instructions: Follow-up with your surgeon who placed the colostomy tomorrow for reevaluation. Increase your fluid intake. Notify your primary care doctor of this emergency department visit and treatment plan. Return if any concerns or sudden worsening. Thank you for choosing the [facility] Emergency Department for your care. It was a pleasure to serve you today. Michael Del Cid M.D. [facility] (SANJANA MIRELES,MICHAEL Dietz)
--- NOTE | 2016-06-22 07:15 | RADIOLOGY REPORT ---
EXAMINATION: XR ABDOMEN WITH PA CHEST CLINICAL INDICATION: Abdominal pain. Hard stool in colostomy. Dyspnea. COMPARISON: Chest radiographs 06/18/2016, 06/04/2016. TECHNIQUE: AP views of the chest, abdomen, and pelvis are obtained for 3 views. FINDINGS: There is no gaseous dilatation of bowel or abnormal collections of gas. There are some densities overlying the ostomy ring consistent with the stool/history. Small surgical clips noted left pelvis. There is hardware in the left hip. There is no acute intrathoracic disease. Some linear scarring versus disc atelectasis left posterior medial base similar to 06/04/2016. Cardiac and mediastinal contours and bony structures are similar to prior studies. Again, there are multiple healed fractures thoracic cage and pelvis. Degenerative changes again seen lumbar spine. IMPRESSION: 1. No obstruction or abnormal collections of gas. 2. No acute intrathoracic disease.
[2016-06-22 07:38] VITALS: BP 142/87
[2016-10-17] MEDS ORDERED: ZITHROMAX250 M2 PO (15:15)
== END 2016-06-22 08:33 ==
LOC: ERH 06:29
DX: R10.84 Generalized abdominal pain (principal); R06.02 Shortness of breath
CPT/HCPCS: 1263; 74022; 93005; 93010; 96372; J0500

== ENCOUNTER 2016-06-25 01:00 | Emergency (ER) | payer OTHER ==
[~2016-06-25] VITALS: Ht 142.2 cm; Wt 49.9 kg
--- NOTE | 2016-06-25 01:16 | ED DYSPNEA/ASTHMA COMPLAINT ---
History of Present Illness General Chief Complaint: Dyspnea (COPD, CHF, Other) Stated Complaint: DIFF BREATHING BIBA Source: patient, old records, EMS Exam Limitations: clinical condition, DYSPNEA Vital Signs & Intake/Output Vital Signs & Intake/Output Vital Signs Date Time Temp Pulse Resp B/P Pulse O2 O2 Flow FiO2 Ox Delivery Rate 06/25 0126 100 06/25 0102 98.0 108 20 143/92 100 Allergies Coded Allergies: cat dander (UNKNOWN REACTION TO 'PET HAIR/DANDER' 04/24/16) ipratropium (From ATROVENT) ("IT'S TOO MUCH DR TRUONG SAID" 04/24/16) Reconcile Medications Acetaminophen 325 MG TABLET 2 TAB PO Q4H PRN PAIN/TEMP>/100 (Reported) Albuterol Sulfate (Proair Hfa) 90 MCG HFA.AER.AD 2 PUF INH Q4-6 PRN PRN SOB ( Reported) Alendronate Sodium 70 MG TABLET 1 TAB PO QWED BONES (Reported) in the morning, at least 30 minutes before the first food, beverage, or medication of the day Alprazolam (Xanax) 1 MG TABLET 1 TAB PO ANXIETY (Reported) Amlodipine Besylate 10 MG TABLET 1 TAB PO DAILY HTN (Reported) Aspirin (Ecotrin) 81 MG TABLET.DR 1 TAB PO DAILY HEART Budesonide/Formoterol Fumara (Symbicort 160-4.5 Mcg Inhaler) 160 MCG/4.5 MCG PUF 2 PUF INH BID EMPHYSEMA Diltiazem HCl (Cardizem Cd) 120 MG CAP.ER.24H 1 TAB PO DAILY HEART RATE Gabapentin (Neurontin) 100 MG CAPSULE 1 CAP PO DAILY PAIN (Reported) Guaifenesin (Mucinex) 600 MG TAB.ER.12H 1 TAB PO Q12H MUCUS (Reported) Hydralazine HCl 10 MG TABLET 1 TAB PO TID BP (Reported) Levofloxacin (Levaquin) 500 MG TABLET 1 TAB PO DAILY copd/bronchitis Lidocaine 5 % ADH..PATCH 1 PAT TOP DAILY PRN PAIN (Reported) Magnesium Hydroxide (Milk Of Magnesia) 400 MG/5 ML ORAL.SUSP 30 ML PO DAILY PRN CONSTIPATION (Reported) Methadone HCl 10 MG/5 ML SOLUTION 30 MG PO DAILY MAINTENCE Mirtazapine 15 MG TABLET 1 TAB PO QPM DEPRESSION (Reported) Prednisolone 15 MG/5 ML SOLUTION 10 ML PO QDAY ASTHMA/copd Prednisone 10 MG TABLET 1 TAB PO DAILY COPD (Reported) continue after finishing prednisone taper Prednisone 10 MG TABLET 0 PO DAILY COPD TAKE 40 MG ON 05/30-06/01 TAKE 30 MG ON 06/02-06/05 TAKE 20 MG ON 06/06-06/08 CONTINUE REGULAR DOSE OF 10 MG FROM THEN ON Sodium Chloride (Nasal [place]) 0.65 % SPRAY 2 SPRAY NASB DAILY NASAL MOISTURIZING (Reported) Theophylline Anhydrous 200 MG TAB.ER.12H 1 TAB PO DAILY COPD (Reported) Tiotropium [place] (Spiriva) 18 MCG CAP.W.DEV 1 CAP INH DAILY COPD Triage Note: PT BIBA FROM HOME. PER EMS, PT HAS NOT BEEN FEELING WELL ALL DAY LONG AND HAS BEEN EXPERIENCING SOB THAT HAS INCREASED IN DIFFICULTY THROUGH OUT THE EVENING. PT END STAGE COPD. PT PLACED ON DUO NEB BY EMS. PER EMS BS 409. PT ARRIVES TO ED ALERT AND ORIENTED. BS IN ED IS 114. O2 SAT 100% WITH DUO NEB. 3L BASELINE O2 AT HOME. PT ALSO COMPLAINS OF RINGING IN EARS. Triage Nurses Notes Reviewed? yes HPI: Patient presents for evaluation of worsening dyspnea over the past 2 days. Patient's shortness of breath has been severe and constant and gets worse with exertion. Patient states her shortness of breath got even more severe this afternoon beginning about 5:56 PM. She had been taking nebulizer treatments at home without improvement. She hasn't taken any steroids for about 2 weeks. Past History Medical History Any Pertinent Medical History? 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 No Review of Systems Review of Systems Constitutional: Reports: no symptoms. EENTM: Reports: no symptoms. Respiratory: Reports: see HPI. Cardiovascular: Reports: no symptoms. GI: Reports: no symptoms. Genitourinary: Reports: no symptoms. Musculoskeletal: Reports: no symptoms. Skin: Reports: no symptoms. Neurological/Psychological: Reports: no symptoms. Hematologic/Endocrine: Reports: no symptoms. Immunologic/Allergic: Reports: no symptoms. All Other Systems: Reviewed and Negative Physical Exam Physical Exam Respiratory: SEE BELOW Comments: Gen.: Well-nourished, well-developed, severe respiratory distress. Thin. Head: Normocephalic, atraumatic. Eyes: Normal inspection bilaterally Ears: Normal inspection bilaterally Nose: Normal inspection Throat/mouth : Moist mucosa Neck: Supple, full range of motion, no goiter Heart: Regular rate and rhythm, no murmurs rubs or gallops Lungs: Diminished air entry bilaterally with scattered end expiratory wheezing and mild rhonchi Chest: Nontender Back: Normal range of motion Abdomen: Soft, nontender, nondistended, normal bowel sounds Extremities: Normal range of motion grossly, equal radial pulses, no cyanosis clubbing or edema Neurologic: Cranial nerves grossly intact, speech is clear Skin: warm and dry Psychiatric: Calm, cooperative, no apparent delusions or hallucinations Core Measures ACS in differential dx? No Severe Sepsis Present: No Septic Shock Present: No Progress Differential Diagnosis: COPD Plan of Care: Current Medications Sig/Freddie Start time Last Medication Dose Stop Time Status Admin Methylprednisolone 125 MG ONCE ONE 06/25 114 CANr (Solu Medrol) 06/25 115 Diagnostic Imaging: Discussed w/RAD: Radiology Read. CXR Impression: PATIENT: JESSENIA FRIEDMAN PRESENT AGE: 60 PATIENT ACCOUNT NO: [id number] : 53 LOCATION: [facility] ORDERING PHYSICIAN: PURNIMA ALLAN MD SERVICE DATE: 06/25/16 EXAM TYPE: RAD - XRY-PORTABLE CHEST XRAY EXAMINATION: XR PORTABLE CHEST CLINICAL INFORMATION: Dyspnea. Cough. Rhonchi. COMPARISON: Chest x-ray 06/18/2016 TECHNIQUE: Portable AP portable view of the chest was obtained. 2:17 AM FINDINGS : Lungs are clear. No pulmonary vascular congestion or pleural effusion. Heart size normal. Thoracic aorta is uncoiled. Multiple bilateral healed rib fractures. Old healed left humeral head fracture. IMPRESSION: No acute change of the chest. DICTATED BY: CHRIS RICKS MD DATE/TIME DICTATED:06/25/16226 BOW STAPLER:MARY DATE/TIME TRANSCRIBED:06/25/16226 CONFIDENTIAL, DO NOT COPY WITHOUT APPROPRIATE AUTHORIZATION. <Electronically signed in Other Vendor System> SIGNED BY: CHRIS RICKS MD 06/25/16 0232 Initial ED EKG: none Comments: 06/25/2016 1:54:32 AM Jessenia has been treated with a nebulizer of albuterol here in the emergency department after a [facility] prehospital. I have also ordered a dose of Solu-Medrol. Her oxygen saturation is 100% on her typical 4 L via nasal cannula. Auscultation of lungs reveals diminished air entry bilaterally although her air movement is good for her. There are diffuse mild rhonchi. I will order a chest x-ray as well. 06/25/2016 2:44:05 AM I have updated Jessenia on her chest x-ray reports and she has declined any further treatments here in the emergency department. Departure Departure Disposition: HOME OR SELF CARE Condition: Stable Clinical Impression Primary Impression: COPD exacerbation Referrals: DAISHA MIRELES,KANDY Calvillo (PCP/Family) Additional Instructions: Prednisone as prescribed. Continue your current medications. Follow-up with your primary care doctor this week. Return if any concerns or sudden worsening. Departure Forms: Customer Survey General Discharge Information Prescriptions: Current Visit Scripts Prednisone (Deltasone) 10 MG PO DAILY #13 TAB TAKE 6 TAB TOMORROW, THEN 4, 2, 1 EACH DAY THERAFTER Critical Care Note Critical Care Note Critical Care Time: 30-74 min
--- NOTE | 2016-06-25 02:32 | RADIOLOGY REPORT ---
EXAMINATION: XR PORTABLE CHEST CLINICAL INFORMATION: Dyspnea. Cough. Rhonchi. COMPARISON: Chest x-ray 06/18/2016 TECHNIQUE: Portable AP portable view of the chest was obtained. 2:17 AM FINDINGS: Lungs are clear. No pulmonary vascular congestion or pleural effusion. Heart size normal. Thoracic aorta is uncoiled. Multiple bilateral healed rib fractures. Old healed left humeral head fracture. IMPRESSION: No acute change of the chest.
[2016-06-25] MEDS ORDERED: DELTASONE20 MG PO (02:50)
[2016-06-25 02:58] VITALS: BP 150/78
[2016-10-17] MEDS ORDERED: ZITHROMAX250 M2 PO (15:15)
== END 2016-06-25 03:11 ==
LOC: ERH 01:00
DX: F41.9 Anxiety disorder, unspecified (principal)
CPT/HCPCS: 1263; J2930

== ENCOUNTER 2016-06-25 03:50 | Emergency (ER) | payer OTHER ==
[~2016-06-25] VITALS: Ht 152.4 cm; Wt 36.3 kg
[2016-06-25 03:59] VITALS: BP 136/80
--- NOTE | 2016-06-25 04:09 | ED PSYCHIATRIC COMPLAINT ---
History of Present Illness General Chief Complaint: Dyspnea (COPD, CHF, Other) Stated Complaint: BIBA FOR SOB Source: patient, EMS Exam Limitations: no limitations Vital Signs & Intake/Output Vital Signs & Intake/Output Vital Signs Date Time Temp Pulse Resp B/P Pulse O2 O2 Flow FiO2 Ox Delivery Rate 06/25 358 97 Nasal 4.0L Cannula 06/25 358 98.0 103 20 136/80 97 Nasal 4.0L Cannula Allergies Coded Allergies: cat dander (UNKNOWN REACTION TO 'PET HAIR/DANDER' 04/24/16) ipratropium (From ATROVENT) ("IT'S TOO MUCH DR TRUONG SAID" 04/24/16) Reconcile Medications Acetaminophen 325 MG TABLET 2 TAB PO Q4H PRN PAIN/TEMP>/100 (Reported) Albuterol Sulfate (Proair Hfa) 90 MCG HFA.AER.AD 2 PUF INH Q4-6 PRN PRN SOB ( Reported) Alendronate Sodium 70 MG TABLET 1 TAB PO QWED BONES (Reported) in the morning, at least 30 minutes before the first food, beverage, or medication of the day Alprazolam (Xanax) 1 MG TABLET 1 TAB PO ANXIETY (Reported) Amlodipine Besylate 10 MG TABLET 1 TAB PO DAILY HTN (Reported) Aspirin (Ecotrin) 81 MG TABLET.DR 1 TAB PO DAILY HEART Budesonide/Formoterol Fumara (Symbicort 160-4.5 Mcg Inhaler) 160 MCG/4.5 MCG PUF 2 PUF INH BID EMPHYSEMA Diltiazem HCl (Cardizem Cd) 120 MG CAP.ER.24H 1 TAB PO DAILY HEART RATE Gabapentin (Neurontin) 100 MG CAPSULE 1 CAP PO DAILY PAIN (Reported) Guaifenesin (Mucinex) 600 MG TAB.ER.12H 1 TAB PO Q12H MUCUS (Reported) Hydralazine HCl 10 MG TABLET 1 TAB PO TID BP (Reported) Levofloxacin (Levaquin) 500 MG TABLET 1 TAB PO DAILY copd/bronchitis Lidocaine 5 % ADH..PATCH 1 PAT TOP DAILY PRN PAIN (Reported) Magnesium Hydroxide (Milk Of Magnesia) 400 MG/5 ML ORAL.SUSP 30 ML PO DAILY PRN CONSTIPATION (Reported) Methadone HCl 10 MG/5 ML SOLUTION 30 MG PO DAILY MAINTENCE Mirtazapine 15 MG TABLET 1 TAB PO QPM DEPRESSION (Reported) Prednisolone 15 MG/5 ML SOLUTION 10 ML PO QDAY ASTHMA/copd Prednisone 10 MG TABLET 1 TAB PO DAILY COPD (Reported) continue after finishing prednisone taper Prednisone (Deltasone) 20 MG TABLET 10 MG PO DAILY COPD TAKE 6 TAB TOMORROW, THEN 4, 2, 1 EACH DAY THERAFTER Prednisone 10 MG TABLET 0 PO DAILY COPD TAKE 40 MG ON 05/30-06/01 TAKE 30 MG ON 06/02-06/05 TAKE 20 MG ON 06/06-06/08 CONTINUE REGULAR DOSE OF 10 MG FROM THEN ON Sodium Chloride (Nasal [place]) 0.65 % SPRAY 2 SPRAY NASB DAILY NASAL MOISTURIZING (Reported) Theophylline Anhydrous 200 MG TAB.ER.12H 1 TAB PO DAILY COPD (Reported) Tiotropium [place] (Spiriva) 18 MCG CAP.W.DEV 1 CAP INH DAILY COPD Triage Note: TRIAGE: PATIENT RETURNS TO ER FROM AMBULANCE (PATIENT WAS JUST D/JELLY AND ON WAY HOME VIA AMBULANCE), ASKED AMULANCE TO TURN AROUND AND DRIVE BACK TO ER FOR REQUEST OF XANAX PO. PATIENT DENIES ANY OTHER COMPLAINTS. REPORTS +ANXIETY. Triage Nurses Notes Reviewed? yes HPI: PATIENT PRESENTS to the emergency department with severe anxiety. Patient was just discharged moments ago from the emergency department for shortness of breath. She was treated with nebulizers and prednisone. As she was being transported back home she suddenly became severely anxious and asked to return to the emergency department. Patient states she has suffered from anxiety for a long time but has run out of any anxiety medications. Her anxiety is described as severe constant and worsening. Nothing seems to make her feel better at this time. Past History Travel History Traveled to [place] past 21 day No Medical History Any Pertinent Medical History? 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 No Review of Systems Review of Systems Constitutional: Reports: no symptoms. EENTM: Reports: no symptoms. Respiratory: Reports: no symptoms. Cardiovascular: Reports: no symptoms. GI: Reports: no symptoms. Genitourinary: Reports: no symptoms. Musculoskeletal: Reports: no symptoms. Skin: Reports: no symptoms. Neurological/Psychological: Reports: see HPI. Hematologic/Endocrine: Reports: no symptoms. Immunologic/Allergic: Reports: no symptoms. All Other Systems: Reviewed and Negative Physical Exam Physical Exam General Appearance: SEE BELOW Neurological/Psychiatric: SEE BELOW Comments: General: Alert, calm, cooperative Head: Normocephalic, atraumatic Eyes: Normal inspection, no nystagmus, EOMI Ears: Normal inspection Nose: Normal inspection Throat: Moist mucosa Neck: Supple, no goiter Heart: Regular rate and rhythm, no murmurs rubs or gallops Lungs: Clear to auscultation bilaterally with good air entry Abdomen: Soft nontender nondistended, normal bowel sounds Chest: Nontender Extremities: Normal range of motion grossly, moderate tremors present, no cyanosis clubbing or edema of the upper extremities Neurologic: cranial nerves II through XII grossly intact, speech clear Psychiatric: No apparent delusions or hallucinations, no pressured speech or thought blocking SAD PERSONS Done? patient not suicidal Progress Differential Diagnosis: ANXIETY Plan of Care: One-time dose of Xanax in the emergency department and follow-up with primary care physician or psychiatrist Departure Departure Disposition: HOME OR SELF CARE Condition: Stable Clinical Impression Primary Impression: Anxiety Referrals: DAISHA MIRELES,KANDY Calvillo (PCP/Family) Additional Instructions: RETURN IF ANY CONCERNS OR WORSENING. Departure Forms: Customer Survey General Discharge Information
[2016-10-17] MEDS ORDERED: ZITHROMAX250 M2 PO (15:15)
== END 2016-06-25 04:15 ==
LOC: ERH 03:50
DX: F41.9 Anxiety disorder, unspecified (principal)

== ENCOUNTER 2016-06-25 18:23 | Emergency (ER) | payer OTHER ==
--- NOTE | 2016-06-25 18:37 | ED DYSPNEA/ASTHMA COMPLAINT ---
See Addendum History of Present Illness General Chief Complaint: Dyspnea (COPD, CHF, Other) Stated Complaint: BIBA, DIFF BREATHING Source: patient, old records, EMS Exam Limitations: no limitations Vital Signs & Intake/Output Vital Signs & Intake/Output Vital Signs Date Time Temp Pulse Resp B/P Pulse O2 O2 Flow FiO2 Ox Delivery Rate 06/26 1545 111 20 172/96 100 Nasal 3.0L Cannula 06/26 1259 98.5 114 20 150/70 100 Nasal 2.0L Cannula 06/26 1257 95 Nasal 3.0L Cannula 06/26 1227 Nasal 4.0L Cannula 06/26 1016 97.0 98 20 188/92 97 Nasal 4.0L Cannula 06/26 0959 97.0 98 20 188/92 06/26 0959 97.0 98 20 188/92 06/26 0648 97 Nasal 3.0L Cannula 06/26 0627 98.6 97 18 169/83 100 Nasal 4.0L Cannula 06/25 2242 Nasal 4.0L Cannula 06/25 2234 98.3 112 20 179/92 99 Nasal 4.0L Cannula 06/25 2233 98.2 122 20 179/92 06/25 1921 98 Nasal 3.0L Cannula 06/25 1827 98.2 122 20 190/97 100 Aerosol 10L Mask ED Intake and Output 06/26 0000 06/25 1200 Intake Total 240 Output Total Balance 240 Intake, Oral 240 Allergies Coded Allergies: cat dander (UNKNOWN REACTION TO 'PET HAIR/DANDER' 06/25/16) ipratropium (From ATROVENT) ("IT'S TOO MUCH DR TRUONG SAID" 06/25/16) Reconcile Medications Acetaminophen 325 MG TABLET 2 TAB PO Q4H PRN PAIN/TEMP>/100 (Reported) Albuterol Sulfate (Proair Hfa) 90 MCG HFA.AER.AD 2 PUF INH Q4-6 PRN PRN SOB ( Reported) Alendronate Sodium 70 MG TABLET 1 TAB PO QWED BONES (Reported) in the morning, at least 30 minutes before the first food, beverage, or medication of the day Alprazolam (Xanax) 1 MG TABLET 1 TAB PO ANXIETY (Reported) Amlodipine Besylate 10 MG TABLET 1 TAB PO DAILY HTN (Reported) Aspirin (Ecotrin) 81 MG TABLET.DR 1 TAB PO DAILY HEART Budesonide/Formoterol Fumara (Symbicort 160-4.5 Mcg Inhaler) 160 MCG/4.5 MCG PUF 2 PUF INH BID EMPHYSEMA Diltiazem HCl (Cardizem Cd) 120 MG CAP.ER.24H 1 TAB PO DAILY HEART RATE Gabapentin (Neurontin) 100 MG CAPSULE 1 CAP PO DAILY PAIN (Reported) Guaifenesin (Mucinex) 600 MG TAB.ER.12H 1 TAB PO Q12H MUCUS (Reported) Hydralazine HCl 10 MG TABLET 1 TAB PO TID BP (Reported) Levofloxacin (Levaquin) 500 MG TABLET 1 TAB PO DAILY copd/bronchitis Lidocaine 5 % ADH..PATCH 1 PAT TOP DAILY PRN PAIN (Reported) Magnesium Hydroxide (Milk Of Magnesia) 400 MG/5 ML ORAL.SUSP 30 ML PO DAILY PRN CONSTIPATION (Reported) Methadone HCl 10 MG/5 ML SOLUTION 30 MG PO DAILY MAINTENCE Mirtazapine 15 MG TABLET 1 TAB PO QPM DEPRESSION (Reported) Prednisolone 15 MG/5 ML SOLUTION 10 ML PO QDAY ASTHMA/copd Prednisone 10 MG TABLET 1 TAB PO DAILY COPD (Reported) continue after finishing prednisone taper Prednisone (Deltasone) 20 MG TABLET 10 MG PO DAILY COPD TAKE 6 TAB TOMORROW, THEN 4, 2, 1 EACH DAY THERAFTER Prednisone 10 MG TABLET 0 PO DAILY COPD TAKE 40 MG ON 05/30-06/01 TAKE 30 MG ON 06/02-06/05 TAKE 20 MG ON 06/06-06/08 CONTINUE REGULAR DOSE OF 10 MG FROM THEN ON Sodium Chloride (Nasal [place]) 0.65 % SPRAY 2 SPRAY NASB DAILY NASAL MOISTURIZING (Reported) Theophylline Anhydrous 200 MG TAB.ER.12H 1 TAB PO DAILY COPD (Reported) Tiotropium [place] (Spiriva) 18 MCG CAP.W.DEV 1 CAP INH DAILY COPD Triage Note: PT BIBA FROM HOME FOR SOB. PT HAS A HX OF COPD AND WAS SEEN HERE LAST NIGHT FOR THE SAME. PT WAS STARTED ON PREDNISONE BUT HAS NOT FELT BETTER. PT RECIEIVING NEB ON ARRIVAL. SHE IS ALERT AND ORIENTED AND DENIES CHEST PAIN. 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 Triage Nurses Notes Reviewed? yes HPI: Patient brought in by EMS from home for increasing shortness of breath and wheezing. Patient has end-stage COPD and is O2 dependent. Patient was seen in the emergency department last night for same. Patient was discharged on steroids. Patient states she took the stairs last night and again today and she is not feeling any better. Patient feels short of breath with even walking in the kitchen. Patient denies any fevers or chills. Patient has a chronic cough but states it is not worse than normal. Patient denies any nausea or vomiting. Patient denies any chest pain or palpitations. (KIERRA MIRELES,LISA Norton) Past History Travel History Traveled to [place] past 21 day No Medical History Any Pertinent Medical History? 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 No (LISA LOZADA MD) Review of Systems Review of Systems Constitutional: Reports: no symptoms. EENTM: Reports: no symptoms. Respiratory: Reports: see HPI, short of breath. Cardiovascular: Reports: no symptoms. GI: Reports: no symptoms. Genitourinary: Reports: no symptoms. Musculoskeletal: Reports: no symptoms. Skin: Reports: no symptoms. Neurological/Psychological: Reports: no symptoms. Hematologic/Endocrine: Reports: no symptoms. Immunologic/Allergic: Reports: no symptoms. All Other Systems: Reviewed and Negative (LISA LOZADA MD) Physical Exam Physical Exam General Appearance: well developed/nourished, alert, awake, anxious, moderate distress Head: atraumatic, normal appearance Eyes: Bilateral: PERRL, EOMI. Ears, Nose, Throat: normal pharynx, normal ENT inspection, hearing grossly normal Neck: normal inspection, supple, full range of motion, NO JVD Respiratory: chest non-tender, decreased breath sounds Cardiovascular: regular rate/rhythm, normal peripheral pulses Gastrointestinal: normal bowel sounds, soft, non-tender, no organomegaly Extremities: normal inspection, normal capillary refill, normal range of motion, no edema Neurologic/Psych: no motor/sensory deficits, awake, alert, oriented x 3, normal mood/affect Skin: intact, normal color, warm/dry Lymphatic: no anterior cervical cl Core Measures ACS in differential dx? No Severe Sepsis Present: No Septic Shock Present: No (KIERRA MIRELES,LISA Norton) Progress Differential Diagnosis: asthma, COPD, pulmonary embolism, pneumonia Plan of Care: Orders Procedure Date/time Status Regular Diet 06/26 B Active Therapeutic Exercise X 15 06/26 UNK Complete Gait Training, 15 Min 06/26 UNK Complete PT EVAL LOW COMPLEX 20 MIN 06/26 UNK Complete CASE MANAGEMENT CONSULT 06/25 2037 Active PT Evaluate & Treat 06/25 2036 Active ARTERIAL BLOOD GAS (GEN) 06/25 1835 Complete BLOOD CULTURE 06/25 1835 Active TROPONIN LEVEL 06/25 1835 Complete COMPREHENSIVE METABOLIC PANEL 06/25 1835 Complete CBC WITHOUT DIFFERENTIAL 06/25 1835 Complete EKG 06/25 1835 Active Laboratory Tests 06/25/161941: pH 7.44, pCO2 46 H, pO2 78 L, HCO3 30 H, ABG O2 Sat (Measured) 95.0 L, Carboxyhemoglobin 0.3 L, O2 Concentration % 3L, O2 Delivery Method NC, Phlebotomy Draw Site RIGHT BRACHIAL 06/25/161907: Anion Gap 18 H, Estimated GFR > 60, BUN/Creatinine Ratio 10.0, Glucose 81, Calcium 7.6 L, Total Bilirubin 0.6, AST 39 H, ALT 39, Alkaline Phosphatase 203 H, Troponin I < 0.01, Total Protein 6.3, Albumin 3.8, Globulin 2.5, Albumin/ Globulin Ratio 1.5, CBC w Diff NO MAN DIFF REQ, RBC 3.57 L, MCV 83.3, MCH 27.4, RDW 20.0 H, MPV 5.8 L, Gran % 79.8 H, Lymphocytes % 11.8 L, Monocytes % 8.1, Eosinophils % 0.1, Basophils % 0.2, Absolute Granulocytes 7.4 H, Absolute Lymphocytes 1.1 L, Absolute Monocytes 0.8 H, Absolute Eosinophils 0, Absolute Basophils 0, PUBS MCHC 32.8 L Microbiology 06/25 1920 BLOOD: Blood Culture - RES 06/25 1907 BLOOD: Blood Culture - RES Initial ED EKG: NSR, LVH, nonspecific ST T wave chg Prior EKG: unchanged Hand-Off Endorsed To: JANNA FRANK MD Endorsed Time: 2300 Pending: consult (CASE MANAGEMENT) Comments: LABS AND XRAY REVIEWED FROM LAST NIGHT D/W CASE MANAGEMENT, WILL ATTEMPT TO SEND TO ECF FROM ER. (LISA LOZADA MD) Hand-Off Endorsed To: PURNIMA ALLAN MD Endorsed Time: 0700 Pending: consult Comments: pt to be evaluated this AM. (CLINTON MIRELES,JANNA Taylor) Comments: 06/26/2016 07:00 pt signed out to me by dr frank. 06/26/2016 3:56:34 PM patient is being transferred to an extended care facility. (PURNIMA ALLAN MD) Departure Departure Condition: Stable Referrals: KANDY ASHTON MD (PCP/Family) Departure Forms: Customer Survey General Discharge Information (LISA LOZADA MD) Departure Disposition: ACUTE REHAB FACILITY Clinical Impression Primary Impression: Chronic obstructive pulmonary disease (COPD) Qualifiers: COPD type: unspecified COPD Qualified Code: J44.9 - Chronic obstructive pulmonary disease, unspecified Secondary Impressions: Anxiety (PURNIMA ALLAN MD) Critical Care Note Critical Care Note Critical Care Time: non-applicable (LISA LOZADA MD)
[2016-06-25 19:26] LABS: ABSOLUTE BASOPHIL COUNT 0 /CUMM (0.0-0.2); ABSOLUTE EOSINOPHIL COUNT 0 /CUMM (0.0-0.7); ABSOLUTE GRANULOCYTE CT 7.4 /CUMM (1.4-6.5); ABSOLUTE LYMPH COUNT 1.1 /CUMM (1.2-3.4); ABSOLUTE MONOCYTE COUNT 0.8 /CUMM (0.10-0.60); BASOPHIL % 0.2 % (0.0-2.0); EOSINOPHIL % 0.1 % (0-5); GRANULOCYTE % 79.8 % (42.2-75.2); HEMATOCRIT 29.8 % (37-47); MEAN CORPUSCULAR HGB 27.4 PG (27.0-31.0); MEAN CORPUSCULAR HGB CONC 32.8 G/DL (33.0-37.0); MEAN CORPUSCULAR VOLUME 83.3 FL (81.0-99.0); MEAN PLATELET VOLUME 5.8 FL (7.4-10.4); PLATELET COUNT 429 /CUMM (130-400); RED BLOOD CELL CT 3.57 /CUMM (4.20-5.40); WHITE BLOOD CELL COUNT 9.3 /CUMM (4.8-10.8)
[2016-06-26 16:30] VITALS: BP 172/96
[2016-10-17] MEDS ORDERED: ZITHROMAX250 M2 PO (15:15)
== END 2016-06-26 17:01 ==
LOC: ERH 18:23
PROVIDERS: Emergency Medicine
DX: J44.9 Chronic obstructive pulmonary disease, unspecified (principal); F41.9 Anxiety disorder, unspecified; Z87.891 Personal history of nicotine dependence
CPT/HCPCS: 1263; 87040; 93005; 93010; 96374; 97110-GP; 97116-GP; 97161-GP; J2930

== ENCOUNTER 2016-07-05 12:39 | Emergency (ER) | payer OTHER ==
[~2016-07-05] VITALS: Ht 152.4 cm; Wt 36.3 kg
[2016-07-05] MEDS ORDERED: ASPIRIN81 M4 PO (12:52)
[2016-07-05] MEDS ORDERED: SPIRIVA18 MCG INH (12:55)
[2016-07-05] MEDS ORDERED: SYMBICORT 16010.2 GM INH (12:56)
[2016-07-05] MEDS ORDERED: METHADONE10 MG/1 M2 PO (12:57)
--- NOTE | 2016-07-05 14:05 | ED MVC/FALL/TRAUMA COMPLAINT ---
History of Present Illness General Chief Complaint: Fall Stated Complaint: BIBA FOR EVAL OF SLIP AND FALL Source: patient Exam Limitations: no limitations Allergies Coded Allergies: cat dander (UNKNOWN REACTION TO 'PET HAIR/DANDER' 06/25/16) ipratropium (From ATROVENT) ("IT'S TOO MUCH DR TRUONG SAID" 06/25/16) Reconcile Medications Acetaminophen 325 MG TABLET 2 TAB PO Q4H PRN PAIN/TEMP>/100 (Reported) Alendronate Sodium 70 MG TABLET 1 TAB PO QWED BONES (Reported) in the morning, at least 30 minutes before the first food, beverage, or medication of the day Alprazolam 0.5 MG TABLET 1 TAB PO TIDPRN PRN DISTRESS (Reported) Amlodipine Besylate 10 MG TABLET 1 TAB PO DAILY HTN (Reported) Aspirin (Aspirin*) 81 MG TAB.CHEW 1 TAB PO DAILY HEART HEALTH (Reported) Budesonide/Formoterol Fumarate (Symbicort 160-4.5 Mcg Inhaler) 160 MCG-4.5 MCG/ ACTUATION HFA.AER.AD 2 PUF INH BID BREATHING PROBLEMS (Reported) Diltiazem HCl (Cardizem Cd) 120 MG CAP.ER.24H 1 TAB PO DAILY HEART RATE Gabapentin (Neurontin) 100 MG CAPSULE 1 CAP PO DAILY PAIN (Reported) Guaifenesin (Mucus Relief) 400 MG TABLET 1 TAB PO Q8 MUCUS (Reported) Hydralazine HCl 10 MG TABLET 1 TAB PO TID BP (Reported) Magnesium Hydroxide (Milk Of Magnesia) 400 MG/5 ML ORAL.SUSP 30 ML PO DAILY PRN CONSTIPATION (Reported) Methadone HCl 10 MG/ML ORAL.CONC 35 MG PO DAILY MAINTENCE (Reported) Mirtazapine 15 MG TABLET 1 TAB PO QPM DEPRESSION (Reported) Prednisone 10 MG TABLET 1 TAB PO DAILY COPD (Reported) continue after finishing prednisone taper Sodium Chloride (Nasal [place]) 0.65 % SPRAY 2 SPRAY NASB DAILY NASAL MOISTURIZING (Reported) Theophylline Anhydrous 200 MG TAB.ER.12H 1 TAB PO DAILY COPD (Reported) Tiotropium [place] (Spiriva) 18 MCG CAP.W.DEV 1 CAP INH DAILY BREATHING PROBLEMS (Reported) Triage Note: PT BIBA FROM ECF S/P FALL. PT WAS IN THE BATHROOM AND LOST HER BALANCE, FELL BACK HIT HER HEAD. PT IS NOT ON BLOOD THINNERS. NO LAC, BUT BUMP NOTED TO BACK OF HEAD. PT ON 4L NC AT BASELINE. AWAITING EVAL. Triage Nurses Notes Reviewed? yes HPI: THIS PATIENT is a 60-year-old female with a past medical history including IV drug abuse and chronic back pain who presented to the emergency department today from an [facility] for evaluation of fall. The patient reported that she was in the bathroom, lost her balance, and fell backwards hitting her head on the ground. The patient is complaining of mid back pain which she reported to Septra 10 out of 10, is throbbing, and radiates down her spine. The patient denied any numbness or tingling in her extremities. She denied any head pain, loss of consciousness, visual changes, neck pain, chest pain, difficult to breathing, abdominal pain, nausea, or vomiting. No bowel or bladder incontinence. paresthesia. This patient is not on any blood thinners. This fall was unwitnessed, however, the patient did report that she had no precipitating or prodromal symptoms such as nausea, dizziness, lightheadedness, chest pain, difficulty breathing, or any other associated precipitating symptoms. (KIRA JAMES,ELSI) Vital Signs & Intake/Output Vital Signs & Intake/Output Vital Signs Date Time Temp Pulse Resp B/P Pulse O2 O2 Flow FiO2 Ox Delivery Rate 07/05 1517 96.9 112 18 142/80 97 Nasal 4.0L Cannula 07/05 1515 97 Nasal 4.0L Cannula / 1240 96.9 116 18 141/72 97 Nasal 4.0L Cannula ED Intake and Output 07/06 0000 07/05 1200 Intake Total Output Total Balance Patient 79 lb 15.99 oz Weight Past History Travel History Traveled to [place] past 21 day No Medical History Any Pertinent Medical History? 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: stress incontinence History of MRSA: Yes History of VRE: No History of CDIFF: No Surgical History Surgical History: colon resection, tubal ligation, colostomy ORIF for right hip fracture Psychosocial History Who do you live with Patient/Self Services at Home Home Health Aide, Nursing, Oxygen What is your primary language Tanzanian Tobacco Use: Quit >30 days ago ETOH Use: denies use Illicit Drug Use: denies illicit drug use Family History Family History, If Any: MOTHER CVA FH: coronary artery disease FH: diabetes mellitus FH: HTN (hypertension) BROTHER FH: diabetes mellitus FATHER FH: alcohol abuse Hx Contributory? No (ELSI MALONE PA-C) Review of Systems Review of Systems Constitutional: Reports: no symptoms. Eyes: Reports: no symptoms. Ears, Nose, Throat, Mouth: Reports: no symptoms. Respiratory: Reports: no symptoms. Cardiovascular: Reports: no symptoms. Gastrointestinal/Abdominal: Reports: no symptoms. Genitourinary: Reports: no symptoms. Musculoskeletal: Reports: see HPI. Skin: Reports: no symptoms. Neurological/Psychological: Reports: no symptoms. All Other Systems: Reviewed and Negative (ELSI MALONE PA-C) Physical Exam Physical Exam General Appearance: well developed/nourished, alert, awake, moderate distress Comments: Well-developed well-nourished person in moderate distress HEENT: Normal EENT exam, head normocephalic/atraumatic no bony deformities or step-offs of the skull, no tenderness to palpation over the scalp PERRLA bilaterally Neck: Supple, no lymphadenopathy, no midline tenderness. Full range of motion Back: Diffusely tender to palpation with positive midline tenderness and paraspinal musculature tenderness Cardiovascular: Regular rate and rhythm with no murmurs, rubs, or gallops Respiratory: Chest nontender. No respiratory distress. Breath sounds clear to auscultation bilaterally Abdomen: Soft, nontender and nondistended with normoactive bowel sounds and no organomegaly appreciated Extremity: No edema, no calf tenderness to palpation, normal and equal pulses. Neuro: Alert oriented x3, cranial nerves II through XII grossly intact. 5 out of 5 muscular strength in all extremities. No focal neurologic deficits is Skin: No appreciable rash on exposed skin, skin is warm and dry. Psych: Mood and affect is normal Core Measures ACS in differential dx? Yes Severe Sepsis Present: No Septic Shock Present: No (ELSI MALONE PA-C) Progress Differential Diagnosis: abd injury, C/T/L spine injury, ext injury, ICH, pelvis injury, pnemothorax, spinal cord injury, CONCUSSION Plan of Care: Orders Procedure Date/time Status EKG 07/05 1242 Active Current Medications Sig/Freddie Start time Last Medication Dose Stop Time Status Admin Morphine Sulfate 2 MG ONCE ONE 07/05 1615 UNVr (Morphine) 07/05 1616 Diagnostic Imaging: Viewed by Me: Radiology Read, CT Scan. Discussed w/RAD: Radiology Read, CT Scan. Radiology Impression: PATIENT: GHASSAN FRIEDMAN PRESENT AGE: 60 PATIENT ACCOUNT NO: [id number] : 53 LOCATION: ER ORDERING PHYSICIAN: ELSI MALONE PA-C SERVICE DATE: 07/05/16 EXAM TYPE: RAD - XRY-THORACIC SPINE EXAMINATION: XR THORACIC SPINE CLINICAL INFORMATION: Fall, mid back pain COMPARISON: Chest CT scan dated 05/31/2016 and 06/22/2016 x-ray TECHNIQUE: 3 views of the thoracic spine were obtained. FINDINGS: There is severe kyphoscoliosis of the thoracic spine with compression deformity of multiple thoracic vertebral bodies, generally similar to the comparison CT scan. Evaluation for acute fracture is significantly limited due to demineralized bones. Partial visualization of the bilateral old upper rib fractures. IMPRESSION: Limited exam for evaluation of acute fracture due to demineralized bones. The kyphoscoliosis and compression deformity of multiple thoracic spine are generally similar to 05/31/2016 CT scan. DICTATED BY: DANIEL LAY MD DATE/TIME DICTATED:07/05/161420 CORE MACHINE TENDER:MARY DATE/ TIME TRANSCRIBED:07/05/161420 CONFIDENTIAL, DO NOT COPY WITHOUT APPROPRIATE AUTHORIZATION. <Electronically signed in Other Vendor System> SIGNED BY: DANIEL LAY MD 07/05/16 1431, PATIENT: GHASSAN FRIEDMAN PRESENT AGE: 60 PATIENT ACCOUNT NO: [id number] : 53 LOCATION: [facility] ORDERING PHYSICIAN: ELSI MALONE PA-C SERVICE DATE: 07/05/16 EXAM TYPE: CAT - CT CERV SPINE WO IV CONTRAST EXAMINATION: CT CERVICAL SPINE WITHOUT CONTRAST CLINICAL INFORMATION: 60-year-old woman post fall COMPARISON: [address] TECHNIQUE: Helical CT images were obtained through the cervical spine without the use of intravenous contrast. Axial reconstructions were reviewed along with sagittal and coronal MPRs. DLP: 322 mGy-cm FINDINGS: Images are degraded by patient motion. There is no evidence of acute cervical spine fracture. Chronic fracture deformity of the C7 vertebral body with 50% central loss of height and sclerosis is unchanged. Remaining vertebral bodies are normal in height. Alignment is approximately anatomic. Intervertebral disc spaces are preserved. There is no pre or paravertebral soft tissue abnormality. Limited assessment of the skull base and lung apices is unremarkable. IMPRESSION : No evidence of acute cervical spine fracture or traumatic subluxation. DICTATED BY: DAVID MARES MD DATE/TIME DICTATED:07/05/161436 CORE MACHINE TENDER: MARY DATE/TIME TRANSCRIBED:07/05/161436 CONFIDENTIAL, DO NOT COPY WITHOUT APPROPRIATE AUTHORIZATION. <Electronically signed in Other Vendor System> SIGNED BY: DAVID MARES MD 07/05/16 1446, PATIENT: GHASSAN FRIEDMAN PRESENT AGE: 60 PATIENT ACCOUNT NO: [id number] : 53 LOCATION: [facility] ([place] ORDERING PHYSICIAN: ELSI MALONE PA-C SERVICE DATE: 07/05/16 EXAM TYPE: CAT - CT HEAD WO IV CONTRAST EXAMINATION: CT HEAD WITHOUT CONTRAST CLINICAL INFORMATION: Fall, head trauma. COMPARISON: head CT scan. TECHNIQUE: Contiguous axial imaging was performed from the skull base to vertex without intravenous administration of contrast. DLP: 1841.89 mGy-cm FINDINGS: CT SCAN HEAD: This study is limited, particularly in the posterior fossa due to presence of motion artifact despite repeating the images. There is a 3 mm density in the central lower medulla, just before the junction of the medulla and spinal cord, seen on axial image 6 from series 14. It is likely an artifact. In review of C-spine images at this level, this finding is no longer seen on series 3. There is no CT evidence of acute intracranial hemorrhage, midline shift, or transtentorial herniation or territorial infarction. The basal cisterns are patent. There are scattered bilateral periventricular and deep white matter hypodensities which are generally similar to the comparison exam and could represent chronic ischemic changes of small-vessel disease. The ventricles are normal and midline. There is CSF density in the pituitary fossa which can represent empty sella. Peoples to white matter differentiation is well preserved. No extra-axial fluid collections are identified. There is no acute skull fracture. There is fluid density within the lower left mastoid air cells without adjacent bony fracture and could represent mastoid effusion. Mild mucosal thickening of ethmoid air cells also noted. The visualized paranasal sinuses are otherwise clear. CT SCAN CERVICAL SPINE: There is motion artifact which degrades quality of images and limits evaluation. There is severe lordosis of cervical spine. However, the alignment of the cervical vertebral bodies is within normal limits. The C1-C2 and craniocervical junction are unremarkable. There is decreased height and sclerotic changes of C7 vertebral body, with loss of less than about 50% of the vertebral body height. The finding is better seen on sagittal image 40 from series 602. There are degenerative changes of cervical spine with involvement of the facet joints. No definite acute fracture or dislocation of cervical spine seen. The paraspinal soft tissue is unremarkable. The visualized lung apices are clear without pneumothorax. IMPRESSION: Limited exam due to presence of motion artifact. 1. No acute intracranial hemorrhage or acute skull fracture. 2. Age undetermined compression deformity of C7 vertebral body, likely chronic. DICTATED BY: DANIEL LAY MD DATE/TIME DICTATED:07/05/161427 CORE MACHINE TENDER:MARY DATE/TIME TRANSCRIBED:07/05/161427 CONFIDENTIAL, DO NOT COPY WITHOUT APPROPRIATE AUTHORIZATION. <Electronically signed in Other Vendor System> SIGNED BY: DANIEL LAY MD 07/05/16 8966 Initial ED EKG: normal axis, normal intervals, 115 bpm, sinus tachycardia Comments: 07/05/2016 4:08:36 PM: The patient does have ecchymosis noted to the left elbow. Patient has full range of motion and is mildly tender to palpation over the lateral epicondyle. She is refusing x-ray of her elbow at this time. She is requesting to go back to her senior care. Discussed this patient with Dr. LUNA who is in agreement with the plan for this patient is stable to go home. He reviewed this patient's imaging studies. (KIRA JAMES,ELSI) Departure Departure Disposition: HOME OR SELF CARE Condition: Stable Clinical Impression Primary Impression: Fall Qualifiers: Encounter type: initial encounter Qualified Code: W19.XXXA - Unspecified fall, initial encounter Referrals: DAISHA MIRELES,KANDY Calvillo (PCP/Family) Additional Instructions: Continue to take all previously prescribed medications as directed. Return for any worsening symptoms or concerns. Departure Forms: Customer Survey General Discharge Information (KIRA JAMES,ELSI) PA/DRAWSTRING KNOTTER Co-Sign Statement Statement: ED Attending supervision documentation- x I saw and evaluated the patient. I have also reviewed all the pertinent lab results and diagnostic results. I agree with the findings and the plan of care as documented in the PA's/DRAWSTRING KNOTTER's documentation. [] I have reviewed the ED Record and agree with the PA's/DRAWSTRING KNOTTER's documentation. [] Additions or exceptions (if any) to the PAs/DRAWSTRING KNOTTER's note and plan are summarized below: [] (CHERYL MIRELES,PATRICIO)
--- NOTE | 2016-07-05 14:31 | RADIOLOGY REPORT ---
EXAMINATION: XR THORACIC SPINE CLINICAL INFORMATION: Fall, mid back pain COMPARISON: Chest CT scan dated 05/31/2016 and 06/22/2016 x-ray TECHNIQUE: 3 views of the thoracic spine were obtained. FINDINGS: There is severe kyphoscoliosis of the thoracic spine with compression deformity of multiple thoracic vertebral bodies, generally similar to the comparison CT scan. Evaluation for acute fracture is significantly limited due to demineralized bones. Partial visualization of the bilateral old upper rib fractures. IMPRESSION: Limited exam for evaluation of acute fracture due to demineralized bones. The kyphoscoliosis and compression deformity of multiple thoracic spine are generally similar to 05/31/2016 CT scan.
--- NOTE | 2016-07-05 14:46 | CT SCAN REPORT ---
EXAMINATION: CT CERVICAL SPINE WITHOUT CONTRAST CLINICAL INFORMATION: 60-year-old woman post fall COMPARISON: 02/22/[address] TECHNIQUE: Helical CT images were obtained through the cervical spine without the use of intravenous contrast. Axial reconstructions were reviewed along with sagittal and coronal MPRs. DLP: 322 mGy-cm FINDINGS: Images are degraded by patient motion. There is no evidence of acute cervical spine fracture. Chronic fracture deformity of the C7 vertebral body with 50% central loss of height and sclerosis is unchanged. Remaining vertebral bodies are normal in height. Alignment is approximately anatomic. Intervertebral disc spaces are preserved. There is no pre or paravertebral soft tissue abnormality. Limited assessment of the skull base and lung apices is unremarkable. IMPRESSION: No evidence of acute cervical spine fracture or traumatic subluxation.
[2016-07-05 15:17] VITALS: BP 142/80
--- NOTE | 2016-07-05 15:57 | CT SCAN REPORT ---
EXAMINATION: CT HEAD WITHOUT CONTRAST CLINICAL INFORMATION: Fall, head trauma. COMPARISON: 05/22/[address] scan. TECHNIQUE: Contiguous axial imaging was performed from the skull base to vertex without intravenous administration of contrast. DLP: 1841.89 mGy-cm FINDINGS: CT SCAN HEAD: This study is limited, particularly in the posterior fossa due to presence of motion artifact despite repeating the images. There is a 3 mm density in the central lower medulla, just before the junction of the medulla and spinal cord, seen on axial image 6 from series 14. It is likely an artifact. In review of C-spine images at this level, this finding is no longer seen on series 3. There is no CT evidence of acute intracranial hemorrhage, midline shift, or transtentorial herniation or territorial infarction. The basal cisterns are patent. There are scattered bilateral periventricular and deep white matter hypodensities which are generally similar to the comparison exam and could represent chronic ischemic changes of small-vessel disease. The ventricles are normal and midline. There is CSF density in the pituitary fossa which can represent empty sella. Peoples to white matter differentiation is well preserved. No extra-axial fluid collections are identified. There is no acute skull fracture. There is fluid density within the lower left mastoid air cells without adjacent bony fracture and could represent mastoid effusion. Mild mucosal thickening of ethmoid air cells also noted. The visualized paranasal sinuses are otherwise clear. CT SCAN CERVICAL SPINE: There is motion artifact which degrades quality of images and limits evaluation. There is severe lordosis of cervical spine. However, the alignment of the cervical vertebral bodies is within normal limits. The C1-C2 and craniocervical junction are unremarkable. There is decreased height and sclerotic changes of C7 vertebral body, with loss of less than about 50% of the vertebral body height. The finding is better seen on sagittal image 40 from series 602. There are degenerative changes of cervical spine with involvement of the facet joints. No definite acute fracture or dislocation of cervical spine seen. The paraspinal soft tissue is unremarkable. The visualized lung apices are clear without pneumothorax. IMPRESSION: Limited exam due to presence of motion artifact. 1. No acute intracranial hemorrhage or acute skull fracture. 2. Age undetermined compression deformity of C7 vertebral body, likely chronic.
[2016-07-06] MEDS ORDERED: ALPRAZOLAM0.5 M4 PO (07:59)
[2016-10-17] MEDS ORDERED: ZITHROMAX250 M2 PO (15:15)
== END 2016-07-05 17:22 ==
LOC: ERH 12:39
DX: M54.9 Dorsalgia, unspecified (principal)
CPT/HCPCS: 72070; 93005; 93010; 96372

== ENCOUNTER 2016-07-06 07:14 | Emergency (ER) | payer OTHER ==
[~2016-07-06] VITALS: Ht 152.4 cm; Wt 46.7 kg
[~2016-07-06 07:14] MED LIST changes: +ASPIRIN81 M4 PO; +METHADONE10 MG/1 M2 PO; +SPIRIVA18 MCG INH; +SYMBICORT 16010.2 GM INH
[2016-07-06] MEDS ORDERED: ALPRAZOLAM0.5 M4 PO (07:59)
--- NOTE | 2016-07-06 08:20 | RADIOLOGY REPORT ---
EXAMINATION: XR ELBOW, LEFT CLINICAL INFORMATION: Fall left elbow pain and ecchymosis. COMPARISON: None TECHNIQUE: AP, lateral, and oblique views of the left elbow. FINDINGS: There is a minimally displaced olecranon fracture with distraction of major fracture fragments by approximately 2 mm. There is also a small nondisplaced 1 mm fracture of the coronoid process. Elbow effusion is present. No dislocation is seen. IMPRESSION: Minimally distracted olecranon fracture with what appears to be a small fracture fragment off of the coronoid process.
[2016-07-06 08:31] LABS: ABSOLUTE BASOPHIL COUNT 0 /CUMM (0.0-0.2); ABSOLUTE EOSINOPHIL COUNT 0.1 /CUMM (0.0-0.7); ABSOLUTE GRANULOCYTE CT 18.6 /CUMM (1.4-6.5); ABSOLUTE LYMPH COUNT 3.6 /CUMM (1.2-3.4); BASOPHIL % 0.2 % (0.0-2.0); EOSINOPHIL % 0.5 % (0-5); GRANULOCYTE % 76.3 % (42.2-75.2); HEMATOCRIT 27.8 % (37-47); MEAN CORPUSCULAR HGB 27.5 PG (27.0-31.0); MEAN CORPUSCULAR HGB CONC 32.1 G/DL (33.0-37.0); MEAN CORPUSCULAR VOLUME 85.6 FL (81.0-99.0); MEAN PLATELET VOLUME 6.7 FL (7.4-10.4); PLATELET COUNT 483 /CUMM (130-400); RBC DISTRIBUTION WIDTH 21.3 % (11.5-14.5); RED BLOOD CELL CT 3.24 /CUMM (4.20-5.40); WHITE BLOOD CELL COUNT 24.3 /CUMM (4.8-10.8)
[2016-07-06 09:19] VITALS: BP 133/76
--- NOTE | 2016-07-06 09:44 | ED GENERAL ADULT ---
History of Present Illness General Chief Complaint: Dyspnea (COPD, CHF, Other) Stated Complaint: SOB Source: patient, old records, EMS, W10 Exam Limitations: no limitations Vital Signs & Intake/Output Vital Signs & Intake/Output Vital Signs Date Time Temp Pulse Resp B/P Pulse O2 O2 Flow FiO2 Ox Delivery Rate 07/06 918 97.0 118 20 133/76 92 Nasal 4.0L Cannula 07/06 0845 92 Nasal 4.0L Cannula 07/06 804 97.4 88 20 123/57 94 Nasal 4.0L Cannula 07/06 725 91 Nasal 2.5L Cannula 07/06 724 97.6 84 20 140/78 91 Nasal 2.5L Cannula Allergies Coded Allergies: cat dander (UNKNOWN REACTION TO 'PET HAIR/DANDER' 06/25/16) ipratropium (From ATROVENT) ("IT'S TOO MUCH DR TRUONG SAID" 06/25/16) Reconcile Medications Acetaminophen 325 MG TABLET 2 TAB PO Q4H PRN PAIN/TEMP>/100 (Reported) Alendronate Sodium 70 MG TABLET 1 TAB PO QWED BONES (Reported) in the morning, at least 30 minutes before the first food, beverage, or medication of the day Alprazolam 0.5 MG TABLET 1 TAB PO TIDPRN PRN DISTRESS (Reported) Amlodipine Besylate 10 MG TABLET 1 TAB PO DAILY HTN (Reported) Aspirin (Aspirin*) 81 MG TAB.CHEW 1 TAB PO DAILY HEART HEALTH (Reported) Budesonide/Formoterol Fumarate (Symbicort 160-4.5 Mcg Inhaler) 160 MCG-4.5 MCG/ ACTUATION HFA.AER.AD 2 PUF INH BID BREATHING PROBLEMS (Reported) Diltiazem HCl (Cardizem Cd) 120 MG CAP.ER.24H 1 TAB PO DAILY HEART RATE Gabapentin (Neurontin) 100 MG CAPSULE 1 CAP PO DAILY PAIN (Reported) Guaifenesin (Mucus Relief) 400 MG TABLET 1 TAB PO Q8 MUCUS (Reported) Hydralazine HCl 10 MG TABLET 1 TAB PO TID BP (Reported) Magnesium Hydroxide (Milk Of Magnesia) 400 MG/5 ML ORAL.SUSP 30 ML PO DAILY PRN CONSTIPATION (Reported) Methadone HCl 10 MG/ML ORAL.CONC 35 MG PO DAILY MAINTENCE (Reported) Mirtazapine 15 MG TABLET 1 TAB PO QPM DEPRESSION (Reported) Prednisone 10 MG TABLET 1 TAB PO DAILY COPD (Reported) continue after finishing prednisone taper Sodium Chloride (Nasal [place]) 0.65 % SPRAY 2 SPRAY NASB DAILY NASAL MOISTURIZING (Reported) Theophylline Anhydrous 200 MG TAB.ER.12H 1 TAB PO DAILY COPD (Reported) Tiotropium [place] (Spiriva) 18 MCG CAP.W.DEV 1 CAP INH DAILY BREATHING PROBLEMS (Reported) Core Measure Meds Pre-Hospital aspirin Triage Note: [facility]/O "I JUST DON'T FEEL GOOD", PT WAS SEEN YESTERDAY FOR FALL, VITALS STABLE, AFEBRILE, O2 SATS 88-91% ON 2.5L NC. Triage Nurses Notes Reviewed? yes Onset: yesterday Duration: day(s):, constant, continues in ED Timing: recent history Injury Environment: [facility] Severity: severe Modifying Factors: Improves With: immobilization, rest. Worsens With: movement. LMP (ages 10-50): post menopausal : No Patient currently breastfeeds: No HPI: 1 day prior to admission patient lost her balance and fell onto her back. No acute pathology identified and diagnostic imaging. Since the fall she had been complaining of increasing left elbow pain and swelling limited range of motion. She also complains of not feeling well with shortness of breath. She denies fever chills nausea vomiting diarrhea abdominal pain chest pain headache dysuria rash bleeding. Past History Travel History Traveled to [place] past 21 day No Medical History Any Pertinent Medical History? 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: stress incontinence History of MRSA: Yes History of VRE: No History of CDIFF: No Surgical History Surgical History: colon resection, tubal ligation, colostomy ORIF for right hip fracture Psychosocial History Who do you live with Patient/Self Services at Home Home Health Aide, Nursing, Oxygen What is your primary language [place]ian Tobacco Use: Quit >30 days ago ETOH Use: denies use Illicit Drug Use: denies illicit drug use Family History Family History, If Any: MOTHER CVA FH: coronary artery disease FH: diabetes mellitus FH: HTN (hypertension) BROTHER FH: diabetes mellitus FATHER FH: alcohol abuse Hx Contributory? No Review of Systems Review of Systems Constitutional: Reports: see HPI, malaise, weakness. EENTM: Reports: no symptoms. Respiratory: Reports: see HPI, short of breath. Cardiovascular: Reports: no symptoms. GI: Reports: no symptoms. Genitourinary: Reports: no symptoms. Musculoskeletal: Reports: see HPI, joint pain, joint swelling. Skin: Reports: no symptoms. Neurological/Psychological: Reports: no symptoms. Hematologic/Endocrine: Reports: no symptoms. Immunologic/Allergic: Reports: no symptoms. All Other Systems: Reviewed and Negative Physical Exam Physical Exam General Appearance: well developed/nourished, alert, awake, anxious, moderate distress, thin Head: atraumatic, normal appearance Eyes: Bilateral: normal appearance, PERRL, EOMI. Ears, Nose, Throat: normal pharynx, normal ENT inspection, hearing grossly normal Neck: normal inspection, supple, full range of motion Respiratory: chest non-tender, decreased breath sounds, rhonchi Cardiovascular: regular rate/rhythm, normal peripheral pulses, tachycardia, norml femoral pulses equa Peripheral Pulses: 4+ carotid (R), 4+ carotid (L) Gastrointestinal: normal bowel sounds, soft, non-tender, no organomegaly Back: normal inspection Extremities: normal capillary refill, injury present (left elbow), limited range of motion, swelling, tenderness Neurologic/Psych: no motor/sensory deficits, awake, alert, oriented x 3, automatic thread winder II- XII nml as tested Reflexes: 2+: bicep (R), bicep (L). Skin: intact, normal color Lymphatic: no anterior cervical cl Core Measures ACS in differential dx? No CVA/TIA Diagnosis: No Severe Sepsis Present: No Septic Shock Present: No Progress Differential Diagnoses I considered the following diagnoses in my evaluation of the patient: COPD exacerbation left elbow fracture Plan of Care: Orders Procedure Date/time Status Durable Medical Equipment 07/06 0842 Active TROPONIN LEVEL 07/06 075 Complete THEOPHYLLINE 07/06 0754 Complete MAGNESIUM 07/06 0754 Complete COMPREHENSIVE METABOLIC PANEL 07/06 0754 Complete CBC WITHOUT DIFFERENTIAL 07/06 075 Complete EKG 07/06 0720 Active Laboratory Tests 07/06/16 0804: Anion Gap 12, Estimated GFR > 60, BUN/Creatinine Ratio 18.6, Glucose 150 H, Calcium 9.2, Magnesium 1.1 L, Total Bilirubin 0.5, AST 29, ALT 55 H, Alkaline Phosphatase 193 H, Troponin I < 0.01, Total Protein 6.1 L, Albumin 3.5, Globulin 2.6, Albumin/Globulin Ratio 1.3, CBC w Diff MAN DIFF ORDERED, RBC 3.24 L, MCV 85.6, MCH 27.5, RDW 21.3 H, MPV 6.7 L, Gran % 76.3 H, Lymphocytes % 14.6 L, Monocytes % 8.4, Eosinophils % 0.5, Basophils % 0.2, Absolute Granulocytes 18.6 H, Absolute Lymphocytes 3.6 H, Absolute Monocytes 2.0 H, Absolute Eosinophils 0.1, Absolute Basophils 0, Polychromasia 1+, Hypochromic- Microcytic 1+, Poikilocytosis 1+, Anisocytosis 1+, PUBS MCHC 32.1 L, Theophylline 4.3 L Diagnostic Imaging: Viewed by Me: Radiology Read. Discussed w/RAD: Radiology Read. Radiology Impression: Minimally distracted olecranon fracture with what appears to be a small fracture fragment off of the coronoid process. Initial ED EKG: normal axis, normal intervals, normal p-waves, normal QRS complex, normal sinus rhythm, nonspecific ST T wave chg Prior EKG: unchanged Rhythm Strip: normal sinus rhythm Departure Departure Time of Disposition: 940 Disposition: HOME OR SELF CARE Condition: Stable Clinical Impression Primary Impression: Closed olecranon fracture Qualifiers: Encounter type: initial encounter Laterality: left Qualified Code: S52.022A - Displaced fracture of olecranon process without intraarticular extension of left ulna, initial encounter for closed fracture Secondary Impressions: COPD exacerbation, Hypokalemia, Hypomagnesemia Referrals: DENISE REDDY MD (PCP/Family) Departure Forms: Customer Survey General Discharge Information Procedures Splinting Location: L arm Hand-Made Type: orthoglass Splint: posterior long arm Splint Applied By: splint applied by me Pre-Proc Neuro Vasc Exam: normal Post-Proc Neuro Vasc Exam: normal Critical Care Note Critical Care Note Critical Care Time: non-applicable
[2016-07-07] MEDS ORDERED: DEEP SEA44 ML NASB (06:03)
[2016-07-07] MEDS ORDERED: MUCINEX600 M1 PO (06:05)
[2016-07-07] MEDS ORDERED: FLEET ENEMA133 ML RC (06:09)
[2016-07-07] MEDS ORDERED: BISACODYL10 M1 RC (06:09)
[2016-07-07] MEDS ORDERED: ACETAMINOPHEN650 M3 PR (06:11)
[2016-07-07] MEDS ORDERED: ALBUTEROL2.5 MG/0.5 INH/SOL (06:12)
[2016-07-07] MEDS ORDERED: CYCLOBENZAPRINE10 M1 PO (06:15)
[2016-07-07] MEDS ORDERED: XANAX1 M1 PO (06:16)
[2016-07-07] MEDS ORDERED: TUMS200 MG PO (06:17)
[2016-10-17] MEDS ORDERED: ZITHROMAX250 M2 PO (15:15)
== END 2016-07-06 09:56 ==
LOC: ERH 07:14
PROVIDERS: Emergency Medicine
DX: S52.022A Displaced fracture of olecranon process without intraarticular extension of left ulna, initial encounter for closed fracture (principal); J44.1 Chronic obstructive pulmonary disease with (acute) exacerbation; E87.6 Hypokalemia; E83.42 Hypomagnesemia; Z87.891 Personal history of nicotine dependence; W19.XXXA Unspecified fall, initial encounter; Y93.9 Activity, unspecified
CPT/HCPCS: 1263; 73080-LT; 93005; 93010

== ENCOUNTER 2016-07-07 05:14 | Emergency (ER) | payer OTHER ==
[~2016-07-07] VITALS: Ht 147.3 cm; Wt 2.4 kg
[2016-07-07 05:17] VITALS: BP 174/88
--- NOTE | 2016-07-07 05:25 | ED GENERAL ADULT ---
History of Present Illness General Chief Complaint: General Adult Stated Complaint: SOB, GENERALIZED PAIN Source: patient, W10 Exam Limitations: no limitations Vital Signs & Intake/Output Vital Signs & Intake/Output Vital Signs Date Time Temp Pulse Resp B/P Pulse O2 O2 Flow FiO2 Ox Delivery Rate 07/07 641 96 Nasal 4.0L Cannula 07/07 520 98 Nasal 3.5L Cannula 07/07 516 97.5 135 26 174/88 99 Nasal 3.5L Cannula Allergies Coded Allergies: cat dander (UNKNOWN REACTION TO 'PET HAIR/DANDER' 07/07/16) ipratropium (From ATROVENT) ("IT'S TOO MUCH DR TRUONG SAID" 07/07/16) Reconcile Medications Acetaminophen 325 MG TABLET 2 TAB PO Q4H PRN PAIN/TEMP>/100 (Reported) Acetaminophen (Acetaminophen ER) 650 MG TABLET.ER 650 MG WA Q4H PRN PAIN, TEMP >100 (Reported) Albuterol Sulfate 2.5 MG/0.5 ML VIAL.NEB 1 Vial INH/ANASTASIIA Q6 SOB (Reported) Alendronate Sodium 70 MG TABLET 1 TAB PO QWED BONES (Reported) in the morning, at least 30 minutes before the first food, beverage, or medication of the day Alprazolam (Xanax) 1 MG TABLET 1 TAB PO TIDPRN PRN DISTRESS (Reported) Amlodipine Besylate 10 MG TABLET 1 TAB PO DAILY HTN (Reported) Aspirin (Aspirin*) 81 MG TAB.CHEW 1 TAB PO DAILY HEART HEALTH (Reported) Bisacodyl 10 MG SUPP.RECT 1 SUP RC DAILY CONSTIPATION (Reported) Budesonide/Formoterol Fumarate (Symbicort 160-4.5 Mcg Inhaler) 160 MCG-4.5 MCG/ ACTUATION HFA.AER.AD 2 PUF INH BID BREATHING PROBLEMS (Reported) Calcium Carbonate (TUMS) 200 MG CALCIUM (500 MG) TAB.CHEW 1,000 MG PO Q4 PRN STOMACH UPSET (Reported) Cyclobenzaprine HCl 10 MG TABLET 1 TAB PO Q8H PRN MUSCLE SPASMS (Reported) Diltiazem HCl (Cardizem Cd) 120 MG CAP.ER.24H 1 TAB PO DAILY HEART RATE Gabapentin (Neurontin) 100 MG CAPSULE 1 CAP PO DAILY PAIN (Reported) Guaifenesin (Mucus Relief) 400 MG TABLET 1 TAB PO Q8 MUCUS (Reported) Hydralazine HCl 10 MG TABLET 1 TAB PO TID BP (Reported) Magnesium Hydroxide (Milk Of Magnesia) 400 MG/5 ML ORAL.SUSP 30 ML PO DAILY PRN CONSTIPATION (Reported) Methadone HCl 10 MG/ML ORAL.CONC 35 MG PO DAILY MAINTENCE (Reported) Mirtazapine 15 MG TABLET 1 TAB PO QPM DEPRESSION (Reported) Na Phos,M-B/Na Phos,Di-Ba (Fleet Enema) 19 GRAM-7 GRAM/118 ML ENEMA 1 E RC ONCE CONSTIPATION (Reported) Prednisone 10 MG TABLET 1 TAB PO DAILY COPD (Reported) continue after finishing prednisone taper Sodium Chloride ([place]) 0.65 % SPRAY 2 SPRAY NASB DAILY (Reported) Theophylline Anhydrous 200 MG TAB.ER.12H 1 TAB PO DAILY COPD (Reported) Tiotropium [place] (Spiriva) 18 MCG CAP.W.DEV 1 CAP INH DAILY BREATHING PROBLEMS (Reported) Triage Note: TRIAGE: BIBA FROM [facility] W/ INC SOB (HX COPD) AND GENERALIZED BODY PAIN, SEEN HERE YESTERDAY FOR A FALL W/ GENERALIZED PAIN. PATIENT NOTED W/ KEY BED INSTALLER JUNKY COUGH IN TRIAGE. PATIENT REPORTS "PAIN ALL OVER AND THE COUGH IS PAINFUL." AFEBRILE. PATIENT REQUESTING "XANAX FOR THE PAIN." Triage Nurses Notes Reviewed? yes Onset: Gradual Duration: day(s): Timing: recent history Injury Environment: at [facility] Severity: moderate Modifying Factors: Improves With: medication. Worsens With: movement. Associated Symptoms: left elbow pain HPI: 60 yo woman home 02, h/o copd, presents with left elow pain. She notes that she was here yesterday for left elbow pain, was found to have a mild fracture, was splinted. She comes today for pain control. "I am on methadone, but they don't give me anything at the [facility]." She notes that the splint is not too tight. Her fingers are not numb. She is otherwise well. Past History Travel History Traveled to [place] past 21 day No Medical History Any Pertinent Medical History? 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 No Review of Systems Review of Systems Constitutional: Reports: no symptoms. EENTM: Reports: no symptoms. Respiratory: Reports: no symptoms. Cardiovascular: Reports: no symptoms. GI: Reports: no symptoms. Genitourinary: Reports: no symptoms. Musculoskeletal: Reports: no symptoms. Skin: Reports: no symptoms. Neurological/Psychological: Reports: no symptoms. Hematologic/Endocrine: Reports: no symptoms. Immunologic/Allergic: Reports: no symptoms. All Other Systems: Reviewed and Negative Physical Exam Physical Exam General Appearance: well developed/nourished, mild distress Head: atraumatic, normal appearance Eyes: Bilateral: normal appearance. Ears, Nose, Throat: normal pharynx, normal ENT inspection Neck: normal inspection, supple, full range of motion Respiratory: normal breath sounds, chest non-tender, no respiratory distress, quiet respiration, lungs clear Cardiovascular: regular rate/rhythm Gastrointestinal: normal bowel sounds, soft, non-tender, no organomegaly Back: normal inspection Extremities: left elbow in posterior splint. 2+ distal pulse, pt able to move fingers well, Neurologic/Psych: no motor/sensory deficits, awake, alert, oriented x 3 Skin: intact, normal color, warm/dry Core Measures ACS in differential dx? No CVA/TIA Diagnosis: No Severe Sepsis Present: No Septic Shock Present: No Progress Differential Diagnoses I considered the following diagnoses in my evaluation of the patient: Plan of Care: Orders Procedure Date/time Status EKG 07/07 0531 Active Diagnostic Imaging: Viewed by Me: Radiology Read. Discussed w/RAD: Radiology Read. Radiology Impression: LEFT ELBOW... SMALL FX.. FULL REPORT BELOW. Initial ED EKG: none Comments: PATIENT: GHASSAN FRIEDMAN PRESENT AGE: 60 PATIENT ACCOUNT NO: [id number] : 53 LOCATION: [facility] ORDERING PHYSICIAN: PATRICIO LUNA MD SERVICE DATE: 07/06/16 EXAM TYPE: RAD - XRY-ELBOW 3 OR MORE VIEWS, L EXAMINATION: XR ELBOW, LEFT CLINICAL INFORMATION: Fall left elbow pain and ecchymosis. COMPARISON: None TECHNIQUE: AP, lateral, and oblique views of the left elbow. FINDINGS: There is a minimally displaced olecranon fracture with distraction of major fracture fragments by approximately 2 mm. There is also a small nondisplaced 1 mm fracture of the coronoid process. Elbow effusion is present. No dislocation is seen. IMPRESSION: Minimally distracted olecranon fracture with what appears to be a small fracture fragment off of the coronoid process. DICTATED BY: GERARDO FIGUEROA MD DATE/TIME DICTATED:07/06/16806 APPLICATIONS ENGINEER MANUFACTURING:MARY DATE/TIME TRANSCRIBED:07/06/16806 CONFIDENTIAL, DO NOT COPY WITHOUT APPROPRIATE AUTHORIZATION. <Electronically signed in Other Vendor System> SIGNED BY: GERARDO FIGUEROA MD 07/06/16819 Departure Departure Disposition: HOME OR SELF CARE Condition: Stable Clinical Impression Primary Impression: Chronic pain Secondary Impressions: Left elbow fracture Referrals: DENISE REDDY MD (PCP/Family) Departure Forms: Customer Survey General Discharge Information Comments pt with benign exam. gave her methadone/xanax which she is written for at the [facility]. Critical Care Note Critical Care Note Critical Care Time: non-applicable
[2016-07-07] MEDS ORDERED: DEEP SEA44 ML NASB (06:03)
[2016-07-07] MEDS ORDERED: MUCINEX600 M1 PO (06:05)
[2016-07-07] MEDS ORDERED: BISACODYL10 M1 RC (06:09)
[2016-07-07] MEDS ORDERED: FLEET ENEMA133 ML RC (06:09)
[2016-07-07] MEDS ORDERED: ACETAMINOPHEN650 M3 PR (06:11)
[2016-07-07] MEDS ORDERED: ALBUTEROL2.5 MG/0.5 INH/SOL (06:12)
[2016-07-07] MEDS ORDERED: CYCLOBENZAPRINE10 M1 PO (06:15)
[2016-07-07] MEDS ORDERED: XANAX1 M1 PO (06:16)
[2016-07-07] MEDS ORDERED: TUMS200 MG PO (06:17)
[2016-10-17] MEDS ORDERED: ZITHROMAX250 M2 PO (15:15)
== END 2016-07-07 07:06 ==
LOC: ERH 05:14
DX: G89.29 Other chronic pain (principal); S52.022D Displaced fracture of olecranon process without intraarticular extension of left ulna, subsequent encounter for closed fracture with routine healing; R06.02 Shortness of breath
CPT/HCPCS: 1263; 93005; 93010

== ENCOUNTER 2016-07-21 01:11 | Emergency (ER) | payer OTHER ==
[~2016-07-21] VITALS: Ht 152.4 cm; Wt 49.9 kg
[~2016-07-21 01:11] MED LIST changes: +ACETAMINOPHEN650 M3 PR; +ALBUTEROL2.5 MG/0.5 INH/SOL; +DEEP SEA44 ML NASB; +MUCINEX600 M1 PO; +TUMS200 MG PO
--- NOTE | 2016-07-21 01:19 | ED GENERAL ADULT ---
History of Present Illness General Chief Complaint: General Adult Stated Complaint: BIBA ENTIRE BODY PAIN W/ SOB HX COPD Source: patient, old records, EMS Exam Limitations: no limitations Vital Signs & Intake/Output Vital Signs & Intake/Output Vital Signs Date Time Temp Pulse Resp B/P Pulse O2 O2 Flow FiO2 Ox Delivery Rate 07/21 0241 98.8 119 22 156/83 100 Nasal 4.0L Cannula 07/21 0224 98 Nasal 4.0L Cannula 07/21 0141 Nasal 4.0L Cannula 07/21 011 98.3 106 22 157/82 99 Nasal 4.0L Cannula Allergies Coded Allergies: cat dander (UNKNOWN REACTION TO 'PET HAIR/DANDER' 07/07/16) ipratropium (From ATROVENT) ("IT'S TOO MUCH DR TRUONG SAID" 07/07/16) Reconcile Medications Acetaminophen 325 MG TABLET 2 TAB PO Q4H PRN PAIN/TEMP>/100 (Reported) Acetaminophen (Acetaminophen ER) 650 MG TABLET.ER 650 MG DC Q4H PRN PAIN, TEMP >100 (Reported) Albuterol Sulfate 2.5 MG/0.5 ML VIAL.NEB 1 Vial INH/ANASTASIIA Q6 SOB (Reported) Alendronate Sodium 70 MG TABLET 1 TAB PO QWED BONES (Reported) in the morning, at least 30 minutes before the first food, beverage, or medication of the day Alprazolam (Xanax) 1 MG TABLET 1 TAB PO TIDPRN PRN DISTRESS (Reported) Amlodipine Besylate 10 MG TABLET 1 TAB PO DAILY HTN (Reported) Aspirin (Aspirin*) 81 MG TAB.CHEW 1 TAB PO DAILY HEART HEALTH (Reported) Bisacodyl 10 MG SUPP.RECT 1 SUP RC DAILY CONSTIPATION (Reported) Budesonide/Formoterol Fumarate (Symbicort 160-4.5 Mcg Inhaler) 160 MCG-4.5 MCG/ ACTUATION HFA.AER.AD 2 PUF INH BID BREATHING PROBLEMS (Reported) Calcium Carbonate (TUMS) 200 MG CALCIUM (500 MG) TAB.CHEW 1,000 MG PO Q4 PRN STOMACH UPSET (Reported) Cyclobenzaprine HCl 10 MG TABLET 1 TAB PO Q8H PRN MUSCLE SPASMS (Reported) Diltiazem HCl (Cardizem Cd) 120 MG CAP.ER.24H 1 TAB PO DAILY HEART RATE Gabapentin (Neurontin) 100 MG CAPSULE 1 CAP PO DAILY PAIN (Reported) Guaifenesin (Mucus Relief) 400 MG TABLET 1 TAB PO Q8 MUCUS (Reported) Hydralazine HCl 10 MG TABLET 1 TAB PO TID BP (Reported) Magnesium Hydroxide (Milk Of Magnesia) 400 MG/5 ML ORAL.SUSP 30 ML PO DAILY PRN CONSTIPATION (Reported) Methadone HCl 10 MG/ML ORAL.CONC 35 MG PO DAILY MAINTENCE (Reported) Mirtazapine 15 MG TABLET 1 TAB PO QPM DEPRESSION (Reported) Na Phos,M-B/Na Phos,Di-Ba (Fleet Enema) 19 GRAM-7 GRAM/118 ML ENEMA 1 E RC ONCE CONSTIPATION (Reported) Prednisone 10 MG TABLET 1 TAB PO DAILY COPD (Reported) continue after finishing prednisone taper Sodium Chloride (Deep Sea) 0.65 % SPRAY 2 SPRAY NASB DAILY (Reported) Theophylline Anhydrous 200 MG TAB.ER.12H 1 TAB PO DAILY COPD (Reported) Tiotropium [place] (Spiriva) 18 MCG CAP.W.DEV 1 CAP INH DAILY BREATHING PROBLEMS (Reported) Triage Nurses Notes Reviewed? yes Onset: Gradual Duration: week(s):, waxing and waning Timing: recent history Injury Environment: home Severity: mild, moderate Modifying Factors: Improves With: rest, other (pain meds). Worsens With: movement. Associated Symptoms: back pain... dyspnea HPI: 60 yo woman h/o 02 dependent copd and chronic pain, presents seeking pain medication for her back pain. "I've had back pain for years... the only thing that helps now is dilaudid." She notes no worsening breathing... "I'm okay there... I just need my treatment. " She notes no new injury or sudden increase in pain. She is otherwise well. Past History Travel History Traveled to [place] past 21 day No Medical History Any Pertinent Medical History? 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 History of MRSA: Yes History of VRE: No History of CDIFF: No Influenza Vaccine: 03/04/17 Surgical History Surgical History: colon resection, tubal ligation, colostomy ORIF for right hip fracture Psychosocial History Who do you live with Patient/Self Services at Home Home Health Aide, Nursing, Oxygen What is your primary language Telugu Tobacco Use: Current Daily Use Daily Tobacco Use Amount/Type: => 5 Cigarettes daily Family History Family History, If Any: MOTHER CVA FH: coronary artery disease FH: diabetes mellitus FH: HTN (hypertension) BROTHER FH: diabetes mellitus FATHER FH: alcohol abuse Hx Contributory? No Review of Systems Review of Systems Constitutional: Reports: no symptoms. EENTM: Reports: no symptoms. Respiratory: Reports: no symptoms. Cardiovascular: Reports: no symptoms. GI: Reports: no symptoms. Genitourinary: Reports: no symptoms. Musculoskeletal: Reports: no symptoms. Skin: Reports: no symptoms. Neurological/Psychological: Reports: no symptoms. Hematologic/Endocrine: Reports: no symptoms. Immunologic/Allergic: Reports: no symptoms. All Other Systems: Reviewed and Negative Physical Exam Physical Exam General Appearance: well developed/nourished, mild distress Head: atraumatic, normal appearance Eyes: Bilateral: normal appearance. Ears, Nose, Throat: normal pharynx, normal ENT inspection, hearing grossly normal Neck: normal inspection, supple, full range of motion Respiratory: normal breath sounds, chest non-tender, no respiratory distress, quiet respiration, lungs clear Cardiovascular: regular rate/rhythm Gastrointestinal: normal bowel sounds, soft, non-tender, no organomegaly Back: normal inspection, normal range of motion Extremities: normal inspection, normal capillary refill, normal range of motion, no edema Neurologic/Psych: no motor/sensory deficits, awake, alert, oriented x 3 Skin: intact, normal color, warm/dry Core Measures ACS in differential dx? No CVA/TIA Diagnosis: No Severe Sepsis Present: No Septic Shock Present: No Progress Differential Diagnoses I considered the following diagnoses in my evaluation of the patient: chronic pain, copd vs other. Plan of Care: Current Medications Sig/Freddie Start time Last Medication Dose Stop Time Status Admin Ipratropium [place] 2.5 ML ONCE ONE 07/21 199 CAN (Atrovent) 07/21 200 Initial ED EKG: none Departure Departure Disposition: HOME OR SELF CARE Condition: Stable Clinical Impression Primary Impression: Chronic pain Secondary Impressions: COPD (chronic obstructive pulmonary disease) Referrals: DAISHA MIRELES,DENISE. (PCP/Family) Departure Forms: Customer Survey General Discharge Information Comments pt feels better after dilaudid and breathing treatment... she is safe for discharge. Critical Care Note Critical Care Note Critical Care Time: non-applicable
[2016-07-21 02:41] VITALS: BP 156/83
[2016-10-17] MEDS ORDERED: ZITHROMAX250 M2 PO (15:15)
== END 2016-07-21 02:44 ==
LOC: ERH 01:11
DX: G89.29 Other chronic pain (principal); J44.9 Chronic obstructive pulmonary disease, unspecified; Z72.0 Tobacco use
CPT/HCPCS: 1263; 96372

== ENCOUNTER 2016-08-10 05:46 | Emergency (ER) | payer OTHER ==
[~2016-08-10] VITALS: Ht 152.4 cm; Wt 40.8 kg
--- NOTE | 2016-08-10 06:37 | ED GENERAL ADULT ---
History of Present Illness General Chief Complaint: Abdominal Pain/Flank Pain Stated Complaint: ABD PAIN,DIFF BREATHING Source: patient, old records, EMS Exam Limitations: no limitations Vital Signs & Intake/Output Vital Signs & Intake/Output Vital Signs Date Time Temp Pulse Resp B/P Pulse O2 O2 Flow FiO2 Ox Delivery Rate 08/10 953 97.0 100 16 161/82 97 Nasal 4.0L Cannula 08/10 830 96.8 101 18 204/90 08/10 830 96.8 101 18 204/90 08/10 0800 101 18 204 99 Room Air 08/10 621 Nasal 4.0L Cannula 08/10 554 95 Nasal 4.0L Cannula 08/10 550 96.8 103 18 185/93 95 Nasal 4.0L Cannula Allergies Coded Allergies: cat dander (UNKNOWN REACTION TO 'PET HAIR/DANDER' 07/07/16) ipratropium (From ATROVENT) ("IT'S TOO MUCH DR TRUONG SAID" 07/07/16) Core Measure Meds Pre-Hospital aspirin Triage Note: PT BIBA FROM HOME C/O 12/11 ABD PAIN, +N/-V. PT ALSO C/O SOB. HX:COPD, BASELINE 4 L NC SATTING 95% ON ARRIVAL. Triage Nurses Notes Reviewed? yes Onset: Last week Duration: day(s):, continues in ED Timing: recent history Severity: moderate No Modifying Factors: none LMP (ages 10-50): post menopausal : No Patient currently breastfeeds: No HPI: 1 week prior to admission patient complains of loss of appetite generalized abdominal pain described as achy mild to moderate in severity nonradiating. She also complains of episodic shortness of breath nasal congestion loss of taste. She has had no fever chills vomiting chest pain headache dysuria rash bleeding. She also reports being tapered off prednisone. (CHERYL MIRELES,PATRICIO) Reconcile Medications Acetaminophen 325 MG TABLET 2 TAB PO Q4H PRN PAIN/TEMP>/100 (Reported) Acetaminophen (Acetaminophen ER) 650 MG TABLET.ER 650 MG [place] Q4H PRN PAIN, TEMP >100 (Reported) Albuterol Sulfate 2.5 MG/0.5 ML VIAL.NEB 1 Vial INH/ANASTASIIA Q6 SOB (Reported) Alendronate Sodium 70 MG TABLET 1 TAB PO QWED BONES (Reported) in the morning, at least 30 minutes before the first food, beverage, or medication of the day Alprazolam (Xanax) 1 MG TABLET 1 TAB PO TIDPRN PRN DISTRESS (Reported) Amlodipine Besylate 10 MG TABLET 1 TAB PO DAILY HTN (Reported) Aspirin (Aspirin*) 81 MG TAB.CHEW 1 TAB PO DAILY HEART HEALTH (Reported) Bisacodyl 10 MG SUPP.RECT 1 SUP RC DAILY CONSTIPATION (Reported) Budesonide/Formoterol Fumarate (Symbicort 160-4.5 Mcg Inhaler) 160 MCG-4.5 MCG/ ACTUATION HFA.AER.AD 2 PUF INH BID BREATHING PROBLEMS (Reported) Calcium Carbonate (TUMS) 200 MG CALCIUM (500 MG) TAB.CHEW 1,000 MG PO Q4 PRN STOMACH UPSET (Reported) Cyclobenzaprine HCl 10 MG TABLET 1 TAB PO Q8H PRN MUSCLE SPASMS (Reported) Diltiazem HCl (Cardizem Cd) 120 MG CAP.ER.24H 1 TAB PO DAILY HEART RATE Gabapentin (Neurontin) 100 MG CAPSULE 1 CAP PO DAILY PAIN (Reported) Guaifenesin (Mucus Relief) 400 MG TABLET 1 TAB PO Q8 MUCUS (Reported) Hydralazine HCl 10 MG TABLET 1 TAB PO TID BP (Reported) Magnesium Hydroxide (Milk Of Magnesia) 400 MG/5 ML ORAL.SUSP 30 ML PO DAILY PRN CONSTIPATION (Reported) Methadone HCl 10 MG/ML ORAL.CONC 35 MG PO DAILY MAINTENCE (Reported) Methylprednisolone. (Medrol) 4 MG TAB.DS.PK 1 DP PO AD INFLAMMATION 6 on day 1 then reduce by one tablet daily until gone Mirtazapine 15 MG TABLET 1 TAB PO QPM DEPRESSION (Reported) Na Phos,M-B/Na Phos,Di-Ba (Fleet Enema) 19 GRAM-7 GRAM/118 ML ENEMA 1 E RC ONCE CONSTIPATION (Reported) Prednisone 10 MG TABLET 1 TAB PO DAILY COPD (Reported) continue after finishing prednisone taper Sodium Chloride (Deep Sea) 0.65 % SPRAY 2 SPRAY NASB DAILY (Reported) Theophylline Anhydrous 200 MG TAB.ER.12H 1 TAB PO DAILY COPD (Reported) Tiotropium [place] (Spiriva) 18 MCG CAP.W.DEV 1 CAP INH DAILY BREATHING PROBLEMS (Reported) (FRANKY MIRELES,FLAVIA) Past History Travel History Traveled to [place] past 21 day No Medical History Any Pertinent Medical History? 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 ANALYST/Reproductive: stress incontinence History of MRSA: Yes History of VRE: No History of CDIFF: No Surgical History Surgical History: colon resection, tubal ligation, colostomy ORIF for right hip fracture Psychosocial History Who do you live with Patient/Self Services at Home Home Health Aide, Nursing, Oxygen What is your primary language [place] Tobacco Use: Quit >30 days ago ETOH Use: denies use Family History Family History, If Any: MOTHER CVA FH: coronary artery disease FH: diabetes mellitus FH: HTN (hypertension) BROTHER FH: diabetes mellitus FATHER FH: alcohol abuse Hx Contributory? No (PATRICIO LUNA MD) Review of Systems Review of Systems Constitutional: Reports: see HPI, weakness. EENTM: Reports: no symptoms. Respiratory: Reports: see HPI, cough, short of breath. Cardiovascular: Reports: no symptoms. GI: Reports: see HPI, abdominal pain. Genitourinary: Reports: no symptoms. Musculoskeletal: Reports: no symptoms. Skin: Reports: no symptoms. Neurological/Psychological: Reports: no symptoms. Hematologic/Endocrine: Reports: no symptoms. Immunologic/Allergic: Reports: no symptoms. All Other Systems: Reviewed and Negative (PATRICIO LUNA MD) Physical Exam Physical Exam General Appearance: alert, awake, anxious, mild distress, cachectic Head: atraumatic, normal appearance Eyes: Bilateral: normal appearance, PERRL, EOMI. Ears, Nose, Throat: hearing grossly normal, dry mucous membranes Neck: normal inspection, supple, full range of motion, no midline tenderness Respiratory: chest non-tender, decreased breath sounds, rhonchi Cardiovascular: regular rate/rhythm, normal peripheral pulses, norml femoral pulses equa Peripheral Pulses: 4+ carotid (R), 4+ carotid (L) Gastrointestinal: normal bowel sounds, soft, non-tender, no organomegaly, chronic ostomy herniation without evidence of infection Back: normal inspection, normal range of motion Extremities: normal capillary refill, no edema, no ligament instability Neurologic/Psych: no motor/sensory deficits, awake, alert, oriented x 3, normal mood/affect, data operations director II-XII nml as tested Reflexes: 2+: bicep (R), bicep (L). Skin: intact, normal color, warm/dry Lymphatic: no anterior cervical cl Core Measures ACS in differential dx? No CVA/TIA Diagnosis: No Severe Sepsis Present: No Septic Shock Present: No (PATRICIO LUNA MD) Progress Differential Diagnoses I considered the following diagnoses in my evaluation of the patient: Pneumonia COPD exacerbation steroid dependence Plan of Care: Orders Procedure Date/time Status CASE MANAGEMENT CONSULT 08/10 1013 Active LIPASE 08/11 623 Complete COMPREHENSIVE METABOLIC PANEL 08/11 623 Complete CBC WITHOUT DIFFERENTIAL 08/11 623 Complete Laboratory Tests 08/10/16 0645: Anion Gap 7, Estimated GFR > 60, BUN/Creatinine Ratio 10.0, Glucose 107 H, Calcium 8.3 L, Total Bilirubin 0.8, AST 111 H, ALT 66 H, Alkaline Phosphatase 185 H, Total Protein 6.7, Albumin 3.7, Globulin 3.0, Albumin/Globulin Ratio 1.2 , Lipase 18 L, CBC w Diff NO MAN DIFF REQ, RBC 3.66 L, MCV 85.4, MCH 27.6, RDW 16.9 H, MPV 5.9 L, Gran % 71.8, Lymphocytes % 17.5 L, Monocytes % 8.7, Eosinophils % 1.2, Basophils % 0.8, Absolute Granulocytes 5.2, Absolute Lymphocytes 1.3, Absolute Monocytes 0.6, Absolute Eosinophils 0.1, Absolute Basophils 0.1, PUBS MCHC 32.3 L 7:10 AM Patient signed out to me by Dr. Luna. Pending labs, reevaluation. 12:[address] scan is negative for acute pathology. Patient was medicated with her a.m. meds and felt better. On services had been set up by care from case management. At this point she is stable for transport home. (FLAVIA WILKINS MD) Diagnostic Imaging: Viewed by Me: Radiology Read. Discussed w/RAD: Radiology Read. Initial ED EKG: none Hand-Off Endorsed To: FLAVIA WILKINS MD Endorsed Time: 0700 Pending: labs, Xray (PATRICIO LUNA MD) Differential Diagnoses I considered the following diagnoses in my evaluation of the patient: Diagnostic Imaging: Viewed by Me: CT Scan. Discussed w/RAD: CT Scan. Radiology Impression: PATIENT: GHASSAN FRIEDMAN PRESENT AGE: 60 PATIENT ACCOUNT NO: [id number] : 53 LOCATION: [facility] ORDERING PHYSICIAN: FLAVIA WILKINS MD SERVICE DATE: 08/10/16 EXAM TYPE: CAT - CT ABD & PELVIS W/O IV CONTRAS EXAMINATION: CT ABDOMEN AND PELVIS WITHOUT CONTRAST CLINICAL INFORMATION: Abdominal pain. Steroid dependent. COMPARISON: None TECHNIQUE: Multidetector volumetric imaging was performed from the superior aspect of the liver through the pubic symphysis. Sagittal and coronal reformatted images were obtained on the technologist's workstation. No oral or intravenous contrast. DLP: 199 mGy-cm FINDINGS: LUNG BASES: Linear scar left posterior lateral base. No infiltrate or effusion. LIVER, GALLBLADDER, AND BILIARY TREE: The liver is normal in size, shape, and attenuation. No focal hepatic lesion or biliary ductal dilatation is present. There is a small stone in the gallbladder best seen coronal image 32. No gallbladder dilatation, wall thickening, or pericholecystic inflammatory changes. Common duct unremarkable. PANCREAS: Unremarkable. SPLEEN: Unremarkable. ADRENAL GLANDS: Unremarkable. KIDNEYS AND URETERS: The kidneys are normal in size, shape, and attenuation. No hydronephrosis, hydroureter, or calculi seen. No perinephric stranding. BLADDER: Unremarkable. GASTROINTESTINAL TRACT: There is transverse colon colostomy left lower quadrant with decompressed Kassi pouch and pelvis. Stool is present in the ascending and transverse colon. There is no gaseous dilatation of bowel or inflammatory changes in the bowel or adjacent mesentery. The appendix is normal. There is no ascites or fluid collection. ABDOMINAL WALL: Parastomal hernia containing mesenteric fat and small bowel. No strangulation or proximal obstruction. LYMPH NODES: No lymphadenopathy. VASCULAR: Unremarkable. PELVIC VISCERA: No adnexal mass or pelvic ascites. OSSEOUS STRUCTURES: No acute bony abnormality. Again, there are compression deformities T12 and L1, hardware left hip, old healed fractures left pubic rami, and variable demineralization femoral head suggesting avascular necrosis. IMPRESSION: 1. Cholelithiasis. No gallbladder dilatation, wall thickening, pericholecystic inflammatory changes, or biliary ductal dilatation. 2. Transverse colon colostomy left lower quadrant with stool within ascending and transverse colon. No bowel dilatation. 3. Chronic parastomal hernia containing mesenteric fat and small bowel. No strangulation. DICTATED BY: CORBIN HINDS MD DATE/TIME DICTATED:08/10/16842 DEVELOPMENTAL PSYCHOLOGIST:MARY DATE/TIME TRANSCRIBED:08/10/16842 CONFIDENTIAL, DO NOT COPY WITHOUT APPROPRIATE AUTHORIZATION. <Electronically signed in Other Vendor System> SIGNED BY: CORBIN HINDS MD 08/10/16903 (FLAVIA WILKINS MD) Departure Departure Condition: Stable Clinical Impression Primary Impression: COPD exacerbation Secondary Impressions: Abdominal pain Qualifiers: Abdominal location: generalized Qualified Code: R10.84 - Generalized abdominal pain Dehydration syndrome Referrals: DAISHA MIRELES,KANDY Calvillo (PCP/Family) Departure Forms: Customer Survey General Discharge Information (PATRICIO LUNA MD) Departure Time of Disposition: 1249 Disposition: HOME OR SELF CARE Additional Instructions: Follow-up with home care services tomorrow. Continue your regular medications. Prescriptions: Current Visit Scripts Methylprednisolone. (Medrol) 1 DP PO AD #1 DP 6 on day 1 then reduce by one tablet daily until gone (FLAVIA WILKINS MD) Critical Care Note Critical Care Note Critical Care Time: non-applicable (PATRICIO LUNA MD)
[2016-08-10 07:00] LABS: ABSOLUTE BASOPHIL COUNT 0.1 /CUMM (0.0-0.2); ABSOLUTE EOSINOPHIL COUNT 0.1 /CUMM (0.0-0.7); ABSOLUTE GRANULOCYTE CT 5.2 /CUMM (1.4-6.5); ABSOLUTE LYMPH COUNT 1.3 /CUMM (1.2-3.4); ABSOLUTE MONOCYTE COUNT 0.6 /CUMM (0.10-0.60); BASOPHIL % 0.8 % (0.0-2.0); EOSINOPHIL % 1.2 % (0-5); GRANULOCYTE % 71.8 % (42.2-75.2); HEMATOCRIT 31.3 % (37-47); MEAN CORPUSCULAR HGB 27.6 PG (27.0-31.0); MEAN CORPUSCULAR HGB CONC 32.3 G/DL (33.0-37.0); MEAN CORPUSCULAR VOLUME 85.4 FL (81.0-99.0); MEAN PLATELET VOLUME 5.9 FL (7.4-10.4); PLATELET COUNT 338 /CUMM (130-400); RBC DISTRIBUTION WIDTH 16.9 % (11.5-14.5); RED BLOOD CELL CT 3.66 /CUMM (4.20-5.40); WHITE BLOOD CELL COUNT 7.3 /CUMM (4.8-10.8)
--- NOTE | 2016-08-10 07:42 | RADIOLOGY REPORT ---
EXAMINATION: XR PORTABLE CHEST CLINICAL INFORMATION: COPD, shortness of breath, rhonchi COMPARISON: Chest x-ray 06/25/2016. Chest CT 05/31/2016 TECHNIQUE: Portable AP semiupright view of the chest was obtained. FINDINGS: Heart size is upper limits of normal. The aorta is tortuous and unchanged. Pulmonary vascularity is within normal limits. The lungs are normally expanded and grossly clear. There is no pneumothorax or pleural effusion. Multiple bilateral old healed rib fractures with exuberant callus at the fracture similar in appearance to the prior film. There is no definitive acute finding and no change. IMPRESSION: Chest x-ray shows no significant interval change since 06/25/2016 and no definitive acute finding. The lungs are grossly clear. Multiple old bilateral rib fractures with exuberant callus again noted.
--- NOTE | 2016-08-10 09:04 | CT SCAN REPORT ---
EXAMINATION: CT ABDOMEN AND PELVIS WITHOUT CONTRAST CLINICAL INFORMATION: Abdominal pain. Steroid dependent. COMPARISON: None TECHNIQUE: Multidetector volumetric imaging was performed from the superior aspect of the liver through the pubic symphysis. Sagittal and coronal reformatted images were obtained on the technologist's workstation. No oral or intravenous contrast. DLP: 199 mGy-cm FINDINGS: LUNG BASES: Linear scar left posterior lateral base. No infiltrate or effusion. LIVER, GALLBLADDER, AND BILIARY TREE: The liver is normal in size, shape, and attenuation. No focal hepatic lesion or biliary ductal dilatation is present. There is a small stone in the gallbladder best seen coronal image 32. No gallbladder dilatation, wall thickening, or pericholecystic inflammatory changes. Common duct unremarkable. PANCREAS: Unremarkable. SPLEEN: Unremarkable. ADRENAL GLANDS: Unremarkable. KIDNEYS AND URETERS: The kidneys are normal in size, shape, and attenuation. No hydronephrosis, hydroureter, or calculi seen. No perinephric stranding. BLADDER: Unremarkable. GASTROINTESTINAL TRACT: There is transverse colon colostomy left lower quadrant with decompressed Kassi pouch and pelvis. Stool is present in the ascending and transverse colon. There is no gaseous dilatation of bowel or inflammatory changes in the bowel or adjacent mesentery. The appendix is normal. There is no ascites or fluid collection. ABDOMINAL WALL: Parastomal hernia containing mesenteric fat and small bowel. No strangulation or proximal obstruction. LYMPH NODES: No lymphadenopathy. VASCULAR: Unremarkable. PELVIC VISCERA: No adnexal mass or pelvic ascites. OSSEOUS STRUCTURES: No acute bony abnormality. Again, there are compression deformities T12 and L1, hardware left hip, old healed fractures left pubic rami, and variable demineralization femoral head suggesting avascular necrosis. IMPRESSION: 1. Cholelithiasis. No gallbladder dilatation, wall thickening, pericholecystic inflammatory changes, or biliary ductal dilatation. 2. Transverse colon colostomy left lower quadrant with stool within ascending and transverse colon. No bowel dilatation. 3. Chronic parastomal hernia containing mesenteric fat and small bowel. No strangulation.
[2016-08-10 09:54] VITALS: BP 161/82
[2016-08-10] MEDS ORDERED: MEDROL4 M2 PO (13:05)
[2016-10-17] MEDS ORDERED: ZITHROMAX250 M2 PO (15:15)
== END 2016-08-10 13:05 ==
LOC: ERH 05:46
PROVIDERS: Emergency Medicine
DX: E86.0 Dehydration (principal); R10.84 Generalized abdominal pain; Z87.891 Personal history of nicotine dependence; J44.1 Chronic obstructive pulmonary disease with (acute) exacerbation
CPT/HCPCS: 1263; 36415; 74176; 96374; J2930

== ENCOUNTER 2016-08-10 20:03 | Emergency (ER) | payer OTHER ==
[~2016-08-10 20:03] MED LIST changes: +MEDROL4 M2 PO
--- NOTE | 2016-08-10 20:08 | ED DYSPNEA/ASTHMA COMPLAINT ---
History of Present Illness General Chief Complaint: Dyspnea (COPD, CHF, Other) Stated Complaint: DIFFICULTY BREATHING Source: patient Exam Limitations: no limitations Vital Signs & Intake/Output Vital Signs & Intake/Output Vital Signs Date Time Temp Pulse Resp B/P Pulse O2 O2 Flow FiO2 Ox Delivery Rate 08/11 2055 98.9 94 20 150/90 100 Nasal 4.0L Cannula 08/10 2008 100 Nasal 4.0L Cannula 08/10 2008 98.5 109 20 133/95 100 Nasal 4.0L Cannula ED Intake and Output 08/11 0000 08/10 1200 Intake Total Output Total Balance Patient 79 lb 15.99 oz Weight Allergies Coded Allergies: cat dander (UNKNOWN REACTION TO 'PET HAIR/DANDER' 07/07/16) ipratropium (From ATROVENT) ("IT'S TOO MUCH DR TRUONG SAID" 07/07/16) Reconcile Medications Acetaminophen 325 MG TABLET 2 TAB PO Q4H PRN PAIN/TEMP>/100 (Reported) Acetaminophen (Acetaminophen ER) 650 MG TABLET.ER 650 MG SD Q4H PRN PAIN, TEMP >100 (Reported) Albuterol Sulfate 2.5 MG/0.5 ML VIAL.NEB 1 Vial INH/ANASTASIIA Q6 SOB (Reported) Alendronate Sodium 70 MG TABLET 1 TAB PO QWED BONES (Reported) in the morning, at least 30 minutes before the first food, beverage, or medication of the day Alprazolam (Xanax) 1 MG TABLET 1 TAB PO TIDPRN PRN DISTRESS (Reported) Amlodipine Besylate 10 MG TABLET 1 TAB PO DAILY HTN (Reported) Aspirin (Aspirin*) 81 MG TAB.CHEW 1 TAB PO DAILY HEART HEALTH (Reported) Bisacodyl 10 MG SUPP.RECT 1 SUP RC DAILY CONSTIPATION (Reported) Budesonide/Formoterol Fumarate (Symbicort 160-4.5 Mcg Inhaler) 160 MCG-4.5 MCG/ ACTUATION HFA.AER.AD 2 PUF INH BID BREATHING PROBLEMS (Reported) Calcium Carbonate (TUMS) 200 MG CALCIUM (500 MG) TAB.CHEW 1,000 MG PO Q4 PRN STOMACH UPSET (Reported) Cyclobenzaprine HCl 10 MG TABLET 1 TAB PO Q8H PRN MUSCLE SPASMS (Reported) Diltiazem HCl (Cardizem Cd) 120 MG CAP.ER.24H 1 TAB PO DAILY HEART RATE Gabapentin (Neurontin) 100 MG CAPSULE 1 CAP PO DAILY PAIN (Reported) Guaifenesin (Mucus Relief) 400 MG TABLET 1 TAB PO Q8 MUCUS (Reported) Hydralazine HCl 10 MG TABLET 1 TAB PO TID BP (Reported) Magnesium Hydroxide (Milk Of Magnesia) 400 MG/5 ML ORAL.SUSP 30 ML PO DAILY PRN CONSTIPATION (Reported) Methadone HCl 10 MG/ML ORAL.CONC 35 MG PO DAILY MAINTENCE (Reported) Methylprednisolone. (Medrol) 4 MG TAB.DS.PK 1 DP PO AD INFLAMMATION 6 on day 1 then reduce by one tablet daily until gone Mirtazapine 15 MG TABLET 1 TAB PO QPM DEPRESSION (Reported) Na Phos,M-B/Na Phos,Di-Ba (Fleet Enema) 19 GRAM-7 GRAM/118 ML ENEMA 1 E RC ONCE CONSTIPATION (Reported) Prednisone 10 MG TABLET 1 TAB PO DAILY COPD (Reported) continue after finishing prednisone taper Sodium Chloride (Deep Sea) 0.65 % SPRAY 2 SPRAY NASB DAILY (Reported) Theophylline Anhydrous 200 MG TAB.ER.12H 1 TAB PO DAILY COPD (Reported) Tiotropium [place] (Spiriva) 18 MCG CAP.W.DEV 1 CAP INH DAILY BREATHING PROBLEMS (Reported) Triage Nurses Notes Reviewed? yes Onset: Gradual Duration: day(s): Timing: recent history Severity: mild Activities at Onset: none Prior Episodes/Possible Cause: frequent episodes Modifying Factors: Improves With: rest. Associated Symptoms: cough, wheezing HPI: 60 yo woman with 02 dependent copd, seen earlier this morning, presents with shortness of breath. "I was fine all day, but I couldn't fill the steroid perscription." She notes mild increased wheezing, but "I feel fine otherwise... I just need some steroids." She notes that she is otherwise well. She has no chest pain, dizziness. Past History Travel History Traveled to [place] past 21 day No Medical History Any Pertinent Medical History? 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 No Review of Systems Review of Systems Constitutional: Reports: no symptoms. EENTM: Reports: no symptoms. Respiratory: Reports: no symptoms. Cardiovascular: Reports: no symptoms. GI: Reports: no symptoms. Genitourinary: Reports: no symptoms. Musculoskeletal: Reports: no symptoms. Skin: Reports: no symptoms. Neurological/Psychological: Reports: no symptoms. Hematologic/Endocrine: Reports: no symptoms. Immunologic/Allergic: Reports: no symptoms. All Other Systems: Reviewed and Negative Physical Exam Physical Exam General Appearance: well developed/nourished, no apparent distress Head: atraumatic, normal appearance Eyes: Bilateral: normal appearance. Ears, Nose, Throat: normal pharynx, normal ENT inspection Neck: normal inspection, supple, full range of motion Respiratory: wheezing, mild Cardiovascular: regular rate/rhythm Gastrointestinal: normal bowel sounds, soft, non-tender, no organomegaly Extremities: normal inspection, normal capillary refill, normal range of motion, no edema Neurologic/Psych: no motor/sensory deficits, awake, alert, oriented x 3 Skin: intact, normal color, warm/dry Core Measures ACS in differential dx? No Severe Sepsis Present: No Septic Shock Present: No Progress Differential Diagnosis: asthma, COPD Plan of Care: Current Medications Sig/Freddie Start time Last Medication Dose Stop Time Status Admin Methylprednisolone 125 MG ONCE ONE 08/10 2014 UNVr (Solu Medrol) 08/11 2015 Diagnostic Imaging: Viewed by Me: Radiology Read, CT Scan. Discussed w/RAD: Radiology Read, CT Scan. Radiology Impression: abd/pelvic ct... gallstones... no acute change... full report below. CXR Impression: no acute abnormality, no infiltrates, normal size heart, normal mediastinum Initial ED EKG: none Comments: PATIENT: GHASSAN FRIEDMAN PRESENT AGE: 60 PATIENT ACCOUNT NO: [id number] : 53 LOCATION: [facility] ORDERING PHYSICIAN: FLAVIA WILKINS MD SERVICE DATE: 08/10/16 EXAM TYPE: CAT - CT ABD & PELVIS W/O IV CONTRAS EXAMINATION: CT ABDOMEN AND PELVIS WITHOUT CONTRAST CLINICAL INFORMATION: Abdominal pain. Steroid dependent. COMPARISON: None TECHNIQUE: Multidetector volumetric imaging was performed from the superior aspect of the liver through the pubic symphysis. Sagittal and coronal reformatted images were obtained on the technologist's workstation. No oral or intravenous contrast. DLP: 199 mGy-cm FINDINGS: LUNG BASES: Linear scar left posterior lateral base. No infiltrate or effusion. LIVER, GALLBLADDER, AND BILIARY TREE: The liver is normal in size, shape, and attenuation. No focal hepatic lesion or biliary ductal dilatation is present. There is a small stone in the gallbladder best seen coronal image 32. No gallbladder dilatation, wall thickening, or pericholecystic inflammatory changes. Common duct unremarkable. PANCREAS: Unremarkable. SPLEEN: Unremarkable. ADRENAL GLANDS: Unremarkable. KIDNEYS AND URETERS: The kidneys are normal in size, shape, and attenuation. No hydronephrosis, hydroureter, or calculi seen. No perinephric stranding. BLADDER: Unremarkable. GASTROINTESTINAL TRACT: There is transverse colon colostomy left lower quadrant with decompressed Kassi pouch and pelvis. Stool is present in the ascending and transverse colon. There is no gaseous dilatation of bowel or inflammatory changes in the bowel or adjacent mesentery. The appendix is normal. There is no ascites or fluid collection. ABDOMINAL WALL: Parastomal hernia containing mesenteric fat and small bowel. No strangulation or proximal obstruction. LYMPH NODES: No lymphadenopathy. VASCULAR: Unremarkable. PELVIC VISCERA: No adnexal mass or pelvic ascites. OSSEOUS STRUCTURES: No acute bony abnormality. Again, there are compression deformities T12 and L1, hardware left hip, old healed fractures left pubic rami, and variable demineralization femoral head suggesting avascular necrosis. IMPRESSION: 1. Cholelithiasis. No gallbladder dilatation, wall thickening, pericholecystic inflammatory changes, or biliary ductal dilatation. 2. Transverse colon colostomy left lower quadrant with stool within ascending and transverse colon. No bowel dilatation. 3. Chronic parastomal hernia containing mesenteric fat and small bowel. No strangulation. DICTATED BY: CORBIN HINDS MD DATE/TIME DICTATED:08/10/16842 SUCTION WORKER:MARY DATE/TIME TRANSCRIBED:08/10/16842 CONFIDENTIAL, DO NOT COPY WITHOUT APPROPRIATE AUTHORIZATION. <Electronically signed in Other Vendor System> SIGNED BY: CORBIN HINDS MD 04 Departure Departure Disposition: HOME OR SELF CARE Condition: Stable Clinical Impression Primary Impression: COPD exacerbation Referrals: DAISHA MIRELES,KANDY Calvillo (PCP/Family) Departure Forms: Customer Survey General Discharge Information Comments pt feels well... she declines labs and xrays. "I just want a dose of steroids so I can go home... I'll be fine." Pt has close follow up. Critical Care Note Critical Care Note Critical Care Time: non-applicable
[2016-08-10 20:56] VITALS: BP 150/90
[2016-10-17] MEDS ORDERED: ZITHROMAX250 M2 PO (15:15)
== END 2016-08-10 21:44 ==
LOC: ERH 20:03
DX: J44.1 Chronic obstructive pulmonary disease with (acute) exacerbation (principal)
CPT/HCPCS: 96374; J2930

== ENCOUNTER 2016-08-12 19:44 | Emergency (ER) | payer OTHER ==
[~2016-08-12] VITALS: Ht 144.8 cm; Wt 40.8 kg
[2016-08-12 19:51] VITALS: BP 178/97
--- NOTE | 2016-08-12 19:58 | ED DYSPNEA/ASTHMA COMPLAINT ---
History of Present Illness General Chief Complaint: Dyspnea (COPD, CHF, Other) Stated Complaint: BIBA SOB Source: patient, old records, EMS Exam Limitations: no limitations Vital Signs & Intake/Output Vital Signs & Intake/Output Vital Signs Date Time Temp Pulse Resp B/P Pulse O2 O2 Flow FiO2 Ox Delivery Rate 08/12 2014 100 Nasal 4.0L Cannula 08/12 1954 100 Nasal 4.0L Cannula 08/12 1950 96.8 96 20 178/97 100 Nasal 4.0L Cannula Allergies Coded Allergies: cat dander (UNKNOWN REACTION TO 'PET HAIR/DANDER' 07/07/16) ipratropium (From ATROVENT) ("IT'S TOO MUCH DR TRUONG SAID" 07/07/16) Reconcile Medications Acetaminophen 325 MG TABLET 2 TAB PO Q4H PRN PAIN/TEMP>/100 (Reported) Acetaminophen (Acetaminophen ER) 650 MG TABLET.ER 650 MG [place] Q4H PRN PAIN, TEMP >100 (Reported) Albuterol Sulfate 2.5 MG/0.5 ML VIAL.NEB 1 Vial INH/ANASTASIIA Q6 SOB (Reported) Alendronate Sodium 70 MG TABLET 1 TAB PO QWED BONES (Reported) in the morning, at least 30 minutes before the first food, beverage, or medication of the day Alprazolam (Xanax) 1 MG TABLET 1 TAB PO TIDPRN PRN DISTRESS (Reported) Amlodipine Besylate 10 MG TABLET 1 TAB PO DAILY HTN (Reported) Aspirin (Aspirin*) 81 MG TAB.CHEW 1 TAB PO DAILY HEART HEALTH (Reported) Bisacodyl 10 MG SUPP.RECT 1 SUP RC DAILY CONSTIPATION (Reported) Budesonide/Formoterol Fumarate (Symbicort 160-4.5 Mcg Inhaler) 160 MCG-4.5 MCG/ ACTUATION HFA.AER.AD 2 PUF INH BID BREATHING PROBLEMS (Reported) Calcium Carbonate (TUMS) 200 MG CALCIUM (500 MG) TAB.CHEW 1,000 MG PO Q4 PRN STOMACH UPSET (Reported) Cyclobenzaprine HCl 10 MG TABLET 1 TAB PO Q8H PRN MUSCLE SPASMS (Reported) Diltiazem HCl (Cardizem Cd) 120 MG CAP.ER.24H 1 TAB PO DAILY HEART RATE Gabapentin (Neurontin) 100 MG CAPSULE 1 CAP PO DAILY PAIN (Reported) Guaifenesin (Mucus Relief) 400 MG TABLET 1 TAB PO Q8 MUCUS (Reported) Hydralazine HCl 10 MG TABLET 1 TAB PO TID BP (Reported) Magnesium Hydroxide (Milk Of Magnesia) 400 MG/5 ML ORAL.SUSP 30 ML PO DAILY PRN CONSTIPATION (Reported) Methadone HCl 10 MG/ML ORAL.CONC 35 MG PO DAILY MAINTENCE (Reported) Methylprednisolone. (Medrol) 4 MG TAB.DS.PK 1 DP PO AD INFLAMMATION 6 on day 1 then reduce by one tablet daily until gone Mirtazapine 15 MG TABLET 1 TAB PO QPM DEPRESSION (Reported) Na Phos,M-B/Na Phos,Di-Ba (Fleet Enema) 19 GRAM-7 GRAM/118 ML ENEMA 1 E RC ONCE CONSTIPATION (Reported) Prednisone 10 MG TABLET 1 TAB PO DAILY COPD (Reported) continue after finishing prednisone taper Prednisone 10 MG TABLET 1 TAB PO DAILY COPD EXACERBATION TAKE 4 TABS FOR 3 DAYS THEN TAKE 3 TABS FOR 3 DAYS THEN TAKE 2 TABS FOR 3 DAYS THEN TAKE 1 TAB FOR 3 DAYS Sodium Chloride (Deep Sea) 0.65 % SPRAY 2 SPRAY NASB DAILY (Reported) Theophylline Anhydrous 200 MG TAB.ER.12H 1 TAB PO DAILY COPD (Reported) Tiotropium [place] (Spiriva) 18 MCG CAP.W.DEV 1 CAP INH DAILY BREATHING PROBLEMS (Reported) Triage Note: PT BIBA FROM HOME C/O GENERALLY NOT FEELING WELL. PT STATES "THE HOT WEATHER GOT TO ME AND ACTED UP MY BREATHING." SATTING 100% ON BASELINE 4 L. NO ACUTE DISTRESS NOTED. D/C FROM HERE THURSDAY WITH RX FOR PREDNISONE WHICH SHE TOOK TODAY (4MG). Triage Nurses Notes Reviewed? yes HPI: The patient comes in complaining of difficulty breathing. Patient denies any chest pain. Patient states that she was seen here 2 the day and diagnosed with exacerbation of COPD and she was sent home on a Medrol Dosepak. Patient states that steroids are tapering too quickly and that she needs a longer taper. Patient denies any fevers or chills. There is no orthopnea. Patient has a chronic cough but she states it is not worse than normal. Past History Travel History Traveled to [place] past 21 day No Medical History Any Pertinent Medical History? 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 No Review of Systems Review of Systems Constitutional: Reports: no symptoms. EENTM: Reports: no symptoms. Respiratory: Reports: see HPI, cough, short of breath. Cardiovascular: Reports: no symptoms. GI: Reports: no symptoms. Genitourinary: Reports: no symptoms. Musculoskeletal: Reports: no symptoms. Skin: Reports: no symptoms. Neurological/Psychological: Reports: no symptoms. Hematologic/Endocrine: Reports: no symptoms. Immunologic/Allergic: Reports: no symptoms. All Other Systems: Reviewed and Negative Physical Exam Physical Exam General Appearance: well developed/nourished, alert, awake, anxious, mild distress Head: atraumatic, normal appearance Eyes: Bilateral: PERRL, EOMI. Ears, Nose, Throat: normal pharynx, normal ENT inspection, hearing grossly normal Neck: normal inspection, supple, full range of motion Respiratory: normal breath sounds, chest non-tender, no respiratory distress, decreased breath sounds Cardiovascular: regular rate/rhythm, normal peripheral pulses Gastrointestinal: normal bowel sounds, soft, non-tender Extremities: normal inspection, normal capillary refill, normal range of motion, no edema Neurologic/Psych: no motor/sensory deficits, awake, alert, oriented x 3, normal mood/affect Skin: intact, normal color, warm/dry Lymphatic: no anterior cervical cl Core Measures ACS in differential dx? No Severe Sepsis Present: No Septic Shock Present: No Progress Differential Diagnosis: asthma, COPD, pulmonary embolism, pneumonia Plan of Care: Breathing treatment Initial ED EKG: none Departure Departure Disposition: HOME OR SELF CARE Condition: Stable Clinical Impression Primary Impression: COPD exacerbation Referrals: DAISHA MIRELES,KANDY Calvillo (PCP/Family) Additional Instructions: STOP THE MEDROL DOSE PACK TAKE PREDNISONE PRESCRIBED RETURN FOR ANY CONCERNS Departure Forms: Customer Survey General Discharge Information Prescriptions: Current Visit Scripts Prednisone 1 TAB PO DAILY #30 TAB TAKE 4 TABS FOR 3 DAYS THEN TAKE 3 TABS FOR 3 DAYS THEN TAKE 2 TABS FOR 3 DAYS THEN TAKE 1 TAB FOR 3 DAYS Critical Care Note Critical Care Note Critical Care Time: non-applicable
[2016-08-12] MEDS ORDERED: PREDNISONE10 M2 PO (20:32)
[2016-10-17] MEDS ORDERED: ZITHROMAX250 M2 PO (15:15)
== END 2016-08-12 23:56 ==
LOC: ERH 19:44
DX: J44.1 Chronic obstructive pulmonary disease with (acute) exacerbation (principal); F17.200 Nicotine dependence, unspecified, uncomplicated
CPT/HCPCS: 1263; 96374; J2930

== ENCOUNTER 2016-08-17 07:45 | Emergency (ER) | payer OTHER ==
[~2016-08-17] VITALS: Ht 162.6 cm; Wt 37.2 kg
--- NOTE | 2016-08-17 07:51 | ED DYSPNEA/ASTHMA COMPLAINT ---
History of Present Illness General Chief Complaint: Dyspnea (COPD, CHF, Other) Stated Complaint: DIFFICULTY BREATHING Source: patient, old records, EMS Exam Limitations: no limitations Vital Signs & Intake/Output Vital Signs & Intake/Output Vital Signs Date Time Temp Pulse Resp B/P Pulse O2 O2 Flow FiO2 Ox Delivery Rate 08/17 910 98.6 76 18 162/82 94 Nasal 3.0L Cannula 08/17 0759 99 Nasal 4.0L Cannula 08/18 755 95 Nasal 4.0L Cannula 08/17 753 96.9 104 20 182/86 97 Nasal 4.0L Cannula Allergies Coded Allergies: cat dander (UNKNOWN REACTION TO 'PET HAIR/DANDER' 07/07/16) ipratropium (From ATROVENT) ("IT'S TOO MUCH DR TRUONG SAID" 07/07/16) Reconcile Medications Acetaminophen 325 MG TABLET 2 TAB PO Q4H PRN PAIN/TEMP>/100 (Reported) Acetaminophen (Acetaminophen ER) 650 MG TABLET.ER 650 MG [place] Q4H PRN PAIN, TEMP >100 (Reported) Albuterol Sulfate 2.5 MG/0.5 ML VIAL.NEB 1 Vial INH/ANASTASIIA Q6 SOB (Reported) Alendronate Sodium 70 MG TABLET 1 TAB PO QWED BONES (Reported) in the morning, at least 30 minutes before the first food, beverage, or medication of the day Alprazolam (Xanax) 1 MG TABLET 1 TAB PO TIDPRN PRN DISTRESS (Reported) Amlodipine Besylate 10 MG TABLET 1 TAB PO DAILY HTN (Reported) Amoxicillin/Potassium Clav (Augmentin 875-125 Tablet) 875 MG-125 MG TABLET 1 TAB PO BID COPD Aspirin (Aspirin*) 81 MG TAB.CHEW 1 TAB PO DAILY HEART HEALTH (Reported) Bisacodyl 10 MG SUPP.RECT 1 SUP RC DAILY CONSTIPATION (Reported) Budesonide/Formoterol Fumarate (Symbicort 160-4.5 Mcg Inhaler) 160 MCG-4.5 MCG/ ACTUATION HFA.AER.AD 2 PUF INH BID BREATHING PROBLEMS (Reported) Calcium Carbonate (TUMS) 200 MG CALCIUM (500 MG) TAB.CHEW 1,000 MG PO Q4 PRN STOMACH UPSET (Reported) Cyclobenzaprine HCl 10 MG TABLET 1 TAB PO Q8H PRN MUSCLE SPASMS (Reported) Diltiazem HCl (Cardizem Cd) 120 MG CAP.ER.24H 1 TAB PO DAILY HEART RATE Gabapentin (Neurontin) 100 MG CAPSULE 1 CAP PO DAILY PAIN (Reported) Guaifenesin (Mucus Relief) 400 MG TABLET 1 TAB PO Q8 MUCUS (Reported) Hydralazine HCl 10 MG TABLET 1 TAB PO TID BP (Reported) Magnesium Hydroxide (Milk Of Magnesia) 400 MG/5 ML ORAL.SUSP 30 ML PO DAILY PRN CONSTIPATION (Reported) Methadone HCl 10 MG/ML ORAL.CONC 35 MG PO DAILY MAINTENCE (Reported) Mirtazapine 15 MG TABLET 1 TAB PO QPM DEPRESSION (Reported) Na Phos,M-B/Na Phos,Di-Ba (Fleet Enema) 19 GRAM-7 GRAM/118 ML ENEMA 1 E RC ONCE CONSTIPATION (Reported) Prednisone 10 MG TABLET 1 TAB PO DAILY COPD (Reported) continue after finishing prednisone taper Sodium Chloride (Deep Sea) 0.65 % SPRAY 2 SPRAY NASB DAILY (Reported) Theophylline Anhydrous 200 MG TAB.ER.12H 1 TAB PO DAILY COPD (Reported) Tiotropium [place] (Spiriva) 18 MCG CAP.W.DEV 1 CAP INH DAILY BREATHING PROBLEMS (Reported) Triage Nurses Notes Reviewed? yes HPI: Patient is currently on a steroid taper for COPD exacerbation. Patient is not on antibiotics. Patient woke up this morning feeling short of breath. Patient used her nebulizer but she felt anxious. Similar symptoms multiple times in the past. Patient denies any fevers or chills. Patient states that she is still coughing up greenish sputum. Patient comes in by ambulance for evaluation. Patient denies any orthopnea. Patient is O2 dependent however she does continue to smoke. Past History Travel History Traveled to [place] past 21 day No Medical History Any Pertinent Medical History? 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 History of MRSA: Yes History of VRE: No History of CDIFF: No Surgical History Surgical History: colon resection, tubal ligation, colostomy ORIF for right hip fracture Psychosocial History Who do you live with Patient/Self Services at Home Home Health Aide, Nursing, Oxygen What is your primary language Pashto Tobacco Use: Current Daily Use Daily Tobacco Use Amount/Type: => 5 Cigarettes daily ETOH Use: denies use Illicit Drug Use: PAST USE Family History Family History, If Any: MOTHER CVA FH: coronary artery disease FH: diabetes mellitus FH: HTN (hypertension) BROTHER FH: diabetes mellitus FATHER FH: alcohol abuse Hx Contributory? No Review of Systems Review of Systems Constitutional: Reports: no symptoms. EENTM: Reports: no symptoms. Respiratory: Reports: see HPI, cough, short of breath, wheezing. Cardiovascular: Reports: no symptoms. GI: Reports: no symptoms. Genitourinary: Reports: no symptoms. Musculoskeletal: Reports: no symptoms. Skin: Reports: no symptoms. Neurological/Psychological: Reports: see HPI, anxiety. Hematologic/Endocrine: Reports: no symptoms. Immunologic/Allergic: Reports: no symptoms. All Other Systems: Reviewed and Negative Physical Exam Physical Exam General Appearance: well developed/nourished, alert, awake, anxious, mild distress Head: atraumatic Eyes: Bilateral: PERRL, EOMI. Ears, Nose, Throat: normal pharynx, normal ENT inspection, hearing grossly normal Neck: normal inspection, supple, full range of motion Respiratory: rhonchi (SCATTERED), wheezing (EXP) Cardiovascular: regular rate/rhythm, normal peripheral pulses Gastrointestinal: normal bowel sounds, soft, non-tender, no organomegaly Extremities: normal inspection, normal capillary refill, normal range of motion, no edema Neurologic/Psych: no motor/sensory deficits, awake, alert, oriented x 3, normal mood/affect Skin: intact, normal color, warm/dry Lymphatic: no anterior cervical cl Core Measures ACS in differential dx? No Severe Sepsis Present: No Septic Shock Present: No Progress Differential Diagnosis: bronchitis, COPD Plan of Care: Orders Procedure Date/time Status Regular Diet 08/17 L Active Initial ED EKG: none Departure Departure Disposition: HOME OR SELF CARE Condition: Stable Clinical Impression Primary Impression: COPD exacerbation Secondary Impressions: Anxiety Referrals: DAISHA MIRELES,KANDY Calvillo (PCP/Family) Additional Instructions: CONTINUE THE STEROID TAPER TAKE ANITBIOTICS PRESCRIBED RETURN FOR ANY CONCERNS Departure Forms: Customer Survey General Discharge Information Prescriptions: Current Visit Scripts Amoxicillin/Potassium Clav (Augmentin 875-125 Tablet) 1 TAB PO BID #20 TAB Critical Care Note Critical Care Note Critical Care Time: non-applicable
[2016-08-17] MEDS ORDERED: AUGMENTIN 875-1 EACH PO (07:53)
[2016-08-17 09:11] VITALS: BP 162/82
[2016-10-17] MEDS ORDERED: ZITHROMAX250 M2 PO (15:15)
== END 2016-08-17 09:20 ==
LOC: ERH 07:45
DX: J44.1 Chronic obstructive pulmonary disease with (acute) exacerbation (principal); F41.9 Anxiety disorder, unspecified; Z72.0 Tobacco use
CPT/HCPCS: 1263; J3490

== ENCOUNTER 2016-08-18 22:40 | Emergency (ER) | payer OTHER ==
[~2016-08-18] VITALS: Ht 152.4 cm; Wt 37.2 kg
--- NOTE | 2016-08-18 22:47 | ED DYSPNEA/ASTHMA COMPLAINT ---
See Addendum History of Present Illness General Chief Complaint: Dyspnea (COPD, CHF, Other) Stated Complaint: BIBA, SOB Source: patient, old records, EMS Exam Limitations: no limitations Vital Signs & Intake/Output Vital Signs & Intake/Output Vital Signs Date Time Temp Pulse Resp B/P Pulse O2 O2 Flow FiO2 Ox Delivery Rate 08/19 1620 98.0 105 20 176/89 08/19 1403 98.0 105 20 176/89 100 Room Air 4.0L 08/19 1322 Nasal 4.0L Cannula 08/19 1016 98.0 88 20 149/87 99 Nasal 4.0L Cannula 08/19 0829 100 Nasal 4.0L Cannula 08/19 0803 97.0 120 18 200/102 100 Nasal 4.0L Cannula 08/19 0638 96 200/100 08/19 0638 96 200/100 08/19 0610 96.6 96 20 200/100 100 Nasal 4.0L Cannula 08/19 0250 100 Nasal 4.0L Cannula 08/19 0240 97.2 94 20 200/110 08/19 0230 97.2 94 20 200/110 98 Nasal 4.0L Cannula 08/19 0030 160/90 08/18 2250 Nasal 4.0L Cannula 08/18 2246 96.8 117 18 220/110 100 ED Intake and Output 08/19 0000 08/18 1200 Intake Total Output Total Balance Patient 82 lb 0.02 oz Weight Allergies Coded Allergies: cat dander (UNKNOWN REACTION TO 'PET HAIR/DANDER' 07/07/16) ipratropium (From [facility]) ("IT'S TOO MUCH DR TRUONG SAID" 07/07/16) Reconcile Medications Acetaminophen 325 MG TABLET 2 TAB PO Q4H PRN PAIN/TEMP>/100 (Reported) Acetaminophen (Acetaminophen ER) 650 MG TABLET.ER 650 MG CO Q4H PRN PAIN, TEMP >100 (Reported) Albuterol Sulfate 2.5 MG/0.5 ML VIAL.NEB 1 Vial INH/ANASTASIIA Q6 SOB (Reported) Alendronate Sodium 70 MG TABLET 1 TAB PO QWED BONES (Reported) in the morning, at least 30 minutes before the first food, beverage, or medication of the day Alprazolam (Xanax) 1 MG TABLET 1 TAB PO TIDPRN PRN DISTRESS (Reported) Amlodipine Besylate 10 MG TABLET 1 TAB PO DAILY HTN (Reported) Amoxicillin/Potassium Clav (Augmentin 875-125 Tablet) 875 MG-125 MG TABLET 1 TAB PO BID COPD Aspirin (Aspirin*) 81 MG TAB.CHEW 1 TAB PO DAILY HEART HEALTH (Reported) Bisacodyl 10 MG SUPP.RECT 1 SUP RC DAILY CONSTIPATION (Reported) Budesonide/Formoterol Fumarate (Symbicort 160-4.5 Mcg Inhaler) 160 MCG-4.5 MCG/ ACTUATION HFA.AER.AD 2 PUF INH BID BREATHING PROBLEMS (Reported) Calcium Carbonate (TUMS) 200 MG CALCIUM (500 MG) TAB.CHEW 1,000 MG PO Q4 PRN STOMACH UPSET (Reported) Cyclobenzaprine HCl 10 MG TABLET 1 TAB PO Q8H PRN MUSCLE SPASMS (Reported) Diltiazem HCl (Cardizem Cd) 120 MG CAP.ER.24H 1 TAB PO DAILY HEART RATE Gabapentin (Neurontin) 100 MG CAPSULE 1 CAP PO DAILY PAIN (Reported) Guaifenesin (Mucus Relief) 400 MG TABLET 1 TAB PO Q8 MUCUS (Reported) Hydralazine HCl 10 MG TABLET 1 TAB PO TID BP (Reported) Magnesium Hydroxide (Milk Of Magnesia) 400 MG/5 ML ORAL.SUSP 30 ML PO DAILY PRN CONSTIPATION (Reported) Methadone HCl 10 MG/ML ORAL.CONC 35 MG PO DAILY MAINTENCE (Reported) Mirtazapine 15 MG TABLET 1 TAB PO QPM DEPRESSION (Reported) Na Phos,M-B/Na Phos,Di-Ba (Fleet Enema) 19 GRAM-7 GRAM/118 ML ENEMA 1 E RC ONCE CONSTIPATION (Reported) Prednisone 10 MG TABLET 1 TAB PO DAILY COPD (Reported) continue after finishing prednisone taper Sodium Chloride (Deep Sea) 0.65 % SPRAY 2 SPRAY NASB DAILY (Reported) Theophylline Anhydrous 200 MG TAB.ER.12H 1 TAB PO DAILY COPD (Reported) Tiotropium [place] (Spiriva) 18 MCG CAP.W.DEV 1 CAP INH DAILY BREATHING PROBLEMS (Reported) Triage Nurses Notes Reviewed? yes HPI: Patient states that she got up to clean her colostomy bag and she became very anxious. Patient then felt like she was short of breath. Patient then realized that she forgot to take her blood pressure medication so she took them but she still felt anxious and short of breath shows she called the ambulance. Patient has multiple frequent ER visits. Patient states that she thinks she needs to go back to group home for at least a few weeks. Patient denies any chest pain. There is no headache or blurry vision. Patient has a chronic cough but is not worse than normal. There is no sputum production. (KIERRA MIRELES,LISA Norton) Past History Travel History Traveled to [place] past 21 day No Medical History Any Pertinent Medical History? 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 No (KIERRA MIRELES,LISA Norton) Review of Systems Review of Systems Constitutional: Reports: no symptoms. EENTM: Reports: no symptoms. Respiratory: Reports: see HPI, cough, short of breath. Cardiovascular: Reports: no symptoms. GI: Reports: no symptoms. Genitourinary: Reports: no symptoms. Musculoskeletal: Reports: no symptoms. Skin: Reports: no symptoms. Neurological/Psychological: Reports: see HPI, anxiety. Hematologic/Endocrine: Reports: no symptoms. Immunologic/Allergic: Reports: no symptoms. All Other Systems: Reviewed and Negative (LISA LOZADA MD) Physical Exam Physical Exam General Appearance: well developed/nourished, alert, awake, anxious, moderate distress Head: atraumatic, normal appearance Eyes: Bilateral: PERRL, EOMI. Ears, Nose, Throat: normal pharynx, normal ENT inspection, hearing grossly normal Neck: normal inspection, supple, full range of motion, NO JVD Respiratory: quiet respiration, wheezing, respiratory distress Cardiovascular: regular rate/rhythm, normal peripheral pulses Gastrointestinal: normal bowel sounds, soft, non-tender, no organomegaly Extremities: normal inspection, normal capillary refill, normal range of motion, no edema Neurologic/Psych: no motor/sensory deficits, awake, alert, oriented x 3, normal mood/affect Skin: intact, normal color, warm/dry Lymphatic: no anterior cervical cl Core Measures ACS in differential dx? No Severe Sepsis Present: No Septic Shock Present: No (LISA LOZADA MD) Progress Differential Diagnosis: bronchitis, COPD Plan of Care: Orders Procedure Date/time Status Regular Diet 08/19 B Active CASE MANAGEMENT CONSULT 08/18 2246 Active EKG 08/18 2242 Active Current Medications Sig/Freddie Start time Last Medication Dose Stop Time Status Admin Alendronate Sodium 70 MG QWED 08/20 0700 UNVr (Fosamax) Mirtazapine 15 MG QPM 08/19 2200 UNVr (Remeron) Bisacodyl 10 MG DAILY 08/19 1000 UNVr (Dulcolax Supp) Acetaminophen 650 MG Q4P PRN 08/19 0100 AC (Tylenol) Calcium Carbonate 1,000 MG Q4 PRN 08/19 0100 AC (TUMS) Cyclobenzaprine HCl 10 MG Q8H PRN 08/19 0100 AC (Flexeril 10MG Tab) Initial ED EKG: NSR, LVH Prior EKG: unchanged Hand-Off Endorsed To: PATRICIO LUNA MD Endorsed Time: 0700 Pending: consult (CASE MANAGEMENT) (LISA LOZADA MD) Hand-Off Endorsed To: PURNIMA ALLAN MD Endorsed Time: 190 Pending: other (STR) (PATRICIO LUNA MD) Departure Departure Disposition: STILL A PATIENT Condition: Stable Clinical Impression Primary Impression: COPD (chronic obstructive pulmonary disease) Secondary Impressions: Anxiety Referrals: KANDY ASHTON MD (PCP/Family) Departure Forms: Customer Survey General Discharge Information (LISA LOZADA MD) Critical Care Note Critical Care Note Critical Care Time: non-applicable (LISA LOZADA MD) General Discharge Information Critical Care Note Critical Care Note Critical Care Time: non-applicable
[2016-08-20 11:32] VITALS: BP 140/83
[2016-08-20] MEDS ORDERED: XANAX0.5 M1 PO (12:23)
[2016-10-17] MEDS ORDERED: ZITHROMAX250 M2 PO (15:15)
== END 2016-08-20 12:30 ==
LOC: ERH 22:40
DX: J44.9 Chronic obstructive pulmonary disease, unspecified (principal); F41.9 Anxiety disorder, unspecified
CPT/HCPCS: 1263; 93005; 93010; J0360; J3490; J7512

== ENCOUNTER 2016-08-25 10:27 | Emergency (ER) | payer OTHER ==
[~2016-08-25] VITALS: Ht 154.9 cm; Wt 37.2 kg
--- NOTE | 2016-08-25 11:35 | ED GENERAL ADULT ---
History of Present Illness General Chief Complaint: General Adult Stated Complaint: HERE FOR PLACEMENT Source: patient, old records Exam Limitations: no limitations Vital Signs & Intake/Output Vital Signs & Intake/Output Vital Signs Date Time Temp Pulse Resp B/P B/P Pulse O2 O2 Flow FiO2 Mean Ox Delivery Rate 08/25 1429 115 152/67 08/25 1231 98.8 118 20 144/62 95 Nasal 4.0L Cannula 08/25 1034 99.8 128 22 148/66 96 Nasal 4.0L Cannula Allergies Coded Allergies: cat dander (UNKNOWN REACTION TO 'PET HAIR/DANDER' 07/07/16) ipratropium (From [facility]) ("IT'S TOO MUCH DR TRUONG SAID" 07/07/16) Reconcile Medications Acetaminophen 325 MG TABLET 2 TAB PO Q4H PRN PAIN/TEMP>/100 (Reported) Acetaminophen (Acetaminophen ER) 650 MG TABLET.ER 650 MG SD Q4H PRN PAIN, TEMP >100 (Reported) Albuterol Sulfate 2.5 MG/0.5 ML VIAL.NEB 1 Vial INH/ANASTASIIA Q6 SOB (Reported) Alendronate Sodium 70 MG TABLET 1 TAB PO QWED BONES (Reported) in the morning, at least 30 minutes before the first food, beverage, or medication of the day Alprazolam (Xanax) 1 MG TABLET 1 TAB PO TIDPRN PRN DISTRESS (Reported) Alprazolam (Xanax) 0.5 MG TABLET 1 TAB PO Q8P PRN ANXIETY Amlodipine Besylate 10 MG TABLET 1 TAB PO DAILY HTN (Reported) Aspirin (Aspirin*) 81 MG TAB.CHEW 1 TAB PO DAILY HEART HEALTH (Reported) Bisacodyl 10 MG SUPP.RECT 1 SUP RC DAILY CONSTIPATION (Reported) Budesonide/Formoterol Fumarate (Symbicort 160-4.5 Mcg Inhaler) 160 MCG-4.5 MCG/ ACTUATION HFA.AER.AD 2 PUF INH BID BREATHING PROBLEMS (Reported) Calcium Carbonate (TUMS) 200 MG CALCIUM (500 MG) TAB.CHEW 1,000 MG PO Q4 PRN STOMACH UPSET (Reported) Cyclobenzaprine HCl 10 MG TABLET 1 TAB PO Q8H PRN MUSCLE SPASMS (Reported) Diltiazem HCl (Cardizem Cd) 120 MG CAP.ER.24H 1 TAB PO DAILY HEART RATE Gabapentin (Neurontin) 100 MG CAPSULE 1 CAP PO DAILY PAIN (Reported) Guaifenesin (Mucus Relief) 400 MG TABLET 1 TAB PO Q8 MUCUS (Reported) Hydralazine HCl 10 MG TABLET 1 TAB PO TID BP (Reported) Magnesium Hydroxide (Milk Of Magnesia) 400 MG/5 ML ORAL.SUSP 30 ML PO DAILY PRN CONSTIPATION (Reported) Methadone HCl 10 MG/ML ORAL.CONC 35 MG PO DAILY MAINTENCE (Reported) Mirtazapine 15 MG TABLET 1 TAB PO QPM DEPRESSION (Reported) Prednisone 10 MG TABLET 1 TAB PO DAILY COPD (Reported) continue after finishing prednisone taper Sodium Chloride (Deep Sea) 0.65 % SPRAY 2 SPRAY NASB DAILY (Reported) Theophylline Anhydrous 200 MG TAB.ER.12H 1 TAB PO DAILY COPD (Reported) Tiotropium [place] (Spiriva) 18 MCG CAP.W.DEV 1 CAP INH DAILY BREATHING PROBLEMS (Reported) Triage Note: PT STATES SHE SPOKE WITH BLAINE FROM CASE MANAGEMENT AND SHE WAS SUPPOSED TO BE PLACED ON THURSDAY BUT SHE FORGOT AND SHE IS HERE TODAY TO BE PLACED FOR REHAB. PT STATES SHE CAN'T GET ANY REST AT HOME AND IS UNABLE TO HEAL Triage Nurses Notes Reviewed? yes Onset: Gradual Duration: worse persistent since (several months) Timing: recent history Injury Environment: home Severity: moderate No Modifying Factors: none HPI: Patient is a 60-year-old female with history of chronic COPD presenting to the emergency department with chief complaint of "unable to care for herself at home ". She is currently on a methadone program, goes daily for her methadone dosing. She was suppose to come in on Thursday to go to a rehabilitation facility but she forgot. She states here today to go to the rehabilitation facility. She spoke with case management already informed her that there is still a bed but other workup needs to be performed before she can be discharged to facility. Patient denying any increased shortness of breath from baseline. No chest pain or palpitations. Denies any fevers or chills. Denies any drug use other than methadone. (SABRINA LUBIN,KANIKA) Past History Travel History Traveled to [place] past 21 day No Medical History Any Pertinent Medical History? 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 History of MRSA: Yes History of VRE: No History of CDIFF: No Surgical History Surgical History: colon resection, tubal ligation, colostomy ORIF for right hip fracture Psychosocial History Who do you live with Patient/Self Services at Home Home Health Aide, Nursing, Oxygen What is your primary language Grenadian Tobacco Use: Quit >30 days ago ETOH Use: denies use Illicit Drug Use: denies illicit drug use Family History Family History, If Any: MOTHER CVA FH: coronary artery disease FH: diabetes mellitus FH: HTN (hypertension) BROTHER FH: diabetes mellitus FATHER FH: alcohol abuse Hx Contributory? No (KANIKA MON) Review of Systems Review of Systems Constitutional: Reports: malaise, weakness. Comments Review of systems: See HPI, All other systems negative. Constitutional, no chills fever HEENT: No visual changes no sore throat no congestion Cardiovascular: No chest pain ,palpitation , orthopnea or ankle swelling Skin, no jaundice no rashes Respiratory: no increased dyspnea , no cough sputum or hemoptysis GI: No nausea no vomiting : No dysuria No hematuria Muscle skeletal: no increased back pain, no neck pain, Neurologic: No numbness no joe Immunology: No splenectomy or history of AIDS (KANIKA MON) Physical Exam Physical Exam General Appearance: no apparent distress, alert, awake, comfortable, thin Comments: Thin person in no acute distress HEENT: . Pupils equally round and reactive to light and accommodation. Nose is atraumatic. Pharynx normal. No swelling or edema. Neck: Supple, no lymphadenopathy, normal range of motion without pain or tenderness Back: Nontender Cardiovascular: tachy rate and rhythms no murmurs rubs or gallops, normal JVP Respiratory: Chest nontender. No respiratory distress.diffuse wheezing to auscultation bilaterally. Nasal cannula in place. Abdomen: Soft, nontender nondistended, no appreciable organomegaly. Normal bowel sounds. No ascites. Ostomy in place. Extremity: No edema, no calf tenderness to palpation, normal and equal pulses. Neuro: Alert oriented x3 Skin: No appreciable rash on exposed skin, skin is warm and dry. Psych: Mood and affect is normal, memory and judgment is normal. Core Measures ACS in differential dx? No CVA/TIA Diagnosis: No Severe Sepsis Present: No Septic Shock Present: No (SABRINA LUBIN,KANIKA) Progress Differential Diagnoses I considered the following diagnoses in my evaluation of the patient: COPD exacerbation, failure to thrive, unable to manage at home, weakness, electrolyte abnormality, dehydration, polysubstance abuse Plan of Care: Orders Procedure Date/time Status Heart Healthy Diet 08/25 D Active URINE DRUG SCREEN FOR ER ONLY 08/25 1040 Complete URINALYSIS 08/25 1040 Complete COMPREHENSIVE METABOLIC PANEL 08/25 104 Complete CBC WITHOUT DIFFERENTIAL 08/25 104 Complete Current Medications Sig/Freddie Start time Last Medication Dose Stop Time Status Admin Ondansetron HCl 4 MG ONCE ONE 08/25 1045 CAN (Zofran) 08/25 1046 Laboratory Tests 08/25/16 1228: Urine Opiates Screen < 100.00, Methadone Screen > 735 H, Barbiturate Screen < 60, Ur Phencyclidine Scrn 8.40, Amphetamines Screen < 100, U Benzodiazepines Scrn 687 H, Urine Cocaine Screen < 50, Urine Cannabis Screen 15.80, Urine Color YEL, Urine Clarity CLEAR, Urine pH 6.0, Ur Specific [place] 1.010, Urine Protein NEG, Urine Ketones NEG, Urine Nitrite NEG, Urine Bilirubin NEG, Urine Urobilinogen 0.2, Ur Leukocyte Esterase NEG, Ur Microscopic EXAM NOT REQUIRED, Urine Hemoglobin NEG, Urine Glucose NEG 08/25/16 1205: Anion Gap 10, Estimated GFR 56 L, BUN/Creatinine Ratio 20.0, Glucose 64 L, Calcium 7.7 L, Total Bilirubin 0.9, AST 39 H, ALT 48, Alkaline Phosphatase 121 , Total Protein 6.0 L, Albumin 3.5, Globulin 2.5, Albumin/Globulin Ratio 1.4, CBC w Diff NO MAN DIFF REQ, RBC 3.12 L, MCV 84.2, MCH 28.3, RDW 16.2 H, MPV 6.4 L, Gran % 75.7 H, Lymphocytes % 15.5 L, Monocytes % 7.8, Eosinophils % 0.7, Basophils % 0.3, Absolute Granulocytes 11.0 H, Absolute Lymphocytes 2.3, Absolute Monocytes 1.1 H, Absolute Eosinophils 0.1, Absolute Basophils 0, PUBS MCHC 33.6 Initial ED EKG: none (KANIKA MON) Departure Departure Time of Disposition: 1318 Disposition: OTHER [facility]AL HOSPITAL ([facility]) Condition: Stable Clinical Impression Primary Impression: Chronic obstructive pulmonary disease (COPD) Qualifiers: COPD type: unspecified COPD Qualified Code: J44.9 - Chronic obstructive pulmonary disease, unspecified Secondary Impressions: Dyspnea Qualifiers: Dyspnea type: unspecified Qualified Code: R06.00 - Dyspnea, unspecified Referrals: KANDY ASHTON MD (PCP/Family) Departure Forms: Customer Survey General Discharge Information (KANIKA MON) PA/PHOTOGRAPHIC HAND DEVELOPER Co-Sign Statement Statement: ED Attending supervision documentation- [x] I saw and evaluated the patient. I have also reviewed all the pertinent lab results and diagnostic results. I agree with the findings and the plan of care as documented in the PA's/PHOTOGRAPHIC HAND DEVELOPER's documentation. [] I have reviewed the ED Record and agree with the PA's/PHOTOGRAPHIC HAND DEVELOPER's documentation. [] Additions or exceptions (if any) to the PAs/PHOTOGRAPHIC HAND DEVELOPER's note and plan are summarized below: [] (PURNIMA RAMOS DO) Critical Care Note Critical Care Note Critical Care Time: non-applicable (KANIKA MON)
[2016-08-25 12:27] LABS: ABSOLUTE BASOPHIL COUNT 0 /CUMM (0.0-0.2); ABSOLUTE EOSINOPHIL COUNT 0.1 /CUMM (0.0-0.7); ABSOLUTE LYMPH COUNT 2.3 /CUMM (1.2-3.4); ABSOLUTE MONOCYTE COUNT 1.1 /CUMM (0.10-0.60); BASOPHIL % 0.3 % (0.0-2.0); EOSINOPHIL % 0.7 % (0-5); GRANULOCYTE % 75.7 % (42.2-75.2); HEMATOCRIT 26.2 % (37-47); MEAN CORPUSCULAR HGB 28.3 PG (27.0-31.0); MEAN CORPUSCULAR HGB CONC 33.6 G/DL (33.0-37.0); MEAN CORPUSCULAR VOLUME 84.2 FL (81.0-99.0); MEAN PLATELET VOLUME 6.4 FL (7.4-10.4); PLATELET COUNT 306 /CUMM (130-400); RBC DISTRIBUTION WIDTH 16.2 % (11.5-14.5); RED BLOOD CELL CT 3.12 /CUMM (4.20-5.40); WHITE BLOOD CELL COUNT 14.6 /CUMM (4.8-10.8)
[2016-08-25 14:29] VITALS: BP 152/67
[2016-10-17] MEDS ORDERED: ZITHROMAX250 M2 PO (15:15)
== END 2016-08-25 14:48 ==
LOC: ERH 10:27
PROVIDERS: Emergency Medicine
DX: J44.9 Chronic obstructive pulmonary disease, unspecified (principal); Z87.891 Personal history of nicotine dependence
CPT/HCPCS: 80307; 81003; J3101

== ENCOUNTER 2016-09-17 17:31 | Emergency (ER) | payer OTHER ==
[~2016-09-17] VITALS: Ht 154.9 cm; Wt 41.7 kg
--- NOTE | 2016-09-17 17:42 | ED GENERAL ADULT ---
History of Present Illness General Chief Complaint: General Adult Stated Complaint: BIBA I DONT WANT TO BE ALONE Source: patient, old records, EMS Exam Limitations: no limitations Vital Signs & Intake/Output Vital Signs & Intake/Output Vital Signs Date Time Temp Pulse Resp B/P B/P Pulse O2 O2 Flow FiO2 Mean Ox Delivery Rate 09/17 1903 98 Nasal 2.0L Cannula 09/17 1753 99 Nasal 4.0L Cannula 09/17 1732 98.4 84 18 140/80 96 Allergies Coded Allergies: cat dander (UNKNOWN REACTION TO 'PET HAIR/DANDER' 07/07/16) ipratropium (From [facility]ENT) ("IT'S TOO MUCH DR TRUONG SAID" 07/07/16) Reconcile Medications Acetaminophen 325 MG TABLET 2 TAB PO Q4H PRN PAIN/TEMP>/100 (Reported) Acetaminophen (Acetaminophen ER) 650 MG TABLET.ER 650 MG PA Q4H PRN PAIN, TEMP >100 (Reported) Albuterol Sulfate 2.5 MG/0.5 ML VIAL.NEB 1 Vial INH/ANASTASIIA Q6 SOB (Reported) Alendronate Sodium 70 MG TABLET 1 TAB PO QWED BONES (Reported) in the morning, at least 30 minutes before the first food, beverage, or medication of the day Alprazolam (Xanax) 1 MG TABLET 1 TAB PO TIDPRN PRN DISTRESS (Reported) Alprazolam (Xanax) 0.5 MG TABLET 1 TAB PO Q8P PRN ANXIETY Amlodipine Besylate 10 MG TABLET 1 TAB PO DAILY HTN (Reported) Aspirin (Aspirin*) 81 MG TAB.CHEW 1 TAB PO DAILY HEART HEALTH (Reported) Bisacodyl 10 MG SUPP.RECT 1 SUP RC DAILY CONSTIPATION (Reported) Budesonide/Formoterol Fumarate (Symbicort 160-4.5 Mcg Inhaler) 160 MCG-4.5 MCG/ ACTUATION HFA.AER.AD 2 PUF INH BID BREATHING PROBLEMS (Reported) Calcium Carbonate (TUMS) 200 MG CALCIUM (500 MG) TAB.CHEW 1,000 MG PO Q4 PRN STOMACH UPSET (Reported) Cyclobenzaprine HCl 10 MG TABLET 1 TAB PO Q8H PRN MUSCLE SPASMS (Reported) Diltiazem HCl (Cardizem Cd) 120 MG CAP.ER.24H 1 TAB PO DAILY HEART RATE Gabapentin (Neurontin) 100 MG CAPSULE 1 CAP PO DAILY PAIN (Reported) Guaifenesin (Mucus Relief) 400 MG TABLET 1 TAB PO Q8 MUCUS (Reported) Hydralazine HCl 10 MG TABLET 1 TAB PO TID BP (Reported) Magnesium Hydroxide (Milk Of Magnesia) 400 MG/5 ML ORAL.SUSP 30 ML PO DAILY PRN CONSTIPATION (Reported) Methadone HCl 10 MG/ML ORAL.CONC 35 MG PO DAILY MAINTENCE (Reported) Mirtazapine 15 MG TABLET 1 TAB PO QPM DEPRESSION (Reported) Prednisone 10 MG TABLET 1 TAB PO DAILY COPD (Reported) continue after finishing prednisone taper Sodium Chloride (Deep Sea) 0.65 % SPRAY 2 SPRAY NASB DAILY (Reported) Theophylline Anhydrous 200 MG TAB.ER.12H 1 TAB PO DAILY COPD (Reported) Tiotropium [place] (Spiriva) 18 MCG CAP.W.DEV 1 CAP INH DAILY BREATHING PROBLEMS (Reported) Triage Nurses Notes Reviewed? yes Onset: Abrupt Duration: day(s): (2) Timing: multiple episodes today Injury Environment: home Severity: mild, moderate Associated Symptoms: ANXIETY, DIFFICULTY BREATHING HPI: This is a 60-year-old female with history of oxygen-dependent COPD who presents via EMS from home for chief complaint of severe anxiety since yesterday. He states that she returned home from rehabilitation yesterday after 12 days and was doing well there. After getting home her had been admitted to the hospital with stress her out. At some at the same time she decided not to take her Xanax either yesterday or today. She states that she has some difficulty breathing because they've tapered her prednisone down to 10 mg. When she is on less than 20 mg a day she doesn't feel well. She loses her desire to eat. At the present She was eating to full meal that each mealtime. Her weight has gone up and she is currently 92 pounds. Patient is very tearful but awake alert and oriented. She is not suicidal. Past History Medical History Any Pertinent Medical History? 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 No Review of Systems Review of Systems Constitutional: Reports: weakness. Denies: chills, fever. EENTM: Reports: no symptoms. Respiratory: Reports: short of breath. Denies: cough, sputum production. Cardiovascular: Denies: chest pain. GI: Denies: abdominal pain. Genitourinary: Reports: no symptoms. Musculoskeletal: Reports: back pain (CHRONIC). Skin: Reports: no symptoms. Neurological/Psychological: Reports: anxiety. Hematologic/Endocrine: Denies: bleeding. Immunologic/Allergic: Reports: see HPI. All Other Systems: Reviewed and Negative Physical Exam Physical Exam General Appearance: alert, awake, anxious, cachetic, mild distress, thin Head: atraumatic Eyes: Bilateral: PERRL. Ears, Nose, Throat: normal pharynx, hearing grossly normal Neck: normal inspection Respiratory: decreased breath sounds, wheezing Cardiovascular: regular rate/rhythm Peripheral Pulses: 1+ radial (R), 1+ radial (L) Gastrointestinal: soft, non-tender, COLOSTOMY IN PLACE Extremities: THIN Neurologic/Psych: no motor/sensory deficits, awake, alert, ANXIOUS, TEARFUL Skin: intact, normal color Core Measures ACS in differential dx? No CVA/TIA Diagnosis: No Severe Sepsis Present: No Septic Shock Present: No Progress Differential Diagnoses I considered the following diagnoses in my evaluation of the patient: [COPD EXACERBATION, ANXIETY, FAILURE TO THRIVE, POOR SOCIAL CONDITIONS AT HOME] Plan of Care: Orders Procedure Date/time Status RT ED ORDERS 09/17 2156 Active RT ED ORDERS 09/17 1741 Active Current Medications Sig/Freddie Start time Last Medication Dose Stop Time Status Admin Albuterol Sulfate 3 ML ONCE ONE 09/17 2199 UNVr 09/17 (Proventil) 09/17 Albuterol neb, IV Solu-Medrol, by mouth Xanax ordered. 6:39 PM PATIENT SLEEPING COMFORTABLY IN STRETCHER UPON AWAKENING PATIENT FEELS LESS ANXIOUS. SHE STATES SHE SHOULD HAVE TEAKEN HER ANXIETY MEDS AT HOME. COLOSTOMY CHANGED (PATIENT PROVIDED SUPPLIES). SHE WOULD LIKE TO BE TRANSPORTED HOME AT THIS TIME. (FRANKY MIRELES,FLAVIA) Initial ED EKG: none Departure Departure Time of Disposition: 2221 Disposition: HOME OR SELF CARE Condition: Stable Clinical Impression Primary Impression: Anxiety Referrals: DAISHA MIRELES,KANDY Calvillo (PCP/Family) Additional Instructions: Take your regularly prescribed medications as directed. Please follow up with her doctor in the office. Return as needed. Departure Forms: Customer Survey General Discharge Information Critical Care Note Critical Care Note Critical Care Time: non-applicable
[2016-09-17 22:47] VITALS: BP 154/77
[2016-10-17] MEDS ORDERED: ZITHROMAX250 M2 PO (15:15)
== END 2016-09-17 22:41 ==
LOC: ERH 17:31
DX: F41.9 Anxiety disorder, unspecified (principal)
CPT/HCPCS: 1263; 96374; J2930

== ENCOUNTER 2016-09-27 21:25 | Inpatient (IN) | payer OTHER ==
[~2016-09-27] VITALS: Ht 152.4 cm; Wt 43.1 kg
--- NOTE | 2016-09-28 00:12 | NUR ---
DATE: 09/28/16 TIME: 0145 [facility] please refer to medical records for written documentation of this visit. POST,DAMASO
--- NOTE | 2016-09-28 00:12 | NUR ---
PT BACK FROM CAT SCAN.
--- NOTE | 2016-09-28 01:02 | ED GENERAL ADULT ---
History of Present Illness General Chief Complaint: General Adult Stated Complaint: WEAKNESS Source: patient Exam Limitations: poor historian Vital Signs & Intake/Output Vital Signs & Intake/Output PO-97 ON 4 LITERS, AFTER TX Allergies Coded Allergies: cat dander (UNKNOWN REACTION TO 'PET HAIR/DANDER' 07/07/16) ipratropium (From [facility]) ("IT'S TOO MUCH DR TRUONG SAID" 07/07/16) Reconcile Medications Acetaminophen 325 MG TABLET 2 TAB PO Q4H PRN PAIN/TEMP>/100 (Reported) Acetaminophen (Acetaminophen ER) 650 MG TABLET.ER 650 MG [place] Q4H PRN PAIN, TEMP >100 (Reported) Albuterol Sulfate 2.5 MG/0.5 ML VIAL.NEB 1 Vial INH/ANASTASIIA Q6 SOB (Reported) Alendronate Sodium 70 MG TABLET 1 TAB PO QWED BONES (Reported) in the morning, at least 30 minutes before the first food, beverage, or medication of the day Alprazolam (Xanax) 1 MG TABLET 1 TAB PO TIDPRN PRN DISTRESS (Reported) Alprazolam (Xanax) 0.5 MG TABLET 1 TAB PO Q8P PRN ANXIETY Amlodipine Besylate 10 MG TABLET 1 TAB PO DAILY HTN (Reported) Aspirin (Aspirin*) 81 MG TAB.CHEW 1 TAB PO DAILY HEART HEALTH (Reported) Bisacodyl 10 MG SUPP.RECT 1 SUP RC DAILY CONSTIPATION (Reported) Budesonide/Formoterol Fumarate (Symbicort 160-4.5 Mcg Inhaler) 160 MCG-4.5 MCG/ ACTUATION HFA.AER.AD 2 PUF INH BID BREATHING PROBLEMS (Reported) Calcium Carbonate (TUMS) 200 MG CALCIUM (500 MG) TAB.CHEW 1,000 MG PO Q4 PRN STOMACH UPSET (Reported) Cyclobenzaprine HCl 10 MG TABLET 1 TAB PO Q8H PRN MUSCLE SPASMS (Reported) Diltiazem HCl (Cardizem Cd) 120 MG CAP.ER.24H 1 TAB PO DAILY HEART RATE Gabapentin (Neurontin) 100 MG CAPSULE 1 CAP PO DAILY PAIN (Reported) Guaifenesin (Mucus Relief) 400 MG TABLET 1 TAB PO Q8 MUCUS (Reported) Hydralazine HCl 10 MG TABLET 1 TAB PO TID BP (Reported) Magnesium Hydroxide (Milk Of Magnesia) 400 MG/5 ML ORAL.SUSP 30 ML PO DAILY PRN CONSTIPATION (Reported) Methadone HCl 10 MG/ML ORAL.CONC 35 MG PO DAILY MAINTENCE (Reported) Mirtazapine 15 MG TABLET 1 TAB PO QPM DEPRESSION (Reported) Prednisone 10 MG TABLET 1 TAB PO DAILY COPD (Reported) continue after finishing prednisone taper Sodium Chloride (Deep Sea) 0.65 % SPRAY 2 SPRAY NASB DAILY (Reported) Theophylline Anhydrous 200 MG TAB.ER.12H 1 TAB PO DAILY COPD (Reported) Tiotropium [place] (Spiriva) 18 MCG CAP.W.DEV 1 CAP INH DAILY BREATHING PROBLEMS (Reported) Triage Nurses Notes Reviewed? yes Onset: Abrupt Duration: day(s): Timing: recent history HPI: 09/27/16 9 pm This is a 60-year-old female presents to the emergency department complaining of difficulty breathing, epigastric abdominal pain and weakness. The patient states she was recently discharged for COPD. She has been home for the last 2 weeks, she started feeling weak and having difficulty breathing over the past 7 days. She also has epigastric abdominal pain. The onset of the symptoms were abrupt, the duration has been last 7 days, the severity is significant as her symptoms required her to come to the emergency department for care. on 4 liters 02 at home Past History Travel History Traveled to [facility] past 21 day No Medical History Any Pertinent Medical History? 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 No Review of Systems Review of Systems Constitutional: Denies: fever. EENTM: Reports: no symptoms. Respiratory: Reports: cough, short of breath. Cardiovascular: Denies: chest pain. GI: Reports: abdominal pain. Musculoskeletal: Reports: no symptoms. Skin: Denies: rash. Neurological/Psychological: Reports: no symptoms. Hematologic/Endocrine: Reports: no symptoms. Immunologic/Allergic: Reports: no symptoms. Physical Exam Physical Exam General Appearance: awake, anxious, moderate distress Head: atraumatic, normal appearance Eyes: Bilateral: normal appearance, PERRL, EOMI. Ears, Nose, Throat: normal pharynx, normal ENT inspection Neck: full range of motion Respiratory: accessory muscle use, wheezing, respiratory distress Cardiovascular: regular rate/rhythm Peripheral Pulses: 4+ radial (R), 4+ radial (L) Gastrointestinal: tenderness, epigastric tenderness, colostomy bag functioning Extremities: no edema Neurologic/Psych: no motor/sensory deficits, awake, alert, oriented x 3 Skin: intact, normal color, warm/dry Core Measures ACS in differential dx? No CVA/TIA Diagnosis: No Severe Sepsis Present: No Septic Shock Present: No Progress Differential Diagnoses I considered the following diagnoses in my evaluation of the patient: Pulmonary embolism, exacerbation of COPD, pancreatitis, gastritis, diverticulitis Plan of Care: Orders Procedure Date/time Status Heart Healthy Diet 09/28 B Active Admit to inpatient 09/28 102 Active Vital Signs 09/28 102 Active Code Status 09/28 102 Active Initial ED EKG: sinus rhythm, LVH, nonspecific ST-T wave abnormality Comments: CT scan of the abdomen and pelvis was essentially unremarkable for acute findings. CTA of the chest was significant for a right lower lobe pneumonia Labs revealed an elevated d-dimer. Troponin was negative. She was treated with albuterol and IV Solu-Medrol and IV antibiotics. She was admitted to the hospital for further care Departure Departure Disposition: STILL A PATIENT Condition: Stable Clinical Impression Primary Impression: Chronic obstructive pulmonary disease (COPD) Secondary Impressions: Abdominal pain, Pneumonia Referrals: KANDY ASHTON MD (PCP/Family) Departure Forms: Customer Survey General Discharge Information Admission Note Spoke With: ADAM MIRELES,PHILIPPE Adams Documentation of Exam: Documentation of any treatments & extenuating circumstances including Concerns Regarding Discharge (functional status, medication knowledge or non-compliance, living conditions, etc.) that warrant an admission rather than observation: [She needs admission for albuterol nebulizer treatments, monitoring her oxygen saturation, IV steroids, IV antibiotics] Critical Care Note Critical Care Note Critical Care Time: 30-74 min
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
--- NOTE | 2016-09-28 02:00 | NUR ---
HOUSE STAFF IN TO EVAL
--- NOTE | 2016-09-28 02:19 | NUR ---
PT BED ASSIGNMENT 233
[2016-09-28 03:51] VITALS: BP 110/66
[2016-09-28 04:06] LABS: HEMATOCRIT 29.5 % (37-47); MEAN CORPUSCULAR VOLUME 82.7 FL (81.0-99.0); RED BLOOD CELL CT 3.56 /CUMM (4.20-5.40); WHITE BLOOD CELL COUNT 9.3 /CUMM (4.8-10.8)
[2016-09-28 04:07] LABS: ABSOLUTE EOSINOPHIL COUNT 0.2 /CUMM (0.0-0.7); ABSOLUTE GRANULOCYTE CT 6.7 /CUMM (1.4-6.5); ABSOLUTE LYMPH COUNT 1.3 /CUMM (1.2-3.4); ABSOLUTE MONOCYTE COUNT 1.1 /CUMM (0.10-0.60); BASOPHIL % 0.2 % (0.0-2.0); EOSINOPHIL % 1.7 % (0-5); GRANULOCYTE % 72.1 % (42.2-75.2); MEAN CORPUSCULAR HGB 27.4 PG (27.0-31.0); MEAN CORPUSCULAR HGB CONC 33.2 G/DL (33.0-37.0); MEAN PLATELET VOLUME 6.3 FL (7.4-10.4); PLATELET COUNT 431 /CUMM (130-400); RBC DISTRIBUTION WIDTH 15.5 % (11.5-14.5)
--- NOTE | 2016-09-28 04:45 | NUR ---
PT ARRIVED ON UNIT AT 0345 VIA STRETCHER. PT AMBULATED TO BED WITHOUT ANY DIFFICULTY. PT ON 4L NC (BASELINE). ADMISSION ASSESSMENT COMPLETE. PT ORIENTED TO CALL [facility]AN, ROOM, STAFF, SURROUNDINGS. PT HAD OWN PO LIQUID METHADONE WITH HER, 2 BOTTLES WERE COLLECTED AND SENT TO SAFE IN PHARMACY VIA PT BELONGINGS BAG. PT AWARE AND SIGNED PAPERWORK. NO FURTHER COMPLAINTS AT THIS TIME. WILL CONTINUE TO CLOSELY MONITOR.
--- NOTE | 2016-09-28 07:29 | CT SCAN REPORT ---
EXAMINATION: CT ANGIOGRAM OF THE CHEST WITH AND WITHOUT CONTRAST (CT PULMONARY ANGIOGRAM FOR PE). CT ABDOMEN AND PELVIS without CONTRAST. CLINICAL INFORMATION: SOB, elevated d-dimer. COMPARISON: CT abdomen and pelvis 08/10/2016. TECHNIQUE: 5 mm thin axial images of abdomen pelvis and 3 mm thin coronal and sagittal reconstructions of abdomen and pelvis were obtained without contrast. Prior to contrast administration, noncontrast localization images were obtained. Subsequently, multidetector volumetric imaging was performed from the thoracic inlet to below the diaphragms following the administration of 125 mL Optiray 350 intravenous contrast. No contrast reaction reported. Sagittal, coronal, and MIP oblique sagittal reformatted images were obtained on the CT workstation, uploaded to PACS, and reviewed. Total exam dose-length product 143 mGy-cm. FINDINGS: CHEST: QUALITY OF STUDY/CONTRAST BOLUS: Satisfactory PULMONARY ARTERIES: No central or segmental pulmonary emboli. THORACIC AORTA: There is no aneurysm or dissection seen. There is mild kinking of the anterior thoracic aorta at the junction of arch and descending segments. LUNG: There is diffuse emphysematous changes of the lungs with patchy consolidation superior segment right lower lobe. There are patchy patchy atelectatic changes seen in right middle lobe and anterior segment of left upper lobe adjacent to the minor fissure. Platelike atelectasis visualized in the left lung base. No pulmonary nodule or mass identified. PLEURA: There is a small loculated right pleural effusion and right posterior pleural thickening. MEDIASTINUM: The heart size and the great vessels are normal caliber. Central trachea and the bronchi widely patent. Esophagus is with air-fluid level in the mid segment. No abnormal lymphadenopathy or mediastinal mass seen. No evidence of septal bowing or right heart strain. CHEST WALL/AXILLA: A barrel-shaped chest is noted suggestive of COPD/emphysema. No abnormal axillary lymph nodes seen. The chest wall is unremarkable. OSSEOUS STRUCTURES: There is severe thoracic kyphosis with several compression fractures involving C7, T2, T4, T5, T6, T7, T8, T9, T10, T12 and L1 vertebrae. There are several bilateral anterior upper rib healed fractures. ABDOMEN AND PELVIS: LIVER AND GALLBLADDER: The liver is homogeneous in density without focal mass or intrahepatic ductal dilatation. The gallbladder is distended with a small radiopaque stone suspected along the dependent portion. No gallbladder wall thickening seen. SPLEEN: Unremarkable. PANCREAS: Unremarkable. BILATERAL ADRENAL GLANDS: Unremarkable. KIDNEYS, URETER AND BLADDER: Both kidneys are normal size, shape and position. No radiopaque renal calculi or hydronephrosis seen. The urinary bladder is empty an unremarkable. VASCULAR: There is mild atherosclerotic calcification of abdominal aorta without aneurysmal dilatation. LYMPH NODES: No abnormal retroperitoneal or mesenteric lymph nodes seen. ABDOMINAL WALL: There is a left mid to lower quadrant colostomy. GI TRACT: There is moderate stool in the right colon the left transverse colon through the abdominal wall as a colostomy. The: There is surgically absent. There are blind-ending sigmoid colon with anastomotic sutures along the blind and in the left pelvis. PELVIS: There is no free fluid or free air. The uterus is atrophic and barely visible on this noncontrast CT. No adnexal mass or free fluid seen. No abnormal pelvic lymph nodes. BONES: There is a left hip hardware for an old healed femoral neck/trochanter fracture with hypertrophic bony changes along the left lateral femoral neck. No lytic or sclerotic process seen. Cellulitis healed fracture involving the left inferior pubic ramus. IMPRESSION: No evidence of PE. No evidence of lytic aneurysm or dissection. There is kinking of thoracic aorta along the junction of arch and descending segments secondary to acute thoracic spine kyphosis from multiple thoracic compression deformities/fracture. Right lower lobe superior consolidation with loculated small right pleural effusion. Atelectatic changes as seen in the right middle lobe, anterior segment left upper lobe and basilar segment left lower lobe. Diffuse emphysema. Multiple thoracic vertebral fractures as described above. There is no acute intra-abdominal process seen. There is a left mid abdomen transverse colostomy without obstruction. There is mild constipation. Suspect dependent small gallstone without wall thickening. Correlate with ultrasound. VTE: negative
[2016-09-28 07:39] VITALS: BP 100/55
[2016-09-28 08:04] LABS: ABSOLUTE BASOPHIL COUNT 0 /CUMM (0.0-0.2); ABSOLUTE EOSINOPHIL COUNT 0 /CUMM (0.0-0.7); ABSOLUTE GRANULOCYTE CT 6.4 /CUMM (1.4-6.5); ABSOLUTE LYMPH COUNT 0.4 /CUMM (1.2-3.4); ABSOLUTE MONOCYTE COUNT 0.1 /CUMM (0.10-0.60); BASOPHIL % 0 % (0.0-2.0); EOSINOPHIL % 0 % (0-5); GRANULOCYTE % 93.1 % (42.2-75.2); HEMATOCRIT 29.3 % (37-47); MEAN CORPUSCULAR HGB 27.6 PG (27.0-31.0); MEAN CORPUSCULAR HGB CONC 33.4 G/DL (33.0-37.0); MEAN CORPUSCULAR VOLUME 82.7 FL (81.0-99.0); MEAN PLATELET VOLUME 6.8 FL (7.4-10.4); PLATELET COUNT 324 /CUMM (130-400); RBC DISTRIBUTION WIDTH 16.1 % (11.5-14.5); RED BLOOD CELL CT 3.54 /CUMM (4.20-5.40); WHITE BLOOD CELL COUNT 6.9 /CUMM (4.8-10.8)
--- NOTE | 2016-09-28 14:01 | Admission Certification ---
Admission Certification Certification Statement - As attending physician, I certify that at the time of - admission, based on clinical presentation, severity of - symptoms, need for further diagnostic testing and - therapeutic interventions, and risk of adverse outcomes - without in-hospital treatment, in my clinical assessment, - this patient requires an acute hospital stay for a minimum - of two nights or longer. I have also considered psychsocial - factors such as support system, advanced age, financial - issues, cognitive issues, and failed out-patient treatments, - past re-admission history, safety of patient, and lack of - compliance as applicable. Specific rationale supporting this admission is: severe copd exacerbation
[2016-09-28 14:27] VITALS: BP 120/70
--- NOTE | 2016-09-28 22:15 | NUR ---
NURSING NOTE: PT REFUSING BED ALARM. PT CALLS APPROPRIATELY AND DOES NOT ATTEMPT AMBULATION OOB. WILL CONTINUE TO MONITOR.
[2016-09-28 22:46] VITALS: BP 124/64
[2016-09-29 06:39] VITALS: BP 122/64
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
--- NOTE | 2016-09-29 11:43 | PN- Pulmonary ---
Subjective HPI/Critical Care Issues: Little better this am still coughing and with sputum ROS mild abd discomfort Objective Current Medications: Current Medications Sig/Freddie Start time Last Medication Dose Route Stop Time Status Admin Acetaminophen 650 MG Q4P PRN 09/28 0215 AC PO Albuterol Sulfate 3 ML EVERY 4 HRS/AWAKE 09/28 1200 AC 09/29 INH 0802 Alendronate Sodium 70 MG QWED 10/01 0700 AC PO Alprazolam 0.5 MG TID PRN 09/28 0215 AC 09/29 PO 10/05 0214 0510 Amlodipine Besylate 10 MG DAILY 09/28 1000 AC 09/29 PO 0957 Aspirin 81 MG DAILY 09/28 1000 AC 09/29 PO 0957 Azithromycin 500 MG DAILY 09/28 1000 AC 09/29 Sodium Chloride 250 ML IV 0957 Budesonide/ 2 PUF BID 09/28 1000 AC 09/29 Formoterol Fumarate INH 0957 Calcium Carbonate 1,000 MG Q4 PRN 09/28 0215 AC PO Cyclobenzaprine HCl 5 MG .STK-MED ONE 09/29 0036 DC PO 09/29 0037 Cyclobenzaprine HCl 5 MG .STK-MED ONE 09/29 0035 DC PO 09/29 0036 Cyclobenzaprine HCl 10 MG .STK-MED ONE 09/28 1704 DC PO 09/28 1705 Cyclobenzaprine HCl 10 MG Q8H PRN 09/28 0215 AC 09/29 PO 0037 Diltiazem HCl 120 MG DAILY 09/28 1000 AC 09/29 PO 0957 Gabapentin 100 MG DAILY 09/28 1000 AC 09/29 PO 0957 Guaifenesin 600 MG Q12 09/28 1000 AC 09/29 PO 0957 Heparin Sodium 5,000 UNIT Q8 09/28 0600 AC 09/29 (Porcine) SC 0510 Hydralazine HCl 10 MG TID 09/28 1000 AC 09/29 PO 0957 Levofloxacin 500 MG DAILY@1900 09/28 1900 AC 09/28 PO 1937 Methadone HCl 35 MG 0600 09/28 0600 AC 09/29 PO 0510 Methylprednisolone 40 MG Q8 09/28 0600 AC 09/29 IV 0509 Mirtazapine 15 MG QPM 09/28 2200 AC 09/28 PO 2133 Omeprazole 40 MG DAILY AC 09/28 0700 AC 09/29 PO 0510 Potassium Chloride 40 MEQ 1800 09/28 1800 AC 09/28 PO 1937 Potassium Chloride 40 MEQ ONCE ONE 09/28 1730 DC 09/28 PO 09/28 1731 1738 Sodium Chloride 1,000 ML Q13H 09/28 0245 DC 09/28 IV 09/28 1544 0345 Tiotropium [place] 1 PUF DAILY 09/28 1000 AC 09/29 INH 0957 Vital Signs & I&O Last 24 Hrs of Vitals and I&O: Vital Signs Date Time Temp Pulse Resp B/P B/P Pulse O2 O2 Flow FiO2 Mean Ox Delivery Rate 09/29 0957 96 122/64 09/29 0957 96 122/64 09/29 0805 100 Nasal 4.0L Cannula 09/29 0800 Nasal 4.0L Cannula 09/29 0639 98.5 96 24 122 99 Nasal 4.0L Cannula 09/29 0000 Nasal 4.0L Cannula 09/28 2246 97.8 91 20 124/64 99 Nasal Cannula 09/28 2133 124/64 09/28 2050 96 Nasal 4.0L Cannula 09/28 1600 Nasal 4.0L Cannula 09/28 1427 98.0 68 20 120/70 93 09/28 1322 Nasal 4.0L Cannula Intake & Output 09/29 1600 09/29 0800 09/29 0000 Intake Total 540 480 Output Total 400 300 Balance 140 180 Intake, Oral 540 480 Output, Stool 100 100 Output, Urine 300 200 Impression/Plan Impression/Plan Impression/Plan: Physical Exam General Appearance Alert, Oriented X3, Cooperative, No Acute Distress, able to speak in full sentences Skin No Significant Lesion HEENT Atraumatic, PERRLA, EOMI, dry mucous membrane Cardiovascular Regular Rate, Normal S1, Normal S2, No Murmurs Lungs diffuse exp wheezing Abdomen Normal Bowel Sounds, Soft, No Tenderness, brown stool in ostomy bag. colonic prolapse in ostemomy bag Neurological Normal Speech Extremities No Edema Vascular Normal Pulses, Pulses Symmetrical This is a lady with terminal COPD with chronic respiratory failure now comes in with significant COPD exacerbation with deconditioning. She does also have findings suggestive of an infiltrate in the CT scan done with small loculated effusion. Severe osteoporosis with multiple compression fractures with restrictive lung diseases well Significant atelectasis in the right side and in the left upper lobe as well Significant deconditioning due to worsening overall performance status Hypertension, osteoporosis, significant neuropathy, previous history of methadone use with chronic back pain with anxiety and depression Resolved Acute kidney injury due to dehydration and hyponatremia PLAN Continue current medications [id number] nebulizer Sputum culture Noninvasive ventilation if she gets worse DC ivf Start her on by mouth levofloxacin 500 mg as she has had Enterobacter and she has history and clinical findings suggestive of pneumonia Try to reduce her pain medications especially if she is somnolent Watch potassium Prognosis is overall poor patient is DNR/DNI e
[2016-09-29 15:32] VITALS: BP 118/56
--- NOTE | 2016-09-29 18:00 | NUR ---
PTS L SIDED COLOSTOMY STOMA PROLAPSED. PT STATING IT FEELS HEAVIER THAN NORMAL. DISTRICT TRAFFIC CHIEF JAMES IN TO ASSESS PTS COLOSTOMY BAG. NO NEW ORDERS AT THIS TIME. WILL CONTINUE TO MONITOR.
[2016-09-29 22:56] VITALS: BP 120/70
[2016-09-30 07:28] VITALS: BP 130/70
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
--- NOTE | 2016-09-30 08:27 | PN- Pulmonary ---
Subjective HPI/Critical Care Issues: Patient feels her shortness of breath is improved she has no chest pain Objective Current Medications: Current Medications Sig/Ferddie Start time Last Medication Dose Route Stop Time Status Admin Acetaminophen 650 MG Q4P PRN 09/28 0215 AC PO Albuterol Sulfate 3 ML EVERY 4 HRS/AWAKE 09/28 1200 AC 09/30 INH 0818 Alendronate Sodium 70 MG QWED 10/01 0700 AC PO Alprazolam 0.5 MG TID PRN 09/28 0215 AC 09/30 PO 10/05 0214 0424 Amlodipine Besylate 10 MG DAILY 09/28 1000 AC 09/29 PO 0957 Aspirin 81 MG DAILY 09/28 1000 AC 09/29 PO 0957 Azithromycin 500 MG DAILY 09/28 1000 AC 09/29 Sodium Chloride 250 ML IV 0957 Budesonide/ 2 PUF BID 09/28 1000 AC 09/29 Formoterol Fumarate INH 2130 Calcium Carbonate 1,000 MG Q4 PRN 09/28 0215 AC PO Cyclobenzaprine HCl 10 MG .STK-MED ONE 09/29 1535 DC PO 09/29 1536 Cyclobenzaprine HCl 10 MG .STK-MED ONE 09/29 0948 DC PO 09/29 0949 Cyclobenzaprine HCl 10 MG Q8H PRN 09/28 0215 AC 09/30 PO 0102 Diltiazem HCl 120 MG DAILY 09/28 1000 AC 09/29 PO 0957 Gabapentin 100 MG DAILY 09/28 1000 AC 09/29 PO 0957 Guaifenesin 600 MG Q12 09/28 1000 AC 09/29 PO 2129 Heparin Sodium 5,000 UNIT Q8 09/28 0600 AC 09/30 (Porcine) SC 0523 Hydralazine HCl 10 MG TID 09/28 1000 AC 09/29 PO 2130 Levofloxacin 500 MG DAILY@1900 09/28 1900 AC 09/29 PO 1812 Methadone HCl 35 MG 0600 09/28 0600 AC 09/30 PO 0524 Methylprednisolone 40 MG Q8 09/28 0600 AC 09/30 IV 0523 Mirtazapine 15 MG QPM 09/28 2200 AC 09/29 PO 2129 Omeprazole 40 MG DAILY AC 09/28 0700 AC 09/30 PO 0524 Potassium Chloride 40 MEQ 1800 09/28 1800 DC 09/28 PO 1937 Tiotropium [place] 1 PUF DAILY 09/28 1000 AC 09/29 INH 0957 Vital Signs & I&O Last 24 Hrs of Vitals and I&O: Vital Signs Date Time Temp Pulse Resp B/P B/P Pulse O2 O2 Flow FiO2 Mean Ox Delivery Rate 09/30 0825 98 Nasal 4.0L Cannula 09/30 0728 98.5 107 20 130/70 95 Nasal 4.0L Cannula 09/30 0000 Nasal 4.0L Cannula 09/29 2256 97.9 98 20 120/70 96 Nasal Cannula 09/29 2130 98 120/70 09/29 2040 99 Nasal 4.0L Cannula 09/29 1600 Nasal 4.0L Cannula 09/29 1537 100 124/70 09/29 1532 99.1 111 20 118/56 95 09/29 0957 96 122/64 09/29 0957 96 122/64 Intake & Output 09/30 1600 09/30 0800 09/30 0000 Intake Total 400 800 Output Total 1195 800 Balance -795 0 Intake, Oral 400 800 Output, Stool 95 200 Output, Urine 1100 600 Since saturation 4 L 98% exam for chest shows scattered expiratory wheezing cardiac exam shows a regular S1 and S2 without murmurs Impression/Plan Impression/Plan Impression/Plan: 60-year-old with advanced oxygen-dependent COPD admitted with acute on chronic respiratory failure with suspected pneumonia. Recommendations: Taper FiO2 with improved saturations oral prednisone tomorrow complete course of antibiotics
--- NOTE | 2016-09-30 08:59 | PN- Att Addend ---
Attending Addendum Attending Brief Note Patient appears somewhat lethargic. Otherwise she is on 4 L baseline oxygen. General Appearance: Lethargic, generalized wasting Skin: Grossly normal HEENT: PEERLA Neck: Supple, No JVD Cardiovascular: Regular Rate, Normal S1, Normal S2, No Murmurs Lungs: Coarse expiratory wheeze generalized Abdomen: Normal Bowel Sounds, Soft, No Tenderness Assessment COPD exacerbation with bronchitis currently on antibiotics and IV Solu-Medrol. Her oxygen requirement is about her baseline. According to the patient she has titrated down her methadone to 35 mg from 80 mg and she plans to come off methadone at some point. Plan Continue Levaquin Discontinue azithromycin Continue IV Solu-Medrol Send sputum culture, induced necessary Continue inhalers Ambulate patient Continue the home medication DVT Prophylaxis Current Medications Sig/Freddie Start time Last Medication Dose Route Stop Time Status Admin Acetaminophen 650 MG Q4P PRN 09/28 0215 AC PO Albuterol Sulfate 3 ML EVERY 4 HRS/AWAKE 09/28 1200 AC 09/30 INH 0818 Alendronate Sodium 70 MG QWED 10/01 0700 AC PO Alprazolam 0.5 MG TID PRN 09/28 0215 AC 09/30 PO / 0214 0424 Amlodipine Besylate 10 MG DAILY 09/28 1000 AC 09/29 PO 0957 Aspirin 81 MG DAILY 09/28 1000 AC 09/29 PO 0957 Azithromycin 500 MG DAILY 09/28 1000 AC 09/29 Sodium Chloride 250 ML IV 0957 Budesonide/ 2 PUF BID 09/28 1000 AC 09/29 Formoterol Fumarate INH 2130 Calcium Carbonate 1,000 MG Q4 PRN 09/28 0215 AC PO Cyclobenzaprine HCl 10 MG .STK-MED ONE 09/30 0040 DC PO 09/30 0041 Cyclobenzaprine HCl 10 MG .STK-MED ONE 09/29 1535 DC PO 09/29 1536 Cyclobenzaprine HCl 10 MG .STK-MED ONE 09/29 0948 DC PO 09/29 0949 Cyclobenzaprine HCl 10 MG Q8H PRN 09/28 0215 AC 09/30 PO 0102 Diltiazem HCl 120 MG DAILY 09/28 1000 AC 09/29 PO 0957 Gabapentin 100 MG DAILY 09/28 1000 AC 09/29 PO 0957 Guaifenesin 600 MG Q12 09/28 1000 AC 09/29 PO 2129 Heparin Sodium 5,000 UNIT Q8 09/28 0600 AC 09/30 (Porcine) SC 0523 Hydralazine HCl 10 MG TID 09/28 1000 AC 09/29 PO 2130 Levofloxacin 500 MG DAILY@1900 09/28 1900 AC 09/29 PO 1812 Methadone HCl 35 MG 0600 09/28 0600 AC 09/30 PO 0524 Methylprednisolone 40 MG Q8 09/28 0600 AC 09/30 IV 0523 Mirtazapine 15 MG QPM 09/28 2200 AC 09/29 PO 212 Omeprazole 40 MG DAILY AC 09/28 0700 AC 09/30 PO 0524 Potassium Chloride 40 MEQ 1800 09/28 1800 DC 09/28 PO 1937 Tiotropium [place] 1 PUF DAILY 09/28 1000 AC 09/29 INH 0957 Laboratory Tests 09/30 0704 Chemistry Sodium (137 - 145 mmol/L) 138 Potassium (3.5 - 5.1 mmol/L) 5.0 Chloride (98 - 107 mmol/L) 100 Carbon Dioxide (22 - 30 mmol/L) 31 H Anion Gap (5 - 16) 7 BUN (7 - 17 mg/dL) 24 H Creatinine (0.5 - 1.0 mg/dL) 0.8 Estimated GFR (>60 ml/min) > 60 BUN/Creatinine Ratio (7 - 25 %) 30.0 H Vital Signs Date Time Temp Pulse Resp B/P B/P Pulse O2 O2 Flow FiO2 Mean Ox Delivery Rate 09/30 0825 98 Nasal 4.0L Cannula 09/30 0728 98.5 107 20 130/70 95 Nasal 4.0L Cannula 09/30 0000 Nasal 4.0L Cannula 09/30 2255 97.9 98 20 120/70 96 Nasal Cannula 09/290 98 120/70 09/290 99 Nasal 4.0L Cannula 09/29 1600 Nasal 4.0L Cannula 09/29 1537 100 124/70 09/29 1532 99.1 111 20 118/56 95 09/29 0957 96 122/64 09/29 0957 96 122
--- NOTE | 2016-09-30 10:00 | NUR ---
UPON ASSESSMENT, PT'S STOMA NOTED TO BE VERY INFLAMED. AT BASELINE, PT HAS LARGE PROLAPSE AND THE STOMA EXTENDS ABOUT 5 INCHES. CURRENTLY, STOMA INFLAMED AND TAKING UP ENTIRE COLOSTOMY BAG. PER PT, THIS HAPPENS AT TIMES AND SHE USES WARM SUGAR WATER TO HELP SHRINK THE STOMA. SURGICAL CIRCUIT TESTEREboni ENGEL CALLED TO ASSESS STOMA SITE. PER MAREN, AGREES WITH SUGAR FOR THE STOMA. MACHINE PLATE ST[employer]ER DR. VIDAL NOTIFIED OF CALL TO MAREN AND ALSO AGREEABLE WITH PLAN. SUGAR WATER INSTILLED INTO COLOSTOMY BAG. PER PT, LETS THE WATER DWELL ABOUT AN HOUR BEFORE REMOVING. WILL MONITOR.
[2016-09-30 14:21] VITALS: BP 110/60
[2016-09-30 22:02] VITALS: BP 130/62
[2016-10-01 06:28] VITALS: BP 140/70
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
--- NOTE | 2016-10-01 09:10 | PN- Att Addend ---
Attending Addendum Attending Brief Note Patient appears somewhat lethargic. Otherwise she is on 4 L baseline oxygen. General Appearance: Lethargic, generalized wasting Skin: Grossly normal HEENT: PEERLA Neck: Supple, No JVD Cardiovascular: Regular Rate, Normal S1, Normal S2, No Murmurs Lungs: Coarse expiratory wheeze generalized Abdomen: Normal Bowel Sounds, Soft, No Tenderness Assessment COPD exacerbation with bronchitis currently on antibiotics and IV Solu-Medrol. Her oxygen requirement is about her baseline. According to the patient she has titrated down her methadone to 35 mg from 80 mg and she plans to come off methadone at some point. Plan Continue Levaquin Discontinue azithromycin Transition to prednisone taper Send sputum culture, induced necessary Continue inhalers Get PT evaluation Continue the home medication DVT Prophylaxis Current Medications Sig/Freddie Start time Last Medication Dose Route Stop Time Status Admin Acetaminophen 650 MG Q4P PRN 09/28 0215 AC PO Albuterol Sulfate 3 ML EVERY 4 HRS/AWAKE 09/28 1200 AC 10/01 INH 0810 Alendronate Sodium 70 MG QWED 10/01 0700 AC 10/01 PO 0607 Alprazolam 0.5 MG TID PRN 09/28 0215 AC 10/01 PO / 0214 0110 Amlodipine Besylate 10 MG DAILY 09/28 1000 AC 09/30 PO 0937 Aspirin 81 MG DAILY 09/28 1000 AC 09/30 PO 0937 Azithromycin 500 MG DAILY 09/28 1000 DC 09/30 Sodium Chloride 250 ML IV 0937 Budesonide/ 2 PUF BID 09/28 1000 AC 09/30 Formoterol Fumarate INH 2114 Calcium Carbonate 1,000 MG Q4 PRN 09/28 0215 AC PO Cyclobenzaprine HCl 10 MG .STK-MED ONE 09/30 1802 DC PO 09/30 1803 Cyclobenzaprine HCl 10 MG .STK-MED ONE 09/30 1207 DC PO 09/30 1208 Cyclobenzaprine HCl 10 MG Q8H PRN 09/28 0215 AC 09/30 PO 1804 Diltiazem HCl 120 MG DAILY 09/28 1000 AC 09/30 PO 0937 Gabapentin 100 MG DAILY 09/28 1000 AC 09/30 PO 0937 Guaifenesin 600 MG Q12 09/28 1000 AC 09/30 PO 2107 Heparin Sodium 5,000 UNIT Q8 09/28 0600 AC 10/01 (Porcine) SC 0605 Hydralazine HCl 10 MG TID 09/28 1000 AC 09/30 PO 2108 Levofloxacin 500 MG DAILY@1900 09/28 1900 AC 09/30 PO 1804 Methadone HCl 35 MG 0600 09/28 0600 AC 10/01 PO 0606 Methylprednisolone 40 MG Q12 10/01 1000 AC IV Methylprednisolone 40 MG Q8 09/28 0600 DC 09/30 IV 09/30 2300 2107 Mirtazapine 15 MG QPM 09/28 2200 AC 09/30 PO 2107 Omeprazole 40 MG DAILY AC 09/28 0700 AC 10/01 PO 0608 Patient Medication 1 ED .STK-MED ONE 09/30 1356 DC Teaching ED 09/30 1357 Sodium Polystyrene 60 ML ONCE ONE 09/30 1845 DC Sulfonate PO 09/30 184 Tiotropium [place] 1 PUF DAILY 09/28 1000 AC 09/30 INH 0937 Vital Signs Date Time Temp Pulse Resp B/P B/P Pulse O2 O2 Flow FiO2 Mean Ox Delivery Rate 10/01 0812 96 Nasal 3.0L Cannula 10/02 627 98.0 114 20 140/70 96 Nasal 4.0L Cannula 10/01 0000 96 Nasal 4.0L Cannula 09/30 2201 98.1 118 18 130/62 95 Nasal 4.0L Cannula 09/30 2108 82 128/76 09/30 203 95 Nasal 2.0L Cannula 09/30 1712 96 Nasal 3.0L Cannula 09/30 1421 98.2 66 20 110/60 98 09/30 0937 120 132/70 09/30 0937 120 132/70
--- NOTE | 2016-10-01 10:55 | PN- Pulmonary ---
Subjective HPI/Critical Care Issues: Patient feels less short of breath she's in bed eating and has been out of bed is interested in walking Objective Current Medications: Current Medications Sig/Freddie Start time Last Medication Dose Route Stop Time Status Admin Acetaminophen 650 MG Q4P PRN 09/28 0215 AC PO Albuterol Sulfate 3 ML EVERY 4 HRS/AWAKE 09/28 1200 AC 10/01 INH 0810 Alendronate Sodium 70 MG QWED 10/01 0700 AC 10/01 PO 0607 Alprazolam 0.5 MG TID PRN 09/28 0215 AC 10/01 PO 10/05 0214 0110 Amlodipine Besylate 10 MG DAILY 09/28 1000 AC 10/01 PO 0940 Aspirin 81 MG DAILY 09/28 1000 AC 10/01 PO 0939 Azithromycin 500 MG DAILY 09/28 1000 DC 09/30 Sodium Chloride 250 ML IV 0937 Budesonide/ 2 PUF BID 09/28 1000 AC 10/01 Formoterol Fumarate INH 0940 Calcium Carbonate 1,000 MG Q4 PRN 09/28 0215 AC PO Cyclobenzaprine HCl 10 MG .STK-MED ONE 09/30 1802 DC PO 09/30 1803 Cyclobenzaprine HCl 10 MG .STK-MED ONE 09/30 1207 DC PO 09/30 1208 Cyclobenzaprine HCl 10 MG Q8H PRN 09/28 0215 AC 09/30 PO 1804 Diltiazem HCl 120 MG DAILY 09/28 1000 AC 10/01 PO 0940 Gabapentin 100 MG DAILY 09/28 1000 AC 10/01 PO 0940 Guaifenesin 600 MG Q12 09/28 1000 AC 10/01 PO 0940 Heparin Sodium 5,000 UNIT Q8 09/28 0600 AC 10/01 (Porcine) SC 0605 Hydralazine HCl 10 MG TID 09/28 1000 AC 10/01 PO 0939 Levofloxacin 500 MG DAILY@1900 09/28 1900 AC 09/30 PO 1804 Methadone HCl 35 MG 0600 09/28 0600 AC 10/01 PO 0606 Methylprednisolone 40 MG Q12 10/01 1000 AC 10/01 IV 0940 Methylprednisolone 40 MG Q8 09/28 0600 DC 09/30 IV 09/30 2300 2107 Mirtazapine 15 MG QPM 09/28 2200 AC 09/30 PO 2107 Omeprazole 40 MG DAILY AC 09/28 0700 AC 10/01 PO 0608 Patient Medication 1 ED .STK-MED ONE 09/30 1356 DC Teaching ED 09/30 1357 Sodium Polystyrene 60 ML ONCE ONE 09/30 1845 DC Sulfonate PO 09/30 1846 Tiotropium [place] 1 PUF DAILY 09/28 1000 AC 10/01 INH 0940 Vital Signs & I&O Last 24 Hrs of Vitals and I&O: Vital Signs Date Time Temp Pulse Resp B/P B/P Pulse O2 O2 Flow FiO2 Mean Ox Delivery Rate 10/01 0939 112 142/70 10/01 0812 96 Nasal 3.0L Cannula 10/01 0628 98.0 114 20 140/70 96 Nasal 4.0L Cannula 10/01 0000 96 Nasal 4.0L Cannula 09/30 2202 98.1 118 18 130/62 95 Nasal 4.0L Cannula 09/30 2108 82 128/76 09/30 2035 95 Nasal 2.0L Cannula 09/30 1712 96 Nasal 3.0L Cannula 09/30 1421 98.2 66 20 110/60 98 Intake & Output 10/01 1600 10/01 0800 10/01 0000 Intake Total 240 Output Total 1151 1225 Balance -1151 -985 Intake, Oral 240 Output, Stool 1 75 Output, Urine 1150 1150 Patient 94 lb 15.99 oz Weight Since saturation 3 L 96% exam for chest shows diminished breath sounds are no wheezes cardiac exam shows regular S1 and S2 without murmurs Impression/Plan Impression/Plan Impression/Plan: 60-year-old with advanced oxygen-dependent COPD admitted with acute on chronic respiratory failure with suspected pneumonia. Recommendations: Taper FiO2 with improved saturations . Oral prednisone and complete course of antibiotics. Would advocate for COPD clinic. Begin discharge planning
[2016-10-01 14:38] VITALS: BP 120/68
--- NOTE | 2016-10-01 15:48 | RADIOLOGY REPORT ---
Jessenia Jain, 51, EXAMINATION: XR CHEST CLINICAL INFORMATION: The examination was dictated during downtime and no clinical information was available. COMPARISON: No relevant prior studies are available for comparison. TECHNIQUE: An AP portable view of the chest was obtained. FINDINGS: The examination is somewhat limited secondary to patient rotation. There are bilateral increased interstitial markings. There is no focal airspace consolidation. There is no pleural effusion or pneumothorax. The cardiomediastinal silhouette is not enlarged. Multiple healing right-sided rib fractures are identified. IMPRESSION: Bilateral increased interstitial markings. No focal airspace consolidation.
--- NOTE | 2016-10-01 17:44 | Patient Discharge Instructions ---
Discharge Instructions General Discharge Information You were seen/treated for: severe COPD exacerbation Physical deconditioning and weakness Watch for these problems: Sudden worsening of breathing, unable to walk, increased oxygen requirement - needs immediate medical attention. Special Instructions: Please follow up with in a week please follow up with in a week Please take your medications regularly Diet Recommended Diet: Diabetic, Heart Healthy Activity Activity Self Limited: Yes Acute Coronary Syndrome Inclusion Criteria At DC or during hospital stay patient has or had the following: ACS DIAGNOSIS No Discharge Core Measures Meds if any: Prescribed or Continued at Discharge Meds if any: NOT Prescribed or Continued at Discharge Congestive Heart Failure Inclusion Criteria At DC or during hospital stay patient has or had the following: CHF DIAGNOSIS No Discharge Core Measures Meds if any: Prescribed or Continued at Discharge Meds if any: NOT Prescribed or Continued at Discharge Cerebrovascular accident Inclusion Criteria At DC or during hospital stay patient has or had the following: CVA/TIA Diagnosis No Discharge Core Measures Meds if any: Prescribed or Continued at Discharge Meds if any: NOT Prescribed or Continued at Discharge Venous thromboembolism Inclusion Criteria VTE Diagnosis No VTE Type NONE VTE Confirmed by (Test) NONE Discharge Core Measures - Per Current guidelines, there needs to be overlap - treatment for the first 5 days of Warfarin therapy. - If discharged on Warfarin prior to 5 days of - overlap therapy, the patient will need to be - assessed for post discharge needs including - *Post discharge parental anticoagulation - *Warfarin and/or parental anticoagulation education - *Follow up date to check INR post discharge At least 5 days overlap therapy as Inpatient No Meds if any: Prescribed or Continued at Discharge Note: Overlap Therapy is Warfarin and Anticoagulant Meds if any: NOT Prescribed or Continued at Discharge
[2016-10-01 22:26] VITALS: BP 128/64
--- NOTE | 2016-10-01 22:30 | NUR ---
HR 114, WNL FOR THIS PT. DENIES CHEST PAIN. DOES HAVE SCHMITZ, ADMISSION FOR COPD. DR BARRON MADE AWARE. CONT TO MONITOR, RECEIVING NURSE AWARE.
[2016-10-02 05:48] VITALS: BP 140/74
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
--- NOTE | 2016-10-02 08:30 | PN- Pulmonary ---
Subjective HPI/Critical Care Issues: Patient still feels weak and has congested cough she is now amenable to short- term rehabilitation Objective Current Medications: Current Medications Sig/Freddie Start time Last Medication Dose Route Stop Time Status Admin Acetaminophen 650 MG Q4P PRN 09/28 0215 AC PO Albuterol Sulfate 3 ML EVERY 4 HRS/AWAKE 09/28 1200 AC 10/02 INH 0753 Alendronate Sodium 70 MG QWED 10/01 0700 AC 10/01 PO 0607 Alprazolam 0.5 MG TID PRN 09/28 0215 AC 10/02 PO 10/05 0214 0203 Amlodipine Besylate 10 MG DAILY 09/28 1000 AC 10/01 PO 0940 Aspirin 81 MG DAILY 09/28 1000 AC 10/01 PO 0939 Budesonide/ 2 PUF BID 09/28 1000 AC 10/02 Formoterol Fumarate INH 0802 Calcium Carbonate 1,000 MG Q4 PRN 09/28 0215 AC PO Cyclobenzaprine HCl 10 MG .STK-MED ONE 10/01 2110 DC PO 10/02 2111 Cyclobenzaprine HCl 10 MG Q8H PRN 09/28 0215 AC 10/02 PO 0538 Diltiazem HCl 120 MG DAILY 09/28 1000 AC 10/01 PO 0940 Gabapentin 100 MG DAILY 09/28 1000 AC 10/01 PO 0940 Guaifenesin 600 MG Q12 09/28 1000 AC 10/01 PO 2120 Heparin Sodium 5,000 UNIT Q8 09/28 0600 AC 10/02 (Porcine) SC 0538 Hydralazine HCl 10 MG TID 09/28 1000 AC 10/01 PO 2121 Levofloxacin 500 MG DAILY@1900 09/28 1900 AC 10/01 PO 1913 Methadone HCl 35 MG 00 09/28 0600 AC 10/02 PO 0544 Methylprednisolone 40 MG Q12 10/01 1000 DC 10/01 IV 10/01 2300 2123 Mirtazapine 15 MG QPM 09/28 2200 AC 10/01 PO 2120 Omeprazole 40 MG DAILY AC 09/28 0700 AC 10/02 PO 0538 Prednisone 60 MG ONCE ONE 10/02 1000 AC PO 10/02 1001 Sodium Chloride 2 SPRAY Q4P PRN 10/02 0800 AC NAYELI Tiotropium [place] 1 PUF DAILY 09/28 1000 AC 10/02 INH 0801 Vital Signs & I&O Last 24 Hrs of Vitals and I&O: Vital Signs Date Time Temp Pulse Resp B/P B/P Pulse O2 O2 Flow FiO2 Mean Ox Delivery Rate 10/02 0754 98 Nasal 3.0L Cannula 10/02 0548 98.1 111 22 140/74 96 Nasal 4.0L Cannula 10/02 0000 Nasal 4.0L Cannula 10/01 2226 97.8 114 18 128/64 95 Nasal 4.0L Cannula 10/01 2121 128/64 10/01 1705 122/62 10/01 1641 95 Nasal 3.0L Cannula 10/01 1600 Nasal Cannula 10/01 1438 98.2 112 20 120/68 97 10/01 0939 112 142/70 Intake & Output 10/02 1600 10/02 0800 10/02 0000 Intake Total 300 450 Output Total 1200 1100 Balance -900 -650 Intake, Oral 300 450 Number 0 Bowel Movements Output, Stool 400 Output, Urine 1200 700 Liters oxygen saturation 90% exam for chest shows occasional rhonchi diminished breath sounds cardiac exam shows a regular S1 and S2 without murmurs Impression/Plan Impression/Plan Impression/Plan: 60-year-old with advanced oxygen-dependent COPD admitted with acute on chronic respiratory failure with suspected pneumonia. Severe deconditioning and weakness and will need short-term rehabilitation Recommendations: Taper FiO2 with improved saturations . Oral prednisone and complete course of antibiotics. Would advocate for COPD clinic. Begin discharge planning for short-term rehabilitation. Patient requires aggressive pulmonary toilet
--- NOTE | 2016-10-02 09:58 | PN- Att Addend ---
Attending Addendum Attending Brief Note Patient appears somewhat lethargic. Otherwise she is on 4 L baseline oxygen. General Appearance: Lethargic, generalized wasting Skin: Grossly normal HEENT: PEERLA Neck: Supple, No JVD Cardiovascular: Regular Rate, Normal S1, Normal S2, No Murmurs Lungs: Coarse expiratory wheeze generalized Abdomen: Normal Bowel Sounds, Soft, No Tenderness Assessment COPD exacerbation with bronchitis currently on antibiotics and prednisone. Her oxygen requirement is about her baseline. According to the patient she has titrated down her methadone to 35 mg from 80 mg and she plans to come off methadone at some point. Patient is extremely decompensated and will need short -term rehabilitation. Plan Continue Levaquin Transition to prednisone taper Continue inhalers Needs STR placement Continue the home medication DVT Prophylaxis Current Medications Sig/Freddie Start time Last Medication Dose Route Stop Time Status Admin Acetaminophen 650 MG Q4P PRN 09/28 0215 AC PO Albuterol Sulfate 3 ML EVERY 4 HRS/AWAKE 09/28 1200 AC 10/02 INH 0753 Alendronate Sodium 70 MG QWED 10/01 0700 AC 10/01 PO 0607 Alprazolam 0.5 MG TID PRN 09/28 0215 AC 10/02 PO 10/05 0214 0203 Amlodipine Besylate 10 MG DAILY 09/28 1000 AC 10/02 PO 0940 Aspirin 81 MG DAILY 09/28 1000 AC 10/02 PO 0939 Budesonide/ 2 PUF BID 09/28 1000 AC 10/02 Formoterol Fumarate INH 0802 Calcium Carbonate 1,000 MG Q4 PRN 09/28 0215 AC PO Cyclobenzaprine HCl 10 MG .STK-MED ONE 10/01 2110 DC PO 10/02 2111 Cyclobenzaprine HCl 10 MG Q8H PRN 09/28 0215 AC 10/02 PO 0538 Diltiazem HCl 120 MG DAILY 09/28 1000 AC 10/02 PO 0939 Gabapentin 100 MG DAILY 09/28 1000 AC 10/02 PO 0940 Guaifenesin 600 MG Q12 09/28 1000 AC 10/02 PO 0939 Heparin Sodium 5,000 UNIT Q8 09/28 06 AC 10/02 (Porcine) SC 0538 Hydralazine HCl 10 MG TID 09/28 1000 AC 10/02 PO 0939 Levofloxacin 500 MG DAILY@1900 09/28 1900 AC 10/01 PO 1913 Methadone HCl 35 MG 0600 09/28 0600 AC 10/02 PO 0544 Methylprednisolone 40 MG Q12 10/01 1000 DC 10/01 IV 10/01 2300 2123 Mirtazapine 15 MG QPM 09/28 2200 AC 10/01 PO 2120 Omeprazole 40 MG DAILY AC 09/28 0700 AC 10/02 PO 0538 Prednisone 60 MG ONCE ONE 10/02 1000 AC 10/02 PO 10/02 1001 0940 Sodium Chloride 2 SPRAY Q4P PRN 10/02 0800 AC 10/02 NAYELI 0939 Tiotropium [place] 1 PUF DAILY 09/28 1000 AC 10/02 INH 0801 Vital Signs Date Time Temp Pulse Resp B/P B/P Pulse O2 O2 Flow FiO2 Mean Ox Delivery Rate 10/02 0940 112 138/84 10/02 0939 112 138/84 10/02 0754 98 Nasal 3.0L Cannula 10/02 0548 98.1 111 22 140/74 96 Nasal 4.0L Cannula 10/02 0000 Nasal 4.0L Cannula 10/01 2226 97.8 114 18 128/64 95 Nasal 4.0L Cannula 10/01 2121 128/64 10/01 1705 122/62 10/01 1641 95 Nasal 3.0L Cannula 10/01 1600 Nasal Cannula 10/01 1438 98.2 112 20 120/68 97
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
[2016-10-02 14:25] VITALS: BP 100/60
[2016-10-02 22:16] VITALS: BP 130/70
[2016-10-03 06:59] VITALS: BP 149/76
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
--- NOTE | 2016-10-03 09:03 | PN- Att Addend ---
Attending Addendum Attending Brief Note Patient appears somewhat lethargic. Otherwise she is on 4 L baseline oxygen. General Appearance: Lethargic, generalized wasting Skin: Grossly normal HEENT: PEERLA Neck: Supple, No JVD Cardiovascular: Regular Rate, Normal S1, Normal S2, No Murmurs Lungs: Coarse expiratory wheeze generalized Abdomen: Normal Bowel Sounds, Soft, No Tenderness Assessment COPD exacerbation with bronchitis currently on antibiotics and prednisone. Her oxygen requirement is about her baseline. According to the patient she has titrated down her methadone to 35 mg from 80 mg and she plans to come off methadone at some point. Patient is extremely decompensated and will need short -term rehabilitation. Plan Continue Levaquin for 7 days prednisone taper Continue inhalers Needs STR placement Continue the home medication DVT Prophylaxis Current Medications Sig/Freddie Start time Last Medication Dose Route Stop Time Status Admin Acetaminophen 650 MG Q4P PRN 09/28 0215 AC PO Albuterol Sulfate 3 ML EVERY 4 HRS/AWAKE 09/28 1200 AC 10/03 INH 0824 Alendronate Sodium 70 MG QWED 10/01 0700 AC 10/01 PO 0607 Alprazolam 0.5 MG TID PRN 09/28 0215 AC 10/03 PO 10/05 0214 0312 Amlodipine Besylate 10 MG DAILY 09/28 1000 AC 10/03 PO 0755 Aspirin 81 MG DAILY 09/28 1000 AC 10/03 PO 0755 Budesonide/ 2 PUF BID 09/28 1000 AC 10/03 Formoterol Fumarate INH 0541 Calcium Carbonate 1,000 MG Q4 PRN 09/28 0215 AC PO Cyclobenzaprine HCl 10 MG Q8H PRN 09/28 0215 AC 10/03 PO 0756 Diltiazem HCl 120 MG DAILY 09/28 1000 AC 10/03 PO 0755 Gabapentin 100 MG DAILY 09/28 1000 AC 10/03 PO 0755 Guaifenesin 600 MG Q12 09/28 1000 AC 10/03 PO 0755 Heparin Sodium 5,000 UNIT Q8 09/28 0600 AC 10/03 (Porcine) SC 0534 Hydralazine HCl 10 MG TID 09/28 1000 AC 10/03 PO 0756 Levofloxacin 500 MG DAILY@1900 09/28 1900 AC 10/02 PO 1906 Methadone HCl 35 MG 0600 09/28 0600 AC 10/03 PO 0534 Mirtazapine 15 MG QPM 09/28 2200 AC 10/02 PO 2236 Omeprazole 40 MG DAILY AC 09/28 0700 AC 10/03 PO 0535 Prednisone 60 MG ONCE ONE 10/03 1000 AC 10/03 PO 10/03 1001 0755 Prednisone 60 MG ONCE ONE 10/02 1000 DC 10/02 PO 10/02 1001 0940 Sodium Chloride 2 SPRAY Q4P PRN 10/02 0800 AC 10/02 NAYELI 0939 Tiotropium [place] 1 PUF DAILY 09/28 1000 AC 10/03 INH 0755 Laboratory Tests 10/03 06 Chemistry Sodium (137 - 145 mmol/L) 137 Potassium (3.5 - 5.1 mmol/L) 4.2 Chloride (98 - 107 mmol/L) 94 L Carbon Dioxide (22 - 30 mmol/L) 38 H Anion Gap (5 - 16) 5 BUN (7 - 17 mg/dL) 25 H Creatinine (0.5 - 1.0 mg/dL) 0.7 Estimated GFR (>60 ml/min) > 60 BUN/Creatinine Ratio (7 - 25 %) 35.7 H Vital Signs Date Time Temp Pulse Resp B/P B/P Pulse O2 O2 Flow FiO2 Mean Ox Delivery Rate 10/03 0825 97 Nasal 3.0L Cannula 10/03 0659 98.7 117 20 149/76 95 Nasal Cannula 10/03 0039 99 Nasal 3.0L Cannula 10/03 0000 Nasal 4.0L Cannula 10/02 2239 152/70 10/02 2216 99.2 118 20 130/70 96 Nasal Cannula 10/02 2004 96 Nasal 3.0L Cannula 10/02 1700 114 146/76 10/02 1626 97 Nasal 3.0L Cannula 10/02 1425 97.2 77 20 100/60 93 10/02 1155 Nasal 4.0L Cannula 10/02 0940 112 138/84 10/02 0939 112 138/84
[2016-10-03] MEDS ORDERED: LEVAQUIN500 M1 PO (09:08)
[2016-10-03] MEDS ORDERED: PREDNISONE20 M1 PO (09:08)
[2016-10-03 15:11] VITALS: BP 138/72
[2016-10-17] MEDS ORDERED: ZITHROMAX250 M2 PO (15:15)
== END 2016-10-03 16:08 | disposition home health service (06) | DRG 140 ==
LOC: ERH → 2NA 09-28 01:31 → ERHI 09-28 01:31 → ENRESERV 09-28 02:11 → 2NA 09-28 03:48 → ENPENDDIS 10-03 14:32 → 2NA 10-03 16:08
PROVIDERS: Internal Medicine Infectious Disease; ADMIT Internal Medicine Pulmonary Disease
DX: J44.1 Chronic obstructive pulmonary disease with (acute) exacerbation (principal); N17.9 Acute kidney failure, unspecified; J96.10 Chronic respiratory failure, unspecified whether with hypoxia or hypercapnia; Z99.81 Dependence on supplemental oxygen; G62.9 Polyneuropathy, unspecified; E87.1 Hypo-osmolality and hyponatremia; F11.20 Opioid dependence, uncomplicated; Z93.3 Colostomy status; I10 Essential (primary) hypertension; K21.9 Gastro-esophageal reflux disease without esophagitis; F41.9 Anxiety disorder, unspecified; N39.3 Stress incontinence (female) (male); E87.6 Hypokalemia; G89.4 Chronic pain syndrome; M81.0 Age-related osteoporosis without current pathological fracture; F32.9 Major depressive disorder, single episode, unspecified; E86.0 Dehydration; M54.9 Dorsalgia, unspecified; Z66 Do not resuscitate
CPT/HCPCS: 2NAP; 36415; 74176; 80307; 82436; 87070; 87449; 87450; 93005; 93010; 97161-GP; J0456; J0696; J1644; J2920; J2930; J3490; J7040

== ENCOUNTER 2016-10-13 00:33 | Inpatient (IN) | payer OTHER ==
[~2016-10-13] VITALS: Ht 152.4 cm; Wt 40.8 kg
[~2016-10-13 00:33] MED LIST changes: +PREDNISONE20 M1 PO
--- NOTE | 2016-10-13 00:35 | NUR ---
PT TO [facility] FROM HOME C/O COPD EXACERBATION FOR 1 HR. ON 4L NC AT BASELINE.HAS PRE HOSP 22G LH. RECEIVED 125 MG SOLUMEDROL BY EMS WHILE ENROUTE AND DUO NEB X3. DR ALONZO AT BEDSIDE TO ERMIAS PT ON PT ARRIVAL TO ROOM. O2 SAT 100% DURING NEB TREATMENT. PT STATES "IT IS SO HOT IN MY HOUSE, I THINK IT MADE MY BREATHING WORSE"
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
--- NOTE | 2016-10-13 01:19 | RADIOLOGY REPORT ---
EXAMINATION: XR PORTABLE CHEST CLINICAL INFORMATION: Dyspnea COMPARISON: 09/27/2016 TECHNIQUE: Portable frontal view of the chest was obtained. FINDINGS: Lung volumes are symmetric. There is possible developing left upper lung opacity, with evaluation limited due to overlying healed rib fractures. No definite right lung consolidation. No pneumothorax is seen. No significant pleural effusion or pulmonary edema. The cardiomediastinal contour is unremarkable. Multiple healed right lateral rib fractures are again noted. IMPRESSION: Possible developing left upper lobe opacity.
[2016-10-13 01:27] LABS: ABSOLUTE BASOPHIL COUNT 0.1 /CUMM (0.0-0.2); ABSOLUTE EOSINOPHIL COUNT 0 /CUMM (0.0-0.7); ABSOLUTE LYMPH COUNT 1.5 /CUMM (1.2-3.4); ABSOLUTE MONOCYTE COUNT 0.5 /CUMM (0.10-0.60); BASOPHIL % 0.7 % (0.0-2.0); EOSINOPHIL % 0 % (0-5); GRANULOCYTE % 80.9 % (42.2-75.2); HEMATOCRIT 29.9 % (37-47); MEAN CORPUSCULAR HGB 21.1 PG (27.0-31.0); MEAN CORPUSCULAR HGB CONC 25.6 G/DL (33.0-37.0); MEAN CORPUSCULAR VOLUME 82.5 FL (81.0-99.0); MEAN PLATELET VOLUME 6.9 FL (7.4-10.4); RBC DISTRIBUTION WIDTH 16.6 % (11.5-14.5); WHITE BLOOD CELL COUNT 11.1 /CUMM (4.8-10.8)
[2016-10-13 01:29] LABS: RED BLOOD CELL CT 3.62 /CUMM (4.20-5.40)
--- NOTE | 2016-10-13 01:30 | NUR ---
BLOOD CULTURES X2 AND BLOODS DRAWN AND SENT TO LAB. PT MEDICATED WITH ROCEPHIN AND ZITHRO INFUSING ORDERED. O2 SAT 99% ON BASLELINE 4L/MIN.
[2016-10-13 01:53] LABS: PLATELET COUNT ND /CUMM (130-400)
--- NOTE | 2016-10-13 01:54 | NUR ---
PT MEDICATED WITH XAXAX 1 MG FOR ANXIETY
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
--- NOTE | 2016-10-13 04:50 | NUR ---
PT'S RM ASSIGNMENT 222 BED 1
--- NOTE | 2016-10-13 04:59 | NUR ---
REPORT GIVEN TO ALFONZO CLARK
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
[2016-10-13 06:41] VITALS: BP 164/84
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
--- NOTE | 2016-10-13 09:29 | Admission Certification ---
Admission Certification Certification Statement - As attending physician, I certify that at the time of - admission, based on clinical presentation, severity of - symptoms, need for further diagnostic testing and - therapeutic interventions, and risk of adverse outcomes - without in-hospital treatment, in my clinical assessment, - this patient requires an acute hospital stay for a minimum - of two nights or longer. I have also considered psychsocial - factors such as support system, advanced age, financial - issues, cognitive issues, and failed out-patient treatments, - past re-admission history, safety of patient, and lack of - compliance as applicable. Specific rationale supporting this admission is: COPD exacerbation
--- NOTE | 2016-10-13 09:33 | PN- Att Addend ---
Attending Addendum Attending Brief Note Patient complains of mild shortness of breath and currently on 4 L of oxygen General Appearance: Thin appearing Cardiovascular: Regular Rate, Normal S1, Normal S2, No Murmurs Lungs: Generalized expiratory wheeze Abdomen: Colostomy bag Neurological: Normal Speech, Strength at 5/5 X4 Ext, Cranial Nerves 3-12 NL, Reflexes 2+ Extremities: No Clubbing, No Cyanosis, No Edema Assessment Patient recently discharged after an episode of COPD exacerbation and now presenting with persistent shortness of breath since one day. She appears in COPD exacerbation and x-ray suggesting a probable infiltrate. We will treat her for COPD exacerbation with IV Solu-Medrol and azithromycin. Plan Continue Solu-Medrol Continue azithromycin Send sputum culture Continue inhalers and nebulizers Continue other home meds Current Medications Sig/Freddie Start time Last Medication Dose Route Stop Time Status Admin Acetaminophen 650 MG Q6P PRN 10/13 0545 AC PO Acetaminophen 1,000 MG Q6P PRN 10/13 0545 AC IV Albuterol Sulfate 3 ML Q6 PRN 10/13 0545 AC INH Alendronate Sodium 70 MG QWED 10/15 0700 AC PO Alprazolam 0.5 MG TID PRN 10/13 0545 AC PO 10/20 0544 Alprazolam 0 .STK-MED ONE 10/13 0157 DC PO Alprazolam 1 MG ONCE ONE 10/13 0145 DC 10/13 PO 10/13 0146 0154 Amlodipine Besylate 10 MG DAILY 10/13 1000 AC PO Aspirin 81 MG DAILY 10/13 1000 AC PO Azithromycin 250 MG DAILY 10/13 1000 DC IV Azithromycin 500 MG DAILY 10/13 1000 CAN IV Azithromycin 500 MG Q24H 10/13 1000 AC Dextrose/Water 250 ML IV Azithromycin 500 MG ONCE ONE 10/13 0045 DC 10/13 Sodium Chloride 250 ML IV 10/13 0144 0135 Bisacodyl 10 MG DAILY PRN 10/13 0545 AC OR Budesonide/ 2 PUF BID 10/13 1000 AC Formoterol Fumarate INH Ceftriaxone Sodium 0 .STK-MED ONE 10/13 0132 DC .ROUTE Ceftriaxone Sodium 1,000 MG ONCE ONE 10/13 0045 DC 10/13 IV 10/13 0046 0135 Cyclobenzaprine HCl 10 MG Q8H PRN 10/13 0545 AC PO Diltiazem HCl 120 MG DAILY 10/13 1000 AC PO Enoxaparin Sodium 30 MG DAILY 10/13 1000 AC SC Gabapentin 100 MG DAILY 10/13 1000 AC PO Hydralazine HCl 10 MG TID 10/13 1000 AC PO Methadone HCl 35 MG DAILY 10/13 0545 AC 10/13 PO 0630 Methylprednisolone 40 MG Q6 10/13 0600 AC IV 10/16 0000 Mirtazapine 15 MG QPM 10/13 2200 AC PO Oxycodone HCl 10 MG Q6P PRN 10/13 0545 AC PO Tiotropium [place] 1 PUF DAILY 10/13 1000 AC INH Laboratory Tests 10/13 10/13 0120 0115 Blood Gas pH (7.35 - 7.45 PH) 7.52 H pCO2 (35 - 45 TORR) 43 pO2 (80 - 100 TORR) 79 L HCO3 (21 - 28 MEQ/L) 35 H ABG O2 Sat (Measured) (>96.0 %) 96.0 P-50 (Temp Corrected) Y Carboxyhemoglobin (1.5 - 5.0 %) 0.3 L O2 Concentration % 4 LPM Temperature (97.0 - 100.0 FARH) 97.3 O2 Delivery Method N/C Chemistry Sodium (137 - 145 mmol/L) 135 L Potassium (3.5 - 5.1 mmol/L) 3.9 Chloride (98 - 107 mmol/L) 91 L Carbon Dioxide (22 - 30 mmol/L) 36 H Anion Gap (5 - 16) 8 BUN (7 - 17 mg/dL) 19 H Creatinine (0.5 - 1.0 mg/dL) 0.7 Estimated GFR (>60 ml/min) > 60 BUN/Creatinine Ratio (7 - 25 %) 27.1 H Glucose (65 - 99 mg/dL) 119 H Calcium (8.4 - 10.2 mg/dL) 8.9 Total Bilirubin (0.2 - 1.3 mg/dL) 0.9 AST (14 - 36 U/L) 29 ALT (9 - 52 U/L) 45 Alkaline Phosphatase (<127 U/L) 152 H Troponin I (< 0.11 ng/ml) < 0.01 Total Protein (6.3 - 8.2 g/dL) 6.9 Albumin (3.5 - 5.0 g/dL) 4.1 Globulin (1.9 - 4.2 gm/dL) 2.8 Albumin/Globulin Ratio (1.1 - 2.2 %) 1.5 Hematology CBC w Diff NO MAN DIFF REQ WBC (4.8 - 10.8 /CUMM) 11.1 H RBC (4.20 - 5.40 /CUMM) 3.62 L Hgb (12.0 - 16.0 G/DL) 7.7 L Hct (37 - 47 %) 29.9 L MCV (81.0 - 99.0 FL) 82.5 MCH (27.0 - 31.0 PG) 21.1 L RDW (11.5 - 14.5 %) 16.6 H Plt Count (130 - 400 /CUMM) ND MPV (7.4 - 10.4 FL) 6.9 L Gran % (42.2 - 75.2 %) 80.9 H Lymphocytes % (20.5 - 51.1 %) 13.5 L Monocytes % (1.7 - 9.3 %) 4.9 Eosinophils % (0 - 5 %) 0 Basophils % (0.0 - 2.0 %) 0.7 Absolute Granulocytes (1.4 - 6.5 /CUMM) 9.0 H Absolute Lymphocytes (1.2 - 3.4 /CUMM) 1.5 Absolute Monocytes (0.10 - 0.60 /CUMM) 0.5 Absolute Eosinophils (0.0 - 0.7 /CUMM) 0 Absolute Basophils (0.0 - 0.2 /CUMM) 0.1 PUBS MCHC (33.0 - 37.0 G/DL) 25.6 L Miscellaneous Phlebotomy Draw Site RIGHT BRACHIAL Vital Signs Date Time Temp Pulse Resp B/P B/P Pulse O2 O2 Flow FiO2 Mean Ox Delivery Rate 10/13 0541 98.2 100 20 164/84 99 Nasal 4.0L Cannula 10/13 0522 99 Nasal 4.0L Cannula 10/13 0432 97.2 110 20 173/89 100 Nasal 4.0L Cannula 10/13 0211 97.5 121 22 145/91 100 Nasal 4.0L Cannula 10/13 0207 100 Nasal 4.0L Cannula 10/13 0035 97.3 119 28 139/76 100 Aerosol 8L Mask
[2016-10-13 14:21] VITALS: BP 140/80
--- NOTE | 2016-10-13 18:47 | RADIOLOGY REPORT ---
EXAMINATION: XR CHEST CLINICAL INFORMATION: Shortness of breath. COMPARISON: 10/13/2016. 09/27/2016. Intervening chest CTA. TECHNIQUE: Two views of the chest were obtained. FINDINGS: Minor subsegmental atelectasis at the lung bases, unchanged. No focal pneumonia. No effusion or pneumothorax. Stable heart and mediastinum. Multiple bilateral rib fractures again noted. Nonobstructive gas pattern. IMPRESSION: No acute pneumonia.
[2016-10-13 22:10] VITALS: BP 148/78
[2016-10-14 05:59] VITALS: BP 142/90
--- NOTE | 2016-10-14 07:29 | PN- Housestaff ---
Subjective Follow-up For: COPD exacerbation Complaints: Increasd cough and shortness of breath Subjective: Patient was feeling more short of breath when I examined her this morning. She remained afebrile overnight. Review of Systems Constitutional: Denies: chills, fever. Cardiovascular: Denies: chest pain, palpitations. Respiratory: Reports: cough, short of breath. Gastrointestinal: Denies: abdominal pain, nausea, vomiting. Musculoskeletal: Denies: back pain. Objective Last 24 Hrs of Vital Signs/I&O Vital Signs Date Time Temp Pulse Resp B/P B/P Pulse O2 O2 Flow FiO2 Mean Ox Delivery Rate 10/14 0825 99 Nasal 4.0L Cannula 10/14 0805 103 142/90 10/14 0805 103 142/90 10/14 0800 Nasal 4.0L Cannula 10/14 0559 98.1 103 20 142/90 98 Nasal Cannula 10/14 0511 Nasal 4.0L Cannula 10/14 0000 99 Nasal 4.0L Cannula 10/13 2210 97.7 101 20 148/78 99 Nasal 4.0L Cannula 10/13 2108 101 148/78 10/13 1924 98 Nasal 4.0L Cannula 10/13 1614 74 140/80 10/13 1421 98.2 74 20 140/80 94 Nasal 2.0L Cannula Intake & Output 10/14 1600 10/14 0800 10/14 0000 Intake Total 250 Output Total 400 1100 250 Balance -400 -850 -250 Intake, IV 10 Intake, Oral 240 Output, Stool 400 250 250 Output, Urine 850 Physical Exam General Appearance: Alert, Oriented X3, Cooperative, Mild Distress HEENT: Atraumatic Cardiovascular: Regular Rate, Normal S1, Normal S2 Lungs: expiratory wheezing bilaterally Abdomen: Normal Bowel Sounds, Soft, No Tenderness, ileostomy bag Neurological: Normal Speech, Normal Tone, Sensation Intact Extremities: No Clubbing, No Cyanosis, No Edema Current Medications: Current Medications Sig/Freddie Start time Last Medication Dose Route Stop Time Status Admin Acetaminophen 650 MG Q6P PRN 10/13 0545 AC PO Acetaminophen 1,000 MG Q6P PRN 10/13 0545 AC IV Albuterol Sulfate 3 ML EVERY 4 HRS/AWAKE 10/13 1200 AC 10/14 INH 1328 Albuterol Sulfate 3 ML Q6 PRN 10/13 0545 AC INH Alendronate Sodium 70 MG QWED 10/15 0700 AC PO Alprazolam 0.5 MG TID PRN 10/13 0545 AC 10/14 PO 10/20 0544 1113 Amlodipine Besylate 10 MG DAILY 10/13 1000 AC 10/14 PO 0805 Aspirin 81 MG DAILY 10/13 1000 AC 10/14 PO 0805 Azithromycin 500 MG Q24H 10/14 1000 AC 10/14 Sodium Chloride 250 ML IV 0806 Bisacodyl 10 MG DAILY PRN 10/[address] Budesonide/ 2 PUF BID 10/13 1000 AC 10/14 Formoterol Fumarate INH 0804 Cyclobenzaprine HCl 10 MG Q8H PRN 10/13 0545 AC PO Diltiazem HCl 120 MG DAILY 10/13 1000 AC 10/14 PO 0805 Enoxaparin Sodium 30 MG DAILY 10/13 1000 AC 10/14 SC 0805 Gabapentin 100 MG DAILY 10/13 1000 AC 10/14 PO 0805 Hydralazine HCl 10 MG TID 10/13 1000 AC 10/14 PO 0805 Methadone HCl 35 MG DAILY 10/13 0545 AC 10/14 PO 0453 Methylprednisolone 40 MG Q12 10/13 2200 AC 10/14 IV 10/18 2201 0940 Mirtazapine 15 MG QPM 10/13 2200 AC 10/13 PO 2107 Oxycodone HCl 10 MG Q6P PRN 10/13 0545 AC PO Tiotropium [place] 1 PUF DAILY 10/13 1000 AC 10/14 INH 0804 Last 24 Hrs of Lab/Merrill Results Last 24 Hrs of Labs/Mics: Laboratory Tests 10/14/16 0740: Anion Gap 9, Estimated GFR > 60, BUN/Creatinine Ratio 48.8 H, CBC w Diff NO MAN DIFF REQ, RBC 3.23 L, MCV 82.7, MCH 26.7 L, RDW 17.2 H, MPV 6.4 L, Gran % 91.8 H, Lymphocytes % 2.5 L, Monocytes % 5.7, Eosinophils % 0, Basophils % 0 L, Absolute Granulocytes 14.3 H, Absolute Lymphocytes 0.4 L, Absolute Monocytes 0.9 H, Absolute Eosinophils 0, Absolute Basophils 0, PUBS MCHC 32.3 L Lines/Diet/Fluids Lines: peripheral lines Restraints: none Assessment/Plan Assessment: 60-year-old female with PMHx of 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 #COPD exacerbation Likely patient is experiencing COPD exacerbation given worsening cough with sputum production and expiratory wheezes on exam although acute on chronic anemia can be considered as possible contributing factor. - CXR is without any focal consolidation, pneumonia is an unlikely possibility. - Inciting event unknown. Common cold vs but no History of URTI or ill contacts ? Compliance, most likely Worseneing of disease. - Currently Afebrile - Hemodynamically stable - No chest Pain but does c/o chest pressure - WBC count likely secondary to steroids - Oxygen by nasal canula as required, taper as tolerated -Continue Tiotropium Inhaler 1 puff daily -Continue Symicort Inhaler 2 puffs inhaler BID -Continue IV Steroids Methylprednisone 40mg Q12 IV - Taper Steroids with clinical improvement - Continue Zithromax for COPD exacerbation - TRC Nebs as needed - Pulmo Consult Acute on chronic anemia Patient had transient drop in H&H which improved on its own during the next set of labs. We will order stool Hemoccult to rule out any underlying GI bleed. History of hypertension Continued amlodipine 10 mg PO daily and hydralazine 100 mg PO TID. History of Sinus tachycardia Continued all d Cardizem CD 120 mg PO daily. History of Chronic pain syndrome Continued gabapentin 100 mg PO daily and Flexeril 10 mg PO Q8H PRN for muscle pain. History of Opioid dependence Continued methadone 35 mg PO daily. History of Osteoporosis Continued alendronate 70 mg PO on Thursday. History of Anxiety Continued Xanax 0.5 mg PO Q8H PRN for anxiety. History of Depression continued mirtazapine 15 mg PO QHS. Goals of care Patient has had multiple admissions in the past with a similar complaint. Patient had can services at home. As per pulmonology idea of home hospice was also discussed. Patient is DNR/DNI Patient is on Lovenox for DVT prophylaxis Patient is a regular diet Patient is on pain management Problem List: 1. Chronic obstructive pulmonary disease 2. COPD 3. Obstructive chronic bronchitis with exacerbation Pain Ratin Pain Location: NA Pain Goal: Pain 4 or less Pain Plan: Pain management Tomorrow's Labs & Rationales: CBC for leukocytosis DVT/Prophylaxis: pharmacological
--- NOTE | 2016-10-14 08:31 | PN- Pulmonary ---
Subjective HPI/Critical Care Issues: Patient remains short of breath. I discussed her prognosis with her and she is willing to engage home hospice. as tian wishes to be DNR/DNI Objective Current Medications: Current Medications Sig/Freddie Start time Last Medication Dose Route Stop Time Status Admin Acetaminophen 650 MG Q6P PRN 10/13 0545 AC PO Acetaminophen 1,000 MG Q6P PRN 10/13 0545 AC IV Albuterol Sulfate 3 ML EVERY 4 HRS/AWAKE 10/13 1200 AC 10/14 INH 0822 Albuterol Sulfate 3 ML Q6 PRN 10/13 0545 AC INH Alendronate Sodium 70 MG QWED 10/15 0700 AC PO Alprazolam 0.5 MG TID PRN 10/13 0545 AC 10/14 PO 10/20 0544 0453 Amlodipine Besylate 10 MG DAILY 10/13 1000 AC 10/14 PO 0805 Aspirin 81 MG DAILY 10/13 1000 AC 10/14 PO 0805 Azithromycin 500 MG Q24H 10/14 1000 AC 10/14 Sodium Chloride 250 ML IV 0806 Azithromycin 500 MG Q24H 10/13 1000 DC 10/13 Dextrose/Water 250 ML IV 1014 Bisacodyl 10 MG DAILY PRN 10/13 0545 AC FL Budesonide/ 2 PUF BID 10/13 1000 AC 10/14 Formoterol Fumarate INH 0804 Cyclobenzaprine HCl 10 MG Q8H PRN 10/13 0545 AC PO Diltiazem HCl 120 MG DAILY 10/13 1000 AC 10/14 PO 0805 Enoxaparin Sodium 30 MG DAILY 10/13 1000 AC 10/14 SC 0805 Gabapentin 100 MG DAILY 10/13 1000 AC 10/14 PO 0805 Hydralazine HCl 10 MG TID 10/13 1000 AC 10/14 PO 0805 Methadone HCl 35 MG DAILY 10/13 0545 AC 10/14 PO 0453 Methylprednisolone 40 MG Q12 10/13 2200 AC 10/13 IV 10/18 2201 2108 Methylprednisolone 40 MG Q6 10/13 0600 DC 10/13 IV 10/16 0000 1015 Mirtazapine 15 MG QPM 10/13 2200 AC 10/13 PO 2107 Oxycodone HCl 10 MG Q6P PRN 10/13 0545 AC PO Tiotropium [place] 1 PUF DAILY 10/13 1000 AC 10/14 INH 0804 Vital Signs & I&O Last 24 Hrs of Vitals and I&O: Vital Signs Date Time Temp Pulse Resp B/P B/P Pulse O2 O2 Flow FiO2 Mean Ox Delivery Rate 10/14 0825 99 Nasal 4.0L Cannula 10/14 0805 103 142/90 10/14 0805 103 142/90 10/14 0559 98.1 103 20 142/90 98 Nasal Cannula 10/14 0511 Nasal 4.0L Cannula 10/14 0000 99 Nasal 4.0L Cannula 10/13 2210 97.7 101 20 148/78 99 Nasal 4.0L Cannula 10/13 2108 101 148/78 10/13 1924 98 Nasal 4.0L Cannula 10/13 1614 74 140/80 10/13 1421 98.2 74 20 140/80 94 Nasal 2.0L Cannula 10/13 1017 100 164/84 10/13 1017 100 164/84 10/13 1003 Nasal 4.0L Cannula Intake & Output 10/14 1600 10/14 0800 10/14 0000 Intake Total 250 Output Total 1100 250 Balance -850 -250 Intake, IV 10 Intake, Oral 240 Output, Stool 250 250 Output, Urine 850 And saturation 4 L 99% exam for chest shows diminished breath sounds are no wheezes cardiac exam shows normal S1 and S2 without murmurs Impression/Plan Impression/Plan Impression/Plan: 60-year-old woman with advanced COPD on home hospice presents with increasing shortness of breath the setting of local heat wave. Whether There is evidence of pneumonia is uncertain. Patient had been instructed to call hospice though because it was late at night she did not and presented to the emergency room. Patient has continued evidence of chronic hypoxic respiratory failure and exacerbation of COPD now willing to accept home hospice. Recommendations: Continue current therapy. Referred to home hospice. If She fails to improve consideration of inpatient hospice may be appropriate
[2016-10-14 08:37] LABS: ABSOLUTE BASOPHIL COUNT 0 /CUMM (0.0-0.2); ABSOLUTE EOSINOPHIL COUNT 0 /CUMM (0.0-0.7); ABSOLUTE LYMPH COUNT 0.4 /CUMM (1.2-3.4); BASOPHIL % 0 % (0.0-2.0); EOSINOPHIL % 0 % (0-5)
[2016-10-14 09:20] LABS: ABSOLUTE GRANULOCYTE CT 14.3 /CUMM (1.4-6.5); ABSOLUTE MONOCYTE COUNT 0.9 /CUMM (0.10-0.60); HEMATOCRIT 26.7 % (37-47); MEAN CORPUSCULAR VOLUME 82.7 FL (81.0-99.0); MEAN PLATELET VOLUME 6.4 FL (7.4-10.4); PLATELET COUNT 332 /CUMM (130-400); RBC DISTRIBUTION WIDTH 17.2 % (11.5-14.5); RED BLOOD CELL CT 3.23 /CUMM (4.20-5.40); WHITE BLOOD CELL COUNT 15.6 /CUMM (4.8-10.8)
[2016-10-14 09:39] LABS: MEAN CORPUSCULAR HGB 26.7 PG (27.0-31.0); MEAN CORPUSCULAR HGB CONC 32.3 G/DL (33.0-37.0)
--- NOTE | 2016-10-14 09:40 | PN- Att Addend ---
Attending Addendum Attending Brief Note Patient complains of mild shortness of breath and currently on 4 L of oxygen General Appearance: Thin appearing Cardiovascular: Regular Rate, Normal S1, Normal S2, No Murmurs Lungs: Generalized expiratory wheeze Abdomen: Colostomy bag Neurological: Normal Speech, Strength at 5/5 X4 Ext, Cranial Nerves 3-12 NL, Reflexes 2+ Extremities: No Clubbing, No Cyanosis, No Edema Assessment Patient recently discharged after an episode of COPD exacerbation and now presenting with persistent shortness of breath. She appears in COPD exacerbation and x-ray suggesting a probable infiltrate. On treatment for COPD exacerbation with IV Solu-Medrol and azithromycin. Patient is considering hospice. Plan Continue Solu-Medrol Continue azithromycin Send sputum culture if possible Continue inhalers and nebulizers Continue other home meds Current Medications Sig/Freddie Start time Last Medication Dose Route Stop Time Status Admin Acetaminophen 650 MG Q6P PRN 10/13 0545 AC PO Acetaminophen 1,000 MG Q6P PRN 10/13 0545 AC IV Albuterol Sulfate 3 ML EVERY 4 HRS/AWAKE 10/13 1200 AC 10/14 INH 0822 Albuterol Sulfate 3 ML Q6 PRN 10/13 0545 AC INH Alendronate Sodium 70 MG QWED 10/15 0700 AC PO Alprazolam 0.5 MG TID PRN 10/13 0545 AC 10/14 PO 10/20 0544 0453 Amlodipine Besylate 10 MG DAILY 10/13 1000 AC 10/14 PO 0805 Aspirin 81 MG DAILY 10/13 1000 AC 10/14 PO 0805 Azithromycin 500 MG Q24H 10/14 1000 AC 10/14 Sodium Chloride 250 ML IV 0806 Azithromycin 500 MG Q24H 10/13 1000 DC 10/13 Dextrose/Water 250 ML IV 1014 Bisacodyl 10 MG DAILY PRN 10/13 0545 AC RI Budesonide/ 2 PUF BID 10/13 1000 AC 10/14 Formoterol Fumarate INH 0804 Cyclobenzaprine HCl 10 MG Q8H PRN 10/13 0545 AC PO Diltiazem HCl 120 MG DAILY 10/13 1000 AC 10/14 PO 0805 Enoxaparin Sodium 30 MG DAILY 10/13 1000 AC 10/14 SC 0805 Gabapentin 100 MG DAILY 10/13 1000 AC 10/14 PO 0805 Hydralazine HCl 10 MG TID 10/13 1000 AC 10/14 PO 0805 Methadone HCl 35 MG DAILY 10/13 0545 AC 10/14 PO 0453 Methylprednisolone 40 MG Q12 10/130 AC 10/13 IV 10/18 220 210 Methylprednisolone 40 MG Q6 10/13 0600 DC 10/13 IV 10/16 0000 1015 Mirtazapine 15 MG QPM 10/13 2200 AC 10/13 PO 2107 Oxycodone HCl 10 MG Q6P PRN 10/13 0545 AC PO Tiotropium [place] 1 PUF DAILY 10/13 1000 AC 10/14 INH 0804 Laboratory Tests 10/14 0740 Chemistry Sodium (137 - 145 mmol/L) 138 Potassium (3.5 - 5.1 mmol/L) 4.4 Chloride (98 - 107 mmol/L) 92 L Carbon Dioxide (22 - 30 mmol/L) 37 H Anion Gap (5 - 16) 9 BUN (7 - 17 mg/dL) 39 H Creatinine (0.5 - 1.0 mg/dL) 0.8 Estimated GFR (>60 ml/min) > 60 BUN/Creatinine Ratio (7 - 25 %) 48.8 H Hematology CBC w Diff Pending WBC Pending RBC Pending Hgb Pending Hct Pending MCV Pending MCH Pending RDW Pending Plt Count Pending MPV Pending Gran % Pending Lymphocytes % Pending Monocytes % Pending Eosinophils % Pending Basophils % Pending Absolute Granulocytes Pending Absolute Lymphocytes Pending Absolute Monocytes Pending Absolute Eosinophils Pending Absolute Basophils Pending PUBS MCHC Pending Vital Signs Date Time Temp Pulse Resp B/P B/P Pulse O2 O2 Flow FiO2 Mean Ox Delivery Rate 10/14 0825 99 Nasal 4.0L Cannula 10/14 0805 103 142/90 10/14 0805 103 142/90 10/14 0800 Nasal 4.0L Cannula 10/14 0559 98.1 103 20 142/90 98 Nasal Cannula 10/14 0511 Nasal 4.0L Cannula 10/14 0000 99 Nasal 4.0L Cannula 10/130 97.7 101 20 148/78 99 Nasal 4.0L Cannula 10/13 2108 101 148/78 10/13 1924 98 Nasal 4.0L Cannula 10/13 1614 74 140/80 10/13 1421 98.2 74 20 140/80 94 Nasal 2.0L Cannula 10/13 1017 100 164/84 10/13 1017 100 164/10/13 1003 Nasal 4.0L Cannula
[2016-10-14 09:44] LABS: GRANULOCYTE % 91.8 % (42.2-75.2)
[2016-10-14 14:28] VITALS: BP 140/80
--- NOTE | 2016-10-14 19:32 | NUR ---
PATIENT REFUSING BED ALARM AT THIS TIME. PT VERBALIZED UNDERSTANDING OF RISKS. MD AWARE.
[2016-10-14 23:02] VITALS: BP 146/78
[2016-10-15 06:30] VITALS: BP 150/84
[2016-10-15 08:21] LABS: ABSOLUTE BASOPHIL COUNT 0 /CUMM (0.0-0.2); ABSOLUTE EOSINOPHIL COUNT 0 /CUMM (0.0-0.7); ABSOLUTE GRANULOCYTE CT 26.4 /CUMM (1.4-6.5); ABSOLUTE LYMPH COUNT 0.6 /CUMM (1.2-3.4); ABSOLUTE MONOCYTE COUNT 1.7 /CUMM (0.10-0.60); BASOPHIL % 0 % (0.0-2.0); EOSINOPHIL % 0 % (0-5); GRANULOCYTE % 92.2 % (42.2-75.2); HEMATOCRIT 28.1 % (37-47); MEAN CORPUSCULAR HGB 26.9 PG (27.0-31.0); MEAN CORPUSCULAR HGB CONC 31.8 G/DL (33.0-37.0); MEAN CORPUSCULAR VOLUME 84.5 FL (81.0-99.0); MEAN PLATELET VOLUME 6.5 FL (7.4-10.4); PLATELET COUNT 392 /CUMM (130-400); RBC DISTRIBUTION WIDTH 17.4 % (11.5-14.5); RED BLOOD CELL CT 3.32 /CUMM (4.20-5.40)
--- NOTE | 2016-10-15 09:00 | PN- Housestaff ---
Subjective Follow-up For: COPD exacerbation Complaints: MILD SHORTNESS OF BREATH AND COUGH Subjective: Patient still has some residual shortness of breath and cough. Patient feels better than yesterday but still not recovered. Patient wants to go home. Patient has decided to except home hospice services because of her poor prognosis. Review of Systems Constitutional: Denies: chills, fever. Cardiovascular: Denies: chest pain, palpitations. Respiratory: Reports: cough, short of breath. Gastrointestinal: Denies: abdominal pain, nausea, vomiting. Objective Last 24 Hrs of Vital Signs/I&O Vital Signs Date Time Temp Pulse Resp B/P B/P Pulse O2 O2 Flow FiO2 Mean Ox Delivery Rate 10/15 0942 111 150/84 10/15 0942 111 150/84 10/15 0824 98 Nasal 4.0L Cannula 10/15 0800 Nasal 4.0L Cannula 10/15 0630 99.0 111 20 150/84 96 Nasal Cannula 10/15 0151 Nasal 4.0L Cannula 10/15 0000 96 Nasal 4.0L Cannula 10/14 2302 98.5 109 20 146/78 96 Nasal Cannula 10/14 2059 146/78 10/14 1713 80 140/80 10/14 1618 96 Nasal 4.0L Cannula 10/14 1600 Nasal 4.0L Cannula 10/14 1428 97.8 80 20 140/80 95 Nasal 4.0L Cannula Intake & Output 10/15 1600 10/15 0800 10/15 0000 Intake Total 240 240 Output Total 1450 1300 Balance -1210 -1060 Intake, Oral 240 240 Output, Urine 1450 1300 Physical Exam General Appearance: Alert, Oriented X3, Cooperative, Mild Distress HEENT: Atraumatic Cardiovascular: Regular Rate, Normal S1, Normal S2 Lungs: WHEEZING ON BILATERAL LUNG EXAMINATION Abdomen: Normal Bowel Sounds, Soft, No Tenderness, ILEOSTOMY BAG Neurological: Normal Speech, Normal Tone, Sensation Intact Current Medications: Current Medications Sig/Freddie Start time Last Medication Dose Route Stop Time Status Admin Acetaminophen 650 MG Q6P PRN 10/13 0545 AC PO Acetaminophen 1,000 MG Q6P PRN 10/13 0445 AC IV Albuterol Sulfate 3 ML EVERY 4 HRS/AWAKE 10/13 1200 AC 10/15 INH 0823 Albuterol Sulfate 3 ML Q6 PRN 10/13 0545 AC INH Alendronate Sodium 70 MG QWED 10/15 0700 AC 10/15 PO 0502 Alprazolam 0.5 MG TID PRN 10/13 0545 AC 10/15 PO 10/20 0544 1010 Amlodipine Besylate 10 MG DAILY 10/13 1000 AC 10/15 PO 0942 Aspirin 81 MG DAILY 10/13 1000 AC 10/15 PO 0941 Azithromycin 500 MG Q24H 10/14 1000 AC 10/15 Sodium Chloride 250 ML IV 0941 Bisacodyl 10 MG DAILY PRN 10/13 0545 AC NE Budesonide/ 2 PUF BID 10/13 1000 AC 10/15 Formoterol Fumarate INH 0942 Cyclobenzaprine HCl 10 MG Q8H PRN 10/13 0545 AC PO Diltiazem HCl 120 MG DAILY 10/13 1000 AC 10/15 PO 0941 Enoxaparin Sodium 30 MG DAILY 10/13 1000 AC 10/15 SC 0943 Gabapentin 100 MG DAILY 10/13 1000 AC 10/15 PO 0942 Hydralazine HCl 10 MG TID 10/13 1000 AC 10/15 PO 0942 Methadone HCl 35 MG DAILY 10/13 0545 AC 10/15 PO 0501 Methylprednisolone 40 MG Q12 10/13 2200 AC 10/15 IV 10/18 220 0942 Mirtazapine 15 MG QPM 10/13 2200 AC 10/14 PO 205 Oxycodone HCl 10 MG Q6P PRN 10/13 0545 AC 10/14 PO 2017 Theophylline 200 MG DAILY 10/14 1441 AC 10/15 PO 0942 Tiotropium [place] 1 PUF DAILY 10/13 1000 AC 10/15 INH 0942 Last 24 Hrs of Lab/Merrill Results Last 24 Hrs of Labs/Mics: Laboratory Tests 10/15/16 0620: CBC w Diff MAN DIFF ORDERED, RBC 3.32 L, MCV 84.5, MCH 26.9 L, RDW 17.4 H, MPV 6.5 L, Gran % 92.2 H, Lymphocytes % 1.9 L, Monocytes % 5.9, Eosinophils % 0, Basophils % 0 L, Absolute Granulocytes 26.4 H, Segmented Neutrophils 87 H, Band Neutrophils 3, Absolute Lymphocytes 0.6 L, Lymphocytes 1 L, Monocytes 7, Absolute Monocytes 1.7 H, Absolute Eosinophils 0, Absolute Basophils 0, Metamyelocytes 2 H, Platelet Estimate VERIFIED BY SMEAR, Basophilic Stippling 1 +, Anisocytosis 1+, PUBS MCHC 31.8 L Lines/Diet/Fluids Lines: peripheral lines Restraints: none Assessment/Plan Assessment: 60-year-old female with PMHx of 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 #COPD exacerbation Likely patient is experiencing COPD exacerbation given worsening cough with sputum production and expiratory wheezes on exam although acute on chronic anemia can be considered as possible contributing factor. - CXR is without any focal consolidation, pneumonia is an unlikely possibility. - Inciting event unknown. Common cold vs but no History of URTI or ill contacts ? Compliance, most likely Worseneing of disease. - Currently Afebrile - Hemodynamically stable - No chest Pain but does c/o chest pressure - WBC count likely secondary to steroids - Oxygen by nasal canula as required, taper as tolerated -Continue Tiotropium Inhaler 1 puff daily -Continue Symicort Inhaler 2 puffs inhaler BID -Currently on IV Steroids Methylprednisone 40mg Q12 IV, we will switch it to by mouth steroid taper - Taper Steroids with clinical improvement - Continue Zithromax for COPD exacerbation for 5 days - TRC Nebs as needed - Pulmo Consult Acute on chronic anemia Patient had transient drop in H&H which improved on its own during the next set of labs. We will order stool Hemoccult to rule out any underlying GI bleed. History of hypertension Continued amlodipine 10 mg PO daily and hydralazine 100 mg PO TID. History of Sinus tachycardia Continued all d Cardizem CD 120 mg PO daily. History of Chronic pain syndrome Continued gabapentin 100 mg PO daily and Flexeril 10 mg PO Q8H PRN for muscle pain. History of Opioid dependence Continued methadone 35 mg PO daily. History of Osteoporosis Continued alendronate 70 mg PO on Thursday. History of Anxiety Continued Xanax 0.5 mg PO Q8H PRN for anxiety. History of Depression continued mirtazapine 15 mg PO QHS. Goals of care Patient has had multiple admissions in the past with a similar complaint. Patient had can services at home. As per pulmonology idea of home hospice was also discussed. Patient accepted to be DNR/DNI and home hospice. Patient will be discharged on home hospice. Patient is DNR/DNI Patient is on Lovenox for DVT prophylaxis Patient is a regular diet Patient is on pain management Problem List: 1. COPD 2. Obstructive chronic bronchitis with exacerbation Pain Ratin Pain Location: Back Pain Goal: Pain 4 or less Pain Plan: Patient is on pain management Tomorrow's Labs & Rationales: None as patient will be discharged
[2016-10-15 09:09] LABS: WHITE BLOOD CELL COUNT 28.7 /CUMM (4.8-10.8)
[2016-10-15 09:42] VITALS: BP 150/84
--- NOTE | 2016-10-15 09:49 | PN- Att Addend ---
Attending Addendum Attending Brief Note Patient reports improved symptoms General Appearance: Thin appearing Cardiovascular: Regular Rate, Normal S1, Normal S2, No Murmurs Lungs: Generalized expiratory wheeze Abdomen: Colostomy bag Neurological: Normal Speech, Strength at 5/5 X4 Ext, Cranial Nerves 3-12 NL, Reflexes 2+ Extremities: No Clubbing, No Cyanosis, No Edema Assessment Patient recently discharged after an episode of COPD exacerbation and now presenting with persistent shortness of breath. She appears in COPD exacerbation and x-ray suggesting a probable infiltrate. On treatment for COPD exacerbation with IV Solu-Medrol and azithromycin. Patient is considering hospice. Plan Continue prednisone taper Continue azithromycin for total 5 days Continue inhalers and nebulizers Continue other home meds Stable for discharge Current Medications Sig/Freddie Start time Last Medication Dose Route Stop Time Status Admin Acetaminophen 650 MG Q6P PRN 10/13 0545 AC PO Acetaminophen 1,000 MG Q6P PRN 10/13 0545 AC IV Albuterol Sulfate 3 ML EVERY 4 HRS/AWAKE 10/13 1200 AC 10/15 INH 0823 Albuterol Sulfate 3 ML Q6 PRN 10/13 0545 AC INH Alendronate Sodium 70 MG QWED 10/15 0700 AC 10/15 PO 0502 Alprazolam 0.5 MG TID PRN 10/13 0545 AC 10/15 PO 10/20 0544 0502 Amlodipine Besylate 10 MG DAILY 10/13 1000 AC 10/15 PO 0942 Aspirin 81 MG DAILY 10/13 1000 AC 10/15 PO 0941 Azithromycin 500 MG Q24H 10/14 1000 AC 10/15 Sodium Chloride 250 ML IV 0941 Bisacodyl 10 MG DAILY PRN 10/13 0545 AC WA Budesonide/ 2 PUF BID 10/13 1000 AC 10/15 Formoterol Fumarate INH 0942 Cyclobenzaprine HCl 10 MG Q8H PRN 10/13 0545 AC PO Diltiazem HCl 120 MG DAILY 10/13 1000 AC 10/15 PO 0941 Enoxaparin Sodium 30 MG DAILY 10/13 1000 AC 10/15 SC 0943 Gabapentin 100 MG DAILY 10/13 1000 AC 10/15 PO 0942 Hydralazine HCl 10 MG TID 10/13 1000 AC 10/15 PO 0942 Methadone HCl 35 MG DAILY 10/13 0545 AC 10/15 PO 0501 Methylprednisolone 40 MG Q12 10/13 2200 AC 10/15 IV 10/18 220 0942 Mirtazapine 15 MG QPM 10/13 2200 AC 10/14 PO 2056 Oxycodone HCl 10 MG Q6P PRN 10/13 0545 AC 10/14 PO 2017 Theophylline 200 MG DAILY 10/14 1441 AC 10/15 PO 0942 Tiotropium [place] 1 PUF DAILY 10/13 1000 AC 10/15 INH 0942 Laboratory Tests 10/15 0620 Hematology CBC w Diff Pending WBC Pending RBC Pending Hgb Pending Hct Pending MCV Pending MCH Pending RDW Pending Plt Count Pending MPV Pending Gran % Pending Lymphocytes % Pending Monocytes % Pending Eosinophils % Pending Basophils % Pending Absolute Granulocytes Pending Absolute Lymphocytes Pending Absolute Monocytes Pending Absolute Eosinophils Pending Absolute Basophils Pending PUBS MCHC Pending Vital Signs Date Time Temp Pulse Resp B/P B/P Pulse O2 O2 Flow FiO2 Mean Ox Delivery Rate 10/15 0942 111 150/84 10/15 0942 111 150/84 10/15 0824 98 Nasal 4.0L Cannula 10/15 0630 99.0 111 20 150/84 96 Nasal Cannula 10/15 0151 Nasal 4.0L Cannula 10/15 0000 96 Nasal 4.0L Cannula 10/14 2302 98.5 109 20 146/78 96 Nasal Cannula 10/14 2059 146/78 10/14 1713 80 140/80 10/14 1618 96 Nasal 4.0L Cannula 10/14 1600 Nasal 4.0L Cannula 10/14 1428 97.8 80 20 140/80 95 Nasal 4.0L Cannula
--- NOTE | 2016-10-15 11:10 | Patient Discharge Instructions ---
Discharge Instructions General Discharge Information You were seen/treated for: COPD exacerbation Special Instructions: Follow-up with primary care doctor in a week after discharge. Goals of care discussion was initiated during this hospitalization and patient was made DNR/DNI, patient was already in can support and now agreeable to the idea of home hospice. Follow-up with home hospice after discharge Diet Continue normal diet: Yes Activity Additional ACTIVITY Info: As tolerated Acute Coronary Syndrome Inclusion Criteria At DC or during hospital stay patient has or had the following: ACS DIAGNOSIS No Discharge Core Measures Meds if any: Prescribed or Continued at Discharge Meds if any: NOT Prescribed or Continued at Discharge Congestive Heart Failure Inclusion Criteria At DC or during hospital stay patient has or had the following: CHF DIAGNOSIS No Discharge Core Measures Meds if any: Prescribed or Continued at Discharge Meds if any: NOT Prescribed or Continued at Discharge Cerebrovascular accident Inclusion Criteria At DC or during hospital stay patient has or had the following: CVA/TIA Diagnosis No Discharge Core Measures Meds if any: Prescribed or Continued at Discharge Meds if any: NOT Prescribed or Continued at Discharge Venous thromboembolism Inclusion Criteria VTE Diagnosis No VTE Type NONE VTE Confirmed by (Test) NONE Discharge Core Measures - Per Current guidelines, there needs to be overlap - treatment for the first 5 days of Warfarin therapy. - If discharged on Warfarin prior to 5 days of - overlap therapy, the patient will need to be - assessed for post discharge needs including - *Post discharge parental anticoagulation - *Warfarin and/or parental anticoagulation education - *Follow up date to check INR post discharge At least 5 days overlap therapy as Inpatient No Meds if any: Prescribed or Continued at Discharge Note: Overlap Therapy is Warfarin and Anticoagulant Meds if any: NOT Prescribed or Continued at Discharge
[2016-10-15] MEDS ORDERED: ZITHROMAX250 M2 PO ×2 (11:17→11:28)
[2016-10-15] MEDS ORDERED: PREDNISONE10 M2 PO (11:23)
--- NOTE | 2016-10-15 18:07 | Event Note ---
Event Note Event Note: Jessenia Jain was discharged today with a prescription of Azithromycin for 5 days( 2 tabs on the 1st day followed by 1 tab day 2 through 5). [facility] pharmacy called at around 6pm that the quantity of tabs is wrong on her prescription(she was given 3 tablets only). The prescription was corrected over the phone and the patient was given a total of 6 tablets for 5 days.
[2016-10-17] MEDS ORDERED: ZITHROMAX250 M2 PO (15:15)
== END 2016-10-15 15:50 | disposition home or self-care (01) | DRG 140 ==
LOC: ERH 00:33 → ERHI 03:34 → 2NA 03:34 → ENRESERV 04:43 → 2NA 05:00 → ENPENDDIS 10-15 14:44 → 2NA 10-15 15:50
PROVIDERS: Pediatrics; Preventive Medicine Public Health & General Preventive Medicine; Student in an Organized Health Care Education/Training Program; ADMIT Internal Medicine
DX: J44.1 Chronic obstructive pulmonary disease with (acute) exacerbation (principal); J96.11 Chronic respiratory failure with hypoxia; F11.20 Opioid dependence, uncomplicated; Z99.81 Dependence on supplemental oxygen; K21.9 Gastro-esophageal reflux disease without esophagitis; G89.4 Chronic pain syndrome; M81.0 Age-related osteoporosis without current pathological fracture; F41.9 Anxiety disorder, unspecified; F32.9 Major depressive disorder, single episode, unspecified; Z66 Do not resuscitate; D64.9 Anemia, unspecified; Z87.891 Personal history of nicotine dependence
CPT/HCPCS: 2NAP; 82436; 87040; 87070; 93005; 93010; 96365; 96375; J0456; J0696; J1650; J2920; J3490; J7040; J7060

== ENCOUNTER 2016-10-28 23:10 | Emergency (ER) | payer OTHER ==
[~2016-10-28] VITALS: Ht 152.4 cm; Wt 45.4 kg
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
[2016-10-29 00:07] LABS: ABSOLUTE BASOPHIL COUNT 0 /CUMM (0.0-0.2); ABSOLUTE EOSINOPHIL COUNT 0.1 /CUMM (0.0-0.7); ABSOLUTE GRANULOCYTE CT 4.3 /CUMM (1.4-6.5); ABSOLUTE MONOCYTE COUNT 0.5 /CUMM (0.10-0.60); BASOPHIL % 0.3 % (0.0-2.0); GRANULOCYTE % 73.4 % (42.2-75.2); HEMATOCRIT 27.5 % (37-47); MEAN CORPUSCULAR HGB 26.8 PG (27.0-31.0); MEAN CORPUSCULAR HGB CONC 32.3 G/DL (33.0-37.0); MEAN PLATELET VOLUME 5.9 FL (7.4-10.4); PLATELET COUNT 279 /CUMM (130-400); RBC DISTRIBUTION WIDTH 18.1 % (11.5-14.5); RED BLOOD CELL CT 3.31 /CUMM (4.20-5.40); WHITE BLOOD CELL COUNT 5.9 /CUMM (4.8-10.8)
--- NOTE | 2016-10-29 01:41 | CT SCAN REPORT ---
EXAMINATION: CT ABDOMEN AND PELVIS WITH CONTRAST CLINICAL INFORMATION: Diverticulitis. Left lower quadrant abdominal pain. COMPARISON: CT scan of the abdomen and pelvis 09/27/2016. TECHNIQUE: Multidetector volumetric imaging was performed of the abdomen and pelvis before and after the IV administration of 95 mL of Optiray 320 intravenous contrast. Sagittal and coronal reformatted images were obtained on the technologist's workstation. DLP: 436.05 mGy-cm FINDINGS: LUNG BASES: There is minimal bibasilar subsegmental atelectasis. No pleural or pericardial effusion. Multiple healed rib fractures are visualized bilaterally. LIVER, GALLBLADDER, AND BILIARY TREE: Liver attenuation and enhancement is homogeneous with no evidence of discrete hepatic parenchymal mass. The gallbladder is unremarkable with no evidence of radiopaque gallstones, gallbladder wall thickening, or obvious pericholecystic inflammatory changes. PANCREAS: Unremarkable. SPLEEN: Unremarkable. ADRENAL GLANDS: Unremarkable. KIDNEYS AND URETERS: Kidneys demonstrate symmetric nephrographic enhancement. There is no discrete renal parenchymal mass. No abnormal perinephric inflammation or collection. No hydroureteronephrosis and no worrisome mass or calcification is visualized along the expected course of the right or left ureters. BLADDER: Unremarkable. GASTROINTESTINAL TRACT: There are chronic changes of a left hemicolectomy with a diversion transverse colostomy. The transverse colon is physiologically distended with stool with a diameter of 4.9 cm. There is mild stranding within the fat surrounding the transverse colon. No clear evidence of distal obstruction. There are no abnormally dilated loops of small bowel. No free intraperitoneal air or fluid. The stomach and gastroesophageal junction are unremarkable. The appendix is normal. ABDOMINAL WALL: There are chronic post surgical changes of anterior abdominal wall. Otherwise no evidence of hernia. LYMPH NODES: No pathologically enlarged mesenteric or retroperitoneal lymph nodes. VASCULAR: Calcified plaque involves the abdominal aorta. The inferior vena cava and portal system are unremarkable. PELVIC VISCERA: There is an anteverted uterus. No worrisome adnexal mass. OSSEOUS STRUCTURES: There are chronic changes of an open reduction internal fixation of a left femoral neck fracture with a sliding hip screw. Exuberant heterotopic calcification surrounds the greater trochanter. Chronic changes of a healed left sacral insufficiency fracture and healed superior and inferior pubic rami fractures are also noted. There are chronic compression deformities of the T12 and L1 vertebral bodies that remain stable when compared to the previous examination from 09/27/2016. No evidence of acute fracture. No spinal subluxation. IMPRESSION: There are chronic changes of a left hemicolectomy with a diverting transverse colostomy. The transverse colon is physiologically distended with stool with a diameter of 4.9 cm. There is mild stranding within the fat surrounding the transverse colon. Findings may represent a manifestation of impaction with associated stercoral colitis. No clear evidence of distal obstruction. Otherwise stable examination. No drainable fluid collection.
[2016-10-29 06:19] VITALS: BP 167/92
== END 2016-10-29 09:24 ==
LOC: ERH 23:10
PROVIDERS: Emergency Medicine
DX: F41.9 Anxiety disorder, unspecified (principal); J44.9 Chronic obstructive pulmonary disease, unspecified; F17.210 Nicotine dependence, cigarettes, uncomplicated
CPT/HCPCS: 1263; 74177; 96374

== ENCOUNTER 2016-10-30 07:44 | Emergency (ER) | payer OTHER ==
[~2016-10-30] VITALS: Ht 152.4 cm; Wt 40.8 kg
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
--- NOTE | 2016-10-30 08:41 | RADIOLOGY REPORT ---
EXAMINATION: XR CHEST CLINICAL INFORMATION: Shortness of breath COMPARISON: 10/27/2016 TECHNIQUE: 2 views of the chest were obtained. FINDINGS: Lungs are well expanded and clear; no acute pulmonary edema, focal consolidation or pleural effusion. Cardiac silhouette is at the upper range of normal size. Pulmonary abdoul are unremarkable. Bone density appears diffusely decreased and there are multiple old bilateral rib fractures. Also, there are multiple old thoracic vertebral compression fractures resulting in thoracic hyperkyphosis. IMPRESSION: 1. No acute pulmonary abnormality compared to 10/27/2016. 2. Osteoporosis with multiple old bilateral rib fractures and thoracic vertebral body fractures.
[2016-10-30 09:58] VITALS: BP 183/97
== END 2016-10-30 10:00 ==
LOC: ERH 07:44
DX: J44.9 Chronic obstructive pulmonary disease, unspecified (principal); Z72.0 Tobacco use

== ENCOUNTER 2016-11-06 12:20 | Inpatient (IN) | payer OTHER ==
[~2016-11-06] VITALS: Ht 152.4 cm; Wt 40.8 kg
[~2016-11-06 12:20] MED LIST changes: +LISINOPRIL20 M1 PO; +MELOXICAM7.5 M1 PO; +MORPHINE S100 MG/5 M PO
--- NOTE | 2016-11-06 12:22 | NUR ---
PT BIBA FOR ALTERED MENTAL STATUS. PER EMS, PT'S PERSONAL AIDE ARRIVED AT THE HOME TO FIND PT LETHARGIC IN BED AND NOT WEARING OXYGEN. UPON EMS ARRIVAL, FOUND WITH HR IN 130s WHICH DID IMPROVE WITH APPLICATION OF O2 VIA NC. EMS REPORTS BOTTLE OF METHADONE AT BEDSIDE. GLUCOSE IN FIELD 106. PT LETHARGIC BUT APPROPRAITELY RESPONSIVE ON ARRIVAL
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
--- NOTE | 2016-11-06 13:07 | NUR ---
OBTAINED RAINBOW OF BLOOD WORK AND SENT TO LAB AT THIS TIME. PT REMAINS ON COATER CARBON PAPER, BP CUFF AND 02 MONITOR.
--- NOTE | 2016-11-06 13:24 | NUR ---
XRAY IN ROOM
[2016-11-06 13:31] LABS: ABSOLUTE BASOPHIL COUNT 0.1 /CUMM (0.0-0.2); ABSOLUTE EOSINOPHIL COUNT 0.1 /CUMM (0.0-0.7); ABSOLUTE GRANULOCYTE CT 8.2 /CUMM (1.4-6.5); ABSOLUTE LYMPH COUNT 1.4 /CUMM (1.2-3.4); ABSOLUTE MONOCYTE COUNT 0.7 /CUMM (0.10-0.60); BASOPHIL % 0.5 % (0.0-2.0); EOSINOPHIL % 1.1 % (0-5); GRANULOCYTE % 77.9 % (42.2-75.2); MEAN CORPUSCULAR HGB 27.3 PG (27.0-31.0); MEAN CORPUSCULAR HGB CONC 32.3 G/DL (33.0-37.0); MEAN CORPUSCULAR VOLUME 84.7 FL (81.0-99.0); MEAN PLATELET VOLUME 6.4 FL (7.4-10.4); PLATELET COUNT 359 /CUMM (130-400); RBC DISTRIBUTION WIDTH 21.6 % (11.5-14.5); RED BLOOD CELL CT 3.19 /CUMM (4.20-5.40); WHITE BLOOD CELL COUNT 10.5 /CUMM (4.8-10.8)
--- NOTE | 2016-11-06 14:16 | RADIOLOGY REPORT ---
EXAMINATION: XR PORTABLE CHEST CLINICAL INFORMATION: Altered mental status with COPD. COMPARISON: 11/29/2016. 02/29/2016. TECHNIQUE: Portable AP upright view of the chest was obtained. FINDINGS: The cardiomediastinal silhouette is unremarkable. Osteopenia is again identified. Multinodular appearance bilaterally is consistent with multiple old healed rib fractures unchanged. There is a left proximal humeral fracture. The lungs and pleural spaces otherwise appear clear without evidence of congestion, consolidation, or significant appearing effusion or atelectasis. There is no evidence of pneumothorax or pulmonary edema. Included osseous structures appear largely unremarkable. IMPRESSION: Stable appearing chest x-ray, no acute process.
--- NOTE | 2016-11-06 15:27 | NUR ---
CRITICAL TEST RESULTS [id number] GHASSAN FRIEDMAN 60 F TESTS AND RESULTS: pH = 7.31 CO2 = 68 PO2 = 66 O2 SAT = 90% BICARB = 31 Results received and read back by: VERONICA AGRAWAL Results received date and time: 11/06/16 1524 The following provider was notified of the results, and read the results back: AMEE CLEMENT Notified date and time: 11/06/16 at 1526
--- NOTE | 2016-11-06 15:48 | NUR ---
PT REFUSING TO ALLOW STAFF TO DRAW SECOND LACTIC ACID, PULLING ARM AWAY AND SWINGING AT STAFF
--- NOTE | 2016-11-06 15:59 | NUR ---
PER RT, PT OFF BIPAP AND ON 2L NC
--- NOTE | 2016-11-06 16:51 | NUR ---
PT GIVEN 2ND DOSE OF NARCAN. INCREASED CONFUSION AND AGITATION, PULLING O2 OFF, YELLING "HELP ME, HELP ME, COME HERE". CLAIMS VISUAL HALLUCINATIONS. UPON ASKING FURTHER QUESTIONS PATIENT STATED "KILL MYSELF". PT ASKED AGAIN AND STATED "TRIED TO KILL MYSELF". CHARGE NURSE FRANCINE LANTIGUA
--- NOTE | 2016-11-06 17:30 | NUR ---
PT REPOSITIONED BY THIS COFFEE SHOP MANAGER AND ALFONZO GROVE. CONTINUOUS OBS MONITOR ORDERED.
--- NOTE | 2016-11-06 18:15 | NUR ---
PT RESTING COMFORTABLY. SITTER AT BEDSIDE
--- NOTE | 2016-11-06 18:18 | NUR ---
PT ASSIGNED TO ROOM [facility].
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
--- NOTE | 2016-11-06 19:32 | NUR ---
REPORT TO IRON MEJÍA ON 1N
--- NOTE | 2016-11-06 20:44 | NUR ---
NURSING NOTE: PT ARRIVED TO 1NO AT 2019. PT DORWSY/AROUSABLE TO SPEECH. NO COMPLAINTS OF PAIN. COM AT BEDSIDE. ORDER FOR BUE SOFT RESTRAINTS IN PLACE BUT NOT APPLIED. PER MD HOU, ANTHONY TO DC - CALL IF NEED TO REORDER. OBSERVATION ADMISSION COMPLETED. SKIN PRECAUTIONS PUT IN PLACE - SIZEWISE NOT ORDERED PT IS AN OBSERVATION. SKIN MAN COMPLETED. PT SATING 98% ON 4L NC. ALL OTHER VSS. PT RESTING COMFORTABLY IN BED.
[2016-11-06 21:53] VITALS: BP 160/90
[2016-11-07 06:04] VITALS: BP 122/66
--- NOTE | 2016-11-07 09:14 | Admission Certification ---
Admission Certification Certification Statement - As attending physician, I certify that at the time of - admission, based on clinical presentation, severity of - symptoms, need for further diagnostic testing and - therapeutic interventions, and risk of adverse outcomes - without in-hospital treatment, in my clinical assessment, - this patient requires an acute hospital stay for a minimum - of two nights or longer. I have also considered psychsocial - factors such as support system, advanced age, financial - issues, cognitive issues, and failed out-patient treatments, - past re-admission history, safety of patient, and lack of - compliance as applicable. Specific rationale supporting this admission is: opioid overdose
--- NOTE | 2016-11-07 09:19 | PN- Att Addend ---
See Addendum Attending Addendum Attending Brief Note Patient this morning is awake and alert responding to questions and requesting for her home dose methadone and Xanax when necessary for anxiety. General Appearance: Alert, No Acute Distress Cardiovascular: Regular Rate, Normal S1, Normal S2, No Murmurs Lungs: Decreased air entrynderness Neurological: Normal Speech, Strength at 5/5 X4 Ext, Cranial Nerves 3-12 NL, Reflexes 2+ Extremities: No Clubbing, No Cyanosis, No Edema Assessment 60-year-old with history of end-stage COPD on 4 L oxygen and chronic pain syndrome on methadone currently on a taper through methadone clinic she was also recently placed on home hospice on morphine and Ativan. She presents unresponsive likely secondary to overdose of opioids and benzos. She responded to Narcan and this morning she is awake and alert however exhibiting some withdrawal symptoms like anxiety. We will resume her home dose methadone and Xanax when necessary for anxiety. At this point hospice will be revoked until her discharge. Patient is willing to resume her hospice upon discharge at home. From respiratory viewpoint she appears to be her baseline. Patient had expressed suicidal ideation. Plan Resume home dose methadone Xanax 0.25 mg 3 times a day when necessary anxiety Continue other home medication and inhalers TRC and nebs Psych evaluation Continue sitter DVT prophylaxis Current Medications Sig/Freddie Start time Last Medication Dose Route Stop Time Status Admin Acetaminophen 650 MG Q6P PRN 11/06 1800 AC PO Acetaminophen 1,000 MG Q6P PRN 11/06 1800 AC IV Albuterol Sulfate 3 ML ONCE ONE 11/06 1300 DC 11/06 INH 11/06 1301 1312 Alprazolam 0.5 MG TID 11/07 1000 AC PO 11/14 0959 Enoxaparin Sodium 40 MG DAILY 11/07 1000 AC SC Magnesium Sulfate 0 .STK-MED ONE 11/06 1813 DC .ROUTE Magnesium Sulfate 1 GM Q2H 11/06 1800 DC 11/06 Dextrose/Water 100 ML IV 11/06 2159 2158 Methylprednisolone 0 .STK-MED ONE 11/06 1323 DC .ROUTE Methylprednisolone 125 MG ONCE ONE 11/06 1300 DC 11/06 IV 11/06 1301 1319 Naloxone HCl 0.4 MG ONCE PRN 11/06 2030 AC IV Naloxone HCl 0 .STK-MED ONE 11/06 1647 DC .ROUTE Naloxone HCl 0.4 MG ONCE ONE 11/06 1630 DC 11/06 IV 11/06 1631 1640 Naloxone HCl 0 .STK-MED ONE 11/06 1538 DC .ROUTE Naloxone HCl 0.4 MG ONCE ONE 11/06 1530 DC 11/06 IV 11/06 1531 1534 Sodium Chloride 1,000 ML Q20H 11/06 2030 AC 11/06 IV 2128 Laboratory Tests 11/06 11/06 1549 1510 Blood Gas pH (7.35 - 7.45 PH) 7.31 L pCO2 (35 - 45 TORR) 68 *H pO2 (80 - 100 TORR) 66 L HCO3 (21 - 28 MEQ/L) 31 H ABG O2 Sat (Measured) (>96.0 %) 90.0 L Carboxyhemoglobin (1.5 - 5.0 %) 0.9 L O2 Concentration % .35 Respiration Rate (BPM) 30 O2 Delivery Method BIPAP Vent Mode ST Expiratory Pressure (CM H2O P) 6 Inspiratory Pressure (CM H2O P) 16 Chemistry Lactic Acid Cancelled Miscellaneous Phlebotomy Draw Site RIGHT RADIAL 11/06 11/06 1420 1305 Blood Gas pH (7.35 - 7.45 PH) 7.29 *L pCO2 (35 - 45 TORR) 71 *H pO2 (80 - 100 TORR) 110 H HCO3 (21 - 28 MEQ/L) 33 H ABG O2 Sat (Measured) (>96.0 %) 97.0 P-50 (Temp Corrected) N Carboxyhemoglobin (1.5 - 5.0 %) 0.2 L O2 Concentration % 4.5L O2 Delivery Method NC Miscellaneous Phlebotomy Draw Site RIGHT RADIAL Toxicology Urine Opiates Screen (>2000 NG/ML) 2975.00 H Methadone Screen (>300 NG/ML) > 735 H Barbiturate Screen (>200 NG/ML) < 60 Ur Phencyclidine Scrn (>25 NG/ML) 8.80 Amphetamines Screen (>1000 NG/ML) < 100 U Benzodiazepines Scrn (>200 NG/ML) > 800 H Urine Cocaine Screen (>300 NG/ML) < 50 Urine Cannabis Screen (>50 NG/ML) 38.00 Urines Urine Color (YEL,AMB,STR) YEL Urine Clarity (CLEAR) CLEAR Urine pH (5.0 - 8.0) 6.0 Ur Specific [place] (1.001 - 1.035) 1.015 Urine Protein (NEG,<30 MG/DL) TRACE H Urine Ketones (NEG) NEG Urine Nitrite (NEG) NEG Urine Bilirubin (NEG) NEG Urine Urobilinogen (0.1 - 1.0 EU/dl) 0.2 Ur Leukocyte Esterase (NEG) NEG Ur Microscopic SEDIMENT EXAMINED Urine WBC (0 - 2 /HPF) 1-3 H Ur Epithelial Cells (NONE,FEW) RARE Urine Hemoglobin (NEG) NEG Urine Glucose (N MG/DL) NEG 11/06 1304 Chemistry Sodium (137 - 145 mmol/L) 139 Potassium (3.5 - 5.1 mmol/L) 4.1 Chloride (98 - 107 mmol/L) 99 Carbon Dioxide (22 - 30 mmol/L) 33 H Anion Gap (5 - 16) 7 BUN (7 - 17 mg/dL) 22 H Creatinine (0.5 - 1.0 mg/dL) 0.9 Estimated GFR (>60 ml/min) > 60 BUN/Creatinine Ratio (7 - 25 %) 24.4 Glucose (65 - 99 mg/dL) 69 Lactic Acid (0.7 - 2.1 mmol/L) 1.0 Calcium (8.4 - 10.2 mg/dL) 9.1 Magnesium (1.6 - 2.3 mg/dL) 1.1 L Total Bilirubin (0.2 - 1.3 mg/dL) 0.8 AST (14 - 36 U/L) 26 ALT (9 - 52 U/L) 46 Alkaline Phosphatase (<127 U/L) 99 Creatine Kinase (30 - 135 U/L) 53 Troponin I (< 0.11 ng/ml) < 0.01 Total Protein (6.3 - 8.2 g/dL) 6.0 L Albumin (3.5 - 5.0 g/dL) 3.7 Globulin (1.9 - 4.2 gm/dL) 2.3 Albumin/Globulin Ratio (1.1 - 2.2 %) 1.6 Hematology CBC w Diff NO MAN DIFF REQ WBC (4.8 - 10.8 /CUMM) 10.5 RBC (4.20 - 5.40 /CUMM) 3.19 L Hgb (12.0 - 16.0 G/DL) 8.7 L Hct (37 - 47 %) 27.0 L MCV (81.0 - 99.0 FL) 84.7 MCH (27.0 - 31.0 PG) 27.3 RDW (11.5 - 14.5 %) 21.6 H Plt Count (130 - 400 /CUMM) 359 MPV (7.4 - 10.4 FL) 6.4 L Gran % (42.2 - 75.2 %) 77.9 H Lymphocytes % (20.5 - 51.1 %) 13.4 L Monocytes % (1.7 - 9.3 %) 7.1 Eosinophils % (0 - 5 %) 1.1 Basophils % (0.0 - 2.0 %) 0.5 Absolute Granulocytes (1.4 - 6.5 /CUMM) 8.2 H Absolute Lymphocytes (1.2 - 3.4 /CUMM) 1.4 Absolute Monocytes (0.10 - 0.60 /CUMM) 0.7 H Absolute Eosinophils (0.0 - 0.7 /CUMM) 0.1 Absolute Basophils (0.0 - 0.2 /CUMM) 0.1 PUBS MCHC (33.0 - 37.0 G/DL) 32.3 L Toxicology Salicylates (0 - 20.0 mg/dL) < 1.0 Acetaminophen (10.0 - 30.0 ug/mL) < 10.0 L Serum Alcohol (<10 MG/DL) < 10.0 Vital Signs Date Time Temp Pulse Resp B/P B/P Pulse O2 O2 Flow FiO2 Mean Ox Delivery Rate 11/07 0604 98.0 82 18 122/66 100 Nasal 3.5L Cannula 11/07 0000 Nasal 4.0L Cannula 11/06 2153 98.2 94 20 160/90 98 Nasal 4.0L Cannula 11/06 2032 98 Nasal 4.0L Cannula 11/06 1905 98.0 114 24 166/101 96 Nasal 4.0L Cannula 11/06 1708 98.1 121 26 163/102 93 Nasal 4.0L Cannula 11/06 1558 96 11/06 1444 98.4 111 22 178/113 97 Nasal 4.0L Cannula 11/06 1335 110 99 11/06 1322 99 Nasal 4.5L Cannula 11/06 1312 100 Nasal 4.0L Cannula 11/06 1225 96.5 113 25 163/103 100 Nasal 4.0L Cannula
[2016-11-07 09:42] LABS: ABSOLUTE BASOPHIL COUNT 0 /CUMM (0.0-0.2); ABSOLUTE EOSINOPHIL COUNT 0 /CUMM (0.0-0.7); ABSOLUTE GRANULOCYTE CT 6.9 /CUMM (1.4-6.5); BASOPHIL % 0.3 % (0.0-2.0); EOSINOPHIL % 0.1 % (0-5); HEMATOCRIT 25.5 % (37-47); MEAN CORPUSCULAR HGB 27.3 PG (27.0-31.0); MEAN CORPUSCULAR HGB CONC 32.1 G/DL (33.0-37.0); MEAN CORPUSCULAR VOLUME 84.8 FL (81.0-99.0); MEAN PLATELET VOLUME 6.2 FL (7.4-10.4); PLATELET COUNT 339 /CUMM (130-400); RBC DISTRIBUTION WIDTH 21.1 % (11.5-14.5); RED BLOOD CELL CT 3.01 /CUMM (4.20-5.40); WHITE BLOOD CELL COUNT 9.9 /CUMM (4.8-10.8)
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
[2016-11-07 17:00] VITALS: BP 132/80
--- NOTE | 2016-11-07 18:03 | PN-Observation ---
Observation Note Observation Note _ I have personally examined GHASSAN FRIEDMAN. her disposition is uncertain at this time. Before a determination can be made, she requires continued observation for the following reasons AMS AND ACUTE HYPERCARBIC RESPIRATORY FAILURE 2/2 DRUG OVERDOSE. Assessment/Plan Assessment: Patient is a 60-year-old woman with past medical history significant for end- stage COPD on 4 L of oxygen at baseline, ischemic colitis status post colostomy, chronic pain syndrome on methadone, GERD, hypertension, osteoporosis was brought in by EMS with concerns of altered mental status. Patient's mental status has improved greatly. She is on a methadone maintenance program. #Acute hypercarbic respiratory failure probably due to methadone overdose questionable suicidal attempt #anemia #Psych issues #chronic pain #htn #copd #gerd Problem List: 1. COPD 2. GERD (gastroesophageal reflux disease) 3. Hypertension 4. Chronic pain 5. Colostomy in place 6. Suicide attempt 7. Polysubstance abuse 8. Methadone overdose 9. Benzodiazepine overdose 10. Methadone dependence 11. Full code status Plan: PLAN * Patient was started on methadone maintenance 35 mg today, continue. * Patient started on home xanax .25 mg tid * follow cbc as patient has hb 8.2. no clinical signs of anemia -could be chronic bleed, has GERD issues. * Will keep the patient in observation * Sitter placed * Psych says she does not appear to be a risk to self, but is concerned about repeated accidental overdose. The patient is agreeable to a locked medication box with visiting nursing to prevent future overuse. * If she becomes more lethargic we'll do ABG again and put her back on BiPAP * PRN Narcan as needed for drowsiness and sedation. * If patient requires more doses of Narcan we'll consider putting her on a drip and transfer her to ICU. STABLE NOW. * PT IS ISOLATION VRE * TRC NEBS * DISPOSITION- HOME HOSPICE- SHE WAS CURRENTLY ON HOME HOSPICE FOR COPD * DNR DNI DVT/Prophylaxis: mechanical Subjective Follow-up For: #Acute hypercarbic respiratory failure probably due to methadone overdose questionable suicidal attempt #anemia #Psych issues #chronic pain #htn #copd #gerd Complaints: no complaints Tele-Events Since Last Visit: NSR 80-90 Subjective: patient was examined bedside, no complaints physically but states that she is eager to go home and nervous about making it to her methadone clinic before the weekend. Review of Systems Constitutional: Reports: no symptoms. EENTM: Reports: no symptoms. Cardiovascular: Reports: no symptoms. Respiratory: Reports: cough, short of breath, stridor, wheezing (copd baseline). Gastrointestinal: Reports: no symptoms. Genitourinary: Reports: no symptoms. Musculoskeletal: Reports: no symptoms. Skin: Reports: no symptoms, lesions. Neurological/Psychological: Reports: no symptoms. Objective Last 24 Hrs of Vital Signs/I&O Vital Signs Date Time Temp Pulse Resp B/P B/P Pulse O2 O2 Flow FiO2 Mean Ox Delivery Rate 11/07 1700 98.0 86 20 132/80 95 Nasal 4.0L Cannula 11/07 1605 99 Nasal 3.5L Cannula 11/07 1224 Nasal 3.5L Cannula 11/07 0800 96 Nasal 4.0L Cannula 11/07 0604 98.0 82 18 122/66 100 Nasal 3.5L Cannula 11/07 0000 Nasal 4.0L Cannula 11/06 2153 98.2 94 20 160/90 98 Nasal 4.0L Cannula 11/06 2032 98 Nasal 4.0L Cannula 11/06 1905 98.0 114 24 166/101 96 Nasal 4.0L Cannula Intake & Output 11/07 1600 07 0800 11/07 0000 Intake Total 850 500 340 Output Total 500 450 Balance 350 500 -110 Intake, IV 400 400 100 Intake, Oral 450 100 240 Output, Stool 100 Output, Urine 500 350 Patient 90 lb Weight Physical Exam General Appearance: Alert, Oriented X3, Cooperative, No Acute Distress Skin: No Rashes, No Breakdown, No Significant Lesion Skin Temp/Moisture Exam: Warm/Dry Sepsis Skin Exam (color): Normal for Ethnicity HEENT: Atraumatic, PERRLA, EOMI, Mucous Membr. moist/pink Neck: Supple Cardiovascular: Regular Rate, Normal S1, Normal S2, No Murmurs, Gallops, Rubs Lungs: Clear to Auscultation, Normal Air Movement Abdomen: Normal Bowel Sounds, Soft, No Tenderness, No Hepatospenomegaly, No Masses Neurological: Normal Speech, Sensation Intact Extremities: No Clubbing, No Cyanosis, No Edema, Normal Pulses, No Tenderness/ Swelling Vascular: Normal Pulses, Pulses Symmetrical Sepsis Peripheral Pulse Location: Radial Sepsis Peripheral Pulse Exam: Normal Current Medications: Current Medications Sig/Freddie Start time Last Medication Dose Route Stop Time Status Admin Acetaminophen 650 MG Q6P PRN 11/06 1800 AC PO Acetaminophen 1,000 MG Q6P PRN 11/06 1800 AC IV Albuterol Sulfate 3 ML EVERY 4 HRS/AWAKE 11/07 1245 AC 11/07 INH 1604 Alprazolam 0.25 MG TID 11/07 1600 AC 11/07 PO 11/14 0959 1644 Alprazolam 0.5 MG TID 11/07 1000 DC 11/07 PO 11/14 0959 0954 Enoxaparin Sodium 40 MG DAILY 11/07 1000 AC 11/07 SC 1007 Magnesium Sulfate 1 GM ONCE ONE 11/07 1130 DC 11/07 Dextrose/Water 100 ML IV 11/07 1529 1202 Magnesium Sulfate 0 .STK-MED ONE 11/06 1813 DC .ROUTE Magnesium Sulfate 1 GM Q2H 11/06 1800 DC 11/06 Dextrose/Water 100 ML IV 11/06 2159 2158 Methadone HCl 35 MG DAILY 11/07 1119 AC 11/07 PO 1206 Naloxone HCl 0.4 MG ONCE PRN 11/06 2030 AC IV Sodium Chloride 1,000 ML Q20H 11/06 2030 AC 11/06 IV 2128 Last 24 Hrs of Labs/Mics: Laboratory Tests 11/07/16 0920: Anion Gap 9, Estimated GFR > 60, BUN/Creatinine Ratio 20.0, CBC w Diff NO MAN DIFF REQ, RBC 3.01 L, MCV 84.8, MCH 27.3, RDW 21.1 H, MPV 6.2 L, Gran % 70.0, Lymphocytes % 20.0 L, Monocytes % 9.6 H, Eosinophils % 0.1, Basophils % 0.3, Absolute Granulocytes 6.9 H, Absolute Lymphocytes 2.0, Absolute Monocytes 1.0 H, Absolute Eosinophils 0, Absolute Basophils 0, PUBS MCHC 32.1 L
[2016-11-07 23:00] VITALS: BP 134/80
[2016-11-08 07:42] VITALS: BP 136/78
--- NOTE | 2016-11-08 14:11 | PN- Att Addend ---
Attending Addendum Attending Brief Note Covering attending note Patient sitting at the bedside oxygen on alert oriented 3 in no respiratory distress. Vital signs are stable oxygen saturations adequate on oxygen with no major changes on physical. To continue observation. Current Medications Sig/Freddie Start time Last Medication Dose Route Stop Time Status Admin Acetaminophen 650 MG Q6P PRN 11/06 1800 AC PO Acetaminophen 1,000 MG Q6P PRN 11/06 1800 AC IV Albuterol Sulfate 3 ML EVERY 4 HRS/AWAKE 11/07 1245 AC 11/08 INH 1151 Alprazolam 0.25 MG TID 11/07 1600 AC 11/08 PO 11/14 0959 1235 Budesonide/ 2 PUF BID 11/08 1016 AC 11/08 Formoterol Fumarate INH 1234 Enoxaparin Sodium 40 MG DAILY 11/07 1000 AC 11/08 SC 0951 Magnesium Sulfate 1 GM ONCE ONE 11/07 1130 DC 11/07 Dextrose/Water 100 ML IV 11/07 1529 1202 Methadone HCl 35 MG DAILY 11/07 1119 AC 11/08 PO 0948 Naloxone HCl 0.4 MG ONCE PRN 11/06 2029 AC IV Sodium Chloride 1,000 ML Q20H 11/06 2030 AC 11/08 IV 1232 Vital Signs Date Time Temp Pulse Resp B/P B/P Pulse O2 O2 Flow FiO2 Mean Ox Delivery Rate 11/08 0930 Nasal 3.0L Cannula 11/08 09 96 Nasal 4.0L Cannula 11/08 0742 98.4 82 20 136/78 96 Nasal Cannula
[2016-11-08 15:12] VITALS: BP 138/80
--- NOTE | 2016-11-08 15:37 | PN- Housestaff ---
Subjective Follow-up For: #Acute hypercarbic respiratory failure probably due to methadone overdose questionable suicidal attempt #anemia #Psych issues #chronic pain #htn #copd #gerd Complaints: no complaints Tele-Events Since Last Visit: nsr, 93- Subjective: patient was lying down in bed in no acute distress on nasal oxygen, looks sedated Review of Systems Constitutional: Denies: no symptoms. Cardiovascular: Denies: no symptoms. Respiratory: Reports: no symptoms, short of breath. Objective Last 24 Hrs of Vital Signs/I&O Vital Signs Date Time Temp Pulse Resp B/P B/P Pulse O2 O2 Flow FiO2 Mean Ox Delivery Rate 11/08 1512 98.4 112 20 138/80 96 Nasal 4.0L Cannula 11/08 0930 Nasal 3.0L Cannula 11/08 0900 96 Nasal 4.0L Cannula 11/08 0742 98.4 82 20 136/78 96 Nasal Cannula 11/08 0118 98 Nasal 3.0L Cannula 11/08 0000 97 Nasal 3.0L Cannula 11/07 2300 98.6 98 22 134/80 97 Nasal 3.0L Cannula 11/07 1700 98.0 86 20 132/80 95 Nasal 4.0L Cannula 11/07 1605 99 Nasal 3.5L Cannula 11/07 1600 95 Nasal 4.0L Cannula Intake & Output 11/08 1600 11/08 0800 11/08 0000 Intake Total 943 954 5258 Output Total 1100 325 750 Balance -500 580 250 Intake, IV 400 425 400 Intake, Oral 200 480 600 Output, Stool 150 250 Output, Urine 950 325 500 Patient 89 lb 15.99 oz Weight Weight Reported by Patient Measurement Method Physical Exam General Appearance: Alert, Oriented X3, Cooperative, No Acute Distress Skin: No Rashes, No Breakdown, No Significant Lesion Skin Temp/Moisture Exam: Warm/Dry HEENT: Atraumatic, PERRLA, EOMI, Mucous Membr. moist/pink Neck: Supple Cardiovascular: Regular Rate, Normal S1, Normal S2, No Murmurs Lungs: Clear to Auscultation, Normal Air Movement Abdomen: Normal Bowel Sounds, Soft, No Tenderness Neurological: Normal Speech Extremities: No Edema Current Medications: Current Medications Sig/Freddie Start time Last Medication Dose Route Stop Time Status Admin Acetaminophen 650 MG Q6P PRN 11/06 1800 AC PO Acetaminophen 1,000 MG Q6P PRN 11/06 1800 AC IV Albuterol Sulfate 3 ML EVERY 4 HRS/AWAKE 11/07 1245 AC 11/08 INH 1151 Alprazolam 0.25 MG TID 11/07 1600 AC 11/08 PO 11/14 0959 1235 Budesonide/ 2 PUF BID 11/08 1016 AC 11/08 Formoterol Fumarate INH 1234 Enoxaparin Sodium 40 MG DAILY 11/07 1000 AC 11/08 SC 0951 Methadone HCl 35 MG DAILY 11/07 1119 AC 11/08 PO 0948 Naloxone HCl 0.4 MG ONCE PRN 11/06 2030 AC IV Sodium Chloride 1,000 ML Q20H 11/06 2030 AC 11/08 IV 1232 Assessment/Plan Assessment: 60-year-old woman with PMH significant for 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 pt was found by her visiting nurse at the bedside unresponsive, mostly due to methadone overdose Patient was evaluated earlier this week for a fall which patient received imaging with unremarkable findings, She is on a methadone maintenance program. #Acute hypercarbic respiratory failure probably due to methadone overdose questionable suicidal attempt #anemia #Psych issues #chronic pain #htn #copd #gerd * Patient started on home xanax .25 mg tid * follow cbc as patient has hb 8.2. no clinical signs of anemia -could be chronic bleed, has GERD issues. * continue to monitor in telemetry, * Sitter placed * Psych says she does not appear to be a risk to self, but is concerned about repeated accidental overdose. The patient is agreeable to a locked medication box with visiting nursing to prevent future overuse. * If she becomes more lethargic we'll do ABG again and put her back on BiPAP * PRN Narcan as needed for drowsiness and sedation. * If patient requires more doses of Narcan we'll consider putting her on a drip and transfer her to ICU. STABLE NOW. * PT IS ISOLATION VRE * TRC NEBS * DISPOSITION- HOME HOSPICE- SHE WAS CURRENTLY ON HOME HOSPICE FOR COPD * DNR DNI Problem List: 1. COPD 2. GERD (gastroesophageal reflux disease) 3. Suicide attempt 4. Polysubstance abuse 5. Methadone overdose 6. Benzodiazepine overdose 7. Colostomy in place 8. Chronic pain 9. Hypertension Pain Ratin Pain Location: na Pain Goal: Remain pain free Pain Plan: acetaminophen Tomorrow's Labs & Rationales: cbc bep DVT/Prophylaxis: pharmacological
[2016-11-08 19:39] LABS: ABSOLUTE BASOPHIL COUNT 0 /CUMM (0.0-0.2); ABSOLUTE EOSINOPHIL COUNT 0 /CUMM (0.0-0.7); ABSOLUTE GRANULOCYTE CT 5.3 /CUMM (1.4-6.5); ABSOLUTE LYMPH COUNT 1.4 /CUMM (1.2-3.4); ABSOLUTE MONOCYTE COUNT 0.6 /CUMM (0.10-0.60); BASOPHIL % 0.2 % (0.0-2.0); EOSINOPHIL % 0.6 % (0-5); GRANULOCYTE % 72.3 % (42.2-75.2); HEMATOCRIT 25.9 % (37-47); MEAN CORPUSCULAR HGB 26.9 PG (27.0-31.0); MEAN CORPUSCULAR HGB CONC 31.5 G/DL (33.0-37.0); MEAN CORPUSCULAR VOLUME 85.4 FL (81.0-99.0); PLATELET COUNT 332 /CUMM (130-400); RBC DISTRIBUTION WIDTH 20.5 % (11.5-14.5); RED BLOOD CELL CT 3.03 /CUMM (4.20-5.40); WHITE BLOOD CELL COUNT 7.3 /CUMM (4.8-10.8)
[2016-11-08 23:23] VITALS: BP 128/60
[2016-11-09 07:11] VITALS: BP 150/80
[2016-11-09 08:08] LABS: ABSOLUTE BASOPHIL COUNT 0 /CUMM (0.0-0.2); ABSOLUTE EOSINOPHIL COUNT 0 /CUMM (0.0-0.7); ABSOLUTE GRANULOCYTE CT 4.7 /CUMM (1.4-6.5); ABSOLUTE LYMPH COUNT 1.8 /CUMM (1.2-3.4); ABSOLUTE MONOCYTE COUNT 0.6 /CUMM (0.10-0.60); BASOPHIL % 0.4 % (0.0-2.0); EOSINOPHIL % 0.6 % (0-5); GRANULOCYTE % 65.6 % (42.2-75.2); MEAN CORPUSCULAR HGB 27.5 PG (27.0-31.0); MEAN CORPUSCULAR HGB CONC 32.3 G/DL (33.0-37.0); MEAN CORPUSCULAR VOLUME 85.2 FL (81.0-99.0); MEAN PLATELET VOLUME 5.8 FL (7.4-10.4); PLATELET COUNT 331 /CUMM (130-400); RBC DISTRIBUTION WIDTH 20.6 % (11.5-14.5); RED BLOOD CELL CT 2.93 /CUMM (4.20-5.40); WHITE BLOOD CELL COUNT 7.1 /CUMM (4.8-10.8)
--- NOTE | 2016-11-09 08:54 | PN- Housestaff ---
Subjective Follow-up For: #Acute hypercarbic respiratory failure probably due to methadone overdose questionable suicidal attempt #anemia #Psych issues #chronic pain #htn #copd #gerd Complaints: no complaints Tele-Events Since Last Visit: SR [id number] NO EVENTS Subjective: Patient sitting up in bed on exam. Had just finished breakfast. Feels fine. Is tearful when talking about how her misses her "we need each other". Had her breathing treatment last night but otherwise no events. Review of Systems Constitutional: Reports: no symptoms. EENTM: Reports: no symptoms. Cardiovascular: Denies: chest pain, edema, orthopena, palpitations, peripheral edema, syncope. Respiratory: Reports: short of breath. Gastrointestinal: Reports: no symptoms. Genitourinary: Reports: no symptoms. Musculoskeletal: Reports: no symptoms. Skin: Reports: no symptoms. Neurological/Psychological: Reports: no symptoms. Objective Last 24 Hrs of Vital Signs/I&O Vital Signs Date Time Temp Pulse Resp B/P B/P Pulse O2 O2 Flow FiO2 Mean Ox Delivery Rate 11/09 0900 Nasal 4.0L Cannula 11/09 0813 100 Nasal 4.0L Cannula 11/09 0711 98.4 94 20 150/80 99 Nasal Cannula 11/09 0432 100 Nasal 4.0L Cannula 11/09 0000 96 Nasal 3.0L Cannula 11/08 2323 98.1 100 20 128/60 99 Nasal Cannula 11/08 2011 97 Nasal 4.0L Cannula 11/08 1512 98.4 112 20 138/80 96 Nasal 4.0L Cannula Intake & Output 11/09 1600 11/09 0800 11/09 0000 Intake Total 600 Output Total 700 100 Balance -100 -100 Intake, Oral 600 Output, Stool 175 Output, Urine 525 100 Physical Exam General Appearance: Alert, Oriented X3, Cooperative, No Acute Distress Skin: No Rashes, No Breakdown, No Significant Lesion Skin Temp/Moisture Exam: Warm/Dry Sepsis Skin Exam (color): Normal for Ethnicity HEENT: Atraumatic, PERRLA, EOMI, Mucous Membr. moist/pink Neck: Supple, No JVD, No thryomegaly Cardiovascular: Regular Rate, Normal S1, Normal S2, No Murmurs, Gallops, Rubs Lungs: rhonchi throughout Abdomen: Normal Bowel Sounds, Soft, No Tenderness, No Hepatospenomegaly, No Masses, colostomy bag Neurological: Normal Speech Extremities: No Clubbing, No Cyanosis, No Edema, Normal Pulses, No Tenderness/ Swelling Vascular: Normal Pulses Sepsis Peripheral Pulse Location: Radial Sepsis Peripheral Pulse Exam: Normal Current Medications: Current Medications Sig/Freddie Start time Last Medication Dose Route Stop Time Status Admin Acetaminophen 650 MG Q6P PRN 11/06 1800 AC PO Acetaminophen 1,000 MG Q6P PRN 11/06 1800 AC IV Albuterol Sulfate 3 ML EVERY 4 HRS/AWAKE 11/07 1245 AC 11/09 INH 1129 Alprazolam 0.25 MG ONCE ONE 11/09 0330 DC 11/09 PO 11/09 0331 0335 Alprazolam 0.25 MG TID 11/07 1600 AC 11/09 PO 11/14 0959 0804 Amlodipine Besylate 5 MG DAILY 11/09 1111 AC PO Budesonide/ 2 PUF BID 11/08 1016 AC 11/09 Formoterol Fumarate INH 0806 Enoxaparin Sodium 40 MG DAILY 11/07 1000 AC 11/08 SC 0951 Lisinopril 10 MG DAILY 11/09 1111 AC PO Methadone HCl 35 MG DAILY 11/07 1119 AC 11/09 PO 0803 Naloxone HCl 0.4 MG ONCE PRN 11/06 2030 AC IV Omeprazole 20 MG DAILY AC 11/09 1112 AC PO Sodium Chloride 1,000 ML Q20H 11/06 2030 AC 11/09 IV 0805 Last 24 Hrs of Lab/Merrill Results Last 24 Hrs of Labs/Mics: Laboratory Tests 11/09/16 0648: Anion Gap 3 L, Estimated GFR > 60, BUN/Creatinine Ratio 17.5, CBC w Diff NO MAN DIFF REQ, RBC 2.93 L, MCV 85.2, MCH 27.5, RDW 20.6 H, MPV 5.8 L, Gran % 65.6, Lymphocytes % 24.7, Monocytes % 8.7, Eosinophils % 0.6, Basophils % 0.4, Absolute Granulocytes 4.7, Absolute Lymphocytes 1.8, Absolute Monocytes 0.6, Absolute Eosinophils 0, Absolute Basophils 0, PUBS MCHC 32.3 L 11/08/16 1900: Anion Gap 6, Estimated GFR > 60, BUN/Creatinine Ratio 14.4, CBC w Diff NO MAN DIFF REQ, RBC 3.03 L, MCV 85.4, MCH 26.9 L, RDW 20.5 H, MPV 6.0 L, Gran % 72.3, Lymphocytes % 19.1 L, Monocytes % 7.8, Eosinophils % 0.6, Basophils % 0.2 , Absolute Granulocytes 5.3, Absolute Lymphocytes 1.4, Absolute Monocytes 0.6, Absolute Eosinophils 0, Absolute Basophils 0, PUBS MCHC 31.5 L Lines/Diet/Fluids Fluids/Infusions: none Assessment/Plan Assessment: 60-year-old woman with PMH significant for 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 pt was found by her visiting nurse at the bedside unresponsive, mostly due to methadone overdose. Patient was evaluated earlier this week for a fall which patient received imaging with unremarkable findings. She is on a methadone maintenance program. #Acute hypercarbic respiratory failure probably due to methadone overdose questionable suicidal attempt #anemia #Psych issues #chronic pain #htn #copd #gerd Plan ACUTE RESPIRATORY FAILURE: RESOLVED, PATIENT HAS COPD BASELINE. RECEIVING [facility] NEBS PSYCH: Patient started on home xanax .25 mg tid, she states that her normal dose is .50 mg tid but as per dr. curran, give. 25. continue to monitor in telemetry Sitter placed Psych says she does not appear to be a risk to self, but is concerned about repeated accidental overdose. The patient is agreeable to a locked medication box with visiting nursing to prevent future overuse. ANEMIA cbc as patient has hb 8.2, chronically low. no clinical signs of anemia -could be chronic bleed, has GERD issues. HTN: PATIENT WAS 150/80 TODAY SO NORVASC 5 PO DAILY AND LISINOPRIL 10 MG DAILY STARTED. CHRONIC PAIN: PATIENT ON 35 MG METHADONE AND TYLENOL FOR MINOR PAIN PT IS ISOLATION VRE DISPOSITION- HOME HOSPICE- SHE WAS CURRENTLY ON HOME HOSPICE FOR COPD DNR DNI Problem List: 1. COPD 2. GERD (gastroesophageal reflux disease) 3. Hypertension 4. Suicide attempt 5. Contusion of elbow, left 6. Anemia Pain Ratin Pain Location: na Pain Goal: Remain pain free Pain Plan: na Tomorrow's Labs & Rationales: none
--- NOTE | 2016-11-09 11:27 | PN- Student ---
Subjective Subjective: Mrs. Jain is awake and alert this morning and states she is feeling good. She ate a full breakfast and appeared to have a clear mental status. During examination patient occasionally became tearful but in general seemed optimistic. Patient states she had a breathing treatment last night because she feels "closed in" but denies any other complaints. Objective Objective: Patient is in isolation for VRE Vitals T: 98.4 P: 94, RR 20, BP 150/80. O2 Sat 99% on 4L oxygen nasal cannula. Physical Exam CV: Normal S1 S2 Resp: Bilateral rhonci, decreased breath sounds. Cough with deep inspiration. Abd: Colstomy bag noted. Non tender. Pertinent Labs RBC: 2.93L, HgB 8.1L, Hct 25.0L Cl 94L, 40H, Anion gap 3L Results Results: Laboratory Tests 11/09/16 0648: Anion Gap 3 L, Estimated GFR > 60, BUN/Creatinine Ratio 17.5, CBC w Diff NO MAN DIFF REQ, RBC 2.93 L, MCV 85.2, MCH 27.5, RDW 20.6 H, MPV 5.8 L, Gran % 65.6, Lymphocytes % 24.7, Monocytes % 8.7, Eosinophils % 0.6, Basophils % 0.4, Absolute Granulocytes 4.7, Absolute Lymphocytes 1.8, Absolute Monocytes 0.6, Absolute Eosinophils 0, Absolute Basophils 0, PUBS MCHC 32.3 L 11/08/16 1900: Anion Gap 6, Estimated GFR > 60, BUN/Creatinine Ratio 14.4, CBC w Diff NO MAN DIFF REQ, RBC 3.03 L, MCV 85.4, MCH 26.9 L, RDW 20.5 H, MPV 6.0 L, Gran % 72.3, Lymphocytes % 19.1 L, Monocytes % 7.8, Eosinophils % 0.6, Basophils % 0.2 , Absolute Granulocytes 5.3, Absolute Lymphocytes 1.4, Absolute Monocytes 0.6, Absolute Eosinophils 0, Absolute Basophils 0, PUBS MCHC 31.5 L 11/07/16 0920: Anion Gap 9, Estimated GFR > 60, BUN/Creatinine Ratio 20.0, CBC w Diff NO MAN DIFF REQ, RBC 3.01 L, MCV 84.8, MCH 27.3, RDW 21.1 H, MPV 6.2 L, Gran % 70.0, Lymphocytes % 20.0 L, Monocytes % 9.6 H, Eosinophils % 0.1, Basophils % 0.3, Absolute Granulocytes 6.9 H, Absolute Lymphocytes 2.0, Absolute Monocytes 1.0 H, Absolute Eosinophils 0, Absolute Basophils 0, PUBS MCHC 32.1 L 11/06/16 1549: Lactic Acid Cancelled 11/06/16 1510: pH 7.31 L, pCO2 68 *H, pO2 66 L, HCO3 31 H, ABG O2 Sat (Measured) 90.0 L, Carboxyhemoglobin 0.9 L, O2 Concentration % .35, Respiration Rate 30, O2 Delivery Method BIPAP, Vent Mode ST, Expiratory Pressure 6, Inspiratory Pressure 16, Phlebotomy Draw Site RIGHT RADIAL 11/06/16 1420: Urine Opiates Screen 2975.00 H, Methadone Screen > 735 H, Barbiturate Screen < 60, Ur Phencyclidine Scrn 8.80, Amphetamines Screen < 100, U Benzodiazepines Scrn > 800 H, Urine Cocaine Screen < 50, Urine Cannabis Screen 38.00, Urine Color YEL, Urine Clarity CLEAR, Urine pH 6.0, Ur Specific [place] 1.015, Urine Protein TRACE H, Urine Ketones NEG, Urine Nitrite NEG, Urine Bilirubin NEG, Urine Urobilinogen 0.2, Ur Leukocyte Esterase NEG, Ur Microscopic SEDIMENT EXAMINED, Urine WBC 1-3 H, Ur Epithelial Cells RARE, Urine Hemoglobin NEG, Urine Glucose NEG 11/06/16 1305: pH 7.29 *L, pCO2 71 *H, pO2 110 H, HCO3 33 H, ABG O2 Sat (Measured) 97.0, P-50 (Temp Corrected) N, Carboxyhemoglobin 0.2 L, O2 Concentration % 4.5L, O2 Delivery Method NC, Phlebotomy Draw Site RIGHT RADIAL 11/06/16 1304: Anion Gap 7, Estimated GFR > 60, BUN/Creatinine Ratio 24.4, Glucose 69, Lactic Acid 1.0, Calcium 9.1, Magnesium 1.1 L, Total Bilirubin 0.8, AST 26, ALT 46, Alkaline Phosphatase 99, Creatine Kinase 53, Troponin I < 0.01, Total Protein 6.0 L, Albumin 3.7, Globulin 2.3, Albumin/Globulin Ratio 1.6, CBC w Diff NO MAN DIFF REQ, RBC 3.19 L, MCV 84.7, MCH 27.3, RDW 21.6 H, MPV 6.4 L, Gran % 77.9 H, Lymphocytes % 13.4 L, Monocytes % 7.1, Eosinophils % 1.1, Basophils % 0.5, Absolute Granulocytes 8.2 H, Absolute Lymphocytes 1.4, Absolute Monocytes 0.7 H, Absolute Eosinophils 0.1, Absolute Basophils 0.1, PUBS MCHC 32.3 L, Salicylates < 1.0, Acetaminophen < 10.0 L, Serum Alcohol < 10.0 Assessment/Plan Assessment: Mrs. Jain is a 60 year old female with PMHx significant for end stage COPD on 4L supplemental oxygen via nasal canula, ischemic colitis status post colostomy, chronic pain syndrome on methadone, GERD, hypertension and osteoporosis, and altered mental status on admission presents today with no complaints. Patient was appeared mentally clear during examination and in no acute respiratory distress. Problem List 1. Acute hypercarbic respiratory failure most likely due to combination of methadone and benzos; questionable suicidal attempt 2. Anemia 3. Past history of chronic pain syndrome 4. Past history of hypertension 5. Past history of COPD 6. Past history of GERD 7. Ischemic colitis status post colostomy Plan: 1. Acute hypercarbic respiratory failure most likely due to combination of methadone and benzos; questionable suicidal attempt * Psych consulted. Patient agreed to locked box for opiates and benzos at house or home nurse to access. * If patient becomes lethargic repeat ABG and put on BiPAP. * PRN narcan 2. Anemia * No clinical signs of anemia * Hemoglobin: 8.1, Hct 25.0 3. Past history of chronic pain syndrome * Continue home dose of Methadone 35mg * Continue home does of Xanax .25mg TID 4. Past history of hypertension * Start Amlodipine 5mg and Lisinopril 10mg 5. Past history of COPD * Continue home symbicort 6. Past history of GERD * Continue home omeprazole 20mg 7. Ischemic colitis status post colostomy
--- NOTE | 2016-11-09 15:12 | PN- Att Addend ---
Attending Addendum Attending Brief Note Covering attending note: Patient looking and feeling better sitting at the edge of the bed, in no respiratory distress her vital signs are stable. No major changes on physical Dr. Henderson will be back in the morning probably start disposition plans 24 TOTALS 11/09 0000 11/08 0000 Intake Total 1505 2350 Output Total 1525 1250 Balance -20 1100 Intake, IV 825 1200 Intake, Oral 680 1150 Output, Stool 150 250 Output, Urine 1375 1000 Patient 89 lb 15.99 oz Weight Weight Reported by Patient Measurement Method Current Medications Sig/Freddie Start time Last Medication Dose Route Stop Time Status Admin Acetaminophen 650 MG Q6P PRN 11/06 1800 AC PO Acetaminophen 1,000 MG Q6P PRN 11/06 1800 AC IV Albuterol Sulfate 3 ML EVERY 4 HRS/AWAKE 11/07 1245 AC 11/09 INH 1129 Alprazolam 0.25 MG ONCE ONE 11/09 0330 DC 11/09 PO 11/09 0331 0335 Alprazolam 0.25 MG TID 11/07 1600 AC 11/09 PO 11/14 0959 0804 Amlodipine Besylate 5 MG DAILY 11/09 1111 AC 11/09 PO 1412 Budesonide/ 2 PUF BID 11/08 1016 AC 11/09 Formoterol Fumarate INH 0806 Enoxaparin Sodium 40 MG DAILY 11/07 1000 AC 11/09 SC 1412 Lisinopril 10 MG DAILY 11/09 1111 AC 11/09 PO 1412 Methadone HCl 35 MG DAILY 11/07 1119 AC 11/09 PO 0803 Naloxone HCl 0.4 MG ONCE PRN 11/06 2030 AC IV Omeprazole 20 MG DAILY AC 11/09 1112 AC 11/09 PO 1412 Sodium Chloride 1,000 ML Q20H 11/06 2030 AC 11/09 IV 0805 Laboratory Tests 11/09/16 0648: Anion Gap 3 L, Estimated GFR > 60, BUN/Creatinine Ratio 17.5, CBC w Diff NO MAN DIFF REQ, RBC 2.93 L, MCV 85.2, MCH 27.5, RDW 20.6 H, MPV 5.8 L, Gran % 65.6, Lymphocytes % 24.7, Monocytes % 8.7, Eosinophils % 0.6, Basophils % 0.4, Absolute Granulocytes 4.7, Absolute Lymphocytes 1.8, Absolute Monocytes 0.6, Absolute Eosinophils 0, Absolute Basophils 0, PUBS MCHC 32.3 L 11/08/16 1900: Anion Gap 6, Estimated GFR > 60, BUN/Creatinine Ratio 14.4, CBC w Diff NO MAN DIFF REQ, RBC 3.03 L, MCV 85.4, MCH 26.9 L, RDW 20.5 H, MPV 6.0 L, Gran % 72.3, Lymphocytes % 19.1 L, Monocytes % 7.8, Eosinophils % 0.6, Basophils % 0.2 , Absolute Granulocytes 5.3, Absolute Lymphocytes 1.4, Absolute Monocytes 0.6, Absolute Eosinophils 0, Absolute Basophils 0, PUBS MCHC 31.5 L
[2016-11-09 15:43] VITALS: BP 124/70
[2016-11-09 23:11] VITALS: BP 108/64
[2016-11-10 07:41] VITALS: BP 110/60
--- NOTE | 2016-11-10 10:30 | PN- Att Addend ---
Attending Addendum Attending Brief Note Patient appears comfortable and currently not in respiratory distress. General Appearance: Alert, No Acute Distress Cardiovascular: Regular Rate, Normal S1, Normal S2, No Murmurs Lungs: Decreased air entrynderness Neurological: Normal Speech, Strength at 5/5 X4 Ext, Cranial Nerves 3-12 NL, Reflexes 2+ Extremities: No Clubbing, No Cyanosis, No Edema Assessment Patient is stable from respiratory viewpoint. We will plan for discharge to either inpatient hospice versus outpatient home hospice. Plan Continue current meds TRC and nebs Inpatient versus outpatient home hospice DVT prophylaxis Current Medications Sig/Freddie Start time Last Medication Dose Route Stop Time Status Admin Acetaminophen 650 MG Q6P PRN 11/06 1800 AC PO Acetaminophen 1,000 MG Q6P PRN 11/06 1800 AC IV Albuterol Sulfate 3 ML EVERY 4 HRS/AWAKE 11/07 1245 AC 11/10 INH 0819 Alprazolam 0.25 MG TID 11/07 1600 AC 11/10 PO 11/14 0959 0915 Amlodipine Besylate 5 MG DAILY 11/09 1111 AC 11/10 PO 0915 Budesonide/ 2 PUF BID 11/08 1016 AC 11/10 Formoterol Fumarate INH 0915 Enoxaparin Sodium 40 MG DAILY 11/07 1000 AC 11/10 SC 0914 Lisinopril 10 MG DAILY 11/09 1111 AC 11/10 PO 0914 Methadone HCl 35 MG DAILY 11/07 1119 AC 11/10 PO 0915 Methylprednisolone 40 MG Q12 11/10 1000 AC IV Naloxone HCl 0.4 MG ONCE PRN 11/06 2030 AC IV Omeprazole 20 MG DAILY AC 11/09 1112 AC 11/10 PO 0914 Sodium Chloride 1,000 ML Q20H 11/06 2030 AC 11/10 IV 0412 Laboratory Tests 11/10 1015 Hematology CBC w Diff Pending WBC Pending RBC Pending Hgb Pending Hct Pending MCV Pending MCH Pending RDW Pending Plt Count Pending MPV Pending PUBS MCHC Pending Vital Signs Date Time Temp Pulse Resp B/P B/P Pulse O2 O2 Flow FiO2 Mean Ox Delivery Rate 11/10 0815 103 110/60 11/10 0914 103 110/60 11/10 0822 97 Nasal 4.0L Cannula 11/10 0741 98.2 101 18 110/60 100 Nasal 4.0L Cannula 07/10 0400 99 Nasal 4.0L Cannula 11/09 2311 98.0 104 18 108/64 96 Nasal Cannula 11/09 2210 Nasal 3.0L Cannula 11/09 1640 98 Nasal 4.0L Cannula 11/09 1543 97.6 103 18 124/70 96 Nasal 4.0L Cannula 11/09 1412 94 150/80 07 1412 94 150/80
[2016-11-10 10:56] LABS: ABSOLUTE BASOPHIL COUNT 0 /CUMM (0.0-0.2); ABSOLUTE EOSINOPHIL COUNT 0 /CUMM (0.0-0.7); ABSOLUTE GRANULOCYTE CT 5.2 /CUMM (1.4-6.5); ABSOLUTE LYMPH COUNT 1.8 /CUMM (1.2-3.4); ABSOLUTE MONOCYTE COUNT 0.4 /CUMM (0.10-0.60); BASOPHIL % 0.4 % (0.0-2.0); EOSINOPHIL % 0.2 % (0-5); GRANULOCYTE % 69.7 % (42.2-75.2); HEMATOCRIT 26.2 % (37-47); MEAN CORPUSCULAR HGB 27.3 PG (27.0-31.0); MEAN CORPUSCULAR HGB CONC 32.5 G/DL (33.0-37.0); MEAN PLATELET VOLUME 5.9 FL (7.4-10.4); PLATELET COUNT 363 /CUMM (130-400); RBC DISTRIBUTION WIDTH 20.7 % (11.5-14.5); RED BLOOD CELL CT 3.12 /CUMM (4.20-5.40); WHITE BLOOD CELL COUNT 7.4 /CUMM (4.8-10.8)
--- NOTE | 2016-11-10 11:14 | PN- Housestaff ---
See Addendum Subjective Follow-up For: #Acute hypercarbic respiratory failure probably due to methadone overdose questionable suicidal attempt #anemia #Psych issues #chronic pain #htn #copd #gerd Complaints: pain scale (0-10) Tele-Events Since Last Visit: Normal sinus rhythm rate 98-109 Subjective: Patient was seen and examined at bedside, she was eating breakfast. Is asking when she can leave. Complains of difficulty breathing and requests a breathing treatment and steroids. Also requests her methadone. Review of Systems Constitutional: Reports: no symptoms. EENTM: Reports: no symptoms. Cardiovascular: Reports: no symptoms. Respiratory: Reports: cough, orthopnea, short of breath. Gastrointestinal: Reports: no symptoms. Genitourinary: Reports: no symptoms. Musculoskeletal: Reports: no symptoms. Skin: Reports: no symptoms. Neurological/Psychological: Reports: no symptoms. Hematologic/Endocrine: Reports: no symptoms. Immunologic/Allergic: Reports: no symptoms. Objective Last 24 Hrs of Vital Signs/I&O Vital Signs Date Time Temp Pulse Resp B/P B/P Pulse O2 O2 Flow FiO2 Mean Ox Delivery Rate 11/10 1029 Nasal 4.0L Cannula 11/10 0915 103 110/60 11/10 0914 103 110/60 11/10 0822 97 Nasal 4.0L Cannula 11/10 0741 98.2 101 18 110/60 100 Nasal 4.0L Cannula 11/10 0400 99 Nasal 4.0L Cannula 11/09 2311 98.0 104 18 108/64 96 Nasal Cannula 11/09 2210 Nasal 3.0L Cannula 11/09 1640 98 Nasal 4.0L Cannula 11/09 1543 97.6 103 18 124/70 96 Nasal 4.0L Cannula 11/09 1412 94 150/80 11/09 1412 94 150/80 Intake & Output 11/10 1600 11/10 0800 11/10 0000 Intake Total 100 Output Total 600 150 Balance -600 -150 100 Intake, Oral 100 Output, Stool 150 Output, Urine 600 Physical Exam General Appearance: Alert, Oriented X3, Cooperative, No Acute Distress Skin: No Rashes, No Breakdown, No Significant Lesion Skin Temp/Moisture Exam: Warm/Dry Sepsis Skin Exam (color): Normal for Ethnicity HEENT: Atraumatic, EOMI, Mucous Membr. moist/pink Neck: Supple Cardiovascular: Regular Rate, Normal S1, Normal S2, No Murmurs, Gallops, Rubs Lungs: scattered crackles throughout. Abdomen: Normal Bowel Sounds, Soft, No Tenderness, colostomy bag in place Neurological: Normal Speech Extremities: No Clubbing, No Cyanosis, No Edema, Normal Pulses, No Tenderness/ Swelling Vascular: Normal Pulses Sepsis Peripheral Pulse Location: Radial Sepsis Peripheral Pulse Exam: Normal Current Medications: Current Medications Sig/Freddie Start time Last Medication Dose Route Stop Time Status Admin Acetaminophen 650 MG Q6P PRN 11/06 1800 AC PO Acetaminophen 1,000 MG Q6P PRN 11/06 1800 AC IV Albuterol Sulfate 3 ML EVERY 4 HRS/AWAKE 11/07 1245 AC 11/10 INH 0819 Alprazolam 0.25 MG TID 11/07 1600 AC 11/10 PO 11/14 0959 0915 Amlodipine Besylate 5 MG DAILY 11/09 1111 AC 11/10 PO 0915 Budesonide/ 2 PUF BID 11/08 1016 AC 11/10 Formoterol Fumarate INH 0915 Enoxaparin Sodium 40 MG DAILY 11/07 1000 AC 11/10 SC 0914 Lisinopril 10 MG DAILY 11/09 1111 AC 11/10 PO 0914 Methadone HCl 35 MG DAILY 11/07 1119 AC 11/10 PO 0915 Methylprednisolone 40 MG Q12 11/10 1000 AC 11/10 IV 1052 Naloxone HCl 0.4 MG ONCE PRN 11/06 2030 AC IV Omeprazole 20 MG DAILY AC 11/09 1112 AC 11/10 PO 0914 Sodium Chloride 1,000 ML Q20H 11/06 2030 AC 11/10 IV 0412 Last 24 Hrs of Lab/Merrill Results Last 24 Hrs of Labs/Mics: Laboratory Tests 11/10/16 1015: CBC w Diff Pending, WBC Pending, RBC Pending, Hgb Pending, Hct Pending, MCV Pending, MCH Pending, RDW Pending, Plt Count Pending, MPV Pending, PUBS MCHC Pending Lines/Diet/Fluids Lines: peripheral lines Assessment/Plan Assessment: 60-year-old woman with PMH significant for 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 pt was found by her visiting nurse at the bedside unresponsive, mostly due to methadone overdose. Patient was evaluated earlier this week for a fall which patient received imaging with unremarkable findings. She is on a methadone maintenance program. #Acute hypercarbic respiratory failure probably due to methadone overdose questionable suicidal attempt #anemia #Psych issues #chronic pain #htn #copd #gerd Plan ACUTE RESPIRATORY FAILURE: RESOLVED, PATIENT HAS COPD BASELINE. RECEIVING [facility] NEBS and was given Solu-Medrol 40 mg twice a day. PSYCH: Patient started on home xanax .25 mg tid, she states that her normal dose is .50 mg tid but as per dr. curran, give. 25. continue to monitor in telemetry while she is here Sitter placed for fall precautions Psych says she does not appear to be a risk to self, but is concerned about repeated accidental overdose. The patient is agreeable to a locked medication box with visiting nursing to prevent future overuse. ANEMIA cbc as patient has hb 7.1, chronically low. no clinical signs of anemia -could be chronic bleed, has GERD issues. CBCs pending for today. HTN: PATIENT WAS 150/80 yesterday SO NORVASC 5 PO DAILY AND LISINOPRIL 10 MG DAILY STARTED. Currently blood pressure is better at 110/60 CHRONIC PAIN: PATIENT ON 35 MG METHADONE AND TYLENOL FOR MINOR PAIN GERD: Patient is on omeprazole 20 mg daily PT IS ISOLATION VRE DISPOSITION- HOME HOSPICE-patient is to be discharged today DNR DNI Problem List: 1. Colostomy in place 2. End stage COPD 3. Polysubstance abuse 4. Chronic pain syndrome 5. Hypertension 6. Anemia 7. GERD (gastroesophageal reflux disease) Pain Ratin Pain Location: N/A Pain Goal: Remain pain free Pain Plan: N/A Tomorrow's Labs & Rationales: Patient is to be discharged to home hospice care
--- NOTE | 2016-11-10 11:51 | PN- Student ---
Subjective Subjective: Today Mrs. Jain is sitting at her bedside with her thomas. She is and alert and states she is ready to go home. She is denying an pain but is currently short of breath. Patient just finished a nebulizer treatment and is requesting steroids for her shortness of breath. Objective Objective: Patient is in isolation for VRE. Overnight Tele Events Sinus rhythm, sinus tach. 98-100. No events. Vitals T: 98.2, P 103, RR 18, BP 110/60. Pulse Ox 97% on 4L nasal cannula Physical Exam CV: Normal S1S2. No murmurs rubs or gallops. Lungs: Scattered rhonchi, coughing Extremmities: No pedal edema Labs RBC: 3.12L, Hgb 8.5L, Hct 26.2L Assessment/Plan Assessment: Mrs. Jain is a 60 year old female with PMHx significant for end stage COPD on 4L supplemental oxygen via nasal canula, ischemic colitis status post colostomy, chronic pain syndrome on methadone, GERD, hypertension and osteoporosis, and altered mental status on admission presents today with complaints of shortness of breath. Patient denies any other pain or complaints. Patient is being prepped for discharge to short term rehabilitation. Problem List 1. Acute hypercarbic respiratory failure most likely due to combination of methadone and benzos; questionable suicidal attempt 2. Anemia 3. Past history of chronic pain syndrome 4. Past history of hypertension 5. Past history of COPD 6. Past history of GERD 7. Ischemic colitis status post colostomy Plan: 1. Acute hypercarbic respiratory failure most likely due to combination of methadone and benzos; questionable suicidal attempt * Resolved, Patient has COPD baseline * Started on Solu-medrol 40mg BID * Psych consulted. Does not appear to be risk to self. Both physician and patient agreed to locked box for opiates and benzos at house or home nurse to access to prevent any future overdose. * Continue on telemetry monitoring until discharge. * Sitter continued for precations. 2. Anemia * No clinical signs of anemia * Hemoglobin: 8.5, Hct 26.2 3. Past history of chronic pain syndrome * Continue home dose of Methadone 35mg * Continue Xanax .25mg TID as per Dr. Henderson. 4. Past history of hypertension * Continue Amlodipine 5mg and Lisinopril 10mg * BP today 110/60 5. Past history of COPD * Continue home symbicort * Solu-medrol given BID 6. Past history of GERD * Continue home omeprazole 20mg 7. Ischemic colitis status post colostomy Patient being prepped for discharge to short term rehabilitation.
--- NOTE | 2016-11-10 13:11 | Discharge Summary ---
Visit Information Visit Dates Admission Date: 11/07/16 Discharge Date: 11/10/16 Hospital Course Course Attending Physician: DENISE HENDERSON MD Primary Care Physician: DENISE HENDERSON MD Hospital Course: Patient is a 60-year-old woman with past medical history significant for end- stage COPD on 4 L of oxygen at baseline, ischemic colitis status post colostomy, chronic pain syndrome on methadone, GERD, hypertension, osteoporosis, on home hospice was brought in by EMS with concerns of altered mental status likely due to methadone overdose. In the ED initial ABG showed An accident retention pH 7.2 with a PCO2 of 71 and she was put on BiPAP Pertinent labs on admission: H&H low but stable 8.7/27.0, repeated ABG improved 7.3/PCO2 on BiPAP, 68, PO2 66 :, Low magnesium 1.1, Urine serology positive for methadone and opioids. She was treated in the hospital for: Acute hypercarbic respiratory failure probably due to methadone overdose questionable suicidal attempt: Patient received Narcan in the ED and improved. Patient was admitted to the telemetry floor initially as an observation. She was put on restraints and a sitter was placed. Patient improved with BiPAP and Narcan and became more awake and alert however exhibiting some withdrawal symptoms like anxiety. She was initially kept nothing by mouth and then after passing solid she was started on heart healthy diet. Her home meds methadone and Xanax were resumed for anxiety. Psych evaluated her as she expressed suicidal ideation. It was assumed that patient had overdosed on her medication because of easy availability and a locked medication box was recommended for her. She was continued on Xanax 0.25 3 times a day. Discharged to rehabilitation as sniff hospice. She should be off methadone and only on Xanax and morphine. COPD exacerbation: Continued on [facility] meds and inhalers. Also received IV steroids for respiratory comfort. We'll send her home on quick prednisone taper 40X2, 30X2, 20X2, 10X2 mg. Hypertension: Maintained on Norvasc and lisinopril Chronic pain: Methadone 35 mg and when necessary Tylenol GERD: Patient is on omeprazole 20 mg daily Pain pathway when necessary Tylenol CODE STATUS DNR/DNI Allergies: Coded Allergies: cat dander (UNKNOWN REACTION TO 'PET HAIR/DANDER' 07/07/16) ipratropium (From ATROVENT) ("IT'S TOO MUCH DR DOBULAR SAID" 07/07/16) Disposition Summary Disposition Principal Diagnosis: Acute hypercarbic respiratory failure probably due to methadone overdose questionable suicidal attempt Additional Diagnosis: Hypertension Discharge Disposition: SNF Discharge Instructions General Discharge Information Code Status: Do Not Resucitate/Intubat Patient's Diet: Heart healthy diet with regular thin liquids Patient's Activity: Tolerated Follow-Up Instructions/Appts: #1 please follow-up with Dr. Henderson within 1 week of discharge Medications at Discharge Discharge Medications: Stop taking the following medications: Hydralazine HCl (Hydralazine HCl) 10 MG TABLET ORAL THREE TIMES DAILY Continue taking these medications: Alendronate Sodium (Alendronate Sodium) 70 MG TABLET 1 Tablet ORAL EVERY THURSDAY Instructions: in the morning, at least 30 minutes before the first food, beverage, or medication of the day Comments: NOT GIVNE IN HOSPITAL Gabapentin (Neurontin) 100 MG CAPSULE 1 Capsule ORAL TWICE DAILY Comments: LAST GIVEN: 10/15/16 9:40 AM Mirtazapine (Mirtazapine) 15 MG TABLET 1 Tablet ORAL Every night Comments: LAST GIVEN 10/14/16 8:50 PM Amlodipine Besylate (Amlodipine Besylate) 10 MG TABLET 1 Tablet ORAL DAILY Comments: LAST TAKEN 10/15/16 9:40 AM Theophylline Anhydrous (Theophylline Anhydrous) 200 MG TAB.ER.12H 1 Tablet ORAL DAILY Comments: LAST GIVEN: 10/15/16 9:40 AM Diltiazem HCl (Cardizem Cd) 120 MG CAP.ER.24H 1 Tablet ORAL DAILY Days = 30 Comments: LAST GIVEN 10/15/16 9:41 AM Aspirin (Aspirin*) 81 MG TAB.CHEW 1 Tablet ORAL DAILY Comments: LAST TAKEN: 10/15/16 9:40 AM Tiotropium [place] (Spiriva) 18 MCG CAP.W.DEV 1 Capsule Inhale through mouth DAILY Comments: Last Taken: 10/03/16 Time: 8AM Budesonide/Formoterol Fumarate (Symbicort 160-4.5 Mcg Inhaler) 160 MCG-4.5 MCG/ ACTUATION HFA.AER.AD 2 Puff Inhale through mouth TWICE DAILY Comments: Last Taken: 10/03/16 Time: 6AM Methadone HCl (Methadone HCl) 10 MG/ML ORAL.CONC 35 Milligram ORAL DAILY Comments: LAST GIVEN 10/15/16 5 AM Sodium Chloride (Deep Sea) 0.65 % SPRAY 2 [place] Both sides of nose DAILY Albuterol Sulfate (Albuterol Sulfate) 2.5 MG/0.5 ML VIAL.NEB 1 Vial Inhale Solution EVERY SIX HOURS Cyclobenzaprine HCl (Cyclobenzaprine HCl) 10 MG TABLET 1 Tablet ORAL Q8H as needed for MUSCLE SPASMS Comments: NOT GIVEN Calcium Carbonate (TUMS) 200 MG CALCIUM (500 MG) TAB.CHEW 1,000 Milligram ORAL Every 4 hours as needed for STOMACH UPSET Comments: NOT GIVEN WHILE IN HOSPITAL Prednisone (Prednisone) 10 MG TABLET 1 Tablet ORAL TAPER Qty = 48 Instructions: On Take 10/15-10/17 60 MG 10/18-10/20 40 MG 10/21-10/23 30 MG 10/24-10/26 20 MG 10/27-10/29 10 MG Then Stop Morphine Sulfate (Morphine Sulfate) (Unknown Strength) SOLUTION Unknown Dose ORAL Q1H as needed for PAIN Lisinopril (Lisinopril) 20 MG TABLET 1 Tablet ORAL DAILY Qty = 30 Meloxicam (Meloxicam) 7.5 MG TABLET 1 Tablet ORAL DAILY as needed for PAIN Qty = 30 Copies To: AC VASQUEZ APRN; BARRY MIRELES,[facility]
[2016-11-10] MEDS ORDERED: MORPHINE SULFAT15 M3 PO (13:16)
[2016-11-10] MEDS ORDERED: PREDNISONE10 M2 PO (13:19)
[2016-11-10] MEDS ORDERED: XANAX0.25 M1 PO (13:21)
--- NOTE | 2016-11-10 13:23 | Patient Discharge Instructions ---
Discharge Instructions General Discharge Information You were seen/treated for: acute hypoxic respiratory failure due to methadone overdose Special Instructions: 1. please f/u with Dr Henderson within 1 week of discharge Diet Recommended Diet: Heart Healthy Activity Full Activity/No Limits: Yes (as tolerated) Acute Coronary Syndrome Inclusion Criteria At DC or during hospital stay patient has or had the following: ACS DIAGNOSIS No Discharge Core Measures Meds if any: Prescribed or Continued at Discharge Meds if any: NOT Prescribed or Continued at Discharge Congestive Heart Failure Inclusion Criteria At DC or during hospital stay patient has or had the following: CHF DIAGNOSIS No Discharge Core Measures Meds if any: Prescribed or Continued at Discharge Meds if any: NOT Prescribed or Continued at Discharge Cerebrovascular accident Inclusion Criteria At DC or during hospital stay patient has or had the following: CVA/TIA Diagnosis No Discharge Core Measures Meds if any: Prescribed or Continued at Discharge Meds if any: NOT Prescribed or Continued at Discharge Venous thromboembolism Inclusion Criteria VTE Diagnosis No VTE Type NONE VTE Confirmed by (Test) NONE Discharge Core Measures - Per Current guidelines, there needs to be overlap - treatment for the first 5 days of Warfarin therapy. - If discharged on Warfarin prior to 5 days of - overlap therapy, the patient will need to be - assessed for post discharge needs including - *Post discharge parental anticoagulation - *Warfarin and/or parental anticoagulation education - *Follow up date to check INR post discharge At least 5 days overlap therapy as Inpatient No Meds if any: Prescribed or Continued at Discharge Note: Overlap Therapy is Warfarin and Anticoagulant Meds if any: NOT Prescribed or Continued at Discharge
[2016-11-10 15:19] VITALS: BP 110/60
== END 2016-11-10 16:35 | DRG 812 ==
LOC: ERH 12:20 → 1NO 17:17 → ERHI 17:17 → ENRESERV 18:15 → ENTRNSPT 19:32 → CMPTRNSPT 19:46 → 1NO 20:09 → ENPENDDIS 11-10 13:26 → 1NO 11-10 16:35
PROVIDERS: Physician Assistant; Student in an Organized Health Care Education/Training Program; ADMIT Internal Medicine
DX: T40.3X1A Poisoning by methadone, accidental (unintentional), initial encounter (principal); J44.9 Chronic obstructive pulmonary disease, unspecified; Z99.81 Dependence on supplemental oxygen; K21.9 Gastro-esophageal reflux disease without esophagitis; I10 Essential (primary) hypertension; F32.9 Major depressive disorder, single episode, unspecified; F19.10 Other psychoactive substance abuse, uncomplicated; Z93.3 Colostomy status; J96.02 Acute respiratory failure with hypercapnia; D64.9 Anemia, unspecified; T42.4X1A Poisoning by benzodiazepines, accidental (unintentional), initial encounter; Y92.009 Unspecified place in unspecified non-institutional (private) residence as the place of occurrence of the external cause; G89.4 Chronic pain syndrome; M81.0 Age-related osteoporosis without current pathological fracture; Z78.1 Physical restraint status; R45.851 Suicidal ideations; F11.23 Opioid dependence with withdrawal; Z66 Do not resuscitate; K55.9 Vascular disorder of intestine, unspecified
CPT/HCPCS: 1NP; 6020; 80307; 81001; 82436; 93005; 93010; 94799; 96374; 96375; 96376; 99291; G0378; G0480; J1650; J2310; J2920; J2930; J3490

== ENCOUNTER 2016-11-28 19:47 | Emergency (ER) | payer OTHER ==
[~2016-11-28] VITALS: Ht 152.4 cm; Wt 41.7 kg
[~2016-11-28 19:47] MED LIST changes: +MORPHINE SULFAT15 M3 PO
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
[2016-11-28 20:39] LABS: ABSOLUTE BASOPHIL COUNT 0 /CUMM (0.0-0.2); ABSOLUTE EOSINOPHIL COUNT 0 /CUMM (0.0-0.7); ABSOLUTE GRANULOCYTE CT 26.1 /CUMM (1.4-6.5); ABSOLUTE LYMPH COUNT 0.9 /CUMM (1.2-3.4); BASOPHIL % 0.1 % (0.0-2.0); EOSINOPHIL % 0 % (0-5); GRANULOCYTE % 92.9 % (42.2-75.2); HEMATOCRIT 31.1 % (37-47); MEAN CORPUSCULAR HGB 27.6 PG (27.0-31.0); MEAN CORPUSCULAR VOLUME 83.6 FL (81.0-99.0); MEAN PLATELET VOLUME 6.8 FL (7.4-10.4); PLATELET COUNT 401 /CUMM (130-400); RBC DISTRIBUTION WIDTH 19.2 % (11.5-14.5); RED BLOOD CELL CT 3.73 /CUMM (4.20-5.40); WHITE BLOOD CELL COUNT 28.1 /CUMM (4.8-10.8)
--- NOTE | 2016-11-28 22:56 | CT SCAN REPORT ---
EXAMINATION: CT ABDOMEN AND PELVIS WITH CONTRAST CLINICAL INFORMATION: Diffuse abdominal pain, history of a colostomy. COMPARISON: 10/28/2016. TECHNIQUE: Contiguous axial thin section helical images of the abdomen and pelvis were performed following the administration of 95 mL of intravenous Optiray 320 and without oral contrast. The data set was reformatted in the coronal and sagittal planes and reviewed on an independent workstation DLP: 223 mGy-cm. FINDINGS: LUNG BASES: Hyperexpanded and clear. LIVER AND SPLEEN: Unremarkable. PANCREAS GALLBLADDER AND BILIARY TREE: Gallbladder is contracted somewhat limiting evaluation without evidence of underlying cholelithiasis. No pericholecystic fluid or significant mural thickening is suggested no convincing evidence of acute cholecystitis is seen. The gallbladder and biliary tree appear unremarkable. KIDNEYS, URETERS, AND ADRENALS: Unremarkable. URINARY BLADDER: Moderately fluid-filled and unremarkable. 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 Superior mesenteric vessels remain patent without evidence of underlying stenosis or thrombosis. There are postoperative changes again identified with a diverting transverse colostomy exiting the left lower quadrant anterior abdominal wall with prolapse of the distal colon through the anterior abdominal wall with a large amount of stool in the colostomy bag largely unchanged back to the 09/27/2016 exam. Otherwise the large and small bowel loops are fluid-filled without mural thickening to suggest an acute inflammatory changes. Findings are nonspecific however could represent an evolving gastroenteritis. The residual digital left colon is collapsed and unremarkable. PERITONEAL CAVITY: There is no intraperitoneal free air or free fluid. RETROPERITONEUM: Moderate atherosclerotic changes without evidence of lymphadenopathy. PELVIC ORGANS: Uterus and adnexa appear unremarkable. OSSEOUS STRUCTURES: No aggressive osseous lesions are seen. There are stable moderate compression deformities of the T12 and L1 vertebral bodies with a small hemangioma in the L2 vertebral body on the right. Patient is status post ORIF of a proximal left humeral fracture with fairly extensive heterotopic ossification anteriorly again noted. There is an old healed inferior left pubic ramus fracture again seen. ANTERIOR ABDOMINAL WALL AND SOFT TISSUES: There is a new or increasing midline hernia just above the umbilicus with a widemouth defect versus diastases not as well-seen on the previous exam suggesting a developing hernia without evidence of obstruction. IMPRESSION: 1. No evidence of an acute inflammatory process. 2. There is developing ectasia with mild dilatation of the stomach and duodenum to the level of the superior mesenteric artery suggesting developing superior mesenteric artery syndrome. Clinical correlation recommended. 3. There is an increasing or developing widemouth anterior abdominal wall hernia without evidence of incarceration or strangulation. 4. Postsurgical changes with stable appearing transverse diverting colostomy without obstruction. 5. Nonspecific fluid-filled loops of large and small bowel suggest a gastroenteritis without evidence of associated wall thickening or inflammatory changes.
[2016-11-29 00:29] VITALS: BP 102/59
== END 2016-11-29 00:43 ==
LOC: ERH 19:47
PROVIDERS: Emergency Medicine
DX: R10.33 Periumbilical pain (principal)
CPT/HCPCS: 74177; 81003; 96360; 96361